=== PATIENT | female | born 1955 | race Two or more races ===

== ENCOUNTER 2020-06-15 08:31 | Outpatient (REF) | payer MEDICARE, MEDICAID, SELFPAY ==
[2020-06-15 10:58] LABS: MANUAL DIFF FLAG NO
[2020-06-15 11:00] LABS: Basophils Percent Auto 0.8 % (0-2); Eosinophils Absolute Auto 0.2 X10*3/uL (0.0-0.4); Eosinophils Percent Auto 3.6 % (0-4); Hematocrit 34.9 % (37-47); Hemoglobin 11.9 g/dl (12.0-16.0); Imm Gran Abs Auto 0.01 X10*3/uL (0.00-0.03); Imm Gran Pct Auto 0.2 % (0.0-0.4); Lymphocytes Absolute Auto 1.9 X10*3/uL (1.2-4.9); Lymphocytes Percent Auto 37.2 % (20-40); Mean Corpuscular HGB Conc 34.1 g/dl (31.0-35.0); Mean Corpuscular Hemoglobin 31.6 pg (27.0-33.0); Mean Corpuscular Volume 92.6 fL (80-98); Mean Platelet Volume 9.2 fL (9.4-12.3); Monocytes Absolute Auto 0.3 X10*3/uL (0.1-1.2); Monocytes Percent Auto 6.3 % (2-11); Neutrophils Absolute Auto 2.6 X10*3/uL (2.0-8.3); Neutrophils Percent Auto 51.9 % (45-73); Platelet Count 276 X10*3/uL (160-400); Red Blood Count 3.77 X10*6/uL (4.20-5.50); Red Cell Distribution Width 13.4 % (11.0-16.0); White Blood Count 5.1 X10*3/uL (4.8-10.8)
[2020-06-15 12:50] LABS: Alanine Aminotransferase 18 U/L (0-31); Alkaline Phosphatase 117 U/L (39-117); Anion Gap 15 (12-20); Aspartate Amino Transferase 18 U/L (5-31); Bilirubin Total < 0.2 mg/dL (0.0-1.0); Blood Urea Nitrogen 16 mg/dL (9-16); Calcium 8.8 mg/dL (8.4-10.2); Carbon Dioxide 25 mmol/L (22-29); Chloride 99 mmol/L (96-108); Estimated Glomerular Filt Rate > 60; Glucose Fasting 86 mg/dL (60-99); Potassium 4.4 mmol/l (3.3-5.1); Sodium 135 mmol/L (135-145); Total Protein 6.7 g/dL (6.5-8.0)
[2020-06-15 17:49] LABS: Estimated Average Glucose 111 mg/dL; Hemoglobin A1c % 5.5 %
== END 2020-06-15 08:32 | disposition home or self-care (01) ==
LOC: HO.WFDLDS 08:31
PROVIDERS: Visit Provider Family Medicine
DX: D64.9 Anemia, unspecified (principal); Z00.00 Encounter for general adult medical examination without abnormal findings; E11.40 Type 2 diabetes mellitus with diabetic neuropathy, unspecified
CPT/HCPCS: 36415; 80053; 83036; 85025

== ENCOUNTER → 2021-01-11 08:57 | Outpatient (BNVA) | payer MEDICARE, MEDICAID, SELFPAY | PROVIDERS: PCP Family Medicine; Visit Provider Obstetrics & Gynecology ==

== ENCOUNTER 2021-01-24 09:50 | Outpatient (REF) | payer MEDICARE, MEDICAID, SELFPAY ==
--- NOTE | ~2021-01-24 | XR_ITS ---
EXAMINATION: KNEE X-RAY CLINICAL INFORMATION: Pain COMPARISON: None TECHNIQUE: 3 views of each knee FINDINGS: Right: Bone alignment is normal. No fracture or dislocation is seen. There is degenerative meniscal calcification. There is arthritis at the patellofemoral joint. There is a small joint effusion. Left: Bone alignment is normal. No fracture or dislocation is seen. There is degenerative meniscal calcification. There is arthritis at the patellofemoral joint. There is no joint effusion. XR/XR knee LT 2V IMPRESSION: Mild degenerative changes.
--- NOTE | ~2021-01-24 | XR_ITS ---
EXAMINATION: KNEE X-RAY CLINICAL INFORMATION: Pain COMPARISON: None TECHNIQUE: 3 views of each knee FINDINGS: Right: Bone alignment is normal. No fracture or dislocation is seen. There is degenerative meniscal calcification. There is arthritis at the patellofemoral joint. There is a small joint effusion. Left: Bone alignment is normal. No fracture or dislocation is seen. There is degenerative meniscal calcification. There is arthritis at the patellofemoral joint. There is no joint effusion. XR/XR knee standing BI IMPRESSION: Mild degenerative changes.
--- NOTE | ~2021-01-24 | XR_ITS ---
EXAMINATION: KNEE X-RAY CLINICAL INFORMATION: Pain COMPARISON: None TECHNIQUE: 3 views of each knee FINDINGS: Right: Bone alignment is normal. No fracture or dislocation is seen. There is degenerative meniscal calcification. There is arthritis at the patellofemoral joint. There is a small joint effusion. Left: Bone alignment is normal. No fracture or dislocation is seen. There is degenerative meniscal calcification. There is arthritis at the patellofemoral joint. There is no joint effusion. XR/XR knee RT 2V IMPRESSION: Mild degenerative changes.
== END 2021-01-24 09:51 | disposition home or self-care (01) ==
LOC: HO.XRAY 09:50
PROVIDERS: Visit Provider Orthopaedic Surgery
DX: M17.0 Bilateral primary osteoarthritis of knee (principal); J44.9 Chronic obstructive pulmonary disease, unspecified; E11.40 Type 2 diabetes mellitus with diabetic neuropathy, unspecified; I10 Essential (primary) hypertension; E78.5 Hyperlipidemia, unspecified; G83.84 Todd's paralysis (postepileptic); R91.1 Solitary pulmonary nodule; Z91.81 History of falling; Z88.6 Allergy status to analgesic agent; Z88.8 Allergy status to other drugs, medicaments and biological substances
CPT/HCPCS: 20610; 73560; 73565; 99202; J1040

== ENCOUNTER 2021-02-08 11:00 | Outpatient (RCR) | payer MEDICARE, MEDICAID, SELFPAY | END 2021-12-13 15:02 | disposition home or self-care (01) | LOC: HO.PTWFD 11:00 | PROVIDERS: Visit Provider Family Medicine | DX: R29.898 Other symptoms and signs involving the musculoskeletal system (principal) | CPT/HCPCS: 97110; 97162; 97164; 97530; 97535 ==

== ENCOUNTER 2021-05-04 10:00 | Outpatient (REF) | payer MEDICARE, MEDICAID, SELFPAY | END 2021-05-04 10:01 | disposition home or self-care (01) | LOC: CF 10:00 | PROVIDERS: Visit Provider Surgery | DX: K43.2 Incisional hernia without obstruction or gangrene (principal) | CPT/HCPCS: 99202 ==

== ENCOUNTER 2021-05-04 12:09 | Outpatient (REF) | payer MEDICARE, MEDICAID, SELFPAY ==
--- NOTE | 2021-05-04 14:05 | MHC.AU.HFU ---
Hearing Instrument Follow-Up- Binaural Date of Visit: 05/04/21 Right Ear: Surfboard Designer: Phonak Model: Audeo M50-R Serial Number: [id number] Repair Warranty: 05/23/2023 Loss and Damage Warranty: 05/23/2023 Battery Size: Rechargeable Type of Mold: Slim Tip Type of Wax Guard: CeruStop Dispensed By: [facility] Date of Fittin03/30/2020 Left Ear: Surfboard Designer: Phonak Model: Audeo M50-R Serial Number: [id number] Repair Warranty: 05/23/2023 Loss and Damage Warranty: 05/23/2023 Battery Size: Rechargeable Type of Mold: Slim Tip Type of Wax Guard: Cerustop Dispensed By: [facility] Date of Fittin03/30/2020 Follow-Up Summary: Patient reports her right hearing aid stopping working. She also reports that she has to jiggle the cable on her charger operator helper in order to find the right position where it will start charging the hearing aids. Both hearing aids inspected. Right ironer was occluded w/cerumen. Slim tips cleaned. Wax guards replaced. Shell of hearing aids cleaned. Manager Floral inspected- port for power cord was loose. Patient was given a charger operator helper from stock- we will request a charger operator helper (under warranty) to replace our stock. Both hearing aids are amplifying clearly after maintenance. Otoscopy performed- minimal cerumen bilaterally. Recommendations: Hearing instrument follow-up or maintenance as needed. Please contact our clinic with any questions or concerns. Diagnosis Code(s): Primary Diagnosis: H90.3 Bilateral Sensorineural Hearing Loss Signature: Provider: Abbie Garcia, [facility]
== END 2021-05-04 12:10 | disposition home or self-care (01) ==
LOC: HO.HAP 12:09
PROVIDERS: Visit Provider Family Medicine
DX: Z46.1 Encounter for fitting and adjustment of hearing aid (principal); H90.3 Sensorineural hearing loss, bilateral
CPT/HCPCS: 92593; 99202

== ENCOUNTER 2021-05-14 09:22 | Outpatient (REF) | payer MEDICARE, MEDICAID, SELFPAY ==
[2021-05-14 10:17] LABS: Blood Urea Nitrogen 18 mg/dL (9-16); Estimated Glomerular Filt Rate 52
== END 2021-05-14 09:23 | disposition home or self-care (01) ==
LOC: HO.LAB 09:22
PROVIDERS: PCP Family Medicine; Visit Provider Surgery
DX: K43.2 Incisional hernia without obstruction or gangrene (principal)
CPT/HCPCS: 36415; 82565; 84520

== ENCOUNTER 2021-05-24 10:04 | Outpatient (REF) | payer MEDICARE, MEDICAID, SELFPAY ==
--- NOTE | ~2021-05-24 | CT_ITS ---
EXAMINATION: CT ABDOMEN AND PELVIS WITHOUT CONTRAST CLINICAL INFORMATION: Incisional hernia without obstruction or gangrene COMPARISON: None TECHNIQUE: Multidetector volumetric imaging was performed from the superior aspect of the liver through the pubic symphysis. Sagittal and coronal reformatted images were obtained on the technologist's workstation. This CT examination was performed using dose optimization techniques as appropriate, variously including the following: *Automated exposure control *Adjustment of mA and/or kV according to patient size (this includes techniques or standardized protocols for targeted exams where dose is matched to indication/reason for exam; i.e. extremities or head) *Use of iterative reconstruction technique DLP: 675 mGy-cm FINDINGS: LUNG BASES: There is plate-like atelectasis or scarring in left lung base. Heart size is normal. There are moderate coronary artery calcifications. LIVER, GALLBLADDER, AND BILIARY TREE: The liver is normal in size, shape, and attenuation. No focal hepatic lesion or biliary ductal dilatation is present. The gallbladder is unremarkable with no evidence of radiopaque gallstones, gallbladder wall thickening, or obvious pericholecystic inflammatory changes. PANCREAS: Unremarkable. SPLEEN: Unremarkable. ADRENAL GLANDS: Unremarkable. KIDNEYS AND URETERS: The kidneys are normal in size, shape, and attenuation. No hydronephrosis, hydroureter, or calculi seen. No perinephric stranding. BLADDER: Unremarkable. GASTROINTESTINAL TRACT: There is scattered stool and oral contrast seen throughout the colon without distention. The small bowel loops are normal caliber. Appendix is not seen. ABDOMINAL WALL: The abdominal wall appears unremarkable except for small umbilical hernia containing fat. LYMPH NODES: Normal. VASCULAR: Unremarkable. PELVIC VISCERA: The uterus is midline and appears unremarkable. There is no adnexal mass seen. No free air or free fluid. OSSEOUS STRUCTURES: No lytic or sclerotic process seen. CT/CT abdomen pelvis wo con IMPRESSION: Moderate constipation. No acute intra-abdominal process seen. Small umbilical hernia containing fat. No evidence of abdominal wall hernia.
[2021-05-24] MEDS: Barium Sulfate Oral (Vanilla) 450 ML ORAL.SUSP 900 ML PO (12:32)
== END 2021-05-24 10:05 | disposition home or self-care (01) ==
LOC: HO.CT 10:04
PROVIDERS: Visit Provider Surgery
DX: K43.2 Incisional hernia without obstruction or gangrene (principal)
CPT/HCPCS: 74176

== ENCOUNTER 2021-07-09 10:27 | Outpatient (REF) | payer MEDICARE, MEDICAID, SELFPAY ==
[2021-07-09 14:02] LABS: MANUAL DIFF FLAG NO
[2021-07-09 14:12] LABS: Basophils Absolute Auto 0.1 X10*3/uL (0.0-0.2); Basophils Percent Auto 0.5 % (0-2); Eosinophils Absolute Auto 0.2 X10*3/uL (0.0-0.4); Eosinophils Percent Auto 2.2 % (0-4); Hematocrit 34.8 % (37.0-47.0); Hemoglobin 11.8 g/dl (12.0-16.0); Imm Gran Abs Auto 0.05 X10*3/uL (0.00-0.03); Imm Gran Pct Auto 0.5 % (0.0-0.4); Lymphocytes Percent Auto 21.2 % (20-40); Mean Corpuscular HGB Conc 33.9 g/dl (31.0-35.0); Mean Corpuscular Hemoglobin 31.1 pg (27.0-33.0); Mean Corpuscular Volume 91.8 fL (80.0-98.0); Mean Platelet Volume 9.6 fL (9.4-12.3); Monocytes Absolute Auto 0.5 X10*3/uL (0.1-1.2); Monocytes Percent Auto 5.6 % (2-11); Neutrophils Absolute Auto 6.4 x10*3/uL (2.0-8.3); Platelet Count 340 X10*3/uL (160-400); Red Blood Count 3.79 X10*6/uL (4.20-5.50); Red Cell Distribution Width 13.9 % (11.0-16.0); White Blood Count 9.2 X10*3/uL (4.8-10.8)
[2021-07-09 14:29] LABS: Alanine Aminotransferase 25 U/L (0-31); Albumin Level 4.5 g/dL (3.5-5.0); Alkaline Phosphatase 158 U/L (39-117); Anion Gap 20 (12-20); Aspartate Amino Transferase 20 U/L (5-31); Bilirubin Total 0.2 mg/dL (0.0-1.0); Blood Urea Nitrogen 24 mg/dL (9-16); Calcium 9.9 mg/dL (8.4-10.2); Carbon Dioxide 21 mmol/L (22-29); Chloride 99 mmol/L (96-108); Estimated Average Glucose 148 mg/dL; Estimated Glomerular Filt Rate 51; Glucose Random 118 mg/dL (60-115); Hemoglobin A1c % 6.8 %; Potassium 4.1 mmol/L (3.3-5.1); Sodium 136 mmol/L (135-145); Total Protein 7.7 g/dL (6.5-8.0)
== END 2021-07-09 10:28 | disposition home or self-care (01) ==
LOC: HO.WFDLDS 10:27
PROVIDERS: Visit Provider Family Medicine
DX: Z00.00 Encounter for general adult medical examination without abnormal findings (principal); D64.9 Anemia, unspecified; E11.9 Type 2 diabetes mellitus without complications
CPT/HCPCS: 36415; 80053; 83036; 85025

== ENCOUNTER 2021-11-20 14:45 | Outpatient (REF) | payer MEDICARE, MEDICAID, SELFPAY ==
--- NOTE | ~2021-11-20 | MM_ITS ---
EXAMINATION: MM SCREENING DIGITAL BREAST TOMOSYNTHESIS, BILATERAL CLINICAL INFORMATION: Screening. Asymptomatic. The lifetime risk of breast cancer based on the Tyrer-Cuzick Model is 9%. COMPARISON: Mammography: 05/09/2020; outside mammography 12/26/2014, 05/19/2014, 11/02/2013, 01/18/2013 ([facility], [place]). TECHNIQUE: Digital breast tomosynthesis is performed in both the craniocaudal and mediolateral oblique views along with computer-aided detection (CAD). Synthesized 2D images are generated from the tomosynthesis. FINDINGS: There are scattered areas of fibroglandular density (ACR BI-RADS breast composition Category b). Breast tissue composition borders on heterogeneously dense. Parenchymal pattern is similar to prior studies. There is no developing density or interval mass or architectural abnormality. There are scattered bilateral benign coarse round calcifications as well as some ductal secretory calcifications posterior medial right breast. The axilla and skin contours are unremarkable. No significant changes. MM/MM tomosynthesis screening BI IMPRESSION: No mammographic evidence of malignancy. ASSESSMENT: BI-RADS 2: Benign RECOMMENDATION: Routine annual mammography screening. This patient's information was entered into a reminder system with a target due date for their next mammogram.
== END 2021-11-20 14:46 | disposition home or self-care (01) ==
LOC: HO.MAMMO 14:45
PROVIDERS: Visit Provider Family Medicine
DX: Z12.31 Encounter for screening mammogram for malignant neoplasm of breast (principal)
CPT/HCPCS: 77063; 77067

== ENCOUNTER 2022-01-15 08:46 | Outpatient (REF) | payer MEDICARE, MEDICAID, SELFPAY ==
[2022-01-15 16:52] LABS: CT PCR NOT DETECTED (Not Detect.)
[2022-01-15 16:53] LABS: NG PCR NOT DETECTED (Not Detect.)
[2022-01-16 13:00] LABS: BV Int Neg Control Negative (Negative); BV Int Pos Control Positive (Positive)
== END 2022-01-15 08:47 | disposition home or self-care (01) ==
LOC: HO.LAB 08:46
PROVIDERS: PCP Family Medicine; Visit Provider Obstetrics & Gynecology
DX: Z01.411 Encounter for gynecological examination (general) (routine) with abnormal findings (principal); N89.8 Other specified noninflammatory disorders of vagina; Z78.0 Asymptomatic menopausal state
CPT/HCPCS: 87480; 87491; 87510; 87591; 87660; 99212

== ENCOUNTER 2022-01-30 09:28 | Outpatient (REF) | payer MEDICARE, MEDICAID, SELFPAY ==
--- NOTE | ~2022-01-30 | MM_ITS ---
EXAMINATION: BONE DENSITOMETRY CLINICAL INDICATION: Menopause. COMPARISON: None (current study represents initial baseline exam). TECHNIQUE: Using a [employer] DXA System (software version: 13.1) manufactured by [employer], dual-energy x-ray absorptiometry was performed of the lumbar spine and left hip. The images are of good technical quality. Summary results are attached. FINDINGS: AP SPINE L1-L2 (excluding L3 and L4): The data of L1-L4 has been changed to exclude the L3 and L4 vertebral bodies because degenerative changes at these levels may cause overestimation of the lumbar spine density. BMD 1.135 g/cm2, Z-score -0.5, T-score -0.2, normal. LEFT FEMUR, NECK: BMD 1.085 g/cm2, Z-score 0.3, T-score 0.3, normal. LEFT FEMUR, TOTAL: BMD 1.119 g/cm2, Z-score 0.4, T-score 0.9, normal. IDENTIFIED RISK FACTORS: Menopause, anticonvulsant. HISTORY OF FRACTURE: None listed. MEDICATIONS: Calcium, vitamin D. MM/XR DEXA axial skeleton IMPRESSION: 1. DIAGNOSIS: Normal bone density based on the lowest T-score value of -0.2 in the lumbar spine applying World Health Organization criteria. 2. 10-YEAR FRACTURE RISK PREDICTION, FRAX: According to the guidelines, FRAX calculation should only be performed on patients in the osteopenia bone density category. Therefore, FRAX was not performed on this patient. 3. Treatment Recommendations: NOF guidelines recommend consideration for treatment in postmenopausal women and men age 50 and older presenting with the following: -A hip or vertebral (clinical or morphometric) fracture. -T-score less than or equal to -2.5 at the femoral neck or spine after appropriate evaluation to exclude secondary causes. -Low bone mass at the hip or spine and a 10-year fracture probability by FRAX of greater than or equal to 3% for hip fracture or greater than or equal to 20% for major osteoporotic fracture based on the [place] adapted WHO algorithm. 4. Other Recommendations: All treatment decisions require clinical judgment and consideration of individual patient factors, including patient preferences, comorbidities, previous drug use, risk factors not captured in the FRAX model (e.g. frailty, falls, vitamin D deficiency, increased bone turnover, interval significant decline in bone density) and possible under or overestimation of fracture risk by FRAX. FUTURE SCAN RECOMMENDATION: People with diagnosed cases of osteoporosis or at high risk for fracture should have regular bone mineral density tests. For patients eligible for Medicare, routine testing is allowed once every 2 years. The testing frequency can be increased to one year for patients who have rapidly progressing disease, those who are receiving or discontinuing medical therapy to restore bone mass, or have additional risk factors.
== END 2022-01-30 09:29 | disposition home or self-care (01) ==
LOC: HO.MAMMO 09:28
PROVIDERS: PCP Family Medicine; Visit Provider Obstetrics & Gynecology
DX: Z13.820 Encounter for screening for osteoporosis (principal); Z78.0 Asymptomatic menopausal state
CPT/HCPCS: 77080

== ENCOUNTER 2022-02-22 10:00 | Outpatient (RCR) | payer MEDICARE, MEDICAID, SELFPAY ==
--- NOTE | 2021-11-29 15:38 | MHC.PT.EP ---
[facility] [place] Office [place] Office [place] Office [address] Beryl Esqueda [address] [phone] F: [phone] F: [phone] F: [phone] F: [phone] Physical Therapy Plan of Care Date of Evaluation: Date of Surgery: NA Diagnosis: MALAISE Assessment: Pt IS 66 YO F REFERRED TO PT FROM DR VAZQUEZ WITH MALAISE. Pt REPORTS SHE HAD PT LAST YEAR BUT NEVER FINISHED SESSIONS BECAUSE OF HOSPITAL ADMISSION (LEG PAIN). PRESENTS AT THIS TIME WITH ANTALGIC GT WITH ROLLATOR, DECREASED BALANCE, OVERALL STRENGTH AND ENDURANCE. 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 REPORTS SOME RELIEF WITH PT IN PAST AND MAY THEREFORE BENEFIT FROM SOME THERAPY AT THIS TIME TO HELP WITH OVERALL STRENGTH, FLEXIBILITY, GT/BALANCE Frequency and Duration: The patient will be seen 2X/WK X 8 WKS Short Term Goals: 1. I HEP WITH DC EX PLAN 2. I PERF PLB PRN TO SETTLE SANDOVAL Elevator Runner Goals: 1. IMPROVED TUG 2. MOD I TRANSFERS T/O 3. Pt ABLE TO PERF 20 R SLR B, 20 R BRIDGE B Treatment Plan: Modalities to reduce pain, spasms and effusion. Manual therapy to restore motion and function. Therapeutic exercise to improve strength and flexibility. Neuromuscular re-education for posture and balance. Therapeutic activities to return to functional activities of daily living. Electronically signed by: BEBO ARELLANO PT Please sign and return to therapist. Thank you for your referral.
== END 2022-03-01 11:47 | disposition home or self-care (01) ==
LOC: HO.PTWFD 10:00
PROVIDERS: Visit Provider Family Medicine
DX: R53.81 Other malaise (principal)
CPT/HCPCS: 97110; 97162; 97530

== ENCOUNTER → 2022-03-21 11:08 | Outpatient (BNVA) | payer MEDICARE, MEDICAID, SELFPAY | PROVIDERS: PCP Family Medicine; Visit Provider Obstetrics & Gynecology | DX: M85.80 Other specified disorders of bone density and structure, unspecified site (principal) | CPT/HCPCS: 99212 ==

== ENCOUNTER → 2022-07-15 12:53 | Outpatient (BNVA) | payer MEDICARE, MEDICAID, SELFPAY | PROVIDERS: PCP Family Medicine; Visit Provider Urology | DX: R32 Unspecified urinary incontinence (principal); N32.81 Overactive bladder | CPT/HCPCS: 51798; 99202 ==

== ENCOUNTER 2022-08-15 09:00 | Outpatient (REF) | payer MEDICARE, MEDICAID, SELFPAY | END 2022-08-15 09:01 | disposition home or self-care (01) | LOC: HO.HAP 09:00 | PROVIDERS: Visit Provider Family Medicine | DX: Z46.1 Encounter for fitting and adjustment of hearing aid (principal); H90.3 Sensorineural hearing loss, bilateral | CPT/HCPCS: 92593 ==

== ENCOUNTER 2022-11-11 10:26 | Outpatient (REF) | payer MEDICARE, MEDICAID, SELFPAY ==
--- NOTE | ~2022-11-11 | US_ITS ---
EXAMINATION: US RETROPERITONEAL LIMITED (RENAL ONLY) CLINICAL INFORMATION: Overactive bladder. COMPARISON: CT abdomen and pelvis without contrast 05/24/2021. TECHNIQUE: Real-time imaging of the kidneys. FINDINGS: RIGHT KIDNEY: 9.8 x 5.1 x 4.2 cm (SAG x AP x TRV). The kidney is normal in size, contour, and echogenicity. Renal cortical thickness is normal. No calculi or focal parenchymal lesions. No hydronephrosis. LEFT KIDNEY: 10.0 x 5.2 x 5.0 cm (SAG x AP x TRV). The kidney is normal in size, contour, and echogenicity. Renal cortical thickness is normal. No calculi or focal parenchymal lesions. No hydronephrosis. US/US renal BI IMPRESSION: Normal-appearing kidneys.
== END 2022-11-11 10:27 | disposition home or self-care (01) ==
LOC: HO.US 10:26
PROVIDERS: PCP Family Medicine; Visit Provider Urology
DX: N32.81 Overactive bladder (principal); R32 Unspecified urinary incontinence
CPT/HCPCS: 76775

== ENCOUNTER 2022-11-12 15:54 | Emergency (ER) | payer MEDICARE, MEDICAID, SELFPAY ==
--- NOTE | ~2022-11-12 | CT_ITS ---
EXAMINATION: CT ABDOMEN AND PELVIS WITHOUT CONTRAST CLINICAL INFORMATION: Diffuse abdominal pain, nausea, vomiting. COMPARISON: CT abdomen and pelvis noncontrast 05/24/2021. TECHNIQUE: Multidetector volumetric imaging was performed from the superior aspect of the liver through the pubic symphysis. No oral or intravenous contrast. Sagittal and coronal reformatted images were obtained on the technologist's workstation. This CT examination was performed using dose optimization techniques as appropriate, variously including the following: *Automated exposure control *Adjustment of mA and/or kV according to patient size (this includes techniques or standardized protocols for targeted exams where dose is matched to indication/reason for exam; i.e. extremities or head) *Use of iterative reconstruction technique DLP: 771 mGy-cm FINDINGS: LUNG BASES: The visualized lung bases are unremarkable. LIVER, GALLBLADDER, AND BILIARY TREE: The liver is normal in size, shape, and attenuation. No focal hepatic lesion or biliary ductal dilatation is present. The gallbladder is unremarkable with no evidence of radiopaque gallstones, gallbladder wall thickening, or obvious pericholecystic inflammatory changes. PANCREAS: Unremarkable. SPLEEN: Unremarkable. ADRENAL GLANDS: Unremarkable. KIDNEYS AND URETERS: The kidneys are normal in size, shape, and attenuation. No hydronephrosis, hydroureter, or calculi seen. No perinephric stranding. BLADDER: Unremarkable. GASTROINTESTINAL TRACT: There is some fatty herniation at the esophageal hiatus without overt hiatal hernia. There is moderate stool throughout the colon. No proximal bowel dilatation. No pneumatosis or free air. No bowel wall thickening or inflammatory changes in the mesentery. The appendix is not seen with certainty, not visualized on prior CT. No inflammatory changes around the terminal ileum or cecum. No ascites or fluid collection. ABDOMINAL WALL: No significant hernia is appreciated. LYMPH NODES: No lymphadenopathy. VASCULAR: Coronary artery atherosclerotic calcifications. PELVIC VISCERA: No adnexal mass or pelvic ascites. OSSEOUS STRUCTURES: Unremarkable. CT/CT abdomen pelvis wo IV con IMPRESSION: -Moderate stool throughout colon. No proximal bowel dilatation or inflammatory changes in abdomen or pelvis. -No hydronephrosis or perinephric stranding.
[2022-11-12 16:09] VITALS: BP 140/87; PULSE 79; RESP 18; TEMP 36.6; O2SAT 100; BMI 37.8
--- NOTE | 2022-11-12 16:10 | ED.ABDPAIN ---
HPI - Abdominal Pain General Chief Complaint: Abdominal Pain <MARILYN Parmar - Last Filed: 11/12/22 19:11> Stated Complaint: abdominal pain <MARILYN Parmar - Last Filed: 11/12/22 19:11> Time Seen by Provider: 11/12/22 19:28 <MARILYN Parmar - Last Filed: 11/12/22 19:11> Source: patient <Gely Pittman MD - Last Filed: 11/13/22 01:36> Mode of arrival: EMS <Gely Pittman MD - Last Filed: 11/13/22 01:36> History of Present Illness HPI narrative: 66-year-old female is brought in from home by EMS for evaluation of low sodium, patient states that she has been having lower abdominal discomfort for several days and has diarrhea at baseline but otherwise denies any fever, chills has had some mild nausea but no vomiting. Patient states that her primary care provider requested that she be brought in for evaluation. Patient states that she has not been able to eat very much due to feelings of early satiety. <Gely Pittman MD - Last Filed: 11/13/22 01:36> Related Data Home Medications: Home Medications Medication Instructions Recorded Confirmed albuterol sulfate 90 mcg/actuation 1 puff PO Q4H PRN 05/12/20 11/07/22 aerosol inhaler montelukast 10 mg tablet 10 mg PO DAILY 05/12/20 11/07/22 albuterol sulfate 2.5 mg/3 mL mg inhalation Q6H PRN wheezing 05/31/20 11/07/22 (0.083 %) solution for nebulization benzonatate 100 mg capsule 100 mg PO TID PRN cough 05/31/20 11/07/22 budesonide-formoterol HFA 160 2 puff inhalation BID 05/31/20 11/07/22 mcg-4.5 mcg/actuation aerosol inhaler diphenhydramine HCl 25 mg capsule 25 mg PO Q8H PRN itch 05/31/20 11/07/22 fluticasone propionate 110 2 puff inhalation BID 05/31/20 11/07/22 mcg/actuation HFA aerosol inhaler levetiracetam 1,000 mg tablet 1,000 mg PO BID 05/31/20 11/07/22 losartan 100 mg tablet 100 mg PO DAILY 05/31/20 11/07/22 sertraline 50 mg tablet 50 mg PO DAILY 10/26/20 11/07/22 fluticasone fur. 200 mcg-umeclid 1 ea inhalation DAILY 02/23/21 11/07/22 62.5 mcg-vilant 25 mcg inhalat.powder famotidine 20 mg tablet 20 mg PO BID 05/04/21 11/07/22 Previous Rx's Medication Instructions Recorded benztropine 1 mg tablet 1 mg PO BID #180 tabs 08/14/20 trazodone 50 mg tablet 100 mg PO BEDTIME 30 days #60 tabs 09/24/20 risperidone 1 mg tablet 1 mg PO BID #60 tabs 10/01/20 antiarthritic combination no.2 900 900 mg PO DAILY 30 days #30 tabs 01/16/21 mg tablet (glucosamine-chondroitin) glucosamine sulf dipotassium Cl 1 tab PO DAILY 90 days #90 tabs 01/18/21 750 mg-chondroitin sulf 600 mg tablet blood-glucose meter (FreeStyle #1 ea 08/17/21 Lite Meter kit) carbamazepine 200 mg tablet 200 mg PO BID 3 months #180 tabs 11/01/21 diclofenac sodium 1 % topical gel 1 - 2 g topical QID #200 grams 11/01/21 omeprazole 40 mg capsule,delayed 40 mg PO DAILY #90 caps 01/24/22 release citalopram 40 mg tablet 20 mg PO DAILY 90 days #45 tabs 01/28/22 lancets 28 gauge (FreeStyle 28 gauge topical BID #100 caps 04/01/22 Lancets) atorvastatin 40 mg tablet 40 mg PO DAILY #90 tabs 05/23/22 hydralazine 25 mg tablet 25 mg PO TID #270 tabs 05/23/22 hydrochlorothiazide 50 mg tablet 50 mg PO DAILY 90 days #90 tabs 05/23/22 metformin 500 mg tablet 1,000 mg PO BID #360 tabs 05/23/22 multivitamin (One Daily 1 tab PO DAILY #90 tabs 06/25/22 Multivitamin tablet) simethicone 80 mg chewable tablet 80 mg PO BID-QID PRN for abdominal 06/25/22 pain #90 tabs oxybutynin chloride 10 mg 10 mg PO DAILY #90 tabs 07/15/22 tablet,extended release 24 hr diaper,brief,adult,disposable #300 ea 07/17/22 (Briefs, Adult-Extra Large) incontinence pad, liner, disp #300 ea 07/17/22 amlodipine 10 mg tablet 10 mg PO DAILY #90 tabs 07/23/22 ibuprofen 600 mg tablet 600 mg PO TID PRN for pain #90 tabs 08/19/22 mecobalamin (vitamin B12) 1,000 1,000 mcg PO DAILY 90 days #90 tabs 08/26/22 mcg chewable tablet pregabalin 100 mg capsule 100 mg PO TID 30 days #90 caps 09/12/22 clopidogrel 75 mg tablet 75 mg PO DAILY 90 days #90 tabs 09/18/22 dulaglutide 1.5 mg/0.5 mL 1.5 mg (0.5 mL) subcut QWEEK 28 09/20/22 subcutaneous pen injector days #2 mL blood sugar diagnostic (FreeStyle #200 ea 09/30/22 Lite Strips) celecoxib 200 mg capsule 200 mg PO BID #60 caps 10/02/22 glipizide 10 mg tablet, extended 10 mg PO BID 30 days #60 tabs 11/07/22 release 24 hr ondansetron 4 mg disintegrating 4 mg PO Q8H PRN nausea and 11/07/22 tablet vomiting 7 days #21 tabs <MARILYN Parmar - Last Filed: 11/12/22 19:11> Allergies/Adverse Reactions: Allergies Allergy/AdvReac Type Severity Reaction Status Date / Time aspirin [ASA] Allergy Unknown RASH Verified 08/08/22 09:35 phenytoin [From DILANTIN] AdvReac Unknown SWELLING Verified 08/08/22 09:35 <MARILYN Parmar - Last Filed: 11/12/22 19:11> Review of Systems Review of Systems Pertinent positives and negatives as stated in HPI <Gely Pittman MD - Last Filed: 11/13/22 01:36> PMFSH Past Medical History Source: nursing notes reviewed <Gely Pittman MD - Last Filed: 11/13/22 01:36> Medical History: Medical History Anxiety disorder, unspecified Bilateral primary osteoarthritis of knee Chronic obstructive pulmonary disease, unspecified Constipation due to slow transit Controlled diabetes mellitus with diabetic neuropathy, without long-term current use of insulin Diabetes Epilepsy, unspecified, not intractable, without status epilepticus Essential (primary) hypertension Gait instability Hyperlipidemia, unspecified Neuropathy Dash's paralysis (postepileptic) Unspecified asthma, uncomplicated Unspecified hearing loss, bilateral <MARILYN Parmar - Last Filed: 11/12/22 19:11> Surgical History: Surgical History History of solitary pulmonary nodule <MARILYN Parmar - Last Filed: 11/12/22 19:11> Family History Family History: Family History Father Bone cancer Mother Breast cancer Brother No problems noted. Brother No problems noted. Brother No problems noted. Sister No problems noted. Sister Uterine cancer Son No problems noted. Son No problems noted. Daughter No problems noted. Daughter No problems noted. Other Mental health disorder Substance use disorder <MARILYN Parmar - Last Filed: 11/12/22 19:11> Social History Social History: Social History Housing: Apartment Alcohol intake: never Patient Tobacco Use Status: Never used Tobacco Smoked in Last 30 Days: No e-Cigarette/Vaping Use: Never Used Second Hand Smoke Exposure: No Use of substances other than those prescribed or required for medical reasons: No Advance Directives: No Advance Directives Information Provided: No service: No Current occupational status: retired Current occupation: Right Handed Current occupational exposures/hazards: No Cognitive needs: No Hearing needs: No Vision needs: No <MARILYN Parmar Last Filed: 11/12/22 19:11> Physical Exam ED Vital Signs: Vital Signs - 24 hr 11/12/22 16:09 11/12/22 22:21 11/12/22 22:44 Temperature 98 F Pulse Rate 79 76 96 Respiratory Rate 18 19 20 Blood Pressure 140/87 H 142/86 H 190/87 H Pulse Oximetry 100 97 98 Oxygen Delivery Method Room Air Room Air Room Air 11/12/22 23:49 11/13/22 01:22 Temperature 97.8 F 102.7 F H Pulse Rate 71 99 Respiratory Rate 18 21 H Blood Pressure 159/81 H Pulse Oximetry 98 96 Oxygen Delivery Method Room Air Room Air BMI result Body Mass Index 37.8 <MARILYN Parmar - Last Filed: 11/12/22 19:11> Vital Signs - 24 hr 11/12/22 16:09 11/12/22 22:21 11/12/22 22:44 Temperature 98 F Pulse Rate 79 76 96 Respiratory Rate 18 19 20 Blood Pressure 140/87 H 142/86 H 190/87 H Pulse Oximetry 100 97 98 Oxygen Delivery Method Room Air Room Air Room Air 11/12/22 23:49 11/13/22 01:22 Temperature 97.8 F 102.7 F H Pulse Rate 71 99 Respiratory Rate 18 21 H Blood Pressure 159/81 H Pulse Oximetry 98 96 Oxygen Delivery Method Room Air Room Air BMI result Body Mass Index 37.8 VITAL SIGNS: Reviewed. GENERAL: Well developed, well nourished, in no acute distress. HEAD: Normocephalic/atraumatic EYES: PERRLA, EOMI EARS: Ext canals without abnormality OROPHARYNX: no oral lesions noted, posterior pharynx clear, dry mucosa NECK: Supple, no adenopathy LUNGS: Normal breath sounds. No adventitious sounds or accessory muscle use. SpO2<100> CARDIOVASCULAR: Regular rate and rhythm without noted murmurs, no JVD or lower extremity edema. ABDOMEN: Soft, abdominal discomfort over mid abdomen to suprapubic area without rebound, non-distended with bowel sounds. MUSCULOSKELETAL: No tenderness, deformities, or effusions noted on gross inspection. EXTREMITIES: No cyanosis, clubbing or edema. SKIN: Inspection of the skin reveals no rashes NEUROLOGIC: Alert and oriented x 4. Strength and sensation to light touch were grossly intact x 4. <Gely Pittman MD - Last Filed: 11/13/22 01:36> Course Course Course Narrative: This is an RME: Additional HPI, ROS, PE not included below will be deferred to primary provider. 66-year-old female history of diabetes and hypertension presents by ambulance for evaluation of nausea, vomiting, fatigue, malaise, right lower quadrant abdominal pain times a few weeks. She tells me she recently had labs done and she thinks her sodium was low however she is unsure. Patient poor historian physical exam Diffuse abdominal discomfort plan basic labs, imaging, urine. <MARILYN Parmar Last Filed: 11/12/22 19:11> Reevaluation(s) Reevaluation #1: Critical labs from the lab line discussed with this TARA. Critically low mag and na trying to find a bed in the main ed. Family upset about wait time I explained to them I spoke to charge nurse we are trying to find a bed w/ contract management specialist. Patient next in line ot go back <MARILYN Parmar Last Filed: 11/12/22 19:11> Time: 19:00 <MARILYN Parmar Last Filed: 11/12/22 19:11> Reevaluation #2: Family upset and state they are taking patient patient leaving the hospital and being taken to another hospital I explained to family this is dangerous. Family chooses to leave. <MARILYN Parmar Last Filed: 11/12/22 19:11> Time: 19:11 <MARILYN Parmar Last Filed: 11/12/22 19:11> Medical Decision Making Medical Decision Making MDM Narrative: 66-year-old female with 2 weeks of worsening abdominal discomfort, decreased appetite with mild nausea but has continued to have bowel movements and also reports pain over the suprapubic area. Patient states that she has been unable to urinate well for at least 2 days. Reviewed all investigations, bladder scan demonstrates significant urinary retention that is likely secondary to patient's constipation. There is no evidence of UTI, patient had undergo a total of 4 g of magnesium replacement with final value 1.9. She is feeling much better and is otherwise stable for discharge to home and follow-up with her primary care provider. <Gely Pittman MD - Last Filed: 11/13/22 01:36> Differential Diagnosis Please see the discussion above <Gely Pittman MD - Last Filed: 11/13/22 01:36> Lab Data Please see the discussion above <Gely Pittman MD - Last Filed: 11/13/22 01:36> Result Diagrams: 11/12/22 17:04 04/04/23 17:04 <MARILYN Parmar - Last Filed: 11/12/22 19:11> Labs: Lab Results 11/12/22 11/12/22 11/12/22 Range/Units 17:04 17:04 17:04 WBC 6.8 (4.8-10.8) X10*3/uL RBC 3.58 L (4.20-5.50) X10*6/uL Hgb 10.7 L (12.0-16.0) g/dl Hct 30.9 L (37.0-47.0) % MCV 86.3 (80.0-98.0) fL MCH 29.9 (27.0-33.0) pg MCHC 34.6 (31.0-35.0) g/dl RDW 13.9 (11.0-16.0) % Plt Count 333 (160-400) X10*3/uL MPV 8.7 L (9.4-12.3) fL Immature Gran % (Auto) 0.4 (0.0-0.4) % Neut % (Auto) 61.2 (45-73) % Lymph % (Auto) 26.0 (20-40) % Butler % (Auto) 8.5 (2-11) % Eos % (Auto) 3.2 (0-4) % Baso % (Auto) 0.7 (0-2) % Lymph # (Auto) 1.8 (1.2-4.9) X10*3/uL Butler # (Auto) 0.6 (0.1-1.2) X10*3/uL Eos # (Auto) 0.2 (0.0-0.4) X10*3/uL Baso # (Auto) 0.1 (0.0-0.2) X10*3/uL Abs Immat Gran (auto) 0.03 (0.00-0.03) X10*3/uL Absolute Neuts (auto) 4.2 (2.0-8.3) x10*3/uL Absolute Nucleated RBC 0.000 (0.0-0.012) X10*3/uL Nucleated RBC % (auto) 0.0 (0.0-0.2) /100WBC Sodium 127 L (135-145) mmol/L Potassium 3.6 (3.3-5.1) mmol/L Chloride 89 L (96-108) mmol/L Carbon Dioxide 26 (22-29) mmol/L Anion Gap 16 (12-20) BUN 17 H (9-16) mg/dL Creatinine 1.05 (0.5-1.4) mg/dL Estim Creat Clear Calc 58.8 Estimated GFR 52 Random Glucose 107 (60-115) mg/dL Calcium 9.1 D (8.4-10.2) mg/dL Magnesium 0.9 L* (1.6-2.6) mg/dL Total Bilirubin 0.3 (0.0-1.0) mg/dL AST 23 (5-31) U/L ALT 29 (0-31) U/L Alkaline Phosphatase 108 (39-117) U/L Total Protein 6.8 (6.5-8.0) g/dL Albumin 4.2 (3.5-5.0) g/dL Lipase 19 (8-78) U/L Urine Color Urine Appearance Urine pH (5.0-9.0) Ur Specific [place] (1.005-1.025) Urine Protein (Neg-Trace) mg/dL Urine Glucose (UA) (Negative) mg/dL Urine Ketones (Negative) mg/dL Urine Blood (Negative) Urine Nitrite (Negative) Ur Leukocyte Esterase (Negative) COVID-19 (VICKIE) Negative (Negative) COVID-19 Clin Com See Note 11/12/22 11/12/22 11/13/22 Range/Units 20:29 22:23 00:57 WBC (4.8-10.8) X10*3/uL RBC (4.20-5.50) X10*6/uL Hgb (12.0-16.0) g/dl Hct (37.0-47.0) % MCV (80.0-98.0) fL MCH (27.0-33.0) pg MCHC (31.0-35.0) g/dl RDW (11.0-16.0) % Plt Count (160-400) X10*3/uL MPV (9.4-12.3) fL Immature Gran % (Auto) (0.0-0.4) % Neut % (Auto) (45-73) % Lymph % (Auto) (20-40) % Butler % (Auto) (2-11) % Eos % (Auto) (0-4) % Baso % (Auto) (0-2) % Lymph # (Auto) (1.2-4.9) X10*3/uL Butler # (Auto) (0.1-1.2) X10*3/uL Eos # (Auto) (0.0-0.4) X10*3/uL Baso # (Auto) (0.0-0.2) X10*3/uL Abs Immat Gran (auto) (0.00-0.03) X10*3/uL Absolute Neuts (auto) (2.0-8.3) x10*3/uL Absolute Nucleated RBC (0.0-0.012) X10*3/uL Nucleated RBC % (auto) (0.0-0.2) /100WBC Sodium 128 L (135-145) mmol/L Potassium 3.4 (3.3-5.1) mmol/L Chloride 90 L (96-108) mmol/L Carbon Dioxide 26 (22-29) mmol/L Anion Gap 15 (12-20) BUN 15 (9-16) mg/dL Creatinine 0.86 (0.5-1.4) mg/dL Estim Creat Clear Calc 71.8 Estimated GFR > 60 Random Glucose 113 (60-115) mg/dL Calcium 9.1 (8.4-10.2) mg/dL Magnesium 1.3 L* 1.9 (1.6-2.6) mg/dL Total Bilirubin 0.4 (0.0-1.0) mg/dL AST 22 (5-31) U/L ALT 28 (0-31) U/L Alkaline Phosphatase 104 (39-117) U/L Total Protein 6.6 (6.5-8.0) g/dL Albumin 4.0 (3.5-5.0) g/dL Lipase (8-78) U/L Urine Color Yellow Urine Appearance Clear Urine pH 5.5 (5.0-9.0) Ur Specific [place] 1.010 (1.005-1.025) Urine Protein Negative (Neg-Trace) mg/dL Urine Glucose (UA) Negative (Negative) mg/dL Urine Ketones Negative (Negative) mg/dL Urine Blood Negative (Negative) Urine Nitrite Negative (Negative) Ur Leukocyte Esterase Negative (Negative) COVID-19 (VICKIE) (Negative) COVID-19 Clin Com <MARILYN Parmar - Last Filed: 11/12/22 19:11> Lab Results 11/12/22 11/12/22 11/12/22 Range/Units 17:04 17:04 17:04 WBC 6.8 (4.8-10.8) X10*3/uL RBC 3.58 L (4.20-5.50) X10*6/uL Hgb 10.7 L (12.0-16.0) g/dl Hct 30.9 L (37.0-47.0) % MCV 86.3 (80.0-98.0) fL MCH 29.9 (27.0-33.0) pg MCHC 34.6 (31.0-35.0) g/dl RDW 13.9 (11.0-16.0) % Plt Count 333 (160-400) X10*3/uL MPV 8.7 L (9.4-12.3) fL Immature Gran % (Auto) 0.4 (0.0-0.4) % Neut % (Auto) 61.2 (45-73) % Lymph % (Auto) 26.0 (20-40) % Butler % (Auto) 8.5 (2-11) % Eos % (Auto) 3.2 (0-4) % Baso % (Auto) 0.7 (0-2) % Lymph # (Auto) 1.8 (1.2-4.9) X10*3/uL Butler # (Auto) 0.6 (0.1-1.2) X10*3/uL Eos # (Auto) 0.2 (0.0-0.4) X10*3/uL Baso # (Auto) 0.1 (0.0-0.2) X10*3/uL Abs Immat Gran (auto) 0.03 (0.00-0.03) X10*3/uL Absolute Neuts (auto) 4.2 (2.0-8.3) x10*3/uL Absolute Nucleated RBC 0.000 (0.0-0.012) X10*3/uL Nucleated RBC % (auto) 0.0 (0.0-0.2) /100WBC Sodium 127 L (135-145) mmol/L Potassium 3.6 (3.3-5.1) mmol/L Chloride 89 L (96-108) mmol/L Carbon Dioxide 26 (22-29) mmol/L Anion Gap 16 (12-20) BUN 17 H (9-16) mg/dL Creatinine 1.05 (0.5-1.4) mg/dL Estim Creat Clear Calc 58.8 Estimated GFR 52 Random Glucose 107 (60-115) mg/dL Calcium 9.1 D (8.4-10.2) mg/dL Magnesium 0.9 L* (1.6-2.6) mg/dL Total Bilirubin 0.3 (0.0-1.0) mg/dL AST 23 (5-31) U/L ALT 29 (0-31) U/L Alkaline Phosphatase 108 (39-117) U/L Total Protein 6.8 (6.5-8.0) g/dL Albumin 4.2 (3.5-5.0) g/dL Lipase 19 (8-78) U/L Urine Color Urine Appearance Urine pH (5.0-9.0) Ur Specific [place] (1.005-1.025) Urine Protein (Neg-Trace) mg/dL Urine Glucose (UA) (Negative) mg/dL Urine Ketones (Negative) mg/dL Urine Blood (Negative) Urine Nitrite (Negative) Ur Leukocyte Esterase (Negative) COVID-19 (VICKIE) Negative (Negative) COVID-19 Clin Com See Note 11/12/22 11/12/22 11/13/22 Range/Units 20:29 22:23 00:57 WBC (4.8-10.8) X10*3/uL RBC (4.20-5.50) X10*6/uL Hgb (12.0-16.0) g/dl Hct (37.0-47.0) % MCV (80.0-98.0) fL MCH (27.0-33.0) pg MCHC (31.0-35.0) g/dl RDW (11.0-16.0) % Plt Count (160-400) X10*3/uL MPV (9.4-12.3) fL Immature Gran % (Auto) (0.0-0.4) % Neut % (Auto) (45-73) % Lymph % (Auto) (20-40) % Butler % (Auto) (2-11) % Eos % (Auto) (0-4) % Baso % (Auto) (0-2) % Lymph # (Auto) (1.2-4.9) X10*3/uL Butler # (Auto) (0.1-1.2) X10*3/uL Eos # (Auto) (0.0-0.4) X10*3/uL Baso # (Auto) (0.0-0.2) X10*3/uL Abs Immat Gran (auto) (0.00-0.03) X10*3/uL Absolute Neuts (auto) (2.0-8.3) x10*3/uL Absolute Nucleated RBC (0.0-0.012) X10*3/uL Nucleated RBC % (auto) (0.0-0.2) /100WBC Sodium 128 L (135-145) mmol/L Potassium 3.4 (3.3-5.1) mmol/L Chloride 90 L (96-108) mmol/L Carbon Dioxide 26 (22-29) mmol/L Anion Gap 15 (12-20) BUN 15 (9-16) mg/dL Creatinine 0.86 (0.5-1.4) mg/dL Estim Creat Clear Calc 71.8 Estimated GFR > 60 Random Glucose 113 (60-115) mg/dL Calcium 9.1 (8.4-10.2) mg/dL Magnesium 1.3 L* 1.9 (1.6-2.6) mg/dL Total Bilirubin 0.4 (0.0-1.0) mg/dL AST 22 (5-31) U/L ALT 28 (0-31) U/L Alkaline Phosphatase 104 (39-117) U/L Total Protein 6.6 (6.5-8.0) g/dL Albumin 4.0 (3.5-5.0) g/dL Lipase (8-78) U/L Urine Color Yellow Urine Appearance Clear Urine pH 5.5 (5.0-9.0) Ur Specific [place] 1.010 (1.005-1.025) Urine Protein Negative (Neg-Trace) mg/dL Urine Glucose (UA) Negative (Negative) mg/dL Urine Ketones Negative (Negative) mg/dL Urine Blood Negative (Negative) Urine Nitrite Negative (Negative) Ur Leukocyte Esterase Negative (Negative) COVID-19 (VICKIE) (Negative) COVID-19 Clin Com <Gely Pittman MD - Last Filed: 11/13/22 01:36> Independent Interpretation I performed an independent interpretation of an: EKG <Gely Pittman MD - Last Filed: 11/13/22 01:36> Interpretation: Normal sinus rhythm, HR-77, no STEMI, ME/QRS/QTC is within normal limits. <Gely Pittman MD - Last Filed: 11/13/22 01:36> External Record Review External record reviewed: Prior outpatient labs <Gely Pittman MD - Last Filed: 11/13/22 01:36> Medications Administered Discontinued Medications Generic Name Dose Route Start Last Admin Trade Name Freq PRN Reason Stop Dose Admin Hydralazine HCl 5 mg 11/12/22 23:16 11/12/22 23:26 Hydralazine Hcl 20 Mg/Ml Vial IVPUSH 11/12/22 23:17 5 mg ONCE ONE Administration Protocol Hydralazine HCl 25 mg 11/12/22 23:16 11/12/22 23:26 Hydralazine Hcl 25 Mg Tablet PO 11/12/22 23:17 25 mg ONCE ONE Administration Protocol Magnesium Sulfate 2 gm in 50 mls @ 25 mls/hr 11/12/22 18:15 11/12/22 21:24 Magnesium Sulfate/H2o IV 11/12/22 20:14 Infused ONCE ONE Infusion Sodium Chloride 1,000 mls @ 999 mls/hr 11/12/22 19:30 11/12/22 20:39 Ns IV 11/12/22 20:30 Infused .Q1H1M WENDY Infusion Magnesium Sulfate 2 gm in 50 mls @ 150 mls/hr 11/12/22 23:17 11/13/22 00:09 Magnesium Sulfate/H2o IV 11/12/22 23:36 Infused ONCE ONE Infusion <MARILYN Parmar - Last Filed: 11/12/22 19:11> Medications Administered Discontinued Medications Generic Name Dose Route Start Last Admin Trade Name Freq PRN Reason Stop Dose Admin Hydralazine HCl 5 mg 11/12/22 23:16 11/12/22 23:26 Hydralazine Hcl 20 Mg/Ml Vial IVPUSH 11/12/22 23:17 5 mg ONCE ONE Administration Protocol Hydralazine HCl 25 mg 11/12/22 23:16 11/12/22 23:26 Hydralazine Hcl 25 Mg Tablet PO 11/12/22 23:17 25 mg ONCE ONE Administration Protocol Magnesium Sulfate 2 gm in 50 mls @ 25 mls/hr 11/12/22 18:15 11/12/22 21:24 Magnesium Sulfate/H2o IV 11/12/22 20:14 Infused ONCE ONE Infusion Sodium Chloride 1,000 mls @ 999 mls/hr 11/12/22 19:30 11/12/22 20:39 Ns IV 11/12/22 20:30 Infused .Q1H1M WENDY Infusion Magnesium Sulfate 2 gm in 50 mls @ 150 mls/hr 11/12/22 23:17 11/13/22 00:09 Magnesium Sulfate/H2o IV 11/12/22 23:36 Infused ONCE ONE Infusion <Gely Pittman MD - Last Filed: 11/13/22 01:36> Discharge Plan Discharge Clinical Impression: Constipation, Urinary retention, Hypomagnesemia <MARILYN Parmar - Last Filed: 11/12/22 19:11> Patient Disposition: Home, Self-Care <MARILYN Parmar - Last Filed: 11/12/22 19:11> Instructions: Constipation (ED), Fleet Enema (ED), High Fiber Diet (ED), Hypomagnesemia (ED), Acute Urinary Retention in Women (ED) <MARILYN Parmar - Last Filed: 11/12/22 19:11> Additional Instructions: 1. Resume all home medications as prescribed. 2. I recommend that you start taking MiraLax, this is available [id number], you should take this daily until you start having soft, daily bowel movements. 3. Please follow-up with your primary care provider 1st thing in the morning. Return to the ER for any worsening symptoms. <MARILYN Parmar - Last Filed: 11/12/22 19:11> Prescriptions: No Action benztropine 1 mg tablet 1 mg PO BID Qty: 180 1RF trazodone 50 mg tablet 100 mg PO BEDTIME 30 Days Qty: 60 0RF risperidone 1 mg tablet 1 mg PO BID Qty: 60 2RF glucosamine umana 2KCl-chondroit 750-600 mg tablet 1 tab PO DAILY 90 Days Qty: 90 4RF (DME) blood-glucose meter [FreeStyle Lite Meter] Kit See Rx Instructions .ROUTE .MEDSUPPLY Qty: 1 0RF Rx Instructions: DX: E11.9, test blood sugar 2 times a day, duration 999 days diclofenac sodium 1 % gel 1 - 2 g topical QID Qty: 200 4RF carbamazepine 200 mg tablet 200 mg PO BID 90 Days Qty: 180 1RF omeprazole 40 mg capsule,delayed release(DR/EC) 40 mg PO DAILY Qty: 90 1RF citalopram 40 mg tablet 20 mg PO DAILY 90 Days Qty: 45 2RF lancets [FreeStyle Lancets] 28 gauge misc 28 gauge topical BID Qty: 100 2RF hydralazine 25 mg tablet 25 mg PO TID Qty: 270 1RF atorvastatin 40 mg tablet 40 mg PO DAILY Qty: 90 3RF metformin 500 mg tablet 1,000 mg PO BID Qty: 360 3RF hydrochlorothiazide 50 mg tablet 50 mg PO DAILY 90 Days Qty: 90 2RF simethicone 80 mg tablet,chewable 80 mg PO BID-QID PRN (Reason: for abdominal pain) Qty: 90 2RF multivitamin [One Daily Multivitamin] Tablet 1 tab PO DAILY Qty: 90 3RF (DME) incontinence pad, liner, disp Pad See Rx Instructions .Route Qty: 300 1RF Rx Instructions: every 2-3 hours PRN (DME) Briefs, Adult-Extra Large Misc See Rx Instructions .Route Qty: 300 12RF Rx Instructions: change every 2-3 hours prn for incontinence amlodipine 10 mg tablet 10 mg PO DAILY Qty: 90 2RF ibuprofen 600 mg tablet 600 mg PO TID PRN (Reason: for pain) Qty: 90 2RF mecobalamin (vitamin B12) 1,000 mcg tablet,chewable 1,000 mcg PO DAILY 90 Days Qty: 90 0RF pregabalin 100 mg capsule 100 mg PO TID 30 Days Qty: 90 2RF clopidogrel 75 mg tablet 75 mg PO DAILY 90 Days Qty: 90 3RF dulaglutide 1.5 mg/0.5 mL pen injector 1.5 mg subcut QWEEK 28 Days Qty: 2 1RF (DME) FreeStyle Lite Strips Strip See Rx Instructions .Route Qty: 200 6RF Rx Instructions: As directed twice a day blood sugar checks 90 day supply celecoxib 200 mg capsule 200 mg PO BID Qty: 60 4RF glucosamine-chondroitin 900 mg tablet 900 mg PO DAILY 30 Days Qty: 30 3RF albuterol sulfate 90 mcg/actuation HFA aerosol inhaler 1 puff PO Q4H PRN montelukast 10 mg tablet 10 mg PO DAILY albuterol sulfate 2.5 mg /3 mL (0.083 %) solution for nebulization inhalation Q6H PRN (Reason: wheezing) levetiracetam 1,000 mg tablet 1,000 mg PO BID benzonatate 100 mg capsule 100 mg PO TID PRN (Reason: cough) budesonide-formoterol 160-4.5 mcg/actuation HFA aerosol inhaler 2 puff inhalation BID diphenhydramine HCl 25 mg capsule 25 mg PO Q8H PRN (Reason: itch) Flovent HFA 110 mcg/actuation HFA aerosol inhaler 2 puff inhalation BID losartan 100 mg tablet 100 mg PO DAILY sertraline 50 mg tablet 50 mg PO DAILY Trelegy Ellipta 200-62.5-25 mcg blister with device 1 ea inhalation DAILY ondansetron 4 mg tablet,disintegrating 4 mg PO Q8H PRN (Reason: nausea and vomiting) 7 Days Qty: 21 0RF glipizide 10 mg tablet extended release 24hr 10 mg PO BID 30 Days Qty: 60 2RF famotidine 20 mg tablet 20 mg PO BID oxybutynin chloride 10 mg tablet extended release 24hr 10 mg PO DAILY Qty: 90 3RF <MARILYN Parmar - Last Filed: 11/12/22 19:11>
[2022-11-12 17:10] LABS: MANUAL DIFF FLAG NO
[2022-11-12 17:17] LABS: Basophils Absolute Auto 0.1 X10*3/uL (0.0-0.2); Basophils Percent Auto 0.7 % (0-2); Eosinophils Absolute Auto 0.2 X10*3/uL (0.0-0.4); Eosinophils Percent Auto 3.2 % (0-4); Hematocrit 30.9 % (37.0-47.0); Hemoglobin 10.7 g/dl (12.0-16.0); Imm Gran Abs Auto 0.03 X10*3/uL (0.00-0.03); Imm Gran Pct Auto 0.4 % (0.0-0.4); Lymphocytes Absolute Auto 1.8 X10*3/uL (1.2-4.9); Mean Corpuscular HGB Conc 34.6 g/dl (31.0-35.0); Mean Corpuscular Hemoglobin 29.9 pg (27.0-33.0); Mean Corpuscular Volume 86.3 fL (80.0-98.0); Mean Platelet Volume 8.7 fL (9.4-12.3); Monocytes Absolute Auto 0.6 X10*3/uL (0.1-1.2); Monocytes Percent Auto 8.5 % (2-11); Neutrophils Absolute Auto 4.2 x10*3/uL (2.0-8.3); Neutrophils Percent Auto 61.2 % (45-73); Platelet Count 333 X10*3/uL (160-400); Red Blood Count 3.58 X10*6/uL (4.20-5.50); Red Cell Distribution Width 13.9 % (11.0-16.0); White Blood Count 6.8 X10*3/uL (4.8-10.8)
[2022-11-12 17:50] LABS: COVID-19 Test Negative (Negative); IDNOW Serial# 9DB6401D
[2022-11-12 18:16] LABS: Alanine Aminotransferase 29 U/L (0-31); Albumin Level 4.2 g/dL (3.5-5.0); Alkaline Phosphatase 108 U/L (39-117); Anion Gap 16 (12-20); Aspartate Amino Transferase 23 U/L (5-31); Bilirubin Total 0.3 mg/dL (0.0-1.0); Blood Urea Nitrogen 17 mg/dL (9-16); Calcium 9.1 mg/dL (8.4-10.2); Carbon Dioxide 26 mmol/L (22-29); Chloride 89 mmol/L (96-108); Creatinine Clr Calc Pharmacy 58.8; Estimated Glomerular Filt Rate 52; Glucose Random 107 mg/dL (60-115); Lipase 19 U/L (8-78); Magnesium 0.9 mg/dL (1.6-2.6); Potassium 3.6 mmol/L (3.3-5.1); Sodium 127 mmol/L (135-145); Total Protein 6.8 g/dL (6.5-8.0)
[2022-11-12] MEDS: Magnesium Sulfate/H2O 2 GM/50 ML PIGGYBACK IV ×2 (19:34→23:26)
[2022-11-12] MEDS: 0.9 % Sodium Chloride 1,000 ML 999 ML IV (19:35)
--- NOTE | 2022-11-12 19:41 | PC.NURSE ---
pt brought back from waiting room, per slasher hand, pt has low magnesium, 20g IV placed in RAC. Pt also reporting mild abdominal pain at this time
--- NOTE | 2022-11-12 20:35 | ECG_ITS ---
Test Reason : low MG Blood Pressure : / mmHG Vent. Rate : 077 BPM Atrial Rate : 077 BPM P-R Int : 198 ms QRS Dur : 092 ms QT Int : 420 ms P-R-T Axes : 000 162 174 degrees QTc Int : 475 ms Limb leads rev Normal sinus rhythm Left posterior fascicular block Possible Inferior infarct , age undetermined Abnormal ECG When compared with ECG of 30-MAR-2020 13:20, Left posterior fascicular block is now Present T wave inversion now evident in Inferior leads T wave inversion now evident in Lateral leads Referred By: Gely Pittman Electronically Signed By:Kirill Joseph
[2022-11-12 20:40] LABS: Appearance Urine Clear; Color Urine Yellow; Glucose Urine UA Negative (Negative); Leukocyte Esterase Urine Negative (Negative); Nitrite Urine Negative (Negative); PH 5.5 (5.0-9.0); Urine Blood Negative (Negative); Urine Ketones Negative (Negative); Urine Protein Negative (Neg-Trace)
--- NOTE | 2022-11-12 20:40 | PC.NURSE ---
straight cathed pt, pt tolerated very well, drained about 690 mls of urine from bladder
--- NOTE | 2022-11-12 22:20 | PC.NURSE ---
This RN, Amy PCT, and Neo PCT attempted to get CMP with no success. Nathanael pct in room at this time attempting to draw. MD jensen
[2022-11-12 22:21] VITALS: BP 142/86; PULSE 76; RESP 19; O2SAT 97
[2022-11-12 22:44] VITALS: BP 190/87; PULSE 96; RESP 20; O2SAT 98
[2022-11-12 22:50] LABS: Alanine Aminotransferase 28 U/L (0-31); Alkaline Phosphatase 104 U/L (39-117); Anion Gap 15 (12-20); Aspartate Amino Transferase 22 U/L (5-31); Bilirubin Total 0.4 mg/dL (0.0-1.0); Blood Urea Nitrogen 15 mg/dL (9-16); Calcium 9.1 mg/dL (8.4-10.2); Carbon Dioxide 26 mmol/L (22-29); Chloride 90 mmol/L (96-108); Creatinine Clr Calc Pharmacy 71.8; Estimated Glomerular Filt Rate > 60; Glucose Random 113 mg/dL (60-115); Potassium 3.4 mmol/L (3.3-5.1); Sodium 128 mmol/L (135-145); Total Protein 6.6 g/dL (6.5-8.0)
[2022-11-12 23:14] LABS: Magnesium 1.3 mg/dL (1.6-2.6)
[2022-11-12] MEDS: hydrALAZINE HCl 25 MG TABLET PO (23:26)
[2022-11-12] MEDS: hydrALAZINE HCl 20 MG/ML VIAL 5 MG IVPUSH (23:26)
[2022-11-12 23:49] VITALS: BP 159/81; PULSE 71; RESP 18; TEMP 36.6; O2SAT 98
--- NOTE | 2022-11-12 23:51 | MHC.EDTECH ---
This tech assumed care for patient at 2300, patient assisted to commode with a 1 assist. Patient urinated a large amount of urine pt was cleaned and placed back into bed,Vitals were obtained she is now resting comfortable at this time. Call mayer in reach
--- NOTE | 2022-11-13 01:08 | PC.NURSE ---
patient received second dose of magnesium per MAR. Awaiting magnesium level to possibly discharge, patient and daughter are aware
[2022-11-13 01:22] VITALS: PULSE 99; RESP 21; TEMP 39.3; O2SAT 96
[2022-11-13 01:24] LABS: Magnesium 1.9 mg/dL (1.6-2.6)
== END 2022-11-13 01:56 | disposition home or self-care (01) ==
PROVIDERS: Physician Assistant; Emergency Provider Student in an Organized Health Care Education/Training Program
DX: K59.00 Constipation, unspecified (principal); R33.9 Retention of urine, unspecified; E83.42 Hypomagnesemia; R10.30 Lower abdominal pain, unspecified; Z20.822 Contact with and (suspected) exposure to COVID-19; E11.9 Type 2 diabetes mellitus without complications; E78.5 Hyperlipidemia, unspecified; Z79.4 Long term (current) use of insulin; Z79.899 Other long term (current) drug therapy
CPT/HCPCS: 36415; 51798; 74176; 80053; 81003; 83690; 83735; 85025; 87635; 93005; 96365; 96366; 96375; 99284; 99285; J3475

== ENCOUNTER 2022-11-26 10:16 | Outpatient (REF) | payer MEDICARE, MEDICAID, SELFPAY ==
[2022-11-26 13:35] LABS: Carbamazepine Tegretol 9.4 mcg/mL (5.0-12.0)
[2022-11-29 08:54] LABS: Levetiracetam Keppra 51.4 mcg/mL (6.0-46.0)
== END 2022-11-26 10:17 | disposition home or self-care (01) ==
LOC: HO.LAB 10:16
PROVIDERS: PCP Family Medicine; Visit Provider Psychiatry & Neurology Neurology
DX: G40.909 Epilepsy, unspecified, not intractable, without status epilepticus (principal); Z79.899 Other long term (current) drug therapy
CPT/HCPCS: 36415; 80156; 80177

== ENCOUNTER 2022-12-26 08:31 | Outpatient (REF) | payer MEDICARE, MEDICAID, SELFPAY ==
--- NOTE | ~2022-12-26 | MM_ITS ---
EXAMINATION: MM SCREENING DIGITAL BREAST TOMOSYNTHESIS, BILATERAL CLINICAL INFORMATION: Screening. Asymptomatic. The lifetime risk of breast cancer based on the Tyrer-Cuzick Model is 7.4%. COMPARISON: Mammography: November 20, 2021 and studies dating back to December 13, 2011 TECHNIQUE: Digital breast tomosynthesis is performed in both the craniocaudal and mediolateral oblique views along with computer-aided detection (CAD). Synthesized 2D images are generated from the tomosynthesis. FINDINGS: The breasts are heterogeneously dense, which may obscure small masses (ACR BI-RADS breast composition Category c). There are no new significant masses, abnormal calcifications, or other abnormalities. MM/MM tomosynthesis screening BI IMPRESSION: No significant changes from prior exam. ASSESSMENT: BI-RADS 1: Negative RECOMMENDATION: Routine annual mammography screening. This patient's information was entered into a reminder system with a target due date for their next mammogram.
== END 2022-12-26 08:32 | disposition home or self-care (01) ==
LOC: HO.MAMMO 08:31
PROVIDERS: PCP Family Medicine; Visit Provider Family Medicine
DX: Z12.31 Encounter for screening mammogram for malignant neoplasm of breast (principal)
CPT/HCPCS: 77063; 77067

== ENCOUNTER → 2022-12-27 08:40 | Outpatient (BNVA) | payer MEDICARE, MEDICAID, SELFPAY | PROVIDERS: PCP Family Medicine; Visit Provider Urology | DX: N32.81 Overactive bladder (principal); R32 Unspecified urinary incontinence; K59.00 Constipation, unspecified | CPT/HCPCS: 51798; 99212 ==

== ENCOUNTER 2023-03-06 15:58 | Outpatient (AMB) | payer MEDICARE, MEDICAID, SELFPAY ==
--- NOTE | 2023-03-06 16:02 | MHC.PC.OV ---
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 Accompanied by: Self / Same As Patient Allergies aspirin [ASA] Allergy (Unknown, Verified 03/06/23 16:04) RASH phenytoin [From DILANTIN] Adverse Reaction (Unknown, Verified 03/06/23 16:04) SWELLING Tobacco use date assessed: 03/06/23 Fall risk assessment: No Falls in past year Last assessed Fall Risk: 03/06/23 Dental Screening Dental Screen Date: 03/06/23 Did you have a dental visit in the last 12 months?: Yes Did you have a dental problem in the last 6 months where you did not have access to dental care?: No Was dental information given to patient?: Patient has dentist [place] [facility] [place] Dizz[place], low sodium HPI Details Pt presents to f[place] [facility]23 for dizziness/low sodium. CT head was negative. Chest x-ray was nonacute, LLE ultrasound negative for DVT. She had been advised to stop hydrochlorothiazide as it may have been contributing to hyponatremia and instead use hydralazine 25 to 50mg as needed. She had left AMA before rechecking her sodium levels. [facility] Medical History Anxiety disorder, unspecified Bilateral primary osteoarthritis of knee Chronic obstructive pulmonary disease, unspecified Constipation due to slow transit Controlled diabetes mellitus with diabetic neuropathy, without long-term current use of insulin Diabetes Epilepsy, unspecified, not intractable, without status epilepticus Essential (primary) hypertension Gait instability Hyperlipidemia, unspecified Neuropathy Dash's paralysis (postepileptic) Unspecified asthma, uncomplicated Unspecified hearing loss, bilateral Surgical History History of solitary pulmonary nodule Family History Father Bone cancer Mother Breast cancer Brother No problems noted. Brother No problems noted. Brother No problems noted. Sister No problems noted. Sister Uterine cancer Son No problems noted. Son No problems noted. Daughter No problems noted. Daughter No problems noted. Other Mental health disorder Substance use disorder Social History Housing: Apartment Alcohol intake: never Patient Tobacco Use Status: Never used Tobacco e-Cigarette/Vaping Use: Never Used Second Hand Smoke Exposure: No service: No Current occupational status: retired Current occupation: Right Handed Current occupational exposures/hazards: No Cognitive needs: No Hearing needs: No Vision needs: No Female Reproductive History Menstrual Age of Menarche: 11 Questionnaire Thrive Questionnaire Date Thrive assessed: 08/23/21 RAFL-7 AMB Questionnaire RALF-7 Date RALF - 7 assessed: 08/23/21 Source: Developed by Drs. Bud Rivers, Susana He, Rj Goodwin and colleagues, with an educational itz from [employer]. Physical exam (Primary Care) Vital Signs: Last Vital Signs Pulse 96 03/06/23 16:08 BP 136/80 03/06/23 16:08 Pulse Ox 97 03/06/23 16:08 BMI result Body Mass Index 36.2 Tobacco/Smoking Status: Tobacco use Status Tobacco use date assessed 03/06/23 03/06/23 16:16 Patient Tobacco Use Status Never used Tobacco 03/06/23 16:03 e-Cigarette/Vaping Use Never Used 03/06/23 16:03 Thrive Assessment: Date of Thrive Assessment Date Thrive assessed 08/23/21 03/06/23 16:03 Assessment and Plan Assessment & Plan (1) Dizziness: Code(s): R42 - Dizziness and giddiness Plan: Patient had [place] ED [place] [facility]. Appears to have been dehydrated and had hyponatremia-both likely caused by excessive heat and by hydrochlorothiazide She has been switched from hydrochlorothiazide to hydralazine. Blood pressure is fairly well controlled. She left AMA before rechecking her sodium levels and I have ordered these today as well as other electrolytes including magnesium. Will keep her off hydrochlorothiazide and she continue hydralazine for her blood pressure. She no longer has any dizziness (2) Hyponatremia: Code(s): E87.1 - Hypo-osmolality and hyponatremia Plan: As above (3) Essential (primary) hypertension: Code(s): I10 - Essential (primary) hypertension Plan: As above, continue hydralazine rather than hydrochlorothiazide, continue amlodipine as well. Blood pressure is controlled. Goal is less than 140/90 Orders: Orders Comprehensive Met. Panel Today E87.1 - Hypo-osmolality and hyponatremia Magnesium Today E87.1 - Hypo-osmolality and hyponatremia Coding Level of Care Code Est Pt Level 3 (41444) Diagnoses Dizziness R42 Hyponatremia E87.1 Essential (primary) hypertension I10
[2023-03-06 16:08] VITALS: BP 136/80; PULSE 96; O2SAT 97; BMI 36.2
== END 2023-03-06 16:33 | disposition home or self-care (01) ==
PROVIDERS: PCP Family Medicine; Visit Provider Family Medicine
DX: R42 Dizziness and giddiness (principal); E87.1 Hypo-osmolality and hyponatremia; I10 Essential (primary) hypertension
CPT/HCPCS: 99213

== ENCOUNTER 2023-03-12 09:31 | Outpatient (REF) | payer MEDICARE, MEDICAID, SELFPAY | END 2023-03-12 09:32 | disposition home or self-care (01) | LOC: HO.WFDLDS 09:31 | PROVIDERS: Visit Provider Family Medicine | DX: Z13.89 Encounter for screening for other disorder (principal) ==

== ENCOUNTER 2023-04-07 09:24 | Outpatient (REF) | payer MEDICARE, MEDICAID, SELFPAY ==
[2023-04-07 09:42] LABS: MANUAL DIFF FLAG NO
[2023-04-07 10:04] LABS: Basophils Percent Auto 0.7 % (0-2); Eosinophils Absolute Auto 0.2 X10*3/uL (0.0-0.4); Hematocrit 33.6 % (37.0-47.0); Hemoglobin 11.4 g/dl (12.0-16.0); Imm Gran Abs Auto 0.04 X10*3/uL (0.00-0.03); Imm Gran Pct Auto 0.7 % (0.0-0.4); Lymphocytes Absolute Auto 1.5 X10*3/uL (1.2-4.9); Lymphocytes Percent Auto 25.2 % (20-40); Mean Corpuscular HGB Conc 33.9 g/dl (31.0-35.0); Mean Corpuscular Hemoglobin 29.8 pg (27.0-33.0); Mean Corpuscular Volume 87.7 fL (80.0-98.0); Mean Platelet Volume 8.8 fL (9.4-12.3); Monocytes Absolute Auto 0.4 X10*3/uL (0.1-1.2); Monocytes Percent Auto 7.2 % (2-11); Neutrophils Absolute Auto 3.8 x10*3/uL (2.0-8.3); Neutrophils Percent Auto 62.2 % (45-73); Platelet Count 343 X10*3/uL (160-400); Red Blood Count 3.83 X10*6/uL (4.20-5.50); Red Cell Distribution Width 13.3 % (11.0-16.0); White Blood Count 6.1 X10*3/uL (4.8-10.8)
[2023-04-07 11:03] LABS: Alanine Aminotransferase 24 U/L (0-31); Albumin Level 4.2 g/dL (3.5-5.0); Alkaline Phosphatase 123 U/L (39-117); Anion Gap 16 (12-20); Aspartate Amino Transferase 24 U/L (5-31); Bilirubin Total 0.2 mg/dL (0.0-1.0); Blood Urea Nitrogen 15 mg/dL (9-16); Calcium 9.5 mg/dL (8.4-10.2); Carbon Dioxide 24 mmol/L (22-29); Chloride 95 mmol/L (96-108); Cholesterol 164 mg/dL (<200); Estimated Glomerular Filt Rate > 60; Glucose Fasting 103 mg/dL (60-99); Glucose Random 103 mg/dL (60-115); HDL Cholesterol 46 mg/dL (>40); LDL Cholesterol Calculated 94 mg/dL (<100); Potassium 3.9 mmol/L (3.3-5.1); Sodium 131 mmol/L (135-145); Total Protein 7.9 g/dL (6.5-8.0); Triglycerides 120 mg/dL (<150)
[2023-04-07 11:13] LABS: TSH reflex Free T4 0.93 uIU/mL (0.32-4.0)
[2023-04-07 11:23] LABS: Appearance Urine Turbid; Color Urine Yellow; Glucose Urine UA Negative (Negative); Leukocyte Esterase Urine Moderate (2+) (Negative); Nitrite Urine Negative (Negative); UMIC TRIGGER UA YES; Urine Blood Negative (Negative); Urine Ketones Trace mg/dL (Negative); Urine Protein 30 (1+) mg/dL (Neg-Trace)
[2023-04-07 11:30] LABS: Magnesium 1.2 mg/dL (1.6-2.6)
[2023-04-07 11:36] LABS: Bacteria Urine 4+ (None Seen); Hyaline Casts Urine 0-2 /LPF (0-2); Squamous Epithelial Cell Urine >20 /HPF (0-2)
[2023-04-07 12:15] LABS: Creatinine Urine 160.97 mg/dL; Microalbum/Creatinine Ratio Ur 35.4 ug/mg cr (<30)
== END 2023-04-07 09:25 | disposition home or self-care (01) ==
LOC: HO.LAB 09:24
PROVIDERS: PCP Family Medicine; Visit Provider Family Medicine
DX: Z00.00 Encounter for general adult medical examination without abnormal findings (principal); I10 Essential (primary) hypertension; E87.1 Hypo-osmolality and hyponatremia
CPT/HCPCS: 36415; 80053; 80061; 81001; 81003; 82043; 83735; 84443; 85025

== ENCOUNTER 2023-04-11 09:32 | Outpatient (AMB) | payer MEDICARE, MEDICAID, SELFPAY ==
[2023-04-11 09:34] VITALS: BP 118/66; PULSE 96; RESP 13; TEMP 36.5; O2SAT 98; BMI 37.0
--- NOTE | 2023-04-11 09:34 | MHC.PC.OV ---
Vital Signs 04/11/23 09:34 Height 5 ft 4 in Weight 215 lb 8 oz BMI 37.0 BP 118/66 Blood Pressure Location Lt brachial Position Sitting Respiration 13 Pulse 96 Pulse Source Pulse Oximeter Temp 97.7 F Temp Source Temporal Artery Scan Pulse Oximetry (%) 98 Oxygen Delivery Method Room Air Intake Visit Reasons: cdh /low sodium Intake Note: Patient states that she doesn't know what is causing her sodium to be low and is trying to get a better understanding. 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: No Accompanied by: Self / Same As Patient Allergies lactose Allergy (Intermediate, Verified 04/11/23 09:42) Diarrhea aspirin [ASA] Allergy (Unknown, Verified 04/11/23 09:42) RASH phenytoin [From DILANTIN] Adverse Reaction (Unknown, Verified 04/11/23 09:42) SWELLING Medication List - Last Reconciled 04/11/23 by Cole Tomlinson MD albuterol sulfate mg inhalation Q6H PRN albuterol sulfate 90 mcg/actuation 1 puff PO Q4H PRN amlodipine 10 mg PO DAILY atorvastatin 40 mg PO DAILY benzonatate 100 mg PO TID PRN benztropine 1 mg PO BID blood sugar diagnostic (FreeStyle Lite Strips) As directed twice a day blood sugar checks 90 day supply blood-glucose meter (FreeStyle Lite Meter kit) DX: E11.9, test blood sugar 2 times a day, duration 999 days budesonide-formoterol 160-4.5 mcg/actuation 2 puffs inhalation BID carbamazepine 200 mg PO BID 3 months clopidogrel 75 mg PO DAILY 90 days diaper,brief,adult,disposable (Briefs, Adult-Extra Large) change every 2-3 hours prn for incontinence diclofenac sodium 1% 1 - 2 grams topical QID dulaglutide 1.5 mg (0.5 mL) subcut QWEEK 28 days glipizide ER 10 mg PO BID hydralazine 25 mg PO TID ibuprofen 600 mg PO TID PRN incontinence pad, liner, disp every 2-3 hours PRN lancets (FreeStyle Lancets) 28 gauge topical BID levetiracetam 1,000 mg PO BID magnesium oxide 400 mg PO DAILY 30 days mecobalamin (vitamin B12) 1,000 mcg PO DAILY 90 days metformin 1000 mg (2 tabs) a.m. and 750 mg (1.5 tabs) p.m. orally 2 times a day; 90 days mirabegron ER (Myrbetriq) 25 mg PO DAILY multivitamin (One Daily Multivitamin tablet) 1 tab PO DAILY omeprazole 40 mg PO DAILY oxybutynin chloride ER 10 mg PO DAILY pregabalin 100 mg PO TID 30 days risperidone 1 mg PO BID sertraline 50 mg PO DAILY Tobacco use date assessed: 03/06/23 Fall risk assessment: No Falls in past year Last assessed Fall Risk: 04/11/23 Dental Screening Dental Screen Date: 04/11/23 Did you have a dental visit in the last 12 months?: No Did you have a dental problem in the last 6 months where you did not have access to dental care?: No Was dental information given to patient?: Patient has dentist HPI cdh /low sodium HPI Details 67 y/o female presents to f/u ED visit 04/07/23 for low sodium/low magnesium. Sodium level was 131, magnesium level low at 1.1 and was given 2g of magnesium by IV. They had sent a prescription for additional oral magnesium they recommended to take b.i.d. A1c today 04/11/23 6.4%. She is on glipizide 10mg b.i.d., dulaglutide 1.5mg and metformin. Pt notes today she is a bit anxious about issues with her daughter but is overall stable. [facility] Medical History Anxiety disorder, unspecified Bilateral primary osteoarthritis of knee Chronic obstructive pulmonary disease, unspecified Constipation due to slow transit Controlled diabetes mellitus with diabetic neuropathy, without long-term current use of insulin Diabetes Epilepsy, unspecified, not intractable, without status epilepticus Essential (primary) hypertension Gait instability Hyperlipidemia, unspecified Neuropathy Dash's paralysis (postepileptic) Unspecified asthma, uncomplicated Unspecified hearing loss, bilateral Surgical History History of solitary pulmonary nodule Family History Father Bone cancer Mother Breast cancer Brother No problems noted. Brother No problems noted. Brother No problems noted. Sister No problems noted. Sister Uterine cancer Son No problems noted. Son No problems noted. Daughter No problems noted. Daughter No problems noted. Other Mental health disorder Substance use disorder Social History Housing: Apartment Alcohol intake: never Patient Tobacco Use Status: Never used Tobacco e-Cigarette/Vaping Use: Never Used Second Hand Smoke Exposure: No service: No Current occupational status: retired Current occupation: Right Handed Current occupational exposures/hazards: No Cognitive needs: No Hearing needs: No Vision needs: No Female Reproductive History Menstrual Age of Menarche: 11 Questionnaire Thrive Questionnaire Date Thrive assessed: 08/23/21 SHILO-7 AMB Questionnaire SHILO-7 Date SHILO - 7 assessed: 08/23/21 Source: Developed by Drs. Bud Rivers, Susana He, Rj Goodwin and colleagues, with an educational itz from [employer]. Review of Systems Const Denies chills, Denies fatigue, Denies fever(s), Denies headache(s) and Denies weakness ENT Denies dizziness and Denies headache(s) Card Denies dyspnea Resp Denies cough, Denies dyspnea, Denies wheezing and Denies other (shortness of breath) Musc Denies numbness and Denies tingling Neuro Denies dizziness, Denies headache(s), Denies numbness, Denies tingling and Denies weakness Psych Reports anxiety and Denies depression Endo Denies fatigue Aller/Immun Denies wheezing Physical exam (Primary Care) Vital Signs: Last Vital Signs Temp 97.7 F 04/11/23 09:34 Pulse 96 04/11/23 09:34 Resp 13 04/11/23 09:34 BP 118/66 04/11/23 09:34 Pulse Ox 98 04/11/23 09:34 Oxygen Delivery Method Room Air 04/11/23 09:34 BMI result Body Mass Index 37.0 Tobacco/Smoking Status: Tobacco use Status Tobacco use date assessed 03/06/23 04/11/23 09:42 Patient Tobacco Use Status Never used Tobacco 04/11/23 09:42 e-Cigarette/Vaping Use Never Used 04/11/23 09:42 Thrive Assessment: Date of Thrive Assessment Date Thrive assessed 08/23/21 04/11/23 09:42 Const General: well developed; No acute distress Nutritional Appearance: well nourished Orientation/consciousness: patient oriented x3 HENMT Head: Yes normocephalic and Yes atraumatic Eyes General: appearance normal, both eyes and all related structures Pupils: Equal, round and reactive pupils present EOM: EOMs intact bilaterally Resp Effort & Inspection: normal respiratory effort Neuro General: patient oriented x3 and gait normal Cranial nerves: Yes Equal, round and reactive pupils present Psych Affect: normal affect Results AMB Hemoglobin A1c AMB Hemoglobin A1c 6.4 % Last Edit by Lana Pearce on 04/11/23 09:59 Assessment and Plan Assessment & Plan (1) Hyponatremia: Code(s): E87.1 - Hypo-osmolality and hyponatremia Plan: Mild hyponatremia and she has been skipping some meals and has mildly decreased appetite. Encouraged regular meals or snacks (2) Low magnesium level: Code(s): R79.0 - Abnormal level of blood mineral Plan: Now on Mag-Ox Check magnesium (3) Diabetes type 2, controlled: Code(s): E11.9 - Type 2 diabetes mellitus without complications Plan: A1c 6.4%. Good control. Goal is less than 7.0% Continue current medication regimen (4) Depression with anxiety: Code(s): F41.8 - Other specified anxiety disorders Plan: Shilo-7 was elevated at 12. Patient notes that she is a little anxious about issues with her daughter but set she is overall stable. Coding Level of Care Code Est Pt Level 4 (45880) Diagnoses Hyponatremia E87.1 Low magnesium level R79.0 Diabetes type 2, controlled E11.9 Depression with anxiety F41.8
--- NOTE | 2023-04-11 10:29 | ...WebTmpl.AM.PHNO ---
PHQ-9 Over the last 2 weeks, how often have you been bothered by any of the following problems? 1. Little interest or pleasure in doing things: more than half the days 2. Feeling down, depressed, or hopeless: not at all 3. Trouble falling or staying asleep, or sleeping too much: not at all 4. Feeling tired or having little energy: several days 5. Poor appetite or overeating: several days 6. Feeling bad about yourself - or that you are a failure or have let yourself or your family down: not at all 7. Trouble concentrating on things, such as reading the newspaper or watching television: not at all 8. Moving or speaking so slowly that other people could have noticed. Or the opposite - being so fidgety or restless that you have been moving around a lot more than usual: not at all 9. Thoughts that you would be better off or of hurting yourself in some way: not at all Total score: 4 Depression Screening Interpretation: Negative Source: Developed by Drs. Bud Rivers, Rj Mayo and colleagues, with an educational itz from [employer]. RALF-7 AMB Questionnaire RALF-7 Date RALF - 7 assessed: 04/11/23 Feeling nervous, anxious, or on edge: 0 = Not at all Not being able to stop or control worryin = More than half the days Worrying too much about different things: 2 = More than half the days Trouble relaxin = Several days Being so restless that it is hard to sit still: 1 = Several days Becoming easily annoyed or irritable: 1 = Several days Feeling afraid as if something awful might happen: 1 = Several days Total RALF-7 score (0-4 normal; 5-9 mild; 10-14 moderate; 15-21 severe): 8 Source: Developed by Drs. Bud Rivers, Rj Mayo and colleagues, with an educational itz from [employer].
== END 2023-04-11 10:13 | disposition home or self-care (01) ==
PROVIDERS: PCP Family Medicine; Visit Provider Family Medicine
DX: E87.1 Hypo-osmolality and hyponatremia (principal); R79.0 Abnormal level of blood mineral; E11.9 Type 2 diabetes mellitus without complications; F41.8 Other specified anxiety disorders
CPT/HCPCS: 99214

== ENCOUNTER 2023-04-11 10:52 | Outpatient (REF) | payer MEDICARE, MEDICAID, SELFPAY ==
[2023-04-11 14:18] LABS: MANUAL DIFF FLAG NO
[2023-04-11 14:24] LABS: Basophils Percent Auto 0.6 % (0-2); Eosinophils Absolute Auto 0.2 X10*3/uL (0.0-0.4); Eosinophils Percent Auto 3.1 % (0-4); Hematocrit 32.7 % (37.0-47.0); Hemoglobin 11.3 g/dl (12.0-16.0); Imm Gran Abs Auto 0.03 X10*3/uL (0.00-0.03); Imm Gran Pct Auto 0.4 % (0.0-0.4); Lymphocytes Absolute Auto 1.6 X10*3/uL (1.2-4.9); Mean Corpuscular HGB Conc 34.6 g/dl (31.0-35.0); Mean Corpuscular Hemoglobin 30.3 pg (27.0-33.0); Mean Corpuscular Volume 87.7 fL (80.0-98.0); Mean Platelet Volume 9.3 fL (9.4-12.3); Monocytes Absolute Auto 0.4 X10*3/uL (0.1-1.2); Monocytes Percent Auto 6.5 % (2-11); Neutrophils Absolute Auto 4.4 x10*3/uL (2.0-8.3); Neutrophils Percent Auto 65.4 % (45-73); Platelet Count 348 X10*3/uL (160-400); Red Blood Count 3.73 X10*6/uL (4.20-5.50); Red Cell Distribution Width 13.6 % (11.0-16.0); White Blood Count 6.8 X10*3/uL (4.8-10.8)
[2023-04-11 16:16] LABS: Alanine Aminotransferase 29 U/L (0-31); Albumin Level 4.1 g/dL (3.5-5.0); Alkaline Phosphatase 128 U/L (39-117); Anion Gap 20 (12-20); Aspartate Amino Transferase 28 U/L (5-31); Bilirubin Total 0.2 mg/dL (0.0-1.0); Blood Urea Nitrogen 20 mg/dL (9-16); Carbon Dioxide 19 mmol/L (22-29); Chloride 95 mmol/L (96-108); Estimated Glomerular Filt Rate 56; Glucose Random 132 mg/dL (60-115); Magnesium 1.4 mg/dL (1.6-2.6); Potassium 3.6 mmol/L (3.3-5.1); Sodium 130 mmol/L (135-145); Total Protein 7.5 g/dL (6.5-8.0)
== END 2023-04-11 10:53 | disposition home or self-care (01) ==
LOC: HO.WFDLDS 10:52
PROVIDERS: Visit Provider Family Medicine
DX: Z00.00 Encounter for general adult medical examination without abnormal findings (principal); R09.89 Other specified symptoms and signs involving the circulatory and respiratory systems; R79.0 Abnormal level of blood mineral; J90 Pleural effusion, not elsewhere classified
CPT/HCPCS: 36415; 80053; 83735; 85025; 87086

== ENCOUNTER 2023-04-21 11:31 | Outpatient (AMB) | payer MEDICARE, MEDICAID, SELFPAY ==
--- NOTE | 2023-04-21 11:36 | MHC.OFFVIS ---
Intake Intake Visit Reasons: 3m/OAB/UI Intake Note: Patient presents today for a 3mo follow-up on OAB & UI: Meds- Mirabegron Allergies to Antibiotic- No Known Allergies Blood Thinner- Plavix PVR- 253 ml Direct Mail Coordinator Required: No Allergies lactose Allergy (Intermediate, Verified 04/11/23 09:42) Diarrhea aspirin [ASA] Allergy (Unknown, Verified 04/11/23 09:42) RASH phenytoin [From DILANTIN] Adverse Reaction (Unknown, Verified 04/11/23 09:42) SWELLING HPI HPI Comments History of Present Illness Details Izzy is a 67-year-old female who presents today to the office for a follow-up. 04/21/2023? She is followed today for overactive bladder and urinary tract infections. She was last seen by me on 12/27/2022 for constipation. The patient was advise to discontinue oxybutynin 10 mg ER, and Myrbetriq 25 mg QD was ordered during that time. She was advised to follow-up in 3 months for reevaluation of LUTS. She states that she is still leaking urine. Evaluation: UA- leuk neg, blood neg; Bladder scan PVR 254 mL. Patient asked to urinate again and had only minimal urine voided Review of charts: Last visit: 12/27/2022? Co-morbidity--Diabetes, Obesity, Sleep Apnea, on CPAP.? The patient denies prior cigarette use.?? She was given oxybutynin 10 mg ER on her previous visit 07/15/22.? Seen in the ED for constipation on 11/12/22.? The patient states inability to void for 2-3 days for which she visited the ER on 11/12/22.? Denies dysuria. I reviewed imaging results with the patient, renal sono and CTAP, see below. I have discussed that oxybutynin may contribute to constipation, I will change the bladder medication.? Will trial Myrbetriq 25 mg Evaluation today-- Bladder scan: 35 mL.? CTAP without IV contrast results reviewed?11/12/22-- Kidneys: WNL. No renal calculi was visualized. Stool was noted.? Renal US results reviewed?11/11/22-- Kidneys: WNL. No renal calculi was visualized.? . 04/21/2023: Plan: Large PVR. Discontinue oxybutynin 10 mg ER.?and Myrbetriq 25 mg QD Urodynamics was discussed to be scheduled. [facility] Medical History Diabetes Dash's paralysis (postepileptic) Anxiety disorder, unspecified Chronic obstructive pulmonary disease, unspecified Unspecified asthma, uncomplicated Epilepsy, unspecified, not intractable, without status epilepticus Essential (primary) hypertension Unspecified hearing loss, bilateral Constipation due to slow transit Bilateral primary osteoarthritis of knee Neuropathy Hyperlipidemia, unspecified Gait instability Controlled diabetes mellitus with diabetic neuropathy, without long-term current use of insulin Surgical History History of solitary pulmonary nodule Family History Father Bone cancer Mother Breast cancer Brother No problems noted. Brother No problems noted. Brother No problems noted. Sister No problems noted. Sister Uterine cancer Son No problems noted. Son No problems noted. Daughter No problems noted. Daughter No problems noted. Other Mental health disorder Substance use disorder Social History Housing: Apartment Alcohol intake: never Patient Tobacco Use Status: Never used Tobacco e-Cigarette/Vaping Use: Never Used Second Hand Smoke Exposure: No service: No Current occupational status: retired Current occupation: Right Handed Current occupational exposures/hazards: No Cognitive needs: No Hearing needs: No Vision needs: No Female Reproductive History Menstrual Age of Menarche: 11 Review of Systems Const All systems reviewed & are unremarkable except as noted in HPI and below Reports no additional complaints Eyes Reports no additional complaints ENT Reports no additional complaints Card Denies dyspnea Resp Denies cough and Denies dyspnea GI Reports no additional complaints Reports no additional complaints Musc Reports no additional complaints Skin/Breast Denies rash and Denies unusual bruising Neuro Reports no additional complaints Psych Reports no additional complaints Endo Reports no additional complaints Slick/Lymph Reports no additional complaints Aller/Immun Reports no additional complaints Office Procedures Post Void Residual Post Residual Void Post Void Residual (PVR): 253 [id number] Void Residual by ultrasound Results AMB Urinalysis, Automated UA Leukoctes 0 Beatrice/uL Last Edit by Jorge Ferguson [facility] on 04/21/23 12:19 UA Nitrite Negative Last Edit by Jorge Ferguson [facility] on 04/21/23 12:19 UA Urobilinogen 100 mg/dL Last Edit by Jorge Ferguson [facility] on 04/21/23 12:19 0.2 mg/dL Jorge Ferguson 04/21/23 12:19 UA Protein 100 mg/dL Last Edit by Jorge Ferguson [facility] on 04/21/23 12:19 30 mg/dL Jorge Ferguson 04/21/23 12:19 UA pH 6.0 Last Edit by Jorge Ferguson [facility] on 04/21/23 12:19 UA Blood 0 Juan/uL Last Edit by Jorge Ferguson [facility] on 04/21/23 12:19 UA Specific Tenino 1.015 Last Edit by Jorge Ferguson [facility] on 04/21/23 12:19 UA Ketone Positive Last Edit by Jorge Ferguson [facility] on 04/21/23 12:19 5 mg/dL Jorge Ferguson 04/21/23 12:19 UA Bilirubin 0 mg/dL Last Edit by Jorge Ferguson [facility] on 04/21/23 12:19 UA Glucose 0 mg/dL Last Edit by Jorge Ferguson [facility] on 04/21/23 12:19 Results Reviewed Results Reviewed: Laboratory Last Values Urine pH (Auto) 6.0 04/21/23 12:17 Specific Tenino (Auto) 1.015 04/21/23 12:17 Urine Protein (Auto) 100 mg/dL 04/21/23 12:17 Glucose (UA)(Auto) 0 mg/dL 04/21/23 12:17 Urine Ketones (Auto) Positive 04/21/23 12:17 Urine Blood (Auto) 0 Juan/uL 04/21/23 12:17 Urine Nitrite (Auto) Negative 04/21/23 12:17 Urine Bilirubin (Auto) 0 mg/dL 04/21/23 12:17 Urine Urobilinogen (Auto) 100 mg/dL 04/21/23 12:17 Leukocyte Esterase (Auto) 0 Beatrice/uL 04/21/23 12:17 Assessment & Plan Assessment & Plan (1) OAB (overactive bladder): Code(s): N32.81 - Overactive bladder (2) Urinary incontinence: Code(s): R32 - Unspecified urinary incontinence (3) Incomplete bladder emptying: Code(s): R33.9 - Retention of urine, unspecified Plan Urodynamics was discussed to be scheduled. Advised the patient to discontinue Myrbetriq and Oxybutynin. Orders: Orders AMB Post Void Residual by ultrasound Today N39.8 - Other specified disorders of urinary system AMB Urinalysis Automated Today Z13.9 - Encounter for screening, unspecified Patient Instructions: The patient had an opportunity to ask questions regarding treatment plan. All questions were answered. Imaging, Laboratory studies and physical exam results were discussed and reviewed in detail. No major barriers to understanding were identified. The patient expressed understanding and agreement with the above treatment plan.? ? ? The patient is aware they should contact our office by phone for worsening of their current condition or the appearance of new symptoms. Compliance is encouraged with any medications and followup testing that is ordered.? ? ? It is a privilege to be allowed the opportunity to participate in the urologic care of your patient. If you have any questions or concerns regarding treatment for the above conditions please do not hesitate to contact me. The office telephone contact is [phone].? ? ? This note is constructed in part using voice recognition software. While every effort has been made to ensure accuracy environmental program manager errors may have been included.? ? ? Yours sincerely,? ? ? Steven Key MD? ? ? Coding Level of Care Code Est Pt Level 3 (45619) Diagnoses OAB (overactive bladder) N32.81 Urinary incontinence R32 Incomplete bladder emptying R33.9 CPT Codes Post Residual Void - PVR CPT Code: 34496-Gmjz Void Residual by ultrasound ([id number])
== END 2023-04-21 12:28 | disposition home or self-care (01) ==
PROVIDERS: PCP Family Medicine; Visit Provider Urology
DX: N32.81 Overactive bladder (principal); R32 Unspecified urinary incontinence; R33.9 Retention of urine, unspecified; Z13.9 Encounter for screening, unspecified
CPT/HCPCS: 99213

== ENCOUNTER → 2023-04-21 11:31 | Outpatient (BNVA) | payer MEDICARE, MEDICAID, SELFPAY | PROVIDERS: Visit Provider Urology | DX: N32.81 Overactive bladder (principal); R32 Unspecified urinary incontinence; R33.9 Retention of urine, unspecified | CPT/HCPCS: 51798; 81003; 99212 ==

== ENCOUNTER 2023-05-15 09:02 | Outpatient (AMB) | payer MEDICARE, MEDICAID, SELFPAY ==
--- NOTE | 2023-05-15 09:07 | MHC.OFFVIS ---
Intake Intake Visit Reasons: Urodynamics Intake Note: Patient presents today for URODYNAMIC Procedure: Meds: Myrbetriq & Oxybutynin Allergies to Antibiotic: No Known Allergies Blood Thinner: None Critical Care Clinical Nurse Specialist Required: No Accompanied by: Self / Same As Patient Allergies lactose Allergy (Intermediate, Verified 05/15/23 09:33) Diarrhea aspirin [ASA] Allergy (Unknown, Verified 05/15/23 09:33) RASH phenytoin [From DILANTIN] Adverse Reaction (Unknown, Verified 05/15/23 09:33) SWELLING Medication List - Last Reconciled 05/15/23 by Steven Key MD albuterol sulfate mg inhalation Q6H PRN albuterol sulfate 90 mcg/actuation 1 puff PO Q4H PRN amlodipine 10 mg PO DAILY atorvastatin 40 mg PO DAILY benzonatate 100 mg PO TID PRN benztropine 1 mg PO BID blood sugar diagnostic (FreeStyle Lite Strips) As directed twice a day blood sugar checks 90 day supply blood-glucose meter (FreeStyle Lite Meter kit) DX: E11.9, test blood sugar 2 times a day, duration 999 days budesonide-formoterol 160-4.5 mcg/actuation 2 puffs inhalation BID carbamazepine 200 mg PO BID 3 months clopidogrel 75 mg PO DAILY 90 days diaper,brief,adult,disposable (Briefs, Adult-Extra Large) change every 2-3 hours prn for incontinence diclofenac sodium 1% 1 - 2 grams topical QID dulaglutide 1.5 mg (0.5 mL) subcut QWEEK 28 days glipizide ER 10 mg PO BID hydralazine 25 mg PO TID ibuprofen 600 mg PO TID PRN incontinence pad, liner, disp every 2-3 hours PRN lancets (FreeStyle Lancets) 28 gauge topical BID levetiracetam 1,000 mg PO BID magnesium oxide 400 mg PO DAILY 30 days mecobalamin (vitamin B12) 1,000 mcg PO DAILY 90 days metformin 1000 mg (2 tabs) a.m. and 750 mg (1.5 tabs) p.m. orally 2 times a day; 90 days multivitamin (One Daily Multivitamin tablet) 1 tab PO DAILY omeprazole 40 mg PO DAILY pregabalin 100 mg PO TID 30 days risperidone 1 mg PO BID sertraline 50 mg PO DAILY 90 days vibegron (Gemtesa) 75 mg PO DAILY HPI HPI Comments History of Present Illness Details The patient is a 67-year-old female who presents today to the office for a follow-up. 05/15/2023-- She is followed today for urodynamics for LUTS of urgency and urge incontinence. Significant comorbidity- DM, COPD The patient failed oxybutynin 10 mg ER.?and Myrbetriq 25 mg QD Review of charts: Last visit: 12/27/2022? Co-morbidity--Diabetes, Obesity, Sleep Apnea, on CPAP.? The patient denies prior cigarette use.?? She was given oxybutynin 10 mg ER on her previous visit 07/15/22.? Seen in the ED for constipation on 11/12/22.? The patient states inability to void for 2-3 days for which she visited the ER on 11/12/22.? Denies dysuria. I reviewed imaging results with the patient, renal sono and CTAP, see below. I have discussed that oxybutynin may contribute to constipation, I will change the bladder medication.? Will trial Myrbetriq 25 mg Evaluation today-- Bladder scan: 35 mL.? CTAP without IV contrast results reviewed?11/12/22-- Kidneys: WNL. No renal calculi was visualized. Stool was noted.? Renal US results reviewed?11/11/22-- Kidneys: WNL. No renal calculi was visualized.? 05/15/23- Interpretation of Urodynamics: The study was notable for detrusor overactivity, detrusor contraction observed at volume 302 mL with associated urge. Stress urinary incontinence was not observed. Plan: Gemtesa 75 mg daily. Follow-up in 2 months. [facility] Medical History Diabetes Dash's paralysis (postepileptic) Anxiety disorder, unspecified Chronic obstructive pulmonary disease, unspecified Unspecified asthma, uncomplicated Epilepsy, unspecified, not intractable, without status epilepticus Essential (primary) hypertension Unspecified hearing loss, bilateral Constipation due to slow transit Bilateral primary osteoarthritis of knee Neuropathy Hyperlipidemia, unspecified Gait instability Controlled diabetes mellitus with diabetic neuropathy, without long-term current use of insulin Surgical History History of solitary pulmonary nodule Family History Father Bone cancer Mother Breast cancer Brother No problems noted. Brother No problems noted. Brother No problems noted. Sister No problems noted. Sister Uterine cancer Son No problems noted. Son No problems noted. Daughter No problems noted. Daughter No problems noted. Other Mental health disorder Substance use disorder Social History Housing: Apartment Alcohol intake: never Patient Tobacco Use Status: Never used Tobacco e-Cigarette/Vaping Use: Never Used Second Hand Smoke Exposure: No service: No Current occupational status: retired Current occupation: Right Handed Current occupational exposures/hazards: No Cognitive needs: No Hearing needs: No Vision needs: No Female Reproductive History Menstrual Age of Menarche: 11 Review of Systems Const All systems reviewed & are unremarkable except as noted in HPI and below Reports no additional complaints Eyes Reports no additional complaints ENT Reports no additional complaints Card Denies dyspnea Resp Denies cough and Denies dyspnea GI Reports no additional complaints Reports no additional complaints Musc Reports no additional complaints Skin/Breast Denies rash and Denies unusual bruising Neuro Reports no additional complaints Psych Reports no additional complaints Endo Reports no additional complaints Slick/Lymph Reports no additional complaints Aller/Immun Reports no additional complaints Office Procedures Urodynamic Studies Consent Discussed risk and benefit or proposed procedure with the patient. Information consent for procedure given to the patient. Discussed technical aspects, risks, benefits and alternatives in full. Addressed all of the patient's questions and concerns regarding the procedure. The patient demonstrated knowledge and understanding. They wish to proceed with this procedure. Preparation The patient was prepped in the usual manner. A cat cracker operator was present and in the room. Genitalia was prepped with betadine solution in a sterile manner. Prep: The patient was prepped in the usual manner. A cat cracker operator was present and in the room. Genitalia was prepped with betadine solution in a sterile manner. 46000-Clioixgozvbumz w/ CHEF MANAGER 12068-Exkk/Urinary Muscle Study 27677-Jkbtq-Nxelpwufn Pressure Test Procedure code (CPT) selection complete Office Meds lidocaine HCl 2 % mucosal jelly in applicator Performing Provider: Steven Key MD Performing Location[facility] Documented (not given) by: Steven Key MD on 05/15/23 11:23 Reason Not Given: Not Medically Necessary nitrofurantoin monohydrate/macrocrystals 100 mg capsule Performing Provider: Steven Key MD Performing Location: [facility] Administered by: Steven Key MD on 05/15/23 11:23 Dose Route Admin Location Dispensed Lot Number Expiration Date NDC Jeweler Apprentice 100 mg PO 1 cap Assessment & Plan Assessment & Plan (1) Detrusor overactivity: Code(s): N32.81 - Overactive bladder (2) OAB (overactive bladder): Code(s): N32.81 - Overactive bladder Plan Interpretation of Urodynamics: The study was notable for detrusor overactivity, detrusor contraction observed at volume 302 mL with associated urge. Stress urinary incontinence was not observed. Plan: Gemtesa 75 mg daily. Follow-up in 2 months. Orders: Orders AMB Urodynamics Studies Today N32.81 - Overactive bladder Medications: New vibegron (Gemtesa) Gemtesa to replace oxybutynin and myrbetriq 75 mg PO DAILY 90 tabs 1RF vibegron (Gemtesa) 75 mg PO DAILY 90 tabs 1RF Patient Instructions: The patient had an opportunity to ask questions regarding treatment plan. All questions were answered. Imaging, Laboratory studies and physical exam results were discussed and reviewed in detail. No major barriers to understanding were identified. The patient expressed understanding and agreement with the above treatment plan.? ? ? The patient is aware they should contact our office by phone for worsening of their current condition or the appearance of new symptoms. Compliance is encouraged with any medications and followup testing that is ordered.? ? ? It is a privilege to be allowed the opportunity to participate in the urologic care of your patient. If you have any questions or concerns regarding treatment for the above conditions please do not hesitate to contact me. The office telephone contact is [phone].? ? ? This note is constructed in part using voice recognition software. While every effort has been made to ensure accuracy publishing manager errors may have been included.? ? ? Yours sincerely,? ? ? Steven Key MD? Coding Level of Care Code Est Pt Level 3 (30059) Diagnoses Detrusor overactivity N32.81 OAB (overactive bladder) N32.81 CPT Codes Urodynamic Studies - CPT: 25231-Cyumggqnvfspad w/ CHEF MANAGER ([id number]) Urodynamic Studies - CPT: 47893-Tosd/Urinary Muscle Study ([id number]) Urodynamic Studies - CPT: 29498-Lwwww-Gggdzyrbd Pressure Test ([id number]) Comment Modifier 51 Cystometrogram Void Pressure Cystometrogram void pressure performed by: Steven Key Vaginal/rectal catheter type: vaginal First sensation at (mL): 26 First detrussor pressure (cm H2O): 2 Strong desire to void occured at (mL): 306 Strong desire detrussor pressure (cm H2O): 12 Maximum fill (mL): 382 Maximum fill detrussor pressure (cm H2O): 29 Voided with max detrussor pressure of (cm H2O): 29 Maximum flow rate (mL/second): 9.4 Additional details: Stress test at volume 201 mL. Patient did not leak with cough or valsalva. Complex Uroflow Residual urine (mL): 120 Comments: Flow study N/A: Patient's voided volume was less than 100 ml
== END 2023-05-15 10:35 | disposition home or self-care (01) ==
PROVIDERS: PCP Family Medicine; Visit Provider Urology
DX: N32.81 Overactive bladder (principal); Z13.9 Encounter for screening, unspecified
CPT/HCPCS: 51728; 51784; 51797

== ENCOUNTER → 2023-05-15 09:02 | Outpatient (BNVA) | payer MEDICARE, MEDICAID, SELFPAY | PROVIDERS: PCP Family Medicine; Visit Provider Urology | DX: N32.81 Overactive bladder (principal); N39.41 Urge incontinence | CPT/HCPCS: 51728; 51784; 51797; 81003 ==

== ENCOUNTER 2023-06-11 10:35 | Outpatient (AMB) | payer MEDICARE, MEDICAID, SELFPAY ==
--- NOTE | 2023-06-11 10:44 | A.OFFPC_ITS ---
Vital Signs 06/11/23 10:45 Height 5 ft 4 in Weight 219 lb 2 oz BMI 37.6 BP 122/74 Blood Pressure Location Lt brachial Position Sitting Respiration 16 Pulse 91 Pulse Source Pulse Oximeter Pulse Oximetry (%) 97 Oxygen Delivery Method Room Air Intake Visit Reasons: f/u diabetes Intake Note: Patient is here for diabetes follow up today. Her last sugar read 247 after eating cereal. Patient would like refill of Pregabalin today. Allergies lactose Allergy (Intermediate, Verified 06/11/23 10:47) Diarrhea aspirin [ASA] Allergy (Unknown, Verified 06/11/23 10:47) RASH phenytoin [From DILANTIN] Adverse Reaction (Unknown, Verified 06/11/23 10:47) SWELLING Tobacco use date assessed: 03/06/23 Fall risk assessment: No Falls in past year Last assessed Fall Risk: 06/11/23 Dental Screening Dental Screen Date: 06/11/23 Did you have a dental visit in the last 12 months?: No Did you have a dental problem in the last 6 months where you did not have access to dental care?: No Was dental information given to patient?: Patient has dentist HPI f/u diabetes HPI Details 67 y/o female presents to f/u diabetes. Last A1c 04/11/23 was 6.4%. She notes her blood sugars have been going up and down. She reports blood sugars have been running in the 220-230s. She continues taking her medications as prescribed. She is on dulaglutide 1.5mg, glipizide 10mg b.i.d. and metformin. She notes she does feel a bit under the weather. She also reports a vaginal itch/discomfort along with white discharge. [facility] Medical History Diabetes Dash's paralysis (postepileptic) Anxiety disorder, unspecified Chronic obstructive pulmonary disease, unspecified Unspecified asthma, uncomplicated Epilepsy, unspecified, not intractable, without status epilepticus Essential (primary) hypertension Unspecified hearing loss, bilateral Constipation due to slow transit Bilateral primary osteoarthritis of knee Neuropathy Hyperlipidemia, unspecified Gait instability Controlled diabetes mellitus with diabetic neuropathy, without long-term current use of insulin Surgical History History of solitary pulmonary nodule Family History Father Bone cancer Mother Breast cancer Brother No problems noted. Brother No problems noted. Brother No problems noted. Sister No problems noted. Sister Uterine cancer Son No problems noted. Son No problems noted. Daughter No problems noted. Daughter No problems noted. Other Mental health disorder Substance use disorder Social History Housing: Apartment Alcohol intake: never Patient Tobacco Use Status: Never used Tobacco e-Cigarette/Vaping Use: Never Used Second Hand Smoke Exposure: No service: No Current occupational status: retired Current occupation: Right Handed Current occupational exposures/hazards: No Cognitive needs: No Hearing needs: No Vision needs: No Female Reproductive History Menstrual Age of Menarche: 11 Questionnaire Thrive Questionnaire Date Thrive assessed: 08/23/21 RALF-7 AMB Questionnaire RALF-7 Date RALF - 7 assessed: 04/11/23 Source: Developed by Drs. Bud Rivers, Susana He, Rj Goodwin and colleagues, with an educational itz from [employer]. Review of Systems Const Denies chills, Denies fatigue, Denies fever(s), Denies headache(s) and Denies weakness ENT Denies dizziness and Denies headache(s) Card Denies dyspnea Resp Denies cough, Denies dyspnea, Denies wheezing and Denies other (shortness of breath) Musc Denies numbness and Denies tingling Neuro Denies dizziness, Denies headache(s), Denies numbness, Denies tingling and Denies weakness Psych Denies anxiety and Denies depression Endo Denies fatigue Aller/Immun Denies wheezing Physical exam (Primary Care) Vital Signs: Last Vital Signs Pulse 91 06/11/23 10:45 Resp 16 06/11/23 10:45 BP 122/74 06/11/23 10:45 Pulse Ox 97 06/11/23 10:45 Oxygen Delivery Method Room Air 06/11/23 10:45 BMI result Body Mass Index 37.6 Tobacco/Smoking Status: Tobacco use Status Tobacco use date assessed 03/06/23 06/11/23 10:53 Patient Tobacco Use Status Never used Tobacco 06/11/23 10:53 e-Cigarette/Vaping Use Never Used 06/11/23 10:53 Thrive Assessment: Date of Thrive Assessment Date Thrive assessed 08/23/21 06/11/23 10:53 Const General: well developed; No acute distress Nutritional Appearance: well nourished Orientation/consciousness: patient oriented x3 HENMT Head: Yes normocephalic and Yes atraumatic Eyes General: appearance normal, both eyes and all related structures Pupils: Equal, round and reactive pupils present EOM: EOMs intact bilaterally Resp Effort & Inspection: normal respiratory effort Neuro General: patient oriented x3 and gait normal Cranial nerves: Yes Equal, round and reactive pupils present Psych Affect: normal affect Assessment and Plan Assessment & Plan (1) Diabetes type 2, controlled: Code(s): E11.9 - Type 2 diabetes mellitus without complications Plan: A1c?at?last?visit?in?April ?was?6.4%?which?is?good?control.??More?recently?she?is?noting?that?she?has?highe r?blood?sugars. Seems?to?be?mildly?under?the?weather?today?and?elevated?blood?sugars?are?likely? transient. Will?keep?a?close?follow- up?by?getting?her?back?in?2?weeks.??She?will?work?on?diet Low?in?sugars?and?starches Will?also?refer?her?to?the?nurse?navigator?to?help?her?get?a?Александр?system?which? will?give?her?a?greater?insight?into?her?blood?sugar?control. (2) Vaginal yeast infection: Code(s): B37.31 - Acute candidiasis of vulva and vagina Plan: Start?Diflucan. She?will?call?me?if?not?improving (3) Abdominal discomfort: Code(s): R10.9 - Unspecified abdominal pain Plan: Mild?distension?without?rebound Appears?constipated Encouraged?increased?hydration.??Will?give?patient?a?short?course?of?MiraLax Call?or?return?to?office?if?not?improving Orders: Referrals Nurse Navigator Referral E11.9 - Type 2 diabetes mellitus without complications Medications: New fluconazole 150 mg PO Q3D 2 tabs 0RF polyethylene glycol 3350 (Miralax) 17 grams PO DAILY 14 ea 0RF 4 days Coding Level of Care Code Est Pt Level 3 (26480) Diagnoses Diabetes type 2, controlled E11.9 Vaginal yeast infection B37.31 Abdominal discomfort R10.9
[2023-06-11 10:45] VITALS: BP 122/74; PULSE 91; RESP 16; O2SAT 97; BMI 37.6
== END 2023-06-11 11:30 | disposition home or self-care (01) ==
PROVIDERS: PCP Family Medicine; Visit Provider Family Medicine
DX: E11.9 Type 2 diabetes mellitus without complications (principal); B37.31 Acute candidiasis of vulva and vagina; R10.9 Unspecified abdominal pain
CPT/HCPCS: 99213

== ENCOUNTER 2023-08-29 09:52 | Outpatient (AMB) | payer MEDICARE, MEDICAID, SELFPAY ==
[2023-08-29 10:02] VITALS: BP 120/70; PULSE 79; TEMP 36.8; O2SAT 98; BMI 37.3
--- NOTE | 2023-08-29 10:02 | MHC.PC.OV ---
Vital Signs 08/29/23 10:02 Height 5 ft 4 in Weight 217 lb 6 oz BMI 37.3 BP 120/70 Blood Pressure Location Lt brachial Position Sitting Pulse 79 Pulse Source Pulse Oximeter Temp 98.3 F Temp Source Oral Pulse Oximetry (%) 98 Oxygen Delivery Method Room Air Oxygen Flow Rate 98.3 Intake Visit Reasons: f/u diabetes Intake Note: Patient is here to follow up on her diabetes today. Patient is requesting a refill of her Lyrica. Patient states she's been sick with bad cold symptoms. Allergies lactose Allergy (Intermediate, Verified 08/29/23 10:05) Diarrhea aspirin [ASA] Allergy (Unknown, Verified 08/29/23 10:05) RASH phenytoin [From DILANTIN] Adverse Reaction (Unknown, Verified 08/29/23 10:05) SWELLING Tobacco use date assessed: 08/29/23 Fall risk assessment: No Falls in past year Last assessed Fall Risk: 08/29/23 Dental Screening Dental Screen Date: 08/29/23 Did you have a dental visit in the last 12 months?: Yes Did you have a dental problem in the last 6 months where you did not have access to dental care?: No Was dental information given to patient?: Patient has dentist HPI f/u diabetes HPI Details 67 y/o female presents to f/u diabetes. Pt is on dulaglutide 1.5mg, metformin, glipizide 10mg b.i.d. A1c today 08/29/23 6.1%, which improved from 6.4% in April. Pt reports she feels unwell today. [facility] Medical History Diabetes Dash's paralysis (postepileptic) Anxiety disorder, unspecified Chronic obstructive pulmonary disease, unspecified Unspecified asthma, uncomplicated Epilepsy, unspecified, not intractable, without status epilepticus Essential (primary) hypertension Unspecified hearing loss, bilateral Constipation due to slow transit Bilateral primary osteoarthritis of knee Neuropathy Hyperlipidemia, unspecified Gait instability Controlled diabetes mellitus with diabetic neuropathy, without long-term current use of insulin Surgical History History of solitary pulmonary nodule Family History Father Bone cancer Mother Breast cancer Brother No problems noted. Brother No problems noted. Brother No problems noted. Sister No problems noted. Sister Uterine cancer Son No problems noted. Son No problems noted. Daughter No problems noted. Daughter No problems noted. Other Mental health disorder Substance use disorder Social History Housing: Apartment Alcohol intake: never Patient Tobacco Use Status: Never used Tobacco e-Cigarette/Vaping Use: Never Used Second Hand Smoke Exposure: No service: No Current occupational status: retired Current occupation: Right Handed Current occupational exposures/hazards: No Cognitive needs: No Hearing needs: No Vision needs: No Female Reproductive History Menstrual Age of Menarche: 11 Questionnaire Thrive Questionnaire Date Thrive assessed: 08/23/21 RALF-7 AMB Questionnaire RALF-7 Date RALF - 7 assessed: 04/11/23 Source: Developed by Drs. Bud Rivers, Susana He, Rj Goodwin and colleagues, with an educational itz from [employer]. Review of Systems Const Denies chills, Denies fatigue, Denies fever(s), Denies headache(s) and Denies weakness ENT Denies dizziness and Denies headache(s) Card Denies chest pain, Denies lightheadedness, Denies dyspnea and Denies other (Palpitations) Resp Reports cough, Denies dyspnea, Denies wheezing and Denies other ( shortness of breath) Musc Denies numbness and Denies tingling Neuro Denies dizziness, Denies headache(s), Denies numbness, Denies tingling, Denies paresthesias and Denies weakness Psych Denies anxiety and Denies depression Endo Denies fatigue Aller/Immun Denies wheezing Physical exam (Primary Care) Vital Signs: Last Vital Signs Temp 98.3 F 08/29/23 10:02 Pulse 79 08/29/23 10:02 BP 120/70 08/29/23 10:02 Pulse Ox 98 08/29/23 10:02 Oxygen Delivery Method Room Air 08/29/23 10:02 Oxygen Flow Rate 98.3 08/29/23 10:02 BMI result Body Mass Index 37.3 Tobacco/Smoking Status: Tobacco use Status Tobacco use date assessed 08/29/23 08/29/23 10:14 Patient Tobacco Use Status Never used Tobacco 08/29/23 10:14 e-Cigarette/Vaping Use Never Used 08/29/23 10:14 Thrive Assessment: Date of Thrive Assessment Date Thrive assessed 08/23/21 08/29/23 10:14 Const General: no acute distress and well developed Nutritional Appearance: obese Orientation/consciousness: patient oriented x3 HENMT Head: Yes normocephalic and Yes atraumatic Eyes General: appearance normal, both eyes and all related structures Pupils: Equal, round and reactive pupils present EOM: EOMs intact bilaterally Resp Other: Coarse breath sounds throughout Effort & Inspection: normal respiratory effort Cardio Rate: regular rate Rhythm: regular rhythm Heart sounds: S1 normal heart sound present, S2 normal heart sound present, no gallops, no murmurs and no rubs Neuro General: patient oriented x3 and gait normal Cranial nerves: Yes Equal, round and reactive pupils present Psych Affect: normal affect Results AMB Hemoglobin A1c AMB Hemoglobin A1c 6.1 % Last Edit by Carol Mercado CMA on 08/29/23 10:21 Results Reviewed Results Reviewed: Laboratory Last Values Hgb A1c (Clinic) 6.1 % (4.0-6.0) H 08/29/23 10:20 Assessment and Plan Assessment & Plan (1) Diabetes type 2, controlled: Code(s): E11.9 - Type 2 diabetes mellitus without complications Plan: A1c?6.1%?is?good?control.??Goal?is?less?than?7.0% Continue?current?medication?regimen Approved?for?Александр?system?due?to?documented?lows?during?her?14?day?trial. Continue?Александр?system (2) Viral illness: Code(s): B34.9 - Viral infection, unspecified Plan: Possible?COVID?flu?or?RSV?so?sending?nasal?swab?to?the?lab Hydrate?well?and?get?plenty?of?rest Given?her?other?medical?conditions,?would?start?Paxlovid (3) Cough: Code(s): R05.9 - Cough, unspecified Plan: Lungs?are?coarse?but?clear.??Likely?secondary?to?viral?illness?as?above No?indication?for?antibiotic?at?this?time Orders: Orders AMB Hemoglobin A1c Today Z13.9 - Encounter for screening, unspecified SARS-CoV2/FLU/RSV Today B34.9 - Viral infection, unspecified, Z20.822 - Contact with and (suspected) exposure to COVID-19 Medications: Refilled pregabalin 100 mg PO TID 90 caps 2RF 30 days Coding Level of Care Code Est Pt Level 3 (89671) Diagnoses Diabetes type 2, controlled E11.9 Viral illness B34.9 Cough R05.9
== END 2023-08-29 11:07 | disposition home or self-care (01) ==
PROVIDERS: PCP Family Medicine; Visit Provider Family Medicine
DX: E11.9 Type 2 diabetes mellitus without complications (principal); B34.9 Viral infection, unspecified; R05.9 Cough, unspecified
CPT/HCPCS: 83036; 99213

== ENCOUNTER 2023-08-29 11:08 | Outpatient (REF) | payer MEDICARE, MEDICAID, SELFPAY ==
[2023-08-29 16:46] LABS: Influenza A PCR NEGATIVE (Negative); Influenza B PCR NEGATIVE (Negative); Resp Syncy Virus RNA Qual PCR NEGATIVE (Negative); SARS COV2 PCR INHOUSE NEGATIVE (Negative)
== END 2023-08-29 11:09 | disposition home or self-care (01) ==
LOC: HO.LAB 11:08
PROVIDERS: Visit Provider Family Medicine
DX: B34.9 Viral infection, unspecified (principal); Z20.822 Contact with and (suspected) exposure to COVID-19
CPT/HCPCS: 0241U

== ENCOUNTER 2023-09-11 11:31 | Outpatient (AMB) | payer MEDICARE, MEDICAID, SELFPAY ==
--- NOTE | 2023-09-11 10:07 | MHC.OFFVIS ---
Intake Intake Visit Reasons: 2m follow up Allergies lactose Allergy (Intermediate, Verified 08/29/23 10:05) Diarrhea aspirin [ASA] Allergy (Unknown, Verified 08/29/23 10:05) RASH phenytoin [From DILANTIN] Adverse Reaction (Unknown, Verified 08/29/23 10:05) SWELLING HPI HPI Comments History of Present Illness Details The patient is a 67-year-old female who presents today to the office for a follow-up. 09/11/23--Significant comorbidity- DM, COPD The patient failed oxybutynin 10 mg ER.?and Myrbetriq 25 mg QD --had uds on 05/15/23 -The study was notable for detrusor overactivity, detrusor contraction observed at volume 302 mL with associated urge. Stress urinary incontinence was not observed. She was started on Gemtesa 75 mg daily. Review of charts: 05/15/2023-- urodynamics for LUTS of urgency and urge incontinence. The study was notable for detrusor overactivity, detrusor contraction observed at volume 302 mL with associated urge. Stress urinary incontinence was not observed. office visit: 12/27/2022? Co-morbidity--Diabetes, Obesity, Sleep Apnea, on CPAP.? The patient denies prior cigarette use.?? She was given oxybutynin 10 mg ER on her previous visit 07/15/22.? Seen in the ED for constipation on 11/12/22.? The patient states inability to void for 2-3 days for which she visited the ER on 11/12/22.? Denies dysuria. I reviewed imaging results with the patient, renal sono and CTAP, see below. I have discussed that oxybutynin may contribute to constipation, I will change the bladder medication.? Will trial Myrbetriq 25 mg Evaluation today-- Bladder scan: 35 mL.? CTAP without IV contrast results reviewed?11/12/22-- Kidneys: WNL. No renal calculi was visualized. Stool was noted.? Renal US results reviewed?11/11/22-- Kidneys: WNL. No renal calculi was visualized.? 09/11/23- Plan: [facility] Medical History Diabetes Dash's paralysis (postepileptic) Anxiety disorder, unspecified Chronic obstructive pulmonary disease, unspecified Unspecified asthma, uncomplicated Epilepsy, unspecified, not intractable, without status epilepticus Essential (primary) hypertension Unspecified hearing loss, bilateral Constipation due to slow transit Bilateral primary osteoarthritis of knee Neuropathy Hyperlipidemia, unspecified Gait instability Controlled diabetes mellitus with diabetic neuropathy, without long-term current use of insulin Surgical History History of solitary pulmonary nodule Family History Father Bone cancer Mother Breast cancer Brother No problems noted. Brother No problems noted. Brother No problems noted. Sister No problems noted. Sister Uterine cancer Son No problems noted. Son No problems noted. Daughter No problems noted. Daughter No problems noted. Other Mental health disorder Substance use disorder Social History Housing: Apartment Alcohol intake: never Patient Tobacco Use Status: Never used Tobacco e-Cigarette/Vaping Use: Never Used Second Hand Smoke Exposure: No service: No Current occupational status: retired Current occupation: Right Handed Current occupational exposures/hazards: No Cognitive needs: No Hearing needs: No Vision needs: No Female Reproductive History Menstrual Age of Menarche: 11 Review of Systems Const All systems reviewed & are unremarkable except as noted in HPI and below Reports no additional complaints Eyes Reports no additional complaints ENT Reports no additional complaints Card Denies dyspnea Resp Denies cough and Denies dyspnea GI Reports no additional complaints Reports no additional complaints Musc Reports no additional complaints Skin/Breast Denies rash and Denies unusual bruising Neuro Reports no additional complaints Psych Reports no additional complaints Endo Reports no additional complaints Slick/Lymph Reports no additional complaints Aller/Immun Reports no additional complaints Coding
--- NOTE | 2023-09-11 12:07 | A.OFFVIS_ITS ---
Intake Intake Visit Reasons: 2m follow up Intake Note: Patient presents today for a 2 month follow-up: Meds- Gemtesa Allergies to Antibiotic- No Known Allergies Blood Thinner- None Post Void Residual: 0 mL Accompanied by: Self / Same As Patient Allergies lactose Allergy (Intermediate, Verified 08/29/23 10:05) Diarrhea aspirin [ASA] Allergy (Unknown, Verified 08/29/23 10:05) RASH phenytoin [From DILANTIN] Adverse Reaction (Unknown, Verified 08/29/23 10:05) SWELLING HPI HPI Comments History of Present Illness Details The patient is a 67-year-old female who presents today to the office for a follow-up. 09/11/23--Yasemin is followed today for over active bladder and urinary tract infections. She was last seen by me on 05/15/2023 for urodynamics. The patient failed oxybutynin 10 mg ER.?and Myrbetriq 25 mg QD Significant comorbidity- DM, COPD. Urodynamics findings:notable for detrusor overactivity, detrusor contraction observed at volume 302 mL with associated urge. Stress urinary incontinence was not observed. She was started on gemtesta 75 mg daily. She states she is doing better with bladder control and no indication for UA: Leuk - trace, blood neg. Review of charts: 05/15/23- Urodynamics: The study was nota ble for detrusor overactivity, detrusor contraction observed at volume 302 mL with associated urge. Stress urinary incontinence was not observed. The patient failed oxybutynin 10 mg ER.?and Myrbetriq 25 mg QD Results: CTAP without IV contrast results reviewed?11/12/22-- Kidneys: WNL. No renal calculi was visualized. Stool was noted.? Renal US results reviewed?11/11/22-- Kidneys: WNL. No renal calculi was visualized.? Plan: 09/11/23--Cont. Gemtesa 75 mg daily. Follow-up in 6 months. [facility] Medical History Diabetes Dash's paralysis (postepileptic) Anxiety disorder, unspecified Chronic obstructive pulmonary disease, unspecified Unspecified asthma, uncomplicated Epilepsy, unspecified, not intractable, without status epilepticus Essential (primary) hypertension Unspecified hearing loss, bilateral Constipation due to slow transit Bilateral primary osteoarthritis of knee Neuropathy Hyperlipidemia, unspecified Gait instability Controlled diabetes mellitus with diabetic neuropathy, without long-term current use of insulin Surgical History History of solitary pulmonary nodule Family History Father Bone cancer Mother Breast cancer Brother No problems noted. Brother No problems noted. Brother No problems noted. Sister No problems noted. Sister Uterine cancer Son No problems noted. Son No problems noted. Daughter No problems noted. Daughter No problems noted. Other Mental health disorder Substance use disorder Social History Housing: Apartment Alcohol intake: never Patient Tobacco Use Status: Never used Tobacco e-Cigarette/Vaping Use: Never Used Second Hand Smoke Exposure: No service: No Current occupational status: retired Current occupation: Right Handed Current occupational exposures/hazards: No Cognitive needs: No Hearing needs: No Vision needs: No Female Reproductive History Menstrual Age of Menarche: 11 Review of Systems Const All systems reviewed & are unremarkable except as noted in HPI and below Reports no additional complaints Eyes Reports no additional complaints ENT Reports no additional complaints Card Denies dyspnea Resp Denies cough and Denies dyspnea GI Reports no additional complaints Reports no additional complaints Musc Reports no additional complaints Skin/Breast Denies rash and Denies unusual bruising Neuro Reports no additional complaints Psych Reports no additional complaints Endo Reports no additional complaints Slick/Lymph Reports no additional complaints Aller/Immun Reports no additional complaints Office Procedures Post Void Residual Post Residual Void Post Void Residual (PVR): 0 [id number] Void Residual by ultrasound Results AMB Urinalysis, Automated UA Leukoctes 15 Beatrice/uL Last Edit by CHARLEY Murillo on 09/11/23 12:11 UA Nitrite Negative Last Edit by CHARLEY Murillo on 09/11/23 12:11 UA Urobilinogen 0.2 mg/dL Last Edit by CHARLEY Murillo on 09/11/23 12:1 1 UA Protein 15 mg/dL Last Edit by Jorge Ferguson Azeem on 09/11/23 12:11 UA pH 6.0 Last Edit by Jorge Ferguson Azeem on 09/11/23 12:11 UA Blood 0 Juan/uL Last Edit by Jorge Ferguson Azeem on 09/11/23 12:11 UA Specific [place] 1.020 Last Edit by CHARLEY Murillo on 09/11/23 12: 11 UA Ketone Negative Last Edit by Jorge Ferguson Azeem on 09/11/23 12:11 UA Bilirubin 0 mg/dL Last Edit by Jorge Ferguson Azeem on 09/11/23 12:11 UA Glucose 0 mg/dL Last Edit by Jorge Ferguson Azeem on 09/11/23 12:11 Results Reviewed Results Reviewed: Laboratory Last Values Urine pH (Auto) 6.0 09/11/23 12:09 Specific [place] (Auto) 1.020 09/11/23 12:09 Urine Protein (Auto) 15 mg/dL 09/11/23 12:09 Glucose (UA)(Auto) 0 mg/dL 09/11/23 12:09 Urine Ketones (Auto) Negative 09/11/23 12:09 Urine Blood (Auto) 0 Juan/uL 09/11/23 12:09 Urine Nitrite (Auto) Negative 09/11/23 12:09 Urine Bilirubin (Auto) 0 mg/dL 09/11/23 12:09 Urine Urobilinogen (Auto) 0.2 mg/dL 09/11/23 12:09 Leukocyte Esterase (Auto) 15 Beatrice/uL 09/11/23 12:09 Assessment & Plan Assessment & Plan (1) Detrusor overactivity: Code(s): N32.81 - Overactive bladder (2) OAB (overactive bladder): Code(s): N32.81 - Overactive bladder Plan Gemtesa 75 mg daily Follow-up in 6 months Orders: Orders AMB Urinalysis Automated Today Z13.9 - Encounter for screening, unspecified AMB Post Void Residual by ultrasound Today N39.8 - Other specified disorders of urinary system Medications: Refilled vibegron (Gemtesa) Gemtesa to replace oxybutynin and myrbetriq 75 mg PO DAILY 90 tabs 3RF Patient Instructions: The patient had an opportunity to ask questions regarding treatment plan. All questions were answered. Imaging, Laboratory studies and physical exam results were discussed and reviewed in detail. No major barriers to understanding were identified. The patient expressed understanding and agreement with the above treatment plan. The patient is aware they should contact our office by phone for worsening of their current condition or the appearance of new symptoms. Compliance is encouraged with any medications and followup testing that is ordered. It is a privilege to be allowed the opportunity to participate in the urologic care of your patient. If you have any questions or concerns regarding treatment for the above conditions please do not hesitate to contact me. The office telephone contact is [phone]. This note is constructed in part using voice recognition software. While every effort has been made to ensure accuracy pillowcase folder errors may have been included. Yours sincerely, Steven Key MD Coding Level of Care Code Est Pt Level 3 (47038) Diagnoses Detrusor overactivity N32.81 OAB (overactive bladder) N32.81 CPT Codes Post Residual Void - PVR CPT Code: 53257-Dnjs Void Residual by ultrasound ([id number])
== END 2023-09-11 12:16 | disposition home or self-care (01) ==
PROVIDERS: PCP Family Medicine; Visit Provider Urology
DX: N32.81 Overactive bladder (principal); Z13.9 Encounter for screening, unspecified
CPT/HCPCS: 99213

== ENCOUNTER → 2023-09-11 11:31 | Outpatient (BNVA) | payer MEDICARE, MEDICAID, SELFPAY | PROVIDERS: PCP Family Medicine; Visit Provider Urology | DX: N32.81 Overactive bladder (principal); N39.8 Other specified disorders of urinary system; Z79.899 Other long term (current) drug therapy | CPT/HCPCS: 51798; 81003; 99212 ==

== ENCOUNTER 2023-10-14 09:07 | Outpatient (REF) | payer MEDICARE, MEDICAID, SELFPAY ==
--- NOTE | 2023-10-14 10:31 | MHC.AU.HA3 ---
Hearing Instrument Follow-Up- Binaural Date of Visit: 10/14/23 Right Ear: Braden, Model, Color, Serial Number: Chintan Bermeo M50-R, #[id number] [employer] Repair Warranty: 05/23/2023 [employer] Loss and Damage Warranty: 05/23/2023 [facility] Service Plan: Battery Size: Rechargeable Medical Housekeeper/Slim Tube: Earmold/Dome/CShell/SlimTip:SlimTip #[id number] Type of Wax Guard: CeruStop Dispensed By: [facility] Date of Fittin03/30/2020 Left Ear: Braden, Model, Color, Serial Number: Chintan Bermeo M50-R, #[id number] [employer] Developer Repair Warranty: 05/23/2023 [employer] Loss and Damage Warranty: 05/23/2023 [facility] Service Plan: Battery Size: Rechargeable Medical Housekeeper/Slim Tube: Earmold/Dome/CShell/SlimTip: SlimTip #[id number] Type of Wax Guard: Cerustop Dispensed By: [facility] Date of Fittin03/30/2020 Follow-Up Summary: Here for evaluation. Reports hearing aids aren't working, haven't been working for about six months, hears better without them. Found both wax guards clogged, mics clogged. Cleaned aids, cleaned ear molds, replaced wax guards, vacuumed out melissa ports. Listening check positive after cleaning. Recommended coming in more frequently for hearing aid maintenance. Recommendations: Recommendations: Hearing instrument maintenance in 6 months, or sooner if needed. Diagnosis Code(s): Primary Diagnosis: H90.3 Bilateral Sensorineural Hearing Loss Signature: Provider: Ebonie Oconnor, CCC-A
== END 2023-10-14 09:08 | disposition home or self-care (01) ==
LOC: HO.SH 09:07
PROVIDERS: Visit Provider Family Medicine
DX: Z01.118 Encounter for examination of ears and hearing with other abnormal findings (principal); H90.3 Sensorineural hearing loss, bilateral
CPT/HCPCS: 92552; 92556; 92593; 99499

== ENCOUNTER 2023-11-11 08:36 | Outpatient (AMB) | payer MEDICARE, MEDICAID, SELFPAY ==
--- NOTE | 2023-11-11 08:37 | MHC.OFFVIS ---
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 Complaining of vulvovaginal itching over the last week. Last Pap/HPV was at the age of 61 was negative, no history of abnormal Pap smears over the last 25 years Last Mammogram was BI-RADS 1 in 12/31 Last Colonoscopy was 6 years ago, the patient was due for another screening colonoscopy a year ago Last DEXA scan was in 01/30 [facility] Medical History Diabetes Dash's paralysis (postepileptic) Anxiety disorder, unspecified Chronic obstructive pulmonary disease, unspecified Unspecified asthma, uncomplicated Epilepsy, unspecified, not intractable, without status epilepticus Essential (primary) hypertension Unspecified hearing loss, bilateral Constipation due to slow transit Bilateral primary osteoarthritis of knee Neuropathy Hyperlipidemia, unspecified Gait instability Controlled diabetes mellitus with diabetic neuropathy, without long-term current use of insulin Surgical History History of solitary pulmonary nodule Family History Father Bone cancer Mother Breast cancer Brother No problems noted. Brother No problems noted. Brother No problems noted. Sister No problems noted. Sister Uterine cancer Son No problems noted. Son No problems noted. Daughter No problems noted. Daughter No problems noted. Other Mental health disorder Substance use disorder Social History Housing: Apartment Alcohol intake: never Patient Tobacco Use Status: Never used Tobacco e-Cigarette/Vaping Use: Never Used Second Hand Smoke Exposure: No service: No Current occupational status: retired Current occupation: Right Handed Current occupational exposures/hazards: No Cognitive needs: No Hearing needs: No Vision needs: No Female Reproductive History Menstrual Age of Menarche: 11 Menopause type: natural Total pregnancies: 4 Full term: 4 Number of Living Children: 2 Date of Mammogram: 12/26/22 Review of Systems Const All systems reviewed & are unremarkable except as noted in HPI and below Card Reports as per HPI Resp Reports as per HPI GI Reports as per HPI and Reports no additional complaints Reports as per HPI Physical Exam Vital Signs: Last Vital Signs BP 128/84 11/11/23 08:39 BMI result Body Mass Index 36.6 Const General: cooperative, healthy appearing and comfortable Chest Chest palpation & inspection: normal inspection of the chest and normal palpation of entire chest wall Breast/axilla inspection: normal inspection of the breasts and normal inspection of the axillae Breast/axilla palpation: normal palpation of the breasts, normal palpation of the axillae and no axillary lymphadenopathy Resp Effort & Inspection: normal respiratory effort Auscultation: clear to auscultation bilaterally Percussion: percussion normal Cardio Palpation: normal PMI Rate: regular rate Rhythm: regular rhythm Heart sounds: no murmurs and no rubs Peripheral pulses: Peripheral pulses 2+ throughout GI Inspection: Yes normal to inspection Palpation (GI): Soft to palpation, nontender, no guarding, not rigid and No hepatosplenomegaly present Percussion: Yes normal to percussion Auscultation: normal bowel sounds Rectal Exam - Female: deferred General: Yes bladder normal to palpation External Female Exam: No lesion Speculum Exam - Vagina: normal appearance of the vagina, normal palpation, normal vaginal discharge and not erythematous Speculum Exam - Cervix: normal appearance of the cervix and normal palpation Bimanual exam- vagina & uterus: normal bimanual exam, normal palpation, uterine size normal, bladder normal to palpation, consistency normal and normal palpation Bimanual Exam- Adnexa, other: normal adnexae, no masses and no tenderness Assessment & Plan Assessment & Plan (1) Well woman exam: Code(s): Z01.419 - Encounter for gynecological examination (general) (routine) without abnormal findings Plan: Co testing not indicated since the patient 's age is above 65 with no history of abnormal Pap smears last 25 years. Counseled the patient about the recommended dietary allowance of 1200 mg of Calcium & 800 IU of vitamin D. Mammogram ordered. Referred her for screening colonoscopy done. Will order DEXA scan . The patient was instructed to perform monthly self-breast exams and to schedule a 2 week DEXA scan follow-up appointment and an annual exam in a year; All questions answered and the patient verbalized understanding. (2) Vulvovaginitis: Code(s): N76.0 - Acute vaginitis Plan: Bacterial Vaginosis panel taken, Terazol 0.8% q.h.s. for 3 days was sent to the patient's pharmacy. The patient was instructed to call if symptoms don't improve in 48 hours. Orders: Orders XR DEXA axial skeleton Today Z78.0 - Asymptomatic menopausal state MM tomosynthesis screening BI Today Z12.31 - Encounter for screening mammogram for malignant neoplasm of breast Referrals Gastroenterology Referral Z12.11 - Encounter for screening for malignant neoplasm of colon Coding Level of Care Code Est Pt Prev Care >65y(36497) Diagnoses Well woman exam Z01.419 Vulvovaginitis N76.0
[2023-11-11 08:39] VITALS: BP 128/84; BMI 36.6
== END 2023-11-11 09:00 | disposition home or self-care (01) ==
LOC: HO.HWS 08:36
PROVIDERS: PCP Family Medicine; Visit Provider Obstetrics & Gynecology
DX: Z01.419 Encounter for gynecological examination (general) (routine) without abnormal findings (principal); N76.0 Acute vaginitis
CPT/HCPCS: 99397

== ENCOUNTER 2023-11-11 08:36 | Outpatient (REF) | payer MEDICARE, MEDICAID, SELFPAY ==
[2023-11-12 13:07] LABS: BV Int Neg Control Negative (Negative); BV Int Pos Control Positive (Positive)
== END 2023-11-11 08:37 | disposition home or self-care (01) ==
LOC: HO.LNP 08:36
PROVIDERS: PCP Family Medicine; Visit Provider Obstetrics & Gynecology
DX: Z01.419 Encounter for gynecological examination (general) (routine) without abnormal findings (principal); N76.0 Acute vaginitis
CPT/HCPCS: 87480; 87510; 87660; 99397

== ENCOUNTER 2023-11-28 11:11 | Outpatient (AMB) | payer MEDICARE, MEDICAID, SELFPAY ==
[2023-11-28 11:19] VITALS: BP 126/78; PULSE 81; O2SAT 99; BMI 37.0
--- NOTE | 2023-11-28 11:19 | MHC.PC.OV ---
Vital Signs 11/28/23 11:19 Height 5 ft 4 in Weight 215 lb 8 oz BMI 37.0 BP 126/78 Blood Pressure Location Lt brachial Position Sitting Pulse 81 Pulse Source Pulse Oximeter Pulse Oximetry (%) 99 Oxygen Delivery Method Room Air Intake Visit Reasons: 3M follow up Intake Note: Patient is here for 3 month follow up on diabetes. Patient states she has not been able to take her Trulicity, due to there being a shortage everywhere, is there something else? Allergies lactose Allergy (Intermediate, Verified 11/28/23 11:22) Diarrhea aspirin [ASA] Allergy (Unknown, Verified 11/28/23 11:22) RASH phenytoin [From DILANTIN] Adverse Reaction (Unknown, Verified 11/28/23 11:22) SWELLING Tobacco use date assessed: 08/29/23 Fall risk assessment: No Falls in past year Last assessed Fall Risk: 11/28/23 Dental Screening Dental Screen Date: 11/28/23 Did you have a dental visit in the last 12 months?: No Did you have a dental problem in the last 6 months where you did not have access to dental care?: No Was dental information given to patient?: Patient declined HPI 3M follow up HPI Details 68 y/o female presents to f/u diabetes. Last A1c 08/29/63 6.1%. A1c today 11/28/23 is She is on dulaglutide 1.5mg, glipizide 10mg b.i.d, metformin. Pt reports she has been having trouble getting her trulicity. [facility] Medical History Diabetes Dash's paralysis (postepileptic) Anxiety disorder, unspecified Chronic obstructive pulmonary disease, unspecified Unspecified asthma, uncomplicated Epilepsy, unspecified, not intractable, without status epilepticus Essential (primary) hypertension Unspecified hearing loss, bilateral Constipation due to slow transit Bilateral primary osteoarthritis of knee Neuropathy Hyperlipidemia, unspecified Gait instability Controlled diabetes mellitus with diabetic neuropathy, without long-term current use of insulin Surgical History History of solitary pulmonary nodule Family History (Updated 11/28/23 @ 11:32 by Carol Mercado CMA) Father Bone cancer Substance abuse in family Mother Breast cancer Brother No problems noted. Brother No problems noted. Brother No problems noted. Sister No problems noted. Sister Uterine cancer Son Substance abuse in family Son No problems noted. Daughter No problems noted. Daughter No problems noted. Other Substance use disorder Social History Housing: Apartment Alcohol intake: never Patient Tobacco Use Status: Never used Tobacco e-Cigarette/Vaping Use: Never Used Second Hand Smoke Exposure: No service: No Current occupational status: retired Current occupation: Right Handed Current occupational exposures/hazards: No Cognitive needs: No Hearing needs: No Vision needs: No Female Reproductive History Menstrual Age of Menarche: 11 Questionnaire PHQ-9 Over the last 2 weeks, how often have you been bothered by any of the following problems? 1. Little interest or pleasure in doing things: nearly every day 2. Feeling down, depressed, or hopeless: not at all 3. Trouble falling or staying asleep, or sleeping too much: not at all 4. Feeling tired or having little energy: more than half the days 5. Poor appetite or overeating: not at all 6. Feeling bad about yourself - or that you are a failure or have let yourself or your family down: not at all 7. Trouble concentrating on things, such as reading the newspaper or watching television: several days 8. Moving or speaking so slowly that other people could have noticed. Or the opposite - being so fidgety or restless that you have been moving around a lot more than usual: several days 9. Thoughts that you would be better off or of hurting yourself in some way: not at all Total score: 7 Depression Screening Interpretation: Positive Depression Screening Done: Yes Source: Developed by Drs. Bud Rivers, Susana He, Rj Goodwin and colleagues, with an educational itz from [employer]. Thrive Questionnaire Date Thrive assessed: 08/23/21 RALF-7 AMB Questionnaire RALF-7 Date RALF - 7 assessed: 11/28/23 Feeling nervous, anxious, or on edge: 1 = Several days Not being able to stop or control worryin = Not at all Worrying too much about different things: 1 = Several days Trouble relaxin = Several days Being so restless that it is hard to sit still: 0 = Not at all Becoming easily annoyed or irritable: 1 = Several days Feeling afraid as if something awful might happen: 3 = Nearly every day Total RALF-7 score (0-4 normal; 5-9 mild; 10-14 moderate; 15-21 severe): 7 Source: Developed by Drs. Bud Rivers, Susana He, Rj Goodwin and colleagues, with an educational itz from [employer]. Review of Systems Const Denies chills, Denies fatigue, Denies fever(s), Denies headache(s) and Denies weakness ENT Denies dizziness and Denies headache(s) Card Denies chest pain, Denies lightheadedness, Denies dyspnea and Denies other (Palpitations) Resp Denies cough, Denies dyspnea, Denies wheezing and Denies other ( shortness of breath) Musc Denies numbness and Denies tingling Neuro Denies dizziness, Denies headache(s), Denies numbness, Denies tingling, Denies paresthesias and Denies weakness Psych Denies anxiety and Denies depression Endo Denies fatigue Aller/Immun Denies wheezing Physical exam (Primary Care) Vital Signs: Last Vital Signs Pulse 81 11/28/23 11:19 BP 126/78 11/28/23 11:19 Pulse Ox 99 11/28/23 11:19 Oxygen Delivery Method Room Air 11/28/23 11:19 BMI result Body Mass Index 37.0 Tobacco/Smoking Status: Tobacco use Status Tobacco use date assessed 08/29/23 11/28/23 11:34 Patient Tobacco Use Status Never used Tobacco 11/28/23 11:34 e-Cigarette/Vaping Use Never Used 11/28/23 11:34 PHQ-9: PHQ-9 Score PHQ-9: Total score 7 11/28/23 11:53 Depression Screening Interpretation: Positive Thrive Assessment: Date of Thrive Assessment Date Thrive assessed 08/23/21 11/28/23 11:34 Const General: no acute distress and well developed Nutritional Appearance: well nourished Orientation/consciousness: patient oriented x3 HENMT Head: Yes normocephalic and Yes atraumatic Eyes General: appearance normal, both eyes and all related structures Pupils: Equal, round and reactive pupils present EOM: EOMs intact bilaterally Resp Effort & Inspection: normal respiratory effort Auscultation: clear to auscultation bilaterally Cardio Rate: regular rate Rhythm: regular rhythm Heart sounds: S1 normal heart sound present, S2 normal heart sound present, no gallops, no murmurs and no rubs Neuro General: patient oriented x3 and gait normal Cranial nerves: Yes Equal, round and reactive pupils present Psych Affect: normal affect Assessment and Plan Assessment & Plan (1) Diabetes type 2, controlled: Code(s): E11.9 - Type 2 diabetes mellitus without complications Plan: A1c?has?increased?to?6.8%?and?is?likely?not?at?a?steady?state?as?her?at-home?blood?sugars?are?significantly?elevated?into?the?300s. She?has?been?unable?to?get?Trulicity. Will?switch?Trulicity?to?Ozempic Otherwise?continue?current?medication?regimen (2) Right ankle swelling: Code(s): M25.471 - Effusion, right ankle Plan: Mild?right?ankle?edema Elevate?leg If?not?improving?will?check?an?x-ray?and?workup?further. Medications: New semaglutide (Ozempic) 1 mg (0.75 mL) subcut QWEEK 28 days 3 mL 2RF Discontinued dulaglutide Discontinued Reason: Doctor's Order 1.5 mg subcut QWEEK 28 days 4 mL 2RF Coding Level of Care Code Est Pt Level 4 (96177) Diagnoses Diabetes type 2, controlled E11.9 Right ankle swelling M25.471
== END 2023-11-28 12:06 | disposition home or self-care (01) ==
PROVIDERS: PCP Family Medicine; Visit Provider Family Medicine
DX: E11.9 Type 2 diabetes mellitus without complications (principal); M25.471 Effusion, right ankle
CPT/HCPCS: 99214

== ENCOUNTER 2024-01-02 11:03 | Outpatient (AMB) | payer MEDICARE, MEDICAID, SELFPAY ==
[2024-01-02 11:29] VITALS: BP 120/68; PULSE 89; O2SAT 98; BMI 36.3
--- NOTE | 2024-01-02 11:29 | MHC.PC.OV ---
Vital Signs 01/02/24 11:29 Height 5 ft 4 in Weight 211 lb 8 oz BMI 36.3 BP 120/68 Blood Pressure Location Lt brachial Position Sitting Pulse 89 Pulse Source Pulse Oximeter Pulse Oximetry (%) 98 Oxygen Delivery Method Room Air Intake Visit Reasons: 6 week follow up Intake Note: Patient is here for 6 week follow up on diabetes and right ankle swelling. Allergies lactose Allergy (Intermediate, Verified 01/02/24 11:32) Diarrhea aspirin [ASA] Allergy (Unknown, Verified 01/02/24 11:32) RASH phenytoin [From DILANTIN] Adverse Reaction (Unknown, Verified 01/02/24 11:32) SWELLING Tobacco use date assessed: 01/02/24 Fall risk assessment: No Falls in past year Last assessed Fall Risk: 01/02/24 Dental Screening Dental Screen Date: 11/28/23 HPI 6 week follow up HPI Details 68 y/o female presents to f/u diabetes and R ankle edema. Has not been able to get Trulicity so I have switched this to Ozempic. A1c today 01/02/24 7.2%. Pt reports blood sugars at home have been improving. [facility] Medical History Diabetes Dash's paralysis (postepileptic) Anxiety disorder, unspecified Chronic obstructive pulmonary disease, unspecified Unspecified asthma, uncomplicated Epilepsy, unspecified, not intractable, without status epilepticus Essential (primary) hypertension Unspecified hearing loss, bilateral Constipation due to slow transit Bilateral primary osteoarthritis of knee Neuropathy Hyperlipidemia, unspecified Gait instability Controlled diabetes mellitus with diabetic neuropathy, without long-term current use of insulin Surgical History History of solitary pulmonary nodule Family History (Updated 11/28/23 @ 11:32 by Carol Mercado CMA) Father Bone cancer Substance abuse in family Mother Breast cancer Brother No problems noted. Brother No problems noted. Brother No problems noted. Sister No problems noted. Sister Uterine cancer Son Substance abuse in family Son No problems noted. Daughter No problems noted. Daughter No problems noted. Other Substance use disorder Social History Housing: Apartment Alcohol intake: never Patient Tobacco Use Status: Never used Tobacco e-Cigarette/Vaping Use: Never Used Second Hand Smoke Exposure: No service: No Current occupational status: retired Current occupation: Right Handed Current occupational exposures/hazards: No Cognitive needs: No Hearing needs: No Vision needs: No Female Reproductive History Menstrual Age of Menarche: 11 Questionnaire Thrive Questionnaire Date Thrive assessed: 08/23/21 RALF-7 AMB Questionnaire RALF-7 Date RALF - 7 assessed: 11/28/23 Source: Developed by Drs. Bud Rivers, Susana He, Rj Goodwin and colleagues, with an educational itz from [employer]. Review of Systems Const Denies chills, Denies fatigue, Denies fever(s), Denies headache(s) and Denies weakness ENT Denies dizziness and Denies headache(s) Card Denies dyspnea Resp Denies cough, Denies dyspnea, Denies wheezing and Denies other (shortness of breath) Musc Denies numbness and Denies tingling Neuro Denies dizziness, Denies headache(s), Denies numbness, Denies tingling and Denies weakness Psych Denies anxiety and Denies depression Endo Denies fatigue Aller/Immun Denies wheezing Physical exam (Primary Care) Vital Signs: Last Vital Signs Pulse 89 01/02/24 11:29 BP 120/68 01/02/24 11:29 Pulse Ox 98 01/02/24 11:29 Oxygen Delivery Method Room Air 01/02/24 11:29 BMI result Body Mass Index 36.3 Tobacco/Smoking Status: Tobacco use Status Tobacco use date assessed 01/02/24 01/02/24 11:32 Patient Tobacco Use Status Never used Tobacco 01/02/24 11:30 e-Cigarette/Vaping Use Never Used 01/02/24 11:30 Thrive Assessment: Date of Thrive Assessment Date Thrive assessed 08/23/21 01/02/24 11:30 Const General: well developed; No acute distress Nutritional Appearance: well nourished Orientation/consciousness: patient oriented x3 HENMT Head: Yes normocephalic and Yes atraumatic Eyes General: appearance normal, both eyes and all related structures Pupils: Equal, round and reactive pupils present EOM: EOMs intact bilaterally Resp Effort & Inspection: normal respiratory effort Auscultation: clear to auscultation bilaterally Cardio Rate: regular rate Rhythm: regular rhythm Heart sounds: S1 normal heart sound present, S2 normal heart sound present, no gallops, no murmurs and no rubs Neuro General: patient oriented x3 and gait normal Cranial nerves: Yes Equal, round and reactive pupils present Psych Affect: normal affect Results AMB Hemoglobin A1c AMB Hemoglobin A1c 7.2 % Last Edit by Carol Mercado CMA on 01/02/24 11:49 Results Reviewed Results Reviewed: Laboratory Last Values Hgb A1c (Clinic) 7.2 % (4.0-6.0) H 01/02/24 11:38 Assessment and Plan Assessment & Plan (1) Diabetes mellitus with neuropathy: Code(s): E11.40 - Type 2 diabetes mellitus with diabetic neuropathy, unspecified Plan: Patient?had?been?unable?to?get?Trulicity?and?she?had?noted?her?blood?sugars?were?climbing?into?the?300s - A1c?had?climbed?to?6.8%?but?was?likely?not?at?steady?state?and?I?expect?it?would?have?gone?well?over?7%. Switched?her?to?Ozempic?and?continued?her?metformin?and?glipizide. A1c?today?7.2%?but?she?notes?her?blood?sugars?are?running?under?150?consistently. Also?A1c?likely?not?yet?at?steady?state?and?hopefully?will?be?at?or?less?than?7?with?next?visit If?still?above?7?we?can?adjust?Ozempic Encouraged?diabetic?diet (2) Right ankle swelling: Code(s): M25.471 - Effusion, right ankle Plan: She?has?bilateral?ankles?swelling?right?worse?than?left Advised?her?to?elevate?her?legs?and?avoid?salt/sodium She?will?let?me?know?if?not?improving?or?if?worsens. Orders: Orders AMB Hemoglobin A1c Today Z13.9 - Encounter for screening, unspecified Coding Level of Care Code Est Pt Level 3 (70112) Diagnoses Diabetes mellitus with neuropathy E11.40 Right ankle swelling M25.471
== END 2024-01-02 12:16 | disposition home or self-care (01) ==
PROVIDERS: PCP Family Medicine; Visit Provider Family Medicine
DX: E11.40 Type 2 diabetes mellitus with diabetic neuropathy, unspecified (principal); M25.471 Effusion, right ankle
CPT/HCPCS: 83036; 99213

== ENCOUNTER 2024-02-03 09:44 | Outpatient (REF) | payer MEDICARE, MEDICAID, SELFPAY ==
--- NOTE | ~2024-02-03 | MM_ITS ---
EXAMINATION: BONE DENSITOMETRY CLINICAL INDICATION: Asymptomatic menopausal state. COMPARISON: Baseline BD dated 01/30/2022. TECHNIQUE: Using a [employer] DXA System (software version: 13.1) manufactured by [employer], dual-energy x-ray absorptiometry was performed of the lumbar spine and left hip. The images are of good technical quality. Summary results are attached. FINDINGS: LEFT FEMUR, NECK: Current: BMD 1.018 g/cm2, Z-score 0.0, T-score -0.1, normal. Baseline: BMD 1.085 g/cm2. LEFT FEMUR, TOTAL: Current: BMD 1.076 g/cm2, Z-score 0.3, T-score 0.5, normal, 3.8% decrease from baseline (<5% change is not significant). Baseline: BMD 1.119 g/cm2. AP SPINE L1-L4: Current: BMD 1.235 g/cm2, Z-score 0.4, T-score 0.5, normal, 3.5% decrease from baseline (<5% change is not significant). Baseline: BMD 1.280 g/cm2. IDENTIFIED RISK FACTORS: Anticonvulsant, dementia, menopause, renal, rheumatoid arthritis. HISTORY OF FRACTURE: None listed. MEDICATIONS: Vitamin D, calcium. MM/XR DEXA axial skeleton IMPRESSION: 1. DIAGNOSIS: Normal bone density based on the lowest T-score value of -0.1 in the femoral neck applying World Health Organization criteria. 2. 10-YEAR FRACTURE RISK PREDICTION, FRAX: According to the guidelines, FRAX calculation should only be performed on patients in the osteopenia bone density category. Therefore, FRAX was not performed on this patient. 3. Treatment Recommendations: NOF guidelines recommend consideration for treatment in postmenopausal women and men age 50 and older presenting with the following: -A hip or vertebral (clinical or morphometric) fracture. -T-score less than or equal to -2.5 at the femoral neck or spine after appropriate evaluation to exclude secondary causes. -Low bone mass at the hip or spine and a 10-year fracture probability by FRAX of greater than or equal to 3% for hip fracture or greater than or equal to 20% for major osteoporotic fracture based on the [place] adapted WHO algorithm. 4. Other Recommendations: All treatment decisions require clinical judgment and consideration of individual patient factors, including patient preferences, comorbidities, previous drug use, risk factors not captured in the FRAX model (e.g. frailty, falls, vitamin D deficiency, increased bone turnover, interval significant decline in bone density) and possible under or overestimation of fracture risk by FRAX. FUTURE SCAN RECOMMENDATION: People with diagnosed cases of osteoporosis or at high risk for fracture should have regular bone mineral density tests. For patients eligible for Medicare, routine testing is allowed once every 2 years. The testing frequency can be increased to one year for patients who have rapidly progressing disease, those who are receiving or discontinuing medical therapy to restore bone mass, or have additional risk factors.
--- NOTE | ~2024-02-03 | MM_ITS ---
EXAMINATION: MM SCREENING DIGITAL BREAST TOMOSYNTHESIS, BILATERAL CLINICAL INFORMATION: Screening. Asymptomatic. COMPARISON: Mammography: This study is compared with prior exams dating back to 2021. TECHNIQUE: Digital breast tomosynthesis is performed in both the craniocaudal and mediolateral oblique views along with computer-aided detection (CAD). Synthesized 2D images are generated from the tomosynthesis. FINDINGS: There are scattered areas of fibroglandular density (ACR BI-RADS breast composition Category b). There are no significant masses, abnormal calcifications, or other abnormalities. Scattered, benign calcifications are present in each breast. MM/MM tomosynthesis screening BI IMPRESSION: No mammographic evidence of malignancy. ASSESSMENT: BI-RADS BI-RADS 2 - Benign Findings RECOMMENDATION: Routine annual mammography screening. 1 year F/U This examination should not preclude the clinical evaluation of a suspicious palpable abnormality. This patient's information was entered into a reminder system with a target due date for their next mammogram.
== END 2024-02-03 09:45 | disposition home or self-care (01) ==
LOC: HO.MAMMO 09:44
PROVIDERS: PCP Family Medicine; Visit Provider Obstetrics & Gynecology
DX: Z12.31 Encounter for screening mammogram for malignant neoplasm of breast (principal); Z13.820 Encounter for screening for osteoporosis; Z78.0 Asymptomatic menopausal state
CPT/HCPCS: 77063; 77067; 77080

== ENCOUNTER → 2024-02-03 09:45 | Outpatient (BNV) | payer MEDICARE, MEDICAID, SELFPAY | PROVIDERS: PCP Family Medicine; Visit Provider Radiology Diagnostic Radiology | DX: Z12.31 Encounter for screening mammogram for malignant neoplasm of breast (principal) | CPT/HCPCS: 77063; 77067 ==

== ENCOUNTER 2024-02-17 09:04 | Outpatient (AMB) | payer MEDICARE, MEDICAID, SELFPAY ==
--- NOTE | 2024-02-17 09:17 | MHC.OFFVIS ---
Vital Signs 02/17/24 09:20 Height 5 ft 4 in Weight 209 lb 7.026 oz BMI 35.9 BP 156/92 H Intake Visit Reasons: DEXA follow up Statistical Methods Teacher Required: No Information Interpreted: non-clinical & clinical Accompanied by: Self / Same As Patient Allergies lactose Allergy (Intermediate, Verified 02/17/24 09:20) Diarrhea aspirin [ASA] Allergy (Unknown, Verified 02/17/24 09:20) RASH phenytoin [From DILANTIN] Adverse Reaction (Unknown, Verified 02/17/24 09:20) SWELLING Post menopausal: Yes HPI Comments Details: The patient is presenting for follow up regarding DEXA scan results. T score @ spine and femoral Neck respectively were=0.5 /-0.1 and 10 year FRAX risk was not computed. Bone mineral density change was-3.5% at the spine level and-3.8% at the femur level compared to baseline. [facility] Medical History Diabetes Dash's paralysis (postepileptic) Anxiety disorder, unspecified Chronic obstructive pulmonary disease, unspecified Unspecified asthma, uncomplicated Epilepsy, unspecified, not intractable, without status epilepticus Essential (primary) hypertension Unspecified hearing loss, bilateral Constipation due to slow transit Bilateral primary osteoarthritis of knee Neuropathy Hyperlipidemia, unspecified Gait instability Controlled diabetes mellitus with diabetic neuropathy, without long-term current use of insulin Surgical History History of solitary pulmonary nodule Family History Father Bone cancer Substance abuse in family Mother Breast cancer Brother No problems noted. Brother No problems noted. Brother No problems noted. Sister No problems noted. Sister Uterine cancer Son Substance abuse in family Son No problems noted. Daughter No problems noted. Daughter No problems noted. Other Substance use disorder Social History Housing: Apartment Alcohol intake: never Patient Tobacco Use Status: Never used Tobacco e-Cigarette/Vaping Use: Never Used Second Hand Smoke Exposure: No service: No Current occupational status: retired Current occupation: Right Handed Current occupational exposures/hazards: No Cognitive needs: No Hearing needs: No Vision needs: No Female Reproductive History Menstrual Age of Menarche: 11 Review of Systems Const All systems reviewed & are unremarkable except as noted in HPI and below Reports as per HPI and Reports no additional complaints GI Reports no additional complaints Reports no additional complaints Physical Exam Vital Signs: Last Vital Signs BP 156/92 H 02/17/24 09:20 BMI result Body Mass Index 35.9 Assessment & Plan Assessment & Plan (1) Osteopenia: Code(s): M85.80 - Other specified disorders of bone density and structure, unspecified site Category: Medical Plan: Discussed with the patient the DEXA results; T score showed no evidence of osteoporosis. Discussed with the patient all the options for osteoporosis prevention including lifestyle modifications including Ca+D supplements 1200 mg po qd/800 MIU, Weight bearing exercises and proteine supplements. The patient verbalized understanding and agreed plan will repeat DEXA in 2 years. Coding Level of Care Code Est Pt Level 3 (57651) Diagnoses Osteopenia M85.80
[2024-02-17 09:20] VITALS: BP 156/92; BMI 35.9
== END 2024-02-17 10:05 | disposition home or self-care (01) ==
PROVIDERS: PCP Family Medicine; Visit Provider Obstetrics & Gynecology
DX: M85.80 Other specified disorders of bone density and structure, unspecified site (principal)
CPT/HCPCS: 99213

== ENCOUNTER → 2024-02-17 09:05 | Outpatient (BNVA) | payer MEDICARE, MEDICAID, SELFPAY | PROVIDERS: PCP Family Medicine; Visit Provider Obstetrics & Gynecology | DX: M85.80 Other specified disorders of bone density and structure, unspecified site (principal) | CPT/HCPCS: 99212 ==

== ENCOUNTER 2024-03-04 10:00 | Outpatient (AMB) | payer MEDICARE, MEDICAID, SELFPAY ==
--- NOTE | 2024-03-04 10:06 | MHC.OFFVIS ---
Vital Signs 03/04/24 10:08 Height 5 ft 4 in Weight 208 lb 15.971 oz BMI 35.9 BP 126/70 Blood Pressure Location Rt brachial Position Sitting Pulse 90 Pulse Source Pulse Oximeter Pulse Oximetry (%) 97 Oxygen Delivery Method Room Air Intake Visit Reasons: Colonoscopy Screening Intake Note: Yasemin presents in office today for a scheduled colo s/p scrn CC; Pt is having some confusion regarding when their last colo s/p was. Pt states that they believe their last colo s/p was here at [facility] [place]. NO records found upon further examination. Pt reports having bloating and abdominal pain issues. Pt also reports having constipation. Pt states that these are all chronic sx. 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 She is referred by Cole Tomlinson. PMX COPD/asthma Morbid obesity History of pleural effusion and pneumonectomy Epilepsy Hypertension High cholesterol Diabetes with diabetic neuropathy Constipation Bilateral hearing loss Depression with anxiety Schizophrenia Umbilical hernia Incisional hernia GERD Osteopenia Overactive bladder Osteoarthritis of the bilateral knees Gait instability * SURGICAL HISTORY Pneumonectomy * ALLERGIES Lactose Aspirin Dilantin * [employer] LABS: no labs since last summer TODAY'S VISIT The patient says she thinks she had a colonoscopy last year but there is nothing under [facility] records or under any of our records including [facility] or old [employer].She says she always had polyps, and many of her scopes were at [facility]. She has occasional CIC and GERD that is well controlled. NO anes or sedation. She has asthma/COPD that are well controlled no cardiac. No ID problems. She has had many polyps in the past, uncertain where her last and where reports are. [facility] Medical History (Updated 03/04/24 @ 13:01 by Makenzie Bartlett, ANP-C) Hyponatremia Detrusor overactivity Lower extremity pain Menopause Change in hearing Low magnesium level Neuropathy Chest pain UTI (urinary tract infection) Weakness of both lower extremities Left leg weakness Gynecological complaint Well woman exam Obesity (BMI 30-39.9) Physical deconditioning Breast cancer screening by mammogram Vaginal discharge COVID-19 Abnormal lung sounds Urinary incontinence Nausea and vomiting Gastroenteritis Adult general medical exam Screening for colon cancer Screening for cervical cancer Screening for osteoporosis Dizziness Incomplete bladder emptying Vaginal yeast infection Viral illness Cough Vulvovaginitis Right ankle swelling Diabetes Dash's paralysis (postepileptic) Anxiety disorder, unspecified Chronic obstructive pulmonary disease, unspecified Unspecified asthma, uncomplicated Epilepsy, unspecified, not intractable, without status epilepticus Essential (primary) hypertension Unspecified hearing loss, bilateral Constipation due to slow transit Bilateral primary osteoarthritis of knee Hyperlipidemia, unspecified Gait instability Controlled diabetes mellitus with diabetic neuropathy, without long-term current use of insulin Surgical History H/O pneumonectomy Family History Father Bone cancer Substance abuse in family Mother Breast cancer Brother No problems noted. Brother No problems noted. Brother No problems noted. Sister No problems noted. Sister Uterine cancer Son Substance abuse in family Son No problems noted. Daughter No problems noted. Daughter No problems noted. Other Substance use disorder Social History Housing: Apartment Alcohol intake: never Patient Tobacco Use Status: Never used Tobacco e-Cigarette/Vaping Use: Never Used Second Hand Smoke Exposure: No service: No Current occupational status: retired Current occupation: Right Handed Current occupational exposures/hazards: No Cognitive needs: No Hearing needs: No Vision needs: No Female Reproductive History Menstrual Age of Menarche: 11 Review of Systems Const Denies fatigue, Denies fever(s), Denies night sweats, Denies poor appetite and Denies weight loss ENT Reports Normal hearing present, Denies dental pain, Denies dysphagia, Denies hearing loss, Denies mouth pain, Denies odynophagia, Denies throat swelling, Denies tongue swelling and Reports other (Dentition adequate) Card Reports no additional complaints Resp Reports no additional complaints GI Details: Denies abdominal pain, Denies melena, Denies bloating, Denies hematochezia, Reports constipation, Denies GI cramping, Denies dysphagia, Denies excessive flatus, Denies early satiety, Reports heartburn, Denies diarrhea, Denies nausea, Denies odynophagia, Denies vomiting and Denies hematemesis Musc Reports abnormal gait Skin/Breast Denies pruritus, Denies lesions, Denies rash and Denies jaundice Neuro Reports Normal hearing present, Denies Abnormal speech present and Reports abnormal gait Endo Denies fatigue Aller/Immun Denies throat swelling and Denies tongue swelling Physical Exam Vital Signs: Last Vital Signs Pulse 90 03/04/24 10:08 BP 126/70 03/04/24 10:08 Pulse Ox 97 03/04/24 10:08 Oxygen Delivery Method Room Air 03/04/24 10:08 BMI result Body Mass Index 35.9 Const General: cooperative, no acute distress, well developed and well groomed Nutritional Appearance: well nourished and obese morbidly obese Orientation/consciousness: oriented to person, oriented to place and oriented to time Limitations: No language barrier, ambulation with walker and other limitations HEENT Head: Yes normocephalic and Yes atraumatic Eyes Other: glasses General: appearance normal, both eyes and all related structures Pupils: Equal, round and reactive pupils present Neck Neck: Yes normal visual inspection and Yes no lymphadenopathy Thyroid: Thyroid normal Resp Effort & Inspection: normal respiratory effort and able to speak in complete sentences Auscultation: clear to auscultation bilaterally Cardio Rate: regular rate Rhythm: regular rhythm Heart sounds: Normal, physiologic split S2 sound present Peripheral pulses: radial pulses present and posterior tibial pulses present GI Other: unable to examine visually r/t clothing Inspection: Yes distended (upper abd), Yes Abdominal panniculus present and Yes obesity Palpation (GI): Soft to palpation, nontender, no guarding, not rigid and No hepatosplenomegaly present Percussion: Yes normal to percussion Auscultation: normal bowel sounds Rectal Exam - Female: deferred Skin General skin exam: no rashes or lesions noted, turgor normal, skin not dry, no jaundice, No spider nevi and no striae Rashes: no rashes Nails: normal Neuro General: oriented to person, oriented to place and oriented to time Cranial nerves: Yes Equal, round and reactive pupils present and Yes Normal hearing present Speech: No Abnormal speech present Extrem General: Yes normal to inspection, No clubbing, No cyanosis and No edema Psych Appearance: grossly normal and well kempt Mental Status: mental status grossly normal Speech and movement: Normal speech and movement present Affect: normal affect Attitude: cooperative Thought process: not confabulating and Impoverished thought process present Thought content: Normal thought content present Insight: Limited insight present (Psych) Judgement: Limited judgement present (Psych) Assessment & Plan Assessment & Plan (1) Pre-op examination: Code(s): Z01.818 - Encounter for other preprocedural examination Category: Medical (2) Morbid obesity with BMI of 40.0-44.9, adult: Code(s): E66.01 - Morbid (severe) obesity due to excess calories; Z68.41 - Body mass index [BMI] 40.0-44.9, adult Category: Medical (3) Chronic obstructive pulmonary disease, unspecified: Code(s): J44.9 - Chronic obstructive pulmonary disease, unspecified Category: Medical (4) Epilepsy, unspecified, not intractable, without status epilepticus: Code(s): G40.909 - Epilepsy, unspecified, not intractable, without status epilepticus Category: Medical (5) Heartburn: Code(s): R12 - Heartburn Category: Medical (6) Tubular adenoma of colon: Code(s): D12.6 - Benign neoplasm of colon, unspecified Category: Medical Plan The patient says she thinks she had a colonoscopy last year but there is nothing under [facility] records or under any of our records including [facility] or [facility].She says she always had polyps, and many of her scopes were at [facility]. She has occasional CIC and GERD that is well controlled. NO anes or sedation. She has asthma/COPD that are well controlled no cardiac. No ID problems. She has had many polyps in the past, uncertain where her last and where reports are. Orders: Orders Comprehensive Met. Panel Today D12.6 - Benign neoplasm of colon, unspecified, Z01.818 - Encounter for other preprocedural examination Complete Blood Count Auto Diff Today D12.6 - Benign neoplasm of colon, unspecified, Z01.818 - Encounter for other preprocedural examination Colonoscopy - GI Use Only Today D12.6 - Benign neoplasm of colon, unspecified, Z01.818 - Encounter for other preprocedural examination Medications: New peg 3350-electrolytes 236-22.74-6.74 -5.86 gram (Golytely) until fecal effluent is clear; do not exceed a total volume of 2,000 mL 240 mL PO Q10M 4,000 mL 0RF 1 day Z12.11 - Encounter for screening for malignant neoplasm of colon bisacodyl (Dulcolax (bisacodyl)) 10 mg (2 x 5 mg) PO BEDTIME 4 tabs 0RF 2 days Coding Level of Care Code New Pt Level 3 (59381) Diagnoses Pre-op examination Z01.818 Morbid obesity with BMI of 40.0-44.9, adult E66.01; Z68.41 Chronic obstructive pulmonary disease, unspecified J44.9 Epilepsy, unspecified, not intractable, without status epilepticus G40.909 Heartburn R12 Tubular adenoma of colon D12.6
[2024-03-04 10:08] VITALS: BP 126/70; PULSE 90; O2SAT 97; BMI 35.9
== END 2024-03-04 10:47 | disposition home or self-care (01) ==
PROVIDERS: PCP Family Medicine; Visit Provider Nurse Practitioner
DX: Z01.818 Encounter for other preprocedural examination (principal); Z12.11 Encounter for screening for malignant neoplasm of colon; Z86.010 Personal history of colon polyps; R12 Heartburn; G40.909 Epilepsy, unspecified, not intractable, without status epilepticus
CPT/HCPCS: 99024

== ENCOUNTER 2024-03-04 10:00 | Outpatient (REF) | payer MEDICARE, MEDICAID, SELFPAY ==
[2024-03-04 11:06] LABS: MANUAL DIFF FLAG NO
[2024-03-04 11:41] LABS: Basophils Percent Auto 0.4 % (0-2); Eosinophils Absolute Auto 0.2 X10*3/uL (0.0-0.4); Eosinophils Percent Auto 3.2 % (0-4); Hematocrit 36.3 % (37.0-47.0); Hemoglobin 12.5 g/dl (12.0-16.0); Imm Gran Abs Auto 0.05 X10*3/uL (0.00-0.03); Imm Gran Pct Auto 0.9 % (0.0-0.4); Lymphocytes Absolute Auto 1.5 X10*3/uL (1.2-4.9); Mean Corpuscular HGB Conc 34.4 g/dl (31.0-35.0); Mean Corpuscular Hemoglobin 30.4 pg (27.0-33.0); Mean Corpuscular Volume 88.3 fL (80.0-98.0); Monocytes Absolute Auto 0.5 X10*3/uL (0.1-1.2); Monocytes Percent Auto 8.4 % (2-11); Neutrophils Absolute Auto 3.4 x10*3/uL (2.0-8.3); Neutrophils Percent Auto 61.1 % (45-73); Platelet Count 310 X10*3/uL (160-400); Red Blood Count 4.11 X10*6/uL (4.20-5.50); Red Cell Distribution Width 13.6 % (11.0-16.0); White Blood Count 5.6 X10*3/uL (4.8-10.8)
[2024-03-04 12:26] LABS: Alanine Aminotransferase 81 U/L (0-31); Albumin Level 4.4 g/dL (3.5-5.0); Alkaline Phosphatase 126 U/L (39-117); Anion Gap 19 (12-20); Aspartate Amino Transferase 92 U/L (5-31); Bilirubin Total 0.3 mg/dL (0.0-1.0); Blood Urea Nitrogen 15 mg/dL (9-16); Calcium 9.7 mg/dL (8.4-10.2); Carbon Dioxide 22 mmol/L (22-29); Chloride 92 mmol/L (96-108); Estimated Glomerular Filt Rate 55; Glucose Random 139 mg/dL (60-115); Potassium 3.7 mmol/L (3.3-5.1); Sodium 129 mmol/L (135-145); Total Protein 8.1 g/dL (6.5-8.0)
== END 2024-03-04 10:01 | disposition home or self-care (01) ==
LOC: HO.LAB 10:00
PROVIDERS: PCP Family Medicine; Visit Provider Nurse Practitioner
DX: Z01.818 Encounter for other preprocedural examination (principal); D12.6 Benign neoplasm of colon, unspecified; E66.01 Morbid (severe) obesity due to excess calories; R12 Heartburn
CPT/HCPCS: 36415; 80053; 85025; 99212

== ENCOUNTER 2024-03-25 09:08 | Outpatient (AMB) | payer MEDICARE, MEDICAID, SELFPAY ==
--- NOTE | 2024-03-25 09:18 | A.OFFPC_ITS ---
Vital Signs 03/25/24 09:24 Height 5 ft 4 in Weight 210 lb 2 oz BMI 36.1 BP 130/66 Blood Pressure Location Rt brachial Position Sitting Respiration 16 Pulse 89 Pulse Source Pulse Oximeter Temp 98 F Temp Source Tympanic Pulse Oximetry (%) 99 Oxygen Delivery Method Room Air Intake Visit Reasons: f/u diabetes Intake Note: FOLLOW up for diabetes Allergies lactose Allergy (Intermediate, Verified 03/25/24 09:21) Diarrhea aspirin [ASA] Allergy (Unknown, Verified 03/25/24 09:21) RASH phenytoin [From DILANTIN] Adverse Reaction (Unknown, Verified 03/25/24 09:21) SWELLING Medication List - Last Reconciled 03/25/24 by Cole Tomlinson MD albuterol sulfate mg inhalation Q6H PRN albuterol sulfate 90 mcg/actuation 1 puff PO Q4H PRN amlodipine 10 mg PO DAILY atorvastatin 40 mg PO DAILY benztropine 1 mg PO BID bisacodyl (Dulcolax (bisacodyl)) 10 mg (2 x 5 mg) PO BEDTIME 2 days blood sugar diagnostic (FreeStyle Lite Strips) As directed twice a day blood sugar checks 90 day supply blood-glucose meter (FreeStyle Lite Meter kit) DX: E11.9, test blood sugar 2 times a day, duration 999 days budesonide-formoterol 160-4.5 mcg/actuation 2 puffs inhalation BID carbamazepine 200 mg PO BID 3 months citalopram 20 mg PO DAILY clopidogrel 75 mg PO DAILY 90 days diaper,brief,adult,disposable (Briefs, Adult-Extra Large) change every 2-3 hours prn for incontinence diclofenac sodium 1% 1 - 2 grams topical QID diphenhydramine HCl (Banophen) 25 mg PO BEDTIME PRN flash glucose scanning reader (Teacher[employer]Style Александр 2 [place]) As directed flash glucose sensor (FreeStyle Александр 2 Sensor kit) As directed glipizide ER 10 mg PO BID hydralazine 25 mg PO TID ibuprofen 600 mg PO TID PRN incontinence pad, liner, disp every 2-3 hours PRN lancets (FreeStyle Lancets) 28 gauge topical BID levetiracetam 1,000 mg PO BID 90 days magnesium oxide 400 mg PO DAILY 30 days mecobalamin (vitamin B12) 1,000 mcg PO DAILY 90 days metformin 1000 mg (2 tabs) a.m. and 750 mg (1.5 tabs) p.m. orally 2 times a day; 90 days multivitamin (One Daily Multivitamin tablet) 1 tab PO DAILY omeprazole 40 mg PO DAILY peg 3350-electrolytes 236-22.74-6.74 -5.86 gram (Golytely) 240 mL PO Q10M 1 day polyethylene glycol 3350 (Miralax) 17 grams PO DAILY 4 days pregabalin 100 mg PO TID 30 days risperidone 1 mg PO BID semaglutide (Ozempic) 1 mg (0.75 mL) subcut QWEEK 28 days trazodone 50 - 100 mg PO BEDTIME PRN vibegron (Gemtesa) 75 mg PO DAILY Tobacco use date assessed: 01/02/24 Dental Screening Dental Screen Date: 11/28/23 HPI f/u diabetes HPI Details 68 y/o female presents to f/u diabetes. A1c today 03/25/24 7.1%. Had been unable to get her trulicity. She continues metformin and glipizide. She continues to work on her diet. HPI Comments History of Present Illness Details Documentation assistance for Cole Tomlinson MD, was provided by Colt Shelton, Calendering Machine Operator on 03/25/2024 at 9:30 AM EST. I, Dr. Tomlinson, have read, observed, and verified documentation. [facility] Medical History (Updated 03/04/24 @ 13:01 by CARLTON Morales) Hyponatremia Detrusor overactivity Lower extremity pain Menopause Change in hearing Low magnesium level Neuropathy Chest pain UTI (urinary tract infection) Weakness of both lower extremities Left leg weakness Gynecological complaint Well woman exam Obesity (BMI 30-39.9) Physical deconditioning Breast cancer screening by mammogram Vaginal discharge COVID-19 Abnormal lung sounds Urinary incontinence Nausea and vomiting Gastroenteritis Adult general medical exam Screening for colon cancer Screening for cervical cancer Screening for osteoporosis Dizziness Incomplete bladder emptying Vaginal yeast infection Viral illness Cough Vulvovaginitis Right ankle swelling Diabetes Dash's paralysis (postepileptic) Anxiety disorder, unspecified Chronic obstructive pulmonary disease, unspecified Unspecified asthma, uncomplicated Epilepsy, unspecified, not intractable, without status epilepticus Essential (primary) hypertension Unspecified hearing loss, bilateral Constipation due to slow transit Bilateral primary osteoarthritis of knee Hyperlipidemia, unspecified Gait instability Controlled diabetes mellitus with diabetic neuropathy, without long-term current use of insulin Surgical History H/O pneumonectomy Family History Father Bone cancer Substance abuse in family Mother Breast cancer Brother No problems noted. Brother No problems noted. Brother No problems noted. Sister No problems noted. Sister Uterine cancer Son Substance abuse in family Son No problems noted. Daughter No problems noted. Daughter No problems noted. Other Substance use disorder Social History Housing: Apartment Alcohol intake: never Patient Tobacco Use Status: Never used Tobacco e-Cigarette/Vaping Use: Never Used Second Hand Smoke Exposure: No service: No Current occupational status: retired Current occupation: Right Handed Current occupational exposures/hazards: No Cognitive needs: No Hearing needs: No Vision needs: No Female Reproductive History Menstrual Age of Menarche: 11 Questionnaire Thrive Questionnaire Date Thrive assessed: 08/23/21 RALF-7 AMB Questionnaire RALF-7 Date RALF - 7 assessed: 11/28/23 Source: Developed by Drs. Bud Rivers, Susana He, Rj Goodwin and colleagues, with an educational itz from [employer]. Review of Systems Const Denies chills, Denies fatigue, Denies fever(s), Denies headache(s) and Denies weakness ENT Denies dizziness and Denies headache(s) Card Denies dyspnea Resp Denies cough, Denies dyspnea, Denies wheezing and Denies other (shortness of breath) Musc Denies numbness and Denies tingling Neuro Denies dizziness, Denies headache(s), Denies numbness, Denies tingling and Denies weakness Psych Denies anxiety and Denies depression Endo Denies fatigue Aller/Immun Denies wheezing Physical exam (Primary Care) Vital Signs: Last Vital Signs Temp 98 F 03/25/24 09:24 Pulse 89 03/25/24 09:24 Resp 16 03/25/24 09:24 BP 130/66 03/25/24 09:24 Pulse Ox 99 03/25/24 09:24 Oxygen Delivery Method Room Air 08/15/24 09:24 BMI result Body Mass Index 36.1 Tobacco/Smoking Status: Tobacco use Status Tobacco use date assessed 01/02/24 03/25/24 09:19 Patient Tobacco Use Status Never used Tobacco 03/25/24 09:19 e-Cigarette/Vaping Use Never Used 03/25/24 09:19 Thrive Assessment: Date of Thrive Assessment Date Thrive assessed 08/23/21 03/25/24 09:19 Const General: well developed; No acute distress Nutritional Appearance: well nourished and obese Orientation/consciousness: patient oriented x3 HENMT Head: Yes normocephalic and Yes atraumatic Eyes General: appearance normal, both eyes and all related structures Pupils: Equal, round and reactive pupils present EOM: EOMs intact bilaterally Resp Effort & Inspection: normal respiratory effort Neuro General: patient oriented x3 and gait normal Cranial nerves: Yes Equal, round and reactive pupils present Psych Affect: normal affect Assessment and Plan Assessment & Plan (1) Diabetes mellitus with neuropathy: Code(s): E11.40 - Type 2 diabetes mellitus with diabetic neuropathy, unspecified Plan: A1c?improved?to?7.1%. I?have?been?trying?to?get?Ozempic?for?her?which?could?help?with?weight?and?impro ve?blood?sugars,?also?allowing?us?to?decrease?her?metformin. She?was?not?able?to?get?this?at?the?pharmacy?so?I?had?the?nurse?look?into?this.? ?Apparently?she?has?a?secondary?insurance?which?should?allo w?her?to?get?this?medication. Nurse?will?provide?her?with?documentation?she?can?bring?to?the?pharmacy Continue?metformin?and?glipizide?as?prescribed Start?Ozempic?when?able?to?obtain?it Continue?diabetic?diet Coding Level of Care Code Est Pt Level 3 (14105) Diagnoses Diabetes mellitus with neuropathy E11.40
[2024-03-25 09:24] VITALS: BP 130/66; PULSE 89; RESP 16; TEMP 36.6; O2SAT 99; BMI 36.1
== END 2024-03-25 10:17 | disposition home or self-care (01) ==
PROVIDERS: PCP Family Medicine; Visit Provider Family Medicine
DX: E11.40 Type 2 diabetes mellitus with diabetic neuropathy, unspecified (principal)
CPT/HCPCS: 99213

== ENCOUNTER 2024-06-29 09:16 | Outpatient (AMB) | payer MEDICARE, MEDICAID, SELFPAY ==
[2024-06-29 09:45] VITALS: BP 128/78; PULSE 91; RESP 14; TEMP 36.7; O2SAT 98; BMI 35.2
--- NOTE | 2024-06-29 09:45 | A.OFFPC_ITS ---
Vital Signs 06/29/24 09:45 Height 5 ft 4 in Weight 205 lb 4 oz BMI 35.2 BP 128/78 Blood Pressure Location Rt brachial Position Sitting Respiration 14 Pulse 91 Pulse Source Pulse Oximeter Temp 98.0 F Temp Source Oral Pulse Oximetry (%) 98 Oxygen Delivery Method Room Air Intake Visit Reasons: f/u diabetes, hypertension Intake Note: f/u DM,HTN Allergies lactose Allergy (Intermediate, Verified 06/29/24 09:48) Diarrhea aspirin [ASA] Allergy (Unknown, Verified 06/29/24 09:48) RASH phenytoin [From DILANTIN] Adverse Reaction (Unknown, Verified 06/29/24 09:48) SWELLING Medication List - Last Reconciled 06/29/24 by Cole Tomlinson MD albuterol sulfate mg inhalation Q6H PRN albuterol sulfate 90 mcg/actuation 1 puff PO Q4H PRN amlodipine 10 mg PO DAILY atorvastatin 40 mg PO DAILY benztropine 1 mg PO BID bisacodyl (Dulcolax (bisacodyl)) 10 mg (2 x 5 mg) PO BEDTIME 2 days blood sugar diagnostic (FreeStyle Lite Strips) As directed twice a day blood sugar checks 90 day supply blood-glucose meter (FreeStyle Lite Meter kit) DX: E11.9, test blood sugar 2 times a day, duration 999 days budesonide-formoterol 160-4.5 mcg/actuation 2 puffs inhalation BID carbamazepine 200 mg PO BID 3 months citalopram 20 mg (1/2 x 40 mg) PO DAILY 90 days clopidogrel 75 mg PO DAILY 90 days diaper,brief,adult,disposable (Briefs, Adult-Extra Large) change every 2-3 hours prn for incontinence diclofenac sodium 1% 1 - 2 grams topical QID diphenhydramine HCl (Banophen) 25 mg PO BEDTIME PRN flash glucose scanning reader (vBrandStyle Александр 2 [place]) As directed flash glucose sensor (FreeStyle Александр 2 Sensor kit) As directed glipizide ER 10 mg PO BID hydralazine 25 mg PO TID ibuprofen 600 mg PO TID PRN incontinence pad, liner, disp every 2-3 hours PRN lancets (FreeStyle Lancets) 28 gauge topical BID levetiracetam 1,000 mg PO BID 90 days magnesium oxide 400 mg PO DAILY 30 days mecobalamin (vitamin B12) 1,000 mcg PO DAILY 90 days metformin 1000 mg (2 tabs) a.m. and 750 mg (1.5 tabs) p.m. orally 2 times a day; 90 days multivitamin (One Daily Multivitamin tablet) 1 tab PO DAILY omeprazole 40 mg PO DAILY peg 3350-electrolytes 236-22.74-6.74 -5.86 gram (Golytely) 240 mL PO Q10M 1 day polyethylene glycol 3350 (Miralax) 17 grams PO DAILY 4 days pregabalin 100 mg PO TID 30 days risperidone 1 mg PO BID semaglutide (Ozempic) 1 mg (0.75 mL) subcut QWEEK 28 days trazodone 50 - 100 mg PO BEDTIME PRN vibegron (Gemtesa) 75 mg PO DAILY Tobacco use date assessed: 01/02/24 Dental Screening Dental Screen Date: 11/28/23 HPI f/u diabetes, hypertension HPI Details 68 y/o female presents to f/u diabetes, HTN. A1c 03/25/24 7.1%. A1c today 06/29/24 8.9%. She notes she has not been able to get ozempic. BP today 128/78. She is on amlodipine, hydralazine. [facility] Medical History (Updated 06/29/24 @ 09:59 by Colt Shelton) Hyponatremia Detrusor overactivity Lower extremity pain Menopause Change in hearing Low magnesium level Neuropathy Chest pain UTI (urinary tract infection) Weakness of both lower extremities Left leg weakness Gynecological complaint Well woman exam Obesity (BMI 30-39.9) Physical deconditioning Breast cancer screening by mammogram Vaginal discharge COVID-19 Abnormal lung sounds Urinary incontinence Nausea and vomiting Gastroenteritis Adult general medical exam Screening for colon cancer Screening for cervical cancer Screening for osteoporosis Dizziness Incomplete bladder emptying Vaginal yeast infection Viral illness Cough Vulvovaginitis Right ankle swelling Diabetes Dash's paralysis (postepileptic) Anxiety disorder, unspecified Chronic obstructive pulmonary disease, unspecified Unspecified asthma, uncomplicated Epilepsy, unspecified, not intractable, without status epilepticus Essential (primary) hypertension Unspecified hearing loss, bilateral Constipation due to slow transit Bilateral primary osteoarthritis of knee Hyperlipidemia, unspecified Gait instability Controlled diabetes mellitus with diabetic neuropathy, without long-term current use of insulin Surgical History H/O pneumonectomy Family History Father Bone cancer Substance abuse in family Mother Breast cancer Brother No problems noted. Brother No problems noted. Brother No problems noted. Sister No problems noted. Sister Uterine cancer Son Substance abuse in family Son No problems noted. Daughter No problems noted. Daughter No problems noted. Other Substance use disorder Social History Housing: Apartment Alcohol intake: never Patient Tobacco Use Status: Never used Tobacco e-Cigarette/Vaping Use: Never Used Second Hand Smoke Exposure: No service: No Current occupational status: retired Current occupation: Right Handed Current occupational exposures/hazards: No Cognitive needs: No Hearing needs: No Vision needs: No Female Reproductive History Menstrual Age of Menarche: 11 Questionnaire PHQ-9 Over the last 2 weeks, how often have you been bothered by any of the following problems? 1. Little interest or pleasure in doing things: more than half the days 2. Feeling down, depressed, or hopeless: nearly every day 3. Trouble falling or staying asleep, or sleeping too much: more than half the days 4. Feeling tired or having little energy: more than half the days 5. Poor appetite or overeating: not at all 6. Feeling bad about yourself - or that you are a failure or have let yourself o r your family down: not at all 7. Trouble concentrating on things, such as reading the newspaper or watching television: not at all 8. Moving or speaking so slowly that other people could have noticed. Or the opposite - being so fidgety or restless that you have been moving around a lot more than usual: not at all 9. Thoughts that you would be better off or of hurting yourself in some way: not at all Total score: 9 Source: Developed by Drs. Bud Rivers, Susana He, Rj Goodwin and colleagues, with an educational itz from [employer]. Thrive Questionnaire Date Thrive assessed: 08/23/21 I am a: Patient What is your living situation today?: I choose not to answer this question Within the past 12 months, did the food you bought not last and you didn't have the money to get more?: I choose not to answer this question Within the past 12 months, did you worry whether your food would run out before you got money to buy more?: I choose not to answer this question Do you have trouble paying for medicines?: No Do you have trouble getting transportation to medical appointments?: No Do you have trouble paying your heating and electricity bill?: No Do you have trouble taking care of your child, family member or friend?: No Do you have trouble with day-to-day activities such as bathing, preparing meals, shopping, managing finances, etc.?: No Are you currently unemployed and looking for a job?: No Are you interested in more education?: No Please select the resources that you would like help with: None Currently or been in a relationship where the following occur: I choose not to answer THRIVE Score: 0 AUDIT C Alcohol Use Questionnaire (AUDIT-C) 1. How often do you have a drink containing alcohol?: Never Total Score: 0 RALF-7 AMB Questionnaire RALF-7 Date RALF - 7 assessed: 11/28/23 Feeling nervous, anxious, or on edge: 0 = Not at all Not being able to stop or control worryin = Not at all Worrying too much about different things: 0 = Not at all Trouble relaxin = Not at all Being so restless that it is hard to sit still: 0 = Not at all Becoming easily annoyed or irritable: 0 = Not at all Feeling afraid as if something awful might happen: 0 = Not at all Total RALF-7 score (0-4 normal; 5-9 mild; 10-14 moderate; 15-21 severe): 0 Source: Developed by Drs. Bud Rivers, Susana He, Rj Goodwin and colleagues, with an educational itz from [employer]. Review of Systems Const Denies chills, Denies fatigue, Denies fever(s), Denies headache(s) and Denies weakness ENT Denies dizziness and Denies headache(s) Card Denies dyspnea Resp Denies cough, Denies dyspnea, Denies wheezing and Denies other (shortness of breath) Musc Denies numbness and Denies tingling Neuro Denies dizziness, Denies headache(s), Denies numbness, Denies tingling and Denies weakness Psych Denies anxiety and Denies depression Endo Denies fatigue Aller/Immun Denies wheezing Physical exam (Primary Care) Vital Signs: Last Vital Signs Temp 98.0 F 06/29/24 09:45 Pulse 91 06/29/24 09:45 Resp 14 06/29/24 09:45 BP 128/78 06/29/24 09:45 Pulse Ox 98 06/29/24 09:45 Oxygen Delivery Method Room Air 06/29/24 09:45 BMI result Body Mass Index 35.2 Tobacco/Smoking Status: Tobacco use Status Tobacco use date assessed 01/02/24 06/29/24 09:49 Patient Tobacco Use Status Never used Tobacco 06/29/24 09:49 e-Cigarette/Vaping Use Never Used 06/29/24 09:49 PHQ-9: PHQ-9 Score PHQ-9: Total score 9 06/29/24 09:49 Thrive Assessment: Date of Thrive Assessment Date Thrive assessed 08/23/21 06/29/24 09:49 Currently or been in a relationship where the following occur: I choose not to answer Const General: well developed; No acute distress Nutritional Appearance: well nourished Orientation/consciousness: patient oriented x3 HENMT Head: Yes normocephalic and Yes atraumatic Eyes General: appearance normal, both eyes and all related structures Pupils: Equal, round and reactive pupils present EOM: EOMs intact bilaterally Resp Effort & Inspection: normal respiratory effort Neuro General: patient oriented x3 and gait normal Cranial nerves: Yes Equal, round and reactive pupils present Psych Affect: normal affect Results AMB Hemoglobin A1c AMB Hemoglobin A1c 8.9 % Last Edit by MARLEY Quigley on 06/29/24 10:00 Coding Level of Care Code Est Pt Level 3 (17825) Diagnoses Diabetes type 2, controlled E11.9 Hypertension I10 Overgrown nail L60.2 Assessment & Plan Assessment & Plan (1) Diabetes type 2, controlled: Code(s): E11.9 - Type 2 diabetes mellitus without complications Category: Medical Plan: A1c?significantly?increased?to?8.9%.??Goal?is?less?than?7.0% She?notes?that?she?has?not?been?able?to?get?Ozempic. Will?send?a?refill?and?discuss?with?medical?operating room assistant;?she?will?start?prior?auth orization?and?let?know?if?this?fails.??Would?try?Mounjaro?were?Trulicity. Continue?glipizide?and?metformin?as?prescribed Continue?diabetic?diet Needs?referral?to?a?new?photographic equipment technician?and?electro winning operator Referred (2) Hypertension: Code(s): I10 - Essential (primary) hypertension Category: Medical Plan: Blood?pressure?is?controlled.??Goal?is?less?than?140/90 Continue?current?medications (3) Overgrown nail: Code(s): L60.2 - Onychogryphosis Category: Medical Plan: As?above,?will?refer?to?Podiatry Orders: Orders AMB Hemoglobin A1c Today E11.40 - Type 2 diabetes mellitus with diabetic neuropathy, unspecified Referrals Podiatry Referral E11.40 - Type 2 diabetes mellitus with diabetic neuropathy, unspecified, L60.2 - Onychogryphosis Ophthalmology Referral E11.40 - Type 2 diabetes mellitus with diabetic neuropathy, unspecified Medications: Refilled semaglutide (Ozempic) 1 mg (0.75 mL) subcut QWEEK 28 days 3 mL 2RF E11.40 - Type 2 diabetes mellitus with diabetic neuropathy, unspecified, E66.01 - Morbid (severe) obesity due to excess calories, Z68.41 - Body mass index [BMI] 40.0- 44.9, adult
== END 2024-06-29 10:03 | disposition home or self-care (01) ==
PROVIDERS: PCP Family Medicine; Visit Provider Family Medicine
DX: E11.40 Type 2 diabetes mellitus with diabetic neuropathy, unspecified (principal); I10 Essential (primary) hypertension; L60.2 Onychogryphosis

== ENCOUNTER → 2024-06-29 09:16 | Outpatient (BNVA) | payer MEDICARE, MEDICAID, SELFPAY | PROVIDERS: PCP Family Medicine; Visit Provider Family Medicine | DX: E11.9 Type 2 diabetes mellitus without complications (principal); I10 Essential (primary) hypertension; L60.2 Onychogryphosis | CPT/HCPCS: 83036; 96127; 99212 ==

== ENCOUNTER → 2024-07-01 13:00 | Outpatient (BNVA) | payer MEDICARE, MEDICAID, SELFPAY | PROVIDERS: PCP Family Medicine; Visit Provider Urology | DX: N32.81 Overactive bladder (principal) | CPT/HCPCS: 99212 ==

== ENCOUNTER 2024-12-10 13:27 | Outpatient (AMB) | payer MEDICARE, MEDICAID, SELFPAY ==
--- NOTE | 2024-12-10 13:31 | A.OFFPC_ITS ---
Vital Signs 12/10/24 13:43 Height 54 ft Weight 194 lb 2 oz BMI 0.3 BP 144/90 H Blood Pressure Location Lt brachial Position Sitting Respiration 15 Pulse 119 H Pulse Source Pulse Oximeter Temp 98.6 F Temp Source Temporal Artery Scan Pulse Oximetry (%) 95 Intake Visit Reasons: f/u diabetes, hypertension Intake Note: Yasemin presents in the office today to follow up on her diabetes and hypertension. Allergies lactose Allergy (Intermediate, Verified 12/10/24 13:34) Diarrhea aspirin [ASA] Allergy (Unknown, Verified 12/10/24 13:34) RASH phenytoin [From DILANTIN] Adverse Reaction (Unknown, Verified 12/10/24 13:34) SWELLING Tobacco use date assessed: 12/10/24 Fall risk assessment: No Falls in past year Last assessed Fall Risk: 12/10/24 Dental Screening Dental Screen Date: 12/10/24 Did you have a dental visit in the last 12 months?: No Did you have a dental problem in the last 6 months where you did not have access to dental care?: No Was dental information given to patient?: Patient has dentist HPI f/u diabetes, hypertension HPI Details 69 y/o female presents to f/u diabetes, hypertension. Last A1c 06/29/24 8.9%. A1c today 12/10/24 is 8.6%. She is on glipizide 10mg b.i.d, metformin, Ozempic. BP today 144/90, 119p. [facility] Medical History (Updated 12/10/24 @ 14:02 by Colt Shelton) Hyponatremia Detrusor overactivity Lower extremity pain Menopause Change in hearing Low magnesium level Neuropathy Chest pain UTI (urinary tract infection) Weakness of both lower extremities Left leg weakness Gynecological complaint Well woman exam Obesity (BMI 30-39.9) Physical deconditioning Breast cancer screening by mammogram Vaginal discharge COVID-19 Abnormal lung sounds Urinary incontinence Nausea and vomiting Gastroenteritis Adult general medical exam Screening for colon cancer Screening for cervical cancer Screening for osteoporosis Dizziness Incomplete bladder emptying Vaginal yeast infection Viral illness Cough Vulvovaginitis Right ankle swelling Diabetes Dash's paralysis (postepileptic) Anxiety disorder, unspecified Chronic obstructive pulmonary disease, unspecified Unspecified asthma, uncomplicated Epilepsy, unspecified, not intractable, without status epilepticus Essential (primary) hypertension Unspecified hearing loss, bilateral Constipation due to slow transit Bilateral primary osteoarthritis of knee Hyperlipidemia, unspecified Gait instability Controlled diabetes mellitus with diabetic neuropathy, without long-term current use of insulin Surgical History H/O pneumonectomy Family History Father Bone cancer Substance abuse in family Mother Breast cancer Brother No problems noted. Brother No problems noted. Brother No problems noted. Sister No problems noted. Sister Uterine cancer Son Substance abuse in family Son No problems noted. Daughter No problems noted. Daughter No problems noted. Other Substance use disorder Social History (Updated 12/10/24 @ 13:39 by Elsa Albright MA) Housing: Apartment Alcohol intake: never Patient Tobacco Use Status: Never used Tobacco e-Cigarette/Vaping Use: Never Used Second Hand Smoke Exposure: No service: No Current occupational status: retired Current occupation: Right Handed Current occupational exposures/hazards: No Cognitive needs: No Hearing needs: No Vision needs: No Female Reproductive History Menstrual Age of Menarche: 11 Questionnaire PHQ-9 Over the last 2 weeks, how often have you been bothered by any of the following problems? 1. Little interest or pleasure in doing things: not at all 2. Feeling down, depressed, or hopeless: several days 3. Trouble falling or staying asleep, or sleeping too much: more than half the days 4. Feeling tired or having little energy: several days 5. Poor appetite or overeating: several days 6. Feeling bad about yourself - or that you are a failure or have let yourself or your family down: not at all 7. Trouble concentrating on things, such as reading the newspaper or watching television: not at all 8. Moving or speaking so slowly that other people could have noticed. Or the opposite - being so fidgety or restless that you have been moving around a lot more than usual: not at all 9. Thoughts that you would be better off or of hurting yourself in some way: not at all Total score: 5 Depression Screening Interpretation: Negative Depression Screening Done: Yes 06228 - PHQ-9 Billing: Patient declined-do not bill Source: Developed by Drs. Bud Rivers, Susana B.W. Rj He and colleagues, with an educational itz from [employer]. Thrive Questionnaire Date Thrive assessed: 12/10/24 I am a: Patient What is your living situation today?: I choose not to answer this question Within the past 12 months, did the food you bought not last and you didn't have the money to get more?: I choose not to answer this question Within the past 12 months, did you worry whether your food would run out before you got money to buy more?: I choose not to answer this question Do you have trouble paying for medicines?: No Do you have trouble getting transportation to medical appointments?: No Do you have trouble paying your heating and electricity bill?: No Do you have trouble taking care of your child, family member or friend?: No Do you have trouble with day-to-day activities such as bathing, preparing meals, shopping, managing finances, etc.?: No Are you currently unemployed and looking for a job?: No Are you interested in more education?: No Please select the resources that you would like help with: None Currently or been in a relationship where the following occur: I choose not to answer THRIVE Score: 0 AUDIT C Alcohol Use Questionnaire (AUDIT-C) 1. How often do you have a drink containing alcohol?: Never Total Score: 0 Score Reviewed/Action Taken: No RALF-7 AMB Questionnaire RALF-7 Date RALF - 7 assessed: 12/10/24 Feeling nervous, anxious, or on edge: 1 = Several days Not being able to stop or control worryin = More than half the days Worrying too much about different things: 2 = More than half the days Trouble relaxin = Not at all Being so restless that it is hard to sit still: 0 = Not at all Becoming easily annoyed or irritable: 0 = Not at all Feeling afraid as if something awful might happen: 1 = Several days Total RALF-7 score (0-4 normal; 5-9 mild; 10-14 moderate; 15-21 severe): 6 Source: Developed by Drs. Bud Rivers, Rj Mayo and colleagues, with an educational itz from [employer]. RALF-7 Assessment Billing RALF-7 Assessment Tool: RALF-7 Assessment 94579 ACT Questionnaire In the past 4 weeks, how much of the time did your asthma keep you from getting as much done at work, school or at home?: None of the time During the past 4 weeks, how often have you had shortness of breath?: Not at all During the past 4 weeks, how often did your asthma symptoms wake you up at night or earlier than usual in the morning?: Once or twice per week During the past 4 weeks, how often have you had to use your rescue inhaler or nebulizer medication?: 1-2 times a week How would you rate your asthma control during the past 4 weeks?: Well controlled ACT Interpretation: Negative Score: 20 Review of Systems Const Denies chills, Denies fatigue, Denies fever(s), Denies headache(s) and Denies weakness ENT Denies dizziness and Denies headache(s) Card Denies chest pain, Denies lightheadedness, Denies dyspnea and Denies other (Palpitations) Resp Denies cough, Denies dyspnea, Denies wheezing and Denies other ( shortness of breath) Musc Denies numbness and Denies tingling Neuro Denies dizziness, Denies headache(s), Denies numbness, Denies tingling, Denies paresthesias and Denies weakness Psych Denies anxiety and Denies depression Endo Denies fatigue Aller/Immun Denies wheezing Physical exam (Primary Care) Vital Signs: Last Vital Signs Temp 98.6 F 12/10/24 13:43 Pulse 119 H 12/10/24 13:43 Resp 15 12/10/24 13:43 BP 144/90 H 12/10/24 13:43 Pulse Ox 95 12/10/24 13:43 BMI result Body Mass Index 0.3 Tobacco/Smoking Status: Tobacco use Status Tobacco use date assessed 12/10/24 12/10/24 13:39 Patient Tobacco Use Status Never used Tobacco 12/10/24 13:39 e-Cigarette/Vaping Use Never Used 12/10/24 13:39 PHQ-9: PHQ-9 Score PHQ-9: Total score 5 12/10/24 13:43 Depression Screening Interpretation: Negative Thrive Assessment: Date of Thrive Assessment Date Thrive assessed 12/10/24 12/10/24 13:43 Currently or been in a relationship where the following occur: I choose not to answer Const General: no acute distress and well developed Nutritional Appearance: well nourished Orientation/consciousness: patient oriented x3 HENMN Head: Yes normocephalic and Yes atraumatic Eyes General: appearance normal, both eyes and all related structures Pupils: Equal, round and reactive pupils present EOM: EOMs intact bilaterally Resp Effort & Inspection: normal respiratory effort Auscultation: clear to auscultation bilaterally Cardio Rate: tachycardic Rhythm: regular rhythm Heart sounds: S1 normal heart sound present, S2 normal heart sound present, no gallops, no murmurs and no rubs Neuro General: patient oriented x3 and gait normal Cranial nerves: Yes Equal, round and reactive pupils present Psych Affect: normal affect Coding Level of Care Code Tele Est Pt Level 4 (65806) Diagnoses Diabetes type 2, controlled E11.9 Hypertension I10 Tachycardia R00.0 OAB (overactive bladder) N32.81 Additional Codes Asthma Control Questionnaire - ACT Interpretation: Negative ([id number]) RALF-7 Assessment Billing - RALF-7 Assessment Tool: RALF-7 Assessment [id number] ([id number]) Assessment & Plan Assessment & Plan (1) Diabetes type 2, controlled: Code(s): E11.9 - Type 2 diabetes mellitus without complications Category: Medical Plan: A1c?8.6%.??Significantly?improved?but?still?much?too?high.??Her?goal?is 7.0%. Increasing?Ozempic?from?1?mg?weekly?to?2?mg?weekly. Continue?other?medications?as?prescribed (2) Hypertension: Code(s): I10 - Essential (primary) hypertension Category: Medical Plan: Blood?pressure?is?too?high. Will?add?small?dose?of?metoprolol?ER?12.5?mg?b.i.d. (3) Tachycardia: Code(s): R00.0 - Tachycardia, unspecified Category: Medical Plan: Hydrate?well Metoprolol?as?above (4) OAB (overactive bladder): Code(s): N32.81 - Overactive bladder Category: Medical Plan: Improved?on Vibegron Continue?her?medication?and?follow-up?with?urology?as?recommended
[2024-12-10 13:43] VITALS: BP 144/90; PULSE 119; RESP 15; TEMP 37; O2SAT 95
--- OUTSIDE RECORDS SUMMARY | 2024-12-10 13:43 | XMS_ITS | Clinical Summary ---
Author Organization [address] [facility] Address [address] [place] [address] Phone Care Team Providers Care Art Historian Name Role Phone Cole Tomlinson MD Primary Care Provider [phone] Social History Tobacco Use Types Packs/Day Years Used Date Smoking Tobacco: Never Assessed Comments Unknown Sex and Gender Information Value Date Recorded Sex Assigned at Not on file Legal Sex Female 6:41 PM EST Gender Identity Not on file Sexual Orientation Not on file Plan of Treatment Upcoming Encounters Date Type Department Care Team (Late st Contact Info) Description 12/16/2024 1:45 PM EDT Consult Orthopedic Surgery - [place] [id number] [id number] Jamin Yoder, LIZY [address] [id number] Health Maintenance Due Date Last Done Comments Breast Cancer Screening 1955 DTaP,Tdap,and Td Vaccines (1 - Tdap) 1972 Pneumococcal Vaccine: 50+ Ye ars (1 of 2 - PCV) 1972 Zoster Vaccines (1 of 2) 11/14/2003 RSV Immunization Adult Patie nts (1 - Risk 60-74 years 1-dose series) 2013 COVID-19 Vaccine (2023-2 5 season) 2024 Colorectal Cancer Screening: Colonoscopy 07/14/2024 Depression Screening 07/14/2024 Falls Risk Assessment 07/14/2024 Hepatitis C Screening 07/14/2024 Medicare Annual Wellness Visit 07/14/2024 Osteoporosis Screening (Bone Density Screening) 07/14/2024 Social Influencers of Health Screening 07/14/2024 Influenza Vaccine (Season Ended) 2025 HIB Vaccines Aged Out No longer eligi ble based on patient's age to complete this topic HPV Vaccines Aged Out No longer eligi ble based on patient's age to complete this topic Hepatitis A Vaccines Aged Out No long er eligible based on patient's age to complete this topic Hepatitis B Vaccines Aged Out No long er eligible based on patient's age to complete this topic IPV Vaccines Aged Out No longer eligi ble based on patient's age to complete this topic MMR Vaccines Aged Out No longer eligi ble based on patient's age to complete this topic Meningococcal ACWY Vaccine Aged Out N o longer eligible based on patient's age to complete this topic Meningococcal B Vaccine Aged Out No l onger eligible based on patient's age to complete this topic RSV Immunization Patients Un severiano 20 months Aged Out No longer eligible b ased on patient's age to complete this topic Varicella Vaccines Aged Out No longer eligible based on patient's age to complete this topic Insurance , [facility] [address] [place] [address] MEDICARE MEDICAID - [place] Care Teams Art Historian Relationship Specialty Start Date End Date Cole Tomlinson MD [address] [place] [address] Dr Jhonathan MA PCP - General Family Medicine 07/14/24
--- OUTSIDE RECORDS SUMMARY | 2024-12-10 13:44 | XMS_ITS | Clinical Summary ---
Author Organization [facility] Address [address] [place] [address] Care Team Providers Care Media Account Executive Name Role Phone Richard Albright MD Primary Care Provider [phone] Allergies Active Allergy Reactions Criticality Noted Date Comments Aspirin Phenytoin Sodium Extended Medications ondansetron (ZOFRAN) 4 mg tablet Take 1 tablet (4 mg total) by mouth every 8 (eight) hours as needed for nausea or vomiting for up to 30 doses. 30 tablet 01/09/2019 Active Social History Tobacco Use Types Packs/Day Years Used Date Smoking Tobacco: Never Smokeless Tobacco: Never Alcohol Use Standard Drinks/Week Comments No 0 (1 standard drink = 0.6 oz pur e alcohol) Comments No Sex and Gender Information Value Date Recorded Sex Assigned at Not on file Legal Sex Female 12:12 AM EST Gender Identity Not on file Sexual Orientation Not on file Last Filed Vital Signs Vital Sign Reading Time Taken Comments Blood Pressure 167/90 01/09/2019 5:27 PM EDT Pulse 74 01/09/2019 3:29 PM EDT Temperature 36.7 ??C (98 ??F) 01/09/2019 5:27 PM EDT Respiratory Rate 18 01/09/2019 5:27 PM EDT Oxygen Saturation 99% 01/09/2019 5:27 PM EDT Inhaled Oxygen Concentration - - Weight 93.9 kg (207 lb) 01/09/2019 12:34 PM EDT Height 162.6 cm (5' 4 ) 01/09/2019 12:34 PM EDT Body Mass Index 35.53 01/09/2019 12:34 PM EDT Plan of Treatment Health Maintenance Due Date Last Done Comments Bone Density Screening 1953 Breast Cancer Screening 1953 CT Colonography 1953 Colonoscopy 1953 Colorectal Cancer Screening 1953 FIT-DNA (Cologuard) 1953 FIT 1953 FOBT 1953 Flex Sigmoidoscopy - 5y 1953 HIV Screening 1953 DTaP,Tdap,and Td Vaccines (1 - Tdap) 11/14/1971 Pneumococcal Vaccine, 50+ Ye ars (1 of 1 - PCV) 11/14/2003 Zoster Vaccines (1 of 2) 11/14/2003 COVID-19 Vaccine ( - 2023-2 5 season) 2024 Influenza Vaccine (Season Ended) 2025 HPV Vaccines Aged Out No longer eligi ble based on patient's age to complete this topic Hepatitis A Vaccines Aged Out No long er eligible based on patient's age to complete this topic Meningococcal Vaccine Aged Out No july mayra eligible based on patient's age to complete this topic Insurance MEDICARE PART A & B MEDICAID OUT OF STATE Care Teams Media Account Executive Relationship Specialty Start Date End Date Richard Albright MD [address] [place] [id number] PCP - General 01/09/19
== END 2024-12-10 14:03 | disposition home or self-care (01) ==
LOC: HO.HMCFM 13:28
PROVIDERS: PCP Family Medicine; Visit Provider Family Medicine
DX: E11.9 Type 2 diabetes mellitus without complications (principal); I10 Essential (primary) hypertension; R00.0 Tachycardia, unspecified; N32.81 Overactive bladder

== ENCOUNTER → 2024-12-10 13:27 | Outpatient (BNVA) | payer MEDICARE, MEDICAID, SELFPAY | PROVIDERS: PCP Family Medicine; Visit Provider Family Medicine | DX: E11.9 Type 2 diabetes mellitus without complications (principal); R00.0 Tachycardia, unspecified; I10 Essential (primary) hypertension; N32.81 Overactive bladder | CPT/HCPCS: 96127; 96160; 99212 ==

== ENCOUNTER 2024-12-28 15:06 | Outpatient (AMB) | payer MEDICARE, MEDICAID, SELFPAY ==
--- NOTE | 2024-12-28 15:33 | A.OFFPC_ITS ---
Vital Signs 12/28/24 15:38 12/28/24 15:39 Height 5 ft 4 in Weight 196 lb BMI 33.6 BP 146/80 H 138/80 Blood Pressure Location Rt brachial Rt brachial Position Sitting Sitting Respiration 16 Pulse 99 Pulse Source Pulse Oximeter Temp 97.9 F Temp Source Oral Pulse Oximetry (%) 97 Oxygen Delivery Method Room Air Intake Visit Reasons: ed fu and dm Allergies lactose Allergy (Intermediate, Verified 12/10/24 13:34) Diarrhea aspirin [ASA] Allergy (Unknown, Verified 12/10/24 13:34) RASH phenytoin [From DILANTIN] Adverse Reaction (Unknown, Verified 12/10/24 13:34) SWELLING Medication List - Last Reconciled 12/28/24 by Cole Tomlinson MD albuterol sulfate mg inhalation Q6H PRN albuterol sulfate 90 mcg/actuation 1 puff PO Q4H PRN amlodipine 10 mg PO DAILY atorvastatin 40 mg PO DAILY benztropine 1 mg PO BID bisacodyl (Dulcolax (bisacodyl)) 20 mg (4 x 5 mg) PO ONCE 1 day blood sugar diagnostic (FreeStyle Lite Strips) As directed twice a day blood sugar checks 90 day supply blood-glucose meter (FreeStyle Lite Meter kit) DX: E11.9, test blood sugar 2 times a day, duration 999 days budesonide-formoterol 160-4.5 mcg/actuation 2 puffs inhalation BID carbamazepine 200 mg PO BID 3 months citalopram 20 mg (1/2 x 40 mg) PO DAILY 90 days clopidogrel 75 mg PO DAILY 90 days diaper,brief,adult,disposable (Briefs, Adult-Extra Large) change every 2-3 hours prn for incontinence diclofenac sodium 1% 1 - 2 grams topical QID diphenhydramine HCl (Banophen) 25 mg PO BEDTIME PRN flash glucose scanning reader (Hiperosyle Александр 2 [place]) As directed flash glucose sensor (FreeStyle Александр 2 Sensor kit) As directed glipizide ER 10 mg PO BID hydralazine 25 mg PO TID ibuprofen 600 mg PO TID PRN incontinence pad, liner, disp every 2-3 hours PRN insulin glargine (Basaglar KwikPen U-100 Insulin) 10 units (0.1 mL) subcut QPM 30 days lancets (FreeStyle Lancets) 28 gauge topical BID levetiracetam 1,000 mg PO BID 90 days magnesium oxide 400 mg PO DAILY 30 days mecobalamin (vitamin B12) 1,000 mcg PO DAILY 90 days metformin 1000 mg (2 tabs) a.m. and 750 mg (1.5 tabs) p.m. orally 2 times a day; 90 days multivitamin (One Daily Multivitamin tablet) 1 tab PO DAILY omeprazole 40 mg PO DAILY peg 3350-electrolytes 236-22.74-6.74 -5.86 gram (Golytely) 240 mL PO Q10M 1 day peg 3350-electrolytes 236-22.74-6.74 -5.86 gram 240 mL PO Q10M pen needle, diabetic To Treat high blood sugar, Daily As directed, 90 days polyethylene glycol 3350 (Miralax) 17 grams PO DAILY 4 days pregabalin 100 mg PO TID 30 days risperidone 1 mg PO BID semaglutide (Ozempic) 1 mg (0.75 mL) subcut QWEEK 28 days trazodone 50 - 100 mg PO BEDTIME PRN vibegron (Gemtesa) 75 mg PO DAILY Tobacco use date assessed: 12/10/24 Dental Screening Dental Screen Date: 12/10/24 HPI ed fu and dm HPI Details 69 y/o female presents to ED visit, matthew storey. She is on metformin and glipizide. She reports blood sugars had been running high. Hospital had sent Lantus. She had called the pharmacy about lantus but she states she is awaiting authorization. [facility] Medical History (Updated 12/10/24 @ 14:02 by Colt Shelton) Hyponatremia Detrusor overactivity Lower extremity pain Menopause Change in hearing Low magnesium level Neuropathy Chest pain UTI (urinary tract infection) Weakness of both lower extremities Left leg weakness Gynecological complaint Well woman exam Obesity (BMI 30-39.9) Physical deconditioning Breast cancer screening by mammogram Vaginal discharge COVID-19 Abnormal lung sounds Urinary incontinence Nausea and vomiting Gastroenteritis Adult general medical exam Screening for colon cancer Screening for cervical cancer Screening for osteoporosis Dizziness Incomplete bladder emptying Vaginal yeast infection Viral illness Cough Vulvovaginitis Right ankle swelling Diabetes Dash's paralysis (postepileptic) Anxiety disorder, unspecified Chronic obstructive pulmonary disease, unspecified Unspecified asthma, uncomplicated Epilepsy, unspecified, not intractable, without status epilepticus Essential (primary) hypertension Unspecified hearing loss, bilateral Constipation due to slow transit Bilateral primary osteoarthritis of knee Hyperlipidemia, unspecified Gait instability Controlled diabetes mellitus with diabetic neuropathy, without long-term current use of insulin Surgical History H/O pneumonectomy Family History Father Bone cancer Substance abuse in family Mother Breast cancer Brother No problems noted. Brother No problems noted. Brother No problems noted. Sister No problems noted. Sister Uterine cancer Son Substance abuse in family Son No problems noted. Daughter No problems noted. Daughter No problems noted. Other Substance use disorder Social History (Updated 12/10/24 @ 13:39 by Elsa Albright MA) Housing: Apartment Alcohol intake: never Patient Tobacco Use Status: Never used Tobacco e-Cigarette/Vaping Use: Never Used Second Hand Smoke Exposure: No service: No Current occupational status: retired Current occupation: Right Handed Current occupational exposures/hazards: No Cognitive needs: No Hearing needs: No Vision needs: No Female Reproductive History Menstrual Age of Menarche: 11 Questionnaire Thrive Questionnaire Date Thrive assessed: 06/29/24 I am a: Patient What is your living situation today?: I choose not to answer this question Within the past 12 months, did the food you bought not last and you didn't have the money to get more?: I choose not to answer this question Within the past 12 months, did you worry whether your food would run out before you got money to buy more?: I choose not to answer this question Do you have trouble paying for medicines?: No Do you have trouble getting transportation to medical appointments?: No Do you have trouble paying your heating and electricity bill?: No Do you have trouble taking care of your child, family member or friend?: No Do you have trouble with day-to-day activities such as bathing, preparing meals, shopping, managing finances, etc.?: No Are you currently unemployed and looking for a job?: No Are you interested in more education?: No Please select the resources that you would like help with: None Currently or been in a relationship where the following occur: I choose not to answer THRIVE Score: 0 RALF-7 AMB Questionnaire RALF-7 Date RALF - 7 assessed: 12/10/24 Source: Developed by Drs. Bud Rivers, Susana He, Rj Goodwin and colleagues, with an educational itz from [employer]. Review of Systems Const Denies chills, Denies fatigue, Denies fever(s), Denies headache(s) and Denies weakness ENT Denies dizziness and Denies headache(s) Card Denies dyspnea Resp Denies cough, Denies dyspnea, Denies wheezing and Denies other (shortness of breath) Musc Denies numbness and Denies tingling Neuro Denies dizziness, Denies headache(s), Denies numbness, Denies tingling and Denies weakness Psych Denies anxiety and Denies depression Endo Denies fatigue Aller/Immun Denies wheezing Physical exam (Primary Care) Vital Signs: Last Vital Signs Temp 97.9 F 12/28/24 15:38 Pulse 99 12/28/24 15:38 Resp 16 12/28/24 15:38 BP 138/80 12/28/24 15:39 Pulse Ox 97 12/28/24 15:38 Oxygen Delivery Method Room Air 12/28/24 15:38 BMI result Body Mass Index 33.6 Tobacco/Smoking Status: Tobacco use Status Tobacco use date assessed 12/10/24 12/28/24 15:36 Patient Tobacco Use Status Never used Tobacco 12/28/24 15:36 e-Cigarette/Vaping Use Never Used 12/28/24 15:36 Thrive Assessment: Date of Thrive Assessment Date Thrive assessed 06/29/24 12/28/24 15:36 Currently or been in a relationship where the following occur: I choose not to answer Const General: well developed; No acute distress Nutritional Appearance: well nourished Orientation/consciousness: patient oriented x3 HENMT Head: Yes normocephalic and Yes atraumatic Eyes General: appearance normal, both eyes and all related structures Pupils: Equal, round and reactive pupils present EOM: EOMs intact bilaterally Resp Effort & Inspection: normal respiratory effort Neuro General: patient oriented x3 and gait normal Cranial nerves: Yes Equal, round and reactive pupils present Psych Affect: normal affect Coding Level of Care Code Est Pt Level 3 (42157) Diagnoses Diabetes type 2, controlled E11.9 Assessment & Plan Assessment & Plan (1) Diabetes type 2, controlled: Code(s): E11.9 - Type 2 diabetes mellitus without complications Category: Medical Plan: Uncontrolled?diabetes?and?recent?visit?to?the?emergency?department?yesterday ED?had?sent?her?a?script?for?Lantus?10?units?daily?that?she?was?to?take?with?her ?glipizide?and?her?metformin.??However?her?insurance?does?not?cover?that.??Will? cover?Basaglar?however. Send?a?script?for?Basaglar?and?she?will?pick?that?up?today. Continue?metformin?and?glipizide?as?prescribed Close?follow-up?will?see?her?again?in?2?weeks. Medications: New pen needle, diabetic To Treat high blood sugar, Daily As directed, 90 days 100 ea 3RF E11.40 - Type 2 diabetes mellitus with diabetic neuropathy, unspecified insulin glargine (Basaglar KwikPen U-100 Insulin) 10 units (0.1 mL) subcut QPM 30 days 3 mL 3RF Patient Instructions: Continue?metformin?and?glipizide?as?prescribed Pick?up?Basaglar?today?and?start?this?tonight Check?blood?sugars Call?for?any?problems You?would?appointment?follow-up?in?2?weeks.
[2024-12-28 15:38] VITALS: BP 146/80; PULSE 99; RESP 16; TEMP 36.6; O2SAT 97; BMI 33.6
[2024-12-28 15:39] VITALS: BP 138/80
--- OUTSIDE RECORDS SUMMARY | 2024-12-28 16:13 | XMS_ITS | Clinical Summary ---
Author Organization [facility] [address] [place] [address] Address [address] [place] [address] Care Team Providers Care Intellectual Property Manager Name Role Phone No, Pcp (Do Not Change Name) Primary Care Provid er Unavailable Allergies Active Allergy Reactions Criticality Noted Date Comments Aspirin GI Upset 12/23/2024 Phenytoin Sodium Extended Angioedema 12/23/2024 Medications amLODIPine (NORVASC) 10 mg tablet Take 1 tablet (10 mg total) by mouth daily. Active atorvastatin (LIPITOR) 40 mg tablet Take 1 tablet (40 mg total) by mouth daily. Active carBAMazepine (TEGRETOL) 200 mg immediate release tablet Take 1 tablet (200 mg total) by mouth 2 (two) times daily. Active levETIRAcetam (KEPPRA) 1000 mg immediate release tablet Take 1 tablet (1,000 mg total) by mouth 2 (two) times daily. Active pregabalin (LYRICA) 100 mg capsule Take 1 capsule (100 mg total) by mouth 3 (three) times daily. Active metFORMIN (GLUCOPHAGE) 500 mg Immediate Release tablet 2 tablets in the morning and 1.5 tablet in the evening Active hydrALAZINE (APRESOLINE) 25 mg tablet Take 1 tablet (25 mg total) by mouth 3 (three) times daily. Active multivitamin with minerals tablet Take 1 tablet by mouth daily. Active risperiDONE (RISPERDAL) 1 mg tablet Take 1 tablet (1 mg total) by mouth 2 (two) times daily (0800, 1800). Active magnesium oxide (MAG-OX) 400 mg (241.3 mg magnesium) tablet Take 1 tablet (400 mg total) by mouth daily. Active sertraline (ZOLOFT) 50 mg tablet Take 1.5 tablets (75 mg total) by mouth at bedtime. Active clopidogreL (PLAVIX) 75 mg tablet Take 1 tablet (75 mg total) by mouth daily. Active citalopram (CELEXA) 40 mg tablet Take 0.5 tablets (20 mg total) by mouth daily. Active albuterol sulfate (VENTOLIN HFA) 90 mcg/actuation HFA aerosol inhaler Inhale 1 puff into the lungs every 6 (six) hours as needed for wheezing or shortness of breath. 12/25/19 25 Discontinue d(!Delete Cleanup (No Cancel Msg)) omeprazole (PRILOSEC) 40 mg capsule Take 1 capsule (40 mg total) by mouth daily. 12/25/19 25 Discontinue d(!Delete Cleanup (No Cancel Msg)) traZODone (DESYREL) 50 mg tablet Take 1 tablet (50 mg total) by mouth See Admin Instructions. 50 to 100 as needed nightly for sleep 12/25/19 25 Discontinue d(!Delete Cleanup (No Cancel Msg)) metFORMIN (GLUCOPHAGE) 1000 mg tablet Take 1 tablet (1,000 mg total) by mouth daily with breakfast. 12/25/19 25 Discontinue d(!Delete Cleanup (No Cancel Msg)) clopidogreL (PLAVIX) 75 mg tablet Take 1 tablet (75 mg total) by mouth daily. 12/24/19 25 Discontinue d(!Delete Cleanup (No Cancel Msg)) budesonide-for moteroL (SYMBICORT) 160-4.5 mcg/actuation HFA aerosol inhaler Inhale 2 puffs into the lungs 2 (two) times daily. 12/25/19 25 Discontinue d(!Delete Cleanup (No Cancel Msg)) polyethylene glycol (MIRALAX) 17 gram packet Take 1 packet (17 g total) by mouth daily. Mix in 8 ounces of water, juice, soda, coffee or tea prior to taking. 12/25/19 25 Discontinue d(!Delete Cleanup (No Cancel Msg)) semaglutide (OZEMPIC) 1 mg/dose (4 mg/3 mL) pen injector Inject 1 mg under the skin once a week. 12/25/19 25 Discontinue d(!Delete Cleanup (No Cancel Msg)) ibuprofen (ADVIL,MOTRIN) 400 mg tablet Take 1.5 tablets (600 mg total) by mouth every 8 (eight) hours as needed for pain. 12/25/19 25 Discontinue d(!Delete Cleanup (No Cancel Msg)) Active Problems Problem Noted Date Diagnosed Date Hyperglycemia 12/23/2024 Encounters Date Type Department Care Team Description 12/28/2024 Patient Outreach [facility] Call Center [address] [place] [id number] Estefania Alcazar RN Hospital Discharge Follow Up 12/23/2024 10:46 AM EDT - 12/25/2024 7:34 PM EDT Hospital Encounter [facility] [address] [address] Eliud Chaudhary MD Ravi, Sreedhar, MD Samardzic, Tijana, MD Chaudhary, Luli Duff MD Hyperglycemia (Primary Dx); Dehydration Discharge Disposition: Left Against Medical Advice 12/23/2024 Travel from Last 3 Months Social History Tobacco Use Types Packs/Day Years Used Date Smoking Tobacco: Never Assessed [facility] Utilities Answer Date Recorded In the past 12 months has th e electric, gas, oil, or water company threatened to shut off services in your home? No 12/23/2024 PHQ-2 Answer Date Recorded PHQ-2 Total Score 2 12/23/2024 Hunger Vital Sign Answer Date Recorded Within the past 12 months, y ou worried that your food would run out before you got the money to buy more. Never true 12/24/19 25 Within the past 12 months, t he food you bought just didn't last and you didn't have money to get more. Never true 12/23/2024 PRAPARE - Transportation Answer Date Re corded In the past 12 months, has l ack of transportation kept you from medical appointments or from getting medications? No 12/09 In the past 12 months, has l ack of transportation kept you from meetings, work, or from getting things needed for daily living? No 12/23/2024 Housing Stability Answer Date Recorded What is your living situation today? I have a [facility] place to live 12/23/2024 Housing Stability Not on file 12/23/2024 Interpersonal Safety Answer Date Record ed Is there anyone in your life that is hurting or threatening you in anyway? no 12/23/2024 Physical Indicators of Abuse No evidence of phys ical abuse 12/23/2024 Comments Unknown Sex and Gender Information Value Date Recorded Sex Assigned at Not on file Legal Sex Female 10:41 AM EDT Gender Identity Not on file Sexual Orientation Not on file Last Filed Vital Signs Vital Sign Reading Time Taken Comments Blood Pressure 126/85 12/25/2024 2:58 PM EDT Pulse 79 12/25/2024 2:58 PM EDT Temperature 36.3 ??C (97.3 ??F) 12/25/2024 2:58 PM ED T Respiratory Rate 19 12/25/2024 2:58 PM EDT Oxygen Saturation 100% 12/25/2024 2:58 PM EDT Inhaled Oxygen Concentration - - Weight 87 kg (191 lb 12.8 oz) 12/23/2024 1:40 PM EDT Height 162.6 cm (5' 4 ) 12/23/2024 2:06 PM EDT Body Mass Index 32.92 12/23/2024 1:40 PM EDT Plan of Treatment Upcoming Encounters Date Type Department Care Team (Late st Contact Info) Description 12/30/2024 9:50 AM EDT Office Visit [address] [id number] Chayo Parra APRN [address] [place] [phone] Health Maintenance Due Date Last Done Comments HIV screening 1966 Hepatitis C screening 11/14/1971 Pneumococcal Vaccine (50+ years) (1 of 2 - PCV) 1972 Tetanus adult (Td q 10,TDAP once) 1973 Breast cancer screening 1993 Lipid disorder screening 1993 Colon cancer screening, Colonoscopy 1998 Shingles vaccine (Shingrix) (1 of 2 - Shingrix (RZV) 2 Dose Standard Series) 11/14/2003 RSV Immunization (1 - Risk 60-74 years 1-dose series) 2013 Osteoporosis screening (bone density) 2018 Covid-19 vaccine series ( season) 2024 Hemoglobin A1C 03/25/2025 12/23/2024 Influenza vaccine 04/11/2025 Diabetes screening 12/26/2027 12/25/2024, 0 12/24/2024, 12/23/2024, Additional history exists Cervical cancer screening Discontinued Meningococcal Vaccine Aged Out No july mayra eligible based on patient's age to complete this topic Procedures Procedure Name Priority Date/Time Associated Diagnosis Comments POCT GLUCOSE Routine 12/25/2024 5:30 PM EDT POCT GLUCOSE Routine 12/25/2024 12:17 PM EDT POCT GLUCOSE Routine 12/25/2024 8:23 AM EDT COMPREHENSIVE METABOLIC PANEL Early AM 12/25/2024 7:08 AM EDT COMPREHENSIVE METABOLIC PANEL Early AM 12/25/2024 7:08 AM EDT CBC WITHOUT DIFFERENTIAL Early AM 12/25/2024 7:08 AM EDT POCT GLUCOSE Routine 12/24/2024 8:57 PM EDT POCT GLUCOSE Routine 12/24/2024 5:44 PM EDT POCT GLUCOSE Routine 12/24/2024 3:[address] ABDOMEN PELVIS W IV CONTRAST Routine 12/24/2024 2:00 PM EDT POCT GLUCOSE Routine 12/24/2024 10:46 AM EDT CBC AND DIFFERENTIAL Early AM 12/24/2024 9:53 AM EDT CBC WITH AUTO DIFFERENTIAL Early AM 12/24/2024 9:53 AM EDT POCT GLUCOSE Routine 12/24/2024 9:22 AM EDT BASIC METABOLIC PANEL Early AM 12/24/2024 8:47 AM EDT LIPASE Add-On 12/24/2024 8:47 AM EDT BASIC METABOLIC PANEL Early AM 12/24/2024 8:47 AM EDT LIVER FUNCTION TESTS WITH ALBUMIN (YH) Early AM 12/24/2024 8:47 AM EDT MAGNESIUM Early AM 12/24/2024 8:47 AM EDT POCT GLUCOSE Routine 12/24/2024 8:21 AM EDT POCT GLUCOSE Routine 12/24/2024 6:49 AM EDT POCT GLUCOSE Routine 12/24/2024 5:46 AM EDT POCT GLUCOSE Routine 12/24/2024 4:40 AM EDT POCT GLUCOSE Routine 12/24/2024 3:37 AM EDT POCT GLUCOSE Routine 12/24/2024 1:44 AM EDT POCT GLUCOSE Routine 12/23/2024 11:56 PM EDT POCT GLUCOSE Routine 12/23/2024 10:05 PM EDT URINE MICROSCOPIC ( GH LMW YH) STAT 12/23/2024 6:21 PM EDT URINALYSIS WITH CULTURE REFLEX (BH LMW YH) STAT 12/23/2024 6:21 PM EDT UA REFLEX CULTURE STAT 12/23/2024 6:2 1 PM EDT URINALYSIS WITH CULTURE REFLEX STAT 12/23/2024 6:21 PM EDT URINE CULTURE STAT 12/23/2024 6:21 PM EDT POCT GLUCOSE Routine 12/23/2024 5:59 PM EDT TYPE AND RH RECHECK ( GH LMW YH) STAT 12/23/2024 5:40 PM EDT TYPE AND SCREEN ( GH LMW YH) Urgent 12/23/2024 5:40 PM EDT HEMOGLOBIN AND HEMATOCRIT, BLOOD Routine 12/23/2024 5:40 PM EDT POCT GLUCOSE Routine 12/23/2024 2:06 PM EDT EKG Routine 12/23/2024 2:01 PM EDT POCT GLUCOSE Routine 12/23/2024 1:07 PM EDT POCT GLUCOSE Routine 12/23/2024 1:06 PM EDT HEMOGLOBIN A1C STAT 12/23/2024 12:47 PM EDT POCT GLUCOSE Routine 12/23/2024 11:50 AM EDT BASIC METABOLIC PANEL STAT 12/23/2024 11:23 AM EDT CBC AND DIFFERENTIAL STAT 12/23/2024 11:23 AM EDT TSH W/REFLEX TO FT4 ( GH LMW Q YH) Add-On 12/23/2024 11:23 AM EDT PHOSPHORUS ( GH L LMW YH) Add-On 12/23/2024 11:23 AM EDT MAGNESIUM Add-On 12/23/2024 11:23 AM EDT LIVER FUNCTION TESTS WITH ALBUMIN (YH) Add-On 12/23/2024 11:23 AM EDT BASIC METABOLIC PANEL STAT 12/23/2024 11:23 AM EDT CBC WITH AUTO DIFFERENTIAL STAT 12/23/2024 11:23 AM EDT BLOOD GAS, VENOUS (BH YH) Urgent 12/23/2024 11:23 AM EDT BETA-HYDROXYBUTYRATE Urgent 12/23/2024 11:23 AM EDT POCT GLUCOSE Routine 12/23/2024 10:52 AM EDT from Last 3 Months Results * (ABNORMAL) POC Glucose (Fingerstick) (12/25/2024 5:30 PM EDT) Only the most recent of22 resultswithin the time period is included. Glucose, Meter 207(H) 70 - 100 mg/dL 12/25/2024 5:30 PM EDT [facility] Blood 12/25/2024 5:30 PM EDT 12/25/2024 5:30 PM EDT Edi Kendall MD POINT OF CARE TEST ORDERABLES F inal Result [facility] [address] [place] [address] * (ABNORMAL) Comprehensive metabolic panel (12/25/2024 7:08 AM EDT) Pathologist [facility] Sodium 133(L) 136 - 144 mmol/L 12/25/2024 8:41 AM EDT [facility] Potassium 3.8 3.3 - 5.3 mmol/L 12/25/2024 8:41 AM EDT [facility] Chloride 99 98 - 107 mmol/L 12/25/2024 8:41 AM EDT [facility] CO2 22 20 - 30 mmol/L 12/25/2024 8:41 AM EDT [facility] Anion Gap 12 7 - 17 12/25/2024 8:41 AM [facility] Glucose 283(H) 70 - 100 mg/dL 12/25[facility]2024 [facility] BUN 17 8 - 23 mg/dL 12/25/2024 8:41 AM [facility] Creatinine 0.90 0.40 - 1.30 mg/dL 12/25/2024 8:41 AM [facility] Calcium 9.2 8.8 - 10.2 mg/dL 12/25/2024 8:41 AM [facility] BUN/Creatinine Ratio 18.9 8.0 - 23.0 12/25/2024 8:41 AM [facility] Total Protein 6.6 5.9 - 8.3 g/dL 025 8:41 AM [facility] Comment:As of 2023, th e reference interval for Total Protein has been changed from (6.6 to 8.7 g/dL) to (5.9 to 8.3 g/dL). Albumin 3.5(L) 3.6 - 5.1 g/dL 12/25/2024 8:41 AM [facility] Comment:As of 2023, th e reference interval for Albumin has been changed from (3.6 to 4.9 g/dL) to (3.6 to 5.1 g/dL). Total Bilirubin 0.2 <=1.2 mg/dL 12/26/19 25 8:41 AM [facility] Alkaline Phosphatase 79 9 - 122 U/L 12/25/2024 8:41 AM [facility] Alanine Aminotransferase (ALT) 47(H) 10 - 35 U/L 12/25/2024 8:41 AM EDT [facility] Comment:Calcium dobesilate c an cause artificially low ALT results at therapeutic concentrations Aspartate Aminotransferase (AST) 58(H) 10 - 35 U/L 12/25/2024 8:41 AM T [facility] Globulin 3.1 2.0 - 3.9 g/dL 12/25/2024 8:41 AM EDT [facility] Comment:As of 2023, e reference interval for Globulin has been changed from (2.3 to 3.5 g/dL) to (2.0 to 3.9 g/dL). A/G Ratio 1.1 1.0 - 2.2 12/25/2024 8:41 AM T [facility] AST/ALT Ratio 1.2 Reference Range Not Established 12/25/2024 8:41 AM T [facility] eGFR (Creatinine) >60 >=60 mL/min/1.73m2 12/25/2024 8:41 AM T [facility] Comment: [facility] utilizes CKD-EPI Creatinine 2020 to report eGFR. Values < 60 mL/min/1.73 m2 may indicate CKD if present for more than three months AND creatinine is at steady state. The eGFR provides a rough estimate of kidney function. For further guidance, please refer to the CKD: Adult Chief Cloth Finishing Range Operator Signature pathway. Creatinine Delta 0.1 See Comment 8:41 AM [facility] Comment: Delta creatinine is the difference between the current creatinine and the most recent prior creatinine (if available within the previous 12 months). It is intended to detect significant changes in kidney function for patients whose creatinine is <5 mg/dL. A delta is not calculated for patients whose baseline creatinine is >=5 mg/dL or those who do not have a baseline within the last year. The following deltas will flag as critical (triggering a call from the laboratory): a) Deltas >= +1.5 mg/dL for patients with baseline creatinine <= 1.5 mg/dL. b) Deltas >= +3 mg/dL for patients with baseline creatinine between 1.5 and 5 mg/dL. Blood Venipuncture / Unknown 12/25/2024 7:08 AM EDT 12/25/2024 7:53 AM EDT us Sonal Oneill COMPUTER OPERATIONS MANAGER LAB BLOOD ORDERABLES Final Res ult [facility] [place] [address], [facility] [phone] * (ABNORMAL) CBC without differential (12/25/2024 7:08 AM EDT) WBC 5.7 4.0 - 11.0 x1000/??L 12/25/2024 8:01 AM EDT [facility] RBC 3.89(L) 4.00 - 6.00 M/??L 12/25/2024 8:01 AM EDT [facility] Hemoglobin 12.0 11.7 - 15.5 g/dL 12/25/2024 8:01 AM EDT [facility] Hematocrit 35.50 35.00 - 45.00 % 12/25/2024 8:01 AM EDT [facility] MCV 91.3 80.0 - 100.0 fL 12/25/2024 8:01 AM EDT [facility] MCH 30.8 27.0 - 33.0 pg 12/25/2024 8:01 AM EDT [facility] MCHC 33.8 31.0 - 36.0 g/dL 12/25/2024 8:01 AM EDT [facility] RDW-CV 13.4 11.0 - 15.0 % 12/25/2024 8:01 AM EDT [facility] Platelets 279 150 - 420 x1000/??L 12/25/2024 8:01 AM EDT [facility] MPV 9.7 8.0 - 12.0 fL 12/25/2024 8:01 AM EDT [facility] ANC (Abs Neutrophil Count) 3.37 2.00 - 7.60 x 1000/??L 12/25/2024 8:01 AM EDT [facility] Blood Venipuncture / Unknown 12/25/2024 7:08 AM EDT 12/25/2024 7:53 AM EDT us Sonlafaviola Oneill COMPUTER OPERATIONS MANAGER LAB BLOOD ORDERABLES Final Res ult [facility] [address] [place], [place] [address] [phone] * CT Abdomen Pelvis w IV Contrast (12/24/2024 2:00 PM EDT) Anatomical Region Laterality Modality Abdomen, Pelvis, Ortho Pelvis, Abdomen and Pelvi s Computed Tomography 12/24/2024 2:07 PM EDT Impressions 12/24/2024 2:24 PM EDT No etiology for clinical symptoms identified. Hepatic steatosis with atherosclerotic calcifications involving the aorta and coronary arteries. [facility] Classification: Routine. Report initiated by: ??Ferny Waterman MD Reported and signed by: Jose Cabrera MD [facility] Narrative 12/24/2024 2:[address] ABDOMEN PELVIS W IV CONTRAST on 12/24/2024 2:00 PM INDICATION: Abdominal pain, acute, nonlocalized COMPARISON: None TECHNIQUE: CT images of the abdomen and pelvis were obtained after the administration of intravenous contrast. IV contrast administered: ??80 ML IOHEXOL (OMNIPAQUE) 350 MG IODINE/ML INJECTION FINDINGS: The liver is likely steatotic. The gallbladder demonstrates a phrygian cap with probable fundal adenomyomatosis. The spleen, pancreas, adrenal glands and kidneys are unremarkable with the exception of bilateral too small to characterize renal hypodensities. There is no adenopathy or ascites. There is no bowel obstruction. No aggressive osseous lesion. Small fat-containing umbilical hernia and periesophageal hernia. Left greater than right basilar atelectasis is noted. Calcified pleural plaques noted at the left base. Coronary artery calcifications are noted along with small pericardial effusion. Procedure Note Jose Cabrera MD - 12/24/2024 CT ABDOMEN PELVIS W IV CONTRAST on 12/24/2024 2:00 PM INDICATION: Abdominal pain, acute, nonlocalized COMPARISON: None TECHNIQUE: CT images of the abdomen and pelvis were obtained after theadministration of intravenous contrast. IV contrast administered: 80 ML IOHEXOL (OMNIPAQUE) 350 MG IODINE/MLINJECTION FINDINGS: The liver is likely steatotic. The gallbladder demonstrates a phrygian capwith probable fundal adenomyomatosis. The spleen, pancreas, adrenal glandsand kidneys are unremarkable with the exception of bilateral too small tocharacterize renal hypodensities. There is no adenopathy or ascites. There is no bowel obstruction. No aggressive osseous lesion. Small fat-containing umbilical hernia andperiesophageal hernia. Left greater than right basilar atelectasis is noted. Calcified pleuralplaques noted at the left base. Coronary artery calcifications are notedalong with small pericardial effusion. IMPRESSION: No etiology for clinical symptoms identified. Hepatic steatosis with atherosclerotic calcifications involving the aortaand coronary arteries. [facility] Notify [facility] Classification: Routine. Report initiated by: Ferny Waterman MD Reported and signed by: Jose Cabrera MD [facility] Sonal Oneill COMPUTER OPERATIONS MANAGER IMG CT ORDERABLES Final Result * CBC auto differential (12/24/2024 9:53 AM EDT) Only the most recent of2 resultswithin the time period is included. WBC 6.5 4.0 - 11.0 x1000/??L 12/24/2024 10:10 AM EDT [facility] RBC 4.31 4.00 - 6.00 M/??L 12/24/2024 10:10 AM EDT [facility] Hemoglobin 13.3 11.7 - 15.5 g/dL 12/24/2024 10:10 AM EDT [facility] Hematocrit 38.70 35.00 - 45.00 % 12/24/2024 10:10 AM EDT [facility] MCV 89.8 80.0 - 100.0 fL 12/24/2024 10:10 AM EDT [facility] MCH 30.9 27.0 - 33.0 pg 12/24/2024 10:10 AM EDT [facility] MCHC 34.4 31.0 - 36.0 g/dL 12/24/2024 10:10 AM EDT [facility] RDW-CV 13.2 11.0 - 15.0 % 12/24/2024 10:10 AM EDT [facility] Platelets 322 150 - 420 x1000/??L 12/24/2024 10:10 AM EDT [facility] MPV 9.6 8.0 - 12.0 fL 12/24/2024 10:10 AM EDT [facility] Neutrophils 60.8 39.0 - 72.0 % 12/24/2024 10:10 AM EDT [facility] Lymphocytes 29.4 17.0 - 50.0 % 12/24/2024 10:10 AM EDT [facility] Monocytes 5.8 4.0 - 12.0 % 12/24/2024 10:10 AM EDT [facility] Eosinophils 3.2 0.0 - 5.0 % 12/24/2024 10:10 AM EDT [facility] Basophil 0.5 0.0 - 1.4 % 12/24/2024 10:10 AM EDT [facility] Immature Granulocytes 0.3 0.0 - 1.0 % 12/24/2024 10:10 AM EDT [facility] nRBC 0.0 0.0 - 1.0 % 12/24/2024 10:10 AM EDT [facility] Absolute Lymphocyte Count 1.92 0.60 - 3.70 x 1000/??L 12/24/2024 10:10 AM EDT [facility] Monocyte Absolute Count 0.38 0.00 - 1.00 x 1000/??L 12/24/2024 10:10 AM EDT [facility] Eosinophil Absolute Count 0.21 0.00 - 1.00 x 1000/??L 12/24/2024 10:10 AM EDT [facility] Basophil Absolute Count 0.03 0.00 - 1.00 x 1000/??L 12/24/2024 10:10 AM EDT [facility] Absolute Immature Granulocyte Count 0.02 0.00 - 0.30 x 1000/??L 12/24/2024 10:10 AM EDT [facility] Absolute nRBC 0.00 0.00 - 1.00 x 1000/??L 12/24/2024 10:10 AM EDT [facility] ANC (Abs Neutrophil Count) 3.96 2.00 - 7.60 x 1000/??L 12/24/2024 10:10 AM EDT [facility] Blood Venipuncture / Unknown 12/24/2024 9:53 AM EDT 12/24/2024 10:01 AM EDT us Edi Kendall MD LAB BLOOD ORDERABLES Final Resu lt [facility] [address] [place] [address] * (ABNORMAL) Basic metabolic panel (12/24/2024 8:47 AM EDT) Only the most recent of2 resultswithin the time period is included. Sodium 131(L) 136 - 144 mmol/L 12/24/2024 9:31 AM EDT [facility] Potassium 4.0 3.3 - 5.3 mmol/L 12/24/2024 9:31 AM EDT [facility] Chloride 99 98 - 107 mmol/L 12/24/2024 9:31 AM EDT [facility] CO2 22 20 - 30 mmol/L 12/24/2024 9:31 AM EDT [facility] Anion Gap 10 7 - 17 12/24/2024 9:31 AM EDT [facility] Glucose 144(H) 70 - 100 mg/dL 12/24/2024 9:31 AM EDT [facility] BUN 17 8 - 23 mg/dL 12/24/2024 9:31 AM EDT [facility] Creatinine 0.80 0.40 - 1.30 mg/dL 12/24/2024 9:31 AM EDT [facility] Calcium 9.5 8.8 - 10.2 mg/dL 12/24/2024 9:31 AM EDT [facility] BUN/Creatinine Ratio 21.3 8.0 - 23.0 12/24/2024 9:31 AM EDT [facility] eGFR (Creatinine) >60 >=60 mL/min/1.73 m2 12/24/2024 9:31 AM EDT [facility] Comment: [facility] utilizes CKD-EPI Creatinine 2020 to report eGFR. Values < 60 mL/min/1.73 m2 may indicate CKD if present for more than three months AND creatinine is at steady state. The eGFR provides a rough estimate of kidney function. For further guidance, please refer to the CKD: Adult Chief Cloth Finishing Range Operator Signature pathway. Creatinine Delta -0.1 See Comment 9:31 AM EDT [facility] Comment: Delta creatinine is the difference between the current creatinine and the most recent prior creatinine (if available within the previous 12 months). It is intended to detect significant changes in kidney function for patients whose creatinine is <5 mg/dL. A delta is not calculated for patients whose baseline creatinine is >=5 mg/dL or those who do not have a baseline within the last year. The following deltas will flag as critical (triggering a call from the laboratory): a) Deltas >= +1.5 mg/dL for patients with baseline creatinine <= 1.5 mg/dL. b) Deltas >= +3 mg/dL for patients with baseline creatinine between 1.5 and 5 mg/dL. Blood Venipuncture / Unknown 12/24/2024 8:47 AM EDT 12/24/2024 8:59 AM EDT us Edi Kendall MD LAB BLOOD ORDERABLES Final Resu lt [facility] [place] [address], [facility] [phone] * (ABNORMAL) Liver function tests with albumin (YH) (12/24/2024 8:47 AM EDT) Only the most recent of2 resultswithin the time period is included. [facility] Bilirubin, Direct 025 9:31 AM EDT [facility] Comment:Sample Hemolyzed. Alanine Aminotransferase (ALT) 46(H) 10 - 35 U/L 12/24/2024 9:31 AM EDT [facility] Comment:Calcium dobesilate c an cause artificially low ALT results at therapeutic concentrations Aspartate Aminotransferase (AST) 61(H) 10 - 35 U/L 12/24/2024 9:31 AM EDT [facility] AST/ALT Ratio 1.3 Reference Range Not Established 12/24/2024 9:31 AM EDT [facility] Albumin 3.8 3.6 - 5.1 g/dL 12/24/2024 9:31 AM EDT [facility] Comment:As of 2023, e reference interval for Albumin has been changed from (3.6 to 4.9 g/dL) to (3.6 to 5.1 g/dL). Alkaline Phosphatase 83 9 - 122 U/L 12/24/2024 9:31 AM EDT [facility] Total Bilirubin 0.2 <=1.2 mg/dL 12/25/19 25 9:31 AM EDT [facility] Blood Venipuncture / Unknown 12/24/2024 8:47 AM EDT 12/24/2024 8:59 AM EDT us Edi Kendall MD LAB BLOOD ORDERABLES Final Resu lt [facility] [address] [place] [address] * Magnesium (12/24/2024 8:47 AM EDT) Only the most recent of2 resultswithin the time period is included. [facility] Magnesium 2.1 1.7 - 2.4 mg/dL 12/24/2024 9:31 AM EDT [facility] Blood Venipuncture / Unknown 12/24/2024 8:47 AM EDT 12/24/2024 8:59 AM EDT Edi Kendall MD LAB BLOOD ORDERABLES Final Resu lt Performing Organization Address City/[facility]/ZIP Co de Phone Number [facility] [address] [place] [address], [facility] [phone] * Lipase (12/24/2024 8:47 AM EDT) [facility] Lipase 17 11 - 55 U/L 12/24/2024 10:44 AM EDT [facility] Blood Venipuncture / Unknown 12/24/2024 8:47 AM EDT 12/24/2024 8:59 AM EDT us Sonal Oneill COMPUTER OPERATIONS MANAGER LAB BLOOD ORDERABLES Final Res ult Performing Organization Address [facility] Co de Phone Number [facility] [address] [place] [address] * (ABNORMAL) Urinalysis with culture reflex ([facility]) (12/23/2024 6:21 PM EDT) [facility] Clarity, UA Clear Clear 12/23/2024 6:36 PM EDT [facility] Color, UA Yellow Yellow, Colorless 12/23/2024 6:36 PM EDT [facility] Specific [place], UA 1.024 1.005 - 1.030 12/23/2024 6:36 PM EDT [facility] pH, UA 5.5 5.5 - 7.5 12/23/2024 6:36 PM EDT [facility] Protein, UA Trace Negative, Trace 12/23/2024 6:36 PM EDT [facility] Glucose, UA 4+(A) Negative 12/23/2024 6:36 PM EDT [facility] Ketones, UA Trace(A) Negative 12/23/2024 6:36 PM EDT [facility] Blood, UA Negative Negative 12/23/2024 6:36 PM EDT [facility] Bilirubin, UA Negative Negative 12/23/2024 6:36 PM EDT [facility] Leukocytes, UA 1+(A) Negative 12/23/2024 6:36 PM EDT [facility] Nitrite, UA Negative Negative 12/23/2024 6:36 PM EDT [facility] Urobilinogen, UA <2.0 <=2.0 mg/dL 12/23/2024 6:36 PM EDT [facility] Mcmanus Top Tube Received ? Yes 12/23/2024 6:36 PM EDT [facility] Urine URINE SPECIMEN OBTAINED BY CLEAN CATCH PROCEDURE / Unknown Collection / Unknown 12/23/2024 6:21 PM EDT 12/23/2024 6:27 PM EDT us Eliud Chaudhary MD URINE ORDERABLES Final Result Performing Organization Address [facility]/State/[facility] Co de Phone Number [facility] [address] [place] [address], [facility] [phone] * UA reflex to culture (12/23/2024 6:21 PM EDT) Reflex Urine Culture See Comment 12/23/2024 10:00 PM EDT [facility] Urine URINE SPECIMEN OBTAINED BY CLEAN CATCH PROCEDURE / Unknown Collection / Unknown 12/23/2024 6:21 PM EDT 12/23/2024 6:27 PM EDT Narrative [facility] - 12/23/2024 10:00 PM EDT Urine culture will be reflexed if indicated by urinalysis results. ??Please check microbiology results for urine culture. us Eliud Chaudhary MD URINE ORDERABLES Final Result Performing Organization Address City/[facility]/ZIP Co de Phone Number [facility] [address] [place] [address], [facility] [phone] [facility] [address] [place] [address] * Urine microscopic ([facility]) (12/23/2024 6:21 PM EDT) RBC/HPF, UA 1 0 - 2 /HPF 12/23/2024 7:16 PM EDT [facility] WBC/HPF, UA 2 0 - 5 /HPF 12/23/2024 7:16 PM EDT [facility] Bacteria, UA Rare None-Rare /HPF 12/23/2024 7:16 PM EDT [facility] Urine Squamous Epithelial Cells, UA 5 0 - 5 /HPF 12/23/2024 7:16 PM EDT [facility] Urine URINE SPECIMEN OBTAINED BY CLEAN CATCH PROCEDURE / Unknown Collection / Unknown 12/23/2024 6:21 PM EDT 12/23/2024 6:27 PM EDT Eliud Chaudhary MD URINE ORDERABLES Final Result [facility] [address] [place] [address], [facility] [phone] * Urine culture (12/23/2024 6:21 PM EDT) Urine Culture, Routine Mixed Urine Culture 12/24/2024 8:08 PM EDT [facility] Urine URINE SPECIMEN OBTAINED BY CLEAN CATCH PROCEDURE / Unknown Collection / Unknown 12/23/2024 6:21 PM EDT 12/23/2024 6:27 PM EDT Narrative [facility] - 12/24/2024 8:08 PM EDT Mixed organisms present are consistent with contamination by urogenital edison and/or improper collection and storage. If repeat testing is clinically indicated, the recommendation is for recollection with prompt refrigeration and/or transport to the laboratory. Organism enumeration is not reliable and further workup of this culture is not indicated. Eliud Chaudhary MD MICROBIOLOGY - GENERAL ORDERABLE S Final Result [facility] [address] [place] [address], [facility] [phone] * Type and Rh recheck ([facility]W Y[facility]) (12/23/2024 5:40 PM EDT) [facility] O POS 12/23/2024 6:47 PM EDT [facility] Blood Venipuncture / Unknown 12/23/2024 5:40 PM EDT 12/23/2024 5:50 PM EDT Result [facility] Edi Kendall MD BLOOD BANK TEST ORDERABLES Stephania l Result Performing Organization Address [facility] Co de Phone Number [facility] [address] [place] [address] * Hemoglobin and hematocrit, blood (12/23/2024 5:40 PM EDT) [facility] Hemoglobin 12.7 11.7 - 15.5 g/dL 12/23/2024 6:15 PM EDT [facility] Hematocrit 37.20 35.00 - 45.00 % 12/23/2024 6:15 PM EDT [facility] Blood Venipuncture / Unknown 12/23/2024 5:40 PM EDT 12/23/2024 5:50 PM EDT Edi Kendall MD LAB BLOOD ORDERABLES Final Resu lt Performing Organization Address City/[facility]/ZIP Co de Phone Number [facility] [address] [place] [address], [facility] [phone] * Type and screen (12/23/2024 5:40 PM EDT) ABO Grouping O 12/23/2024 6:47 PM EDT [facility] Rh Type POS 12/23/2024 6:47 PM EDT [facility] Antibody Screen NEG 6:47 PM EDT [facility] Specimen Expiration Date And Time 12/26/2024 23:59 12/23/2024 6:47 PM EDT [facility] Blood Venipuncture / Unknown 12/23/2024 5:40 PM EDT 12/23/2024 5:50 PM EDT Edi Kendall MD BLOOD BANK TEST ORDERABLES Stephania l Result Performing Organization Address City/[facility] Co de Phone Number [facility] [address] [place] [address] * EKG (12/23/2024 2:01 PM EDT) Pathologist [facility] Heart Rate 92 bpm SRC EKG QRS Interval 78 ms SRC EKG QT Interval 355 ms SRC EKG QTC Interval 440 ms SRC EKG P [place] 40 deg SRC EKG QRS [place] 1 deg SRC EKG T Wave [place] 10 deg SRC EKG P-R Interval 147 msec SRC EKG SEVERITY Borderline ECG severity SRC EKG Comment::Sinus rhythm:Low vo ltage, precordial leads:Electronically Signed On 12-23-2024 22:18:08 EDT by Derek Robertson MD 12/23/2024 2:01 PM EDT Edi Kendall MD ECG ORDERABLES Final Result Performing Organization Address City/State/[facility] Co de Phone Number [facility] EKG * (ABNORMAL) Hemoglobin A1c (12/23/2024 12:47 PM EDT) Pathologist [facility] Hemoglobin A1c 11.3(H) 4.0 - 5.6 % 12/24/2024 9:23 AM EDT [facility] Comment: Hemoglobin A1c values of 5.7-6.4 % identify individuals with an increased risk for future diabetes and to whom the term pre-diabetes may be applied. ??Hemoglobin A1c values greater than 6.4% on more than one occasion are diagnostic of diabetes. Lowering HbA1c to below 7% is considered to reduce microvascular and neuropathic complications of diabetes. This boronate affinity Hb A1c method provides accurate analytical results in the presence of nearly all Hb variants. Hb F higher than 10% of total Hb may yield falsely low results. Conditions that shorten red cell survival, such as the presence of unstable hemoglobins like Hb SS, Hb CC, and Hb SC, or other causes of hemolytic anemia may yield falsely low results. Iron deficiency anemia may yield falsely high results. Estimated Average Glucose mg/dL 278 mg/dL 12/24/2024 9:23 AM EDT [facility] Comment: Estimated average glucose (eAG) is a calculated value designed to estimate ??the expected average blood glucose level throughout the day from a single ??measurement of ??glycated hemoglobin A1C (HbA1c) and follows the calculation proposed by the [place] [employer] (Diabetes Care 31: 1-6, 2008). It may have less accuracy in children, women and patients with certain erythrocyte disorders. Blood Venipuncture / Unknown 12/23/2024 12:47 PM EDT 12/23/2024 12:50 PM EDT us Eliud Chaudhary MD LAB BLOOD ORDERABLES Final Resul t [facility] [address] [place] [address], [facility] [phone] * TSH w/reflex to FT4 (12/23/2024 11:23 AM EDT) Thyroid Stimulating Hormone 0.892 See Comment ??IU/mL 12/23/2024 2:07 PM EDT [facility] Comment: Male & Non- Females: 0.270-4.200 ??IU/mL 1st Trimester: 0.110-3.480 ??IU/mL 2nd Trimester: 0.320-3.850 ??IU/mL Blood Venipuncture / Unknown 12/23/2024 11:23 AM EDT 12/23/2024 11:25 AM EDT Edi Kendall MD LAB BLOOD ORDERABLES Final Resu lt Performing Organization Address [facility] Co de Phone Number [address] [phone] * (ABNORMAL) Beta-hydroxybutyrate (12/23/2024 11:23 AM EDT) Beta-Hydroxybu tyrate 1.60(H) <=0.27 mmol/L 12/23/2024 11:52 AM EDT [facility] Blood Venipuncture / Unknown 12/23/2024 11:23 AM EDT 12/23/2024 11:25 AM EDT Eliud Chaudhary MD LAB BLOOD ORDERABLES Final Resul t Performing Organization Address [facility] de Phone Number [facility] [address] [place] [address] * Phosphorus ([facility] L LMW YH) (12/23/2024 11:23 AM EDT) Phosphorus 2.9 2.2 - 4.5 mg/dL 12/23/2024 2:07 PM EDT [facility] Blood Venipuncture / Unknown 12/23/2024 11:23 AM EDT 12/23/2024 11:25 AM EDT Edi Kendall MD LAB BLOOD ORDERABLES Final Resu lt Performing Organization Address City/[facility] Co de Phone Number [facility] [address] [place] [address] * (ABNORMAL) Blood gas, venous (12/23/2024 11:23 AM EDT) pH, Venous 7.46(H) 7.32 - 7.43 units 12/23/2024 11:29 AM EDT [facility] pCO2, Venous 30(L) 38 - 54 mmHg 12/23/2024 11:29 AM EDT [facility] PO2, Venous 67(H) 40 - 50 mmHg 12/23/2024 11:29 AM EDT [facility] O2 Sat, Venous 94 Not Established % 12/23/2024 11:29 AM EDT [facility] Calculated HCO3, Venous 20.9 Not Established mmol/L 12/23/2024 11:29 AM EDT [facility] Base Excess, Venous -2 Not Established mmol/L 12/23/2024 11:29 AM EDT [facility] Blood Venipuncture / Unknown 12/23/2024 11:23 AM EDT 12/23/2024 11:25 AM EDT Eliud Chaudhary MD LAB BLOOD ORDERABLES Final Resul t Performing Organization Address City/State/[facility] Co de Phone Number [facility] [address] [place] [address] from Last 3 Months Insurance MEDICARE MEDICARE MEDICARE Advance Directives * Full Code (Latest Code Status on File) Date Activated Date Inactivated Comments 12/23/2024 1:06 PM 12/25/2024 11:39 PM Care Teams Intellectual Property Manager Relationship Specialty Start Date End Date No, Pcp (Do Not Change Name) PCP - General 12/23/24
--- OUTSIDE RECORDS SUMMARY | 2024-12-28 16:13 | XMS_ITS | Encounter Summary ---
Author Organization [facility] Address [address] [place] [address] Care Team Providers Care Bonding Equipment Operator Name Role Phone No, Pcp (Do Not Change Name) Primary Care Provid er Unavailable Reason for Visit * Reason Comments Hospital Discharge Follow Up Encounter Details Date Type Department Care Team ([facility] st Contact Info) Description 12/28/2024 Patient Outreach [facility] Call Center [address] [place] [address] Estefania Alcazar, RN [address] [place] [address] Hospital Discharge Follow Up Social History Tobacco Use Types Packs/Day Years Used Date Smoking Tobacco: Never Assessed [facility] Utilities Answer Date Recorded In the past [...] your living situation today? I have a [facility] to live 12/23/2024 Housing Stability Not [...] on file Sexual Orientation Not on file documented as of this encounter Plan of Treatment Upcoming Encounters Date Type Department Care Team (Late st Contact Info) Description 12/30/2024 9:50 AM EDT Office Visit [address] [address] Chayo Parra APRN [address] [place] [phone] documented as of this encounter Visit Diagnoses Not on filedocumented in this encounter Care Teams Bonding Equipment Operator Relationship Specialty Start Date End Date No, Pcp (Do Not Change Name) PCP - General 12/23/24 documented as of this encounter
--- OUTSIDE RECORDS SUMMARY | 2024-12-28 16:13 | XMS_ITS | Encounter Summary ---
Author Organization [facility] Address [address] [place] [address] Care Team Providers Care Welder Repair Name Role Phone No, Pcp (Do Not Change Name) Primary Care Provid er Unavailable Encounter Details Date Type Department Care Team (Latest Contact Info) Description 12/23/2024 Travel Social History Tobacco Use Types Packs/Day Years Used Date Smoking Tobacco: Never Assessed [facility] Utilities Answer Date Recorded In [...] your living situation today? I have a [facility] place to live 12/23/2024 Housing Stability Not [...] Upcoming Encounters Date Type Department Care Team ([facility] st Contact Info) Description 12/30/2024 9:50 AM EDT Office Visit [address] [address] Chayo Parra APRN [address] [place] [phone] documented as of this encounter Visit Diagnoses Not on filedocumented in this encounter Care Teams Welder Repair Relationship Specialty Start Date End Date No, Pcp (Do Not Change Name) PCP - General 12/23/24 documented as of this encounter
--- OUTSIDE RECORDS SUMMARY | 2024-12-28 16:13 | XMS_ITS | Encounter Summary ---
Author Organization [facility] Address [address] [place] [address] Care Team Providers Care Automobile Wrecker Name Role Phone No, Pcp (Do Not Change Name) Primary Care Provid er Unavailable Reason for Visit * Reason Comments Hyperglycemia Patient from home, r ecently moved to [place], here with hyperglycemia, FS reading HIGH hx of DM. Endorses being med-complaint. Patient endorsing UTI symptoms, dysuria, dark colored urine for several weeks. +increased thirst/urination. Encounter Details Date Type Department Care Team (Latest Contact Info) Description 12/23/2024 10:46 AM EDT - 12/25/2024 7:34 PM EDT Hospital Encounter [facility] [address] [place] [address] Eliud Chaduhary MD [address] [place], [place] [phone] Edi Kendall MD [address] [place] [address] Belinda Hanson MD [address] [place] [phone] Luli Garcia MD [address] [place], [place] [phone] Hyperglycemia (Primary Dx); Dehydration Discharge Disposition: Left Against Medical Advice Social History Tobacco Use Types Packs/Day Years Used Date Smoking Tobacco: Never Assessed [facility] Utilities Answer Date Recorded In the [...] your living situation today? I have a [facility] place to live 12/23/2024 Housing Stability [...] on file documented as of this encounter Last Filed Vital Signs Vital Sign Reading [...] Mass Index 32.92 12/23/2024 1:40 PM EDT documented in this encounter Discharge Summaries * Luli Garcia MD - 12/25/2024 7:34 PM EDT Discharge diagnosis: Diabetes type 2 with hyperglycemia Admission date: 12/23/2024 Discharge date: 12/25/2024 Discharge disposition: Left A Hospital course 69 year old female with PMH of DM II, hypertension, COPD, gerd, hyperlipidemia, seizure who presented to the hospital after her home glucose monitor read high . Admitted for DM II with hyperglycemia. HbA1c check back 11.3 She was taking only metformin at home but her finger stick glucose were showing high at home. In hospital her fingerstick glucose remain over 400 overnight and patient started on insulin drip and then transition to basal bolus insulin regimen lantus 20 units daily and medium dose sliding scale. Today her fingerstick in morning was still in 300. Lantus increase to 25 units nightly and standing premeal lispro coverage 5units TID added with medium dose sliding scale. In evening Patient and her daughter decided to leave [facility] as she wanted to move back to [place] where she has most of her care. Unfortunately she could not get insulin prescription as she was new to insulin and leaving [facility]. Patient was advise by evening MD to keep herself hydrated and continue taking metformin, if finger stick glucose remain elevated she should go to ER. documented in this encounter Medications at Time of Discharge amLODIPine (NORVASC) 10 mg tablet Take 1 tablet (10 mg total) by mouth daily. atorvastatin (LIPITOR) 40 mg tablet Take 1 tablet (40 mg total) by mouth daily. carBAMazepine (TEGRETOL) 200 mg immediate release tablet Take 1 tablet (200 mg total) by mouth 2 (two) times daily. citalopram (CELEXA) 40 mg tablet Take 0.5 tablets (20 mg total) by mouth daily. clopidogreL (PLAVIX) 75 mg tablet Take 1 tablet (75 mg total) by mouth daily. hydrALAZINE (APRESOLINE) 25 mg tablet Take 1 tablet (25 mg total) by mouth 3 (three) times daily. levETIRAcetam (KEPPRA) 1000 mg immediate release tablet Take 1 tablet (1,000 mg total) by mouth 2 (two) times daily. magnesium oxide (MAG-OX) 400 mg (241.3 mg magnesium) tablet Take 1 tablet (400 mg total) by mouth daily. metFORMIN (GLUCOPHAGE) 500 mg Immediate Release tablet 2 tablets in the morning and 1.5 tablet in the evening multivitamin with minerals tablet Take 1 tablet by mouth daily. pregabalin (LYRICA) 100 mg capsule Take 1 capsule (100 mg total) by mouth 3 (three) times daily. risperiDONE (RISPERDAL) 1 mg tablet Take 1 tablet (1 mg total) by mouth 2 (two) times daily (0800, 1800). sertraline (ZOLOFT) 50 mg tablet Take 1.5 tablets (75 mg total) by mouth at bedtime. documented as of this encounter Progress Notes * Luli Garcia MD - 12/25/2024 11:00 AM EDT [facility] Medicine Progress Note Attending Provider: Luli Garcia* Subjective Subjective: Interim History: Patient is seen and examined today. Her fingerstick glucose in morning 312 Review of Allergies/Meds/Hx: Review of Allergies/Meds/Hx: I have reviewed the patient's: allergies, current scheduled medications, current infusions, currentprn medications, past medical history, past surgical history, family history, social history, and prior to admission medications Objective Objective: Vitals: Last 24 hours: Temp: [97.3 ??F (36.3 ??C)-97.6 ??F (36.4 ??C)] 97.3 ??F (36.3 ??C) Pulse: [79-80] 79 Resp: [18-19] 19 BP: (124-161)/(79-85) 126/85 SpO2: [98 %-100 %] 100 % Physical Exam Vitals: Temperature: 97.3 ??F (36.3 ??C) Pulse: 79 Respirations: 19 Blood Pressure: 126/85 Oxygen Saturation: 100 % General- alert, oriented x3, not in acute distress, speaking in full sentences Eyes- b/l normal pupils, EOM normal b/l, no icterus ENT- no obvious ear abnormality, no obvious nose abnormality, throat examination normal, moist mucosa Head- atraumatic Respiratory system- b/l vesicular breath sounds, no wheeze, no crackles heard, not in respiratory distress CVS- S1 S2 heard, Mo, no JVD GI- soft, non-tender abdomen, BS+ Renal- b/l CVA non-tender, genitalia not examined Neuro- non-focal, grossly intact Psych- normal examination, no SI/HI Skin- intact, warm, no ulcers noted MSK- grossly normal, no pedal edema Labs: Last 24 hours: Recent Results (from the past 24 hours) POC Glucose (Fingerstick) Collection Time: 12/24/24 5:44 PM Result Value Ref Range Glucose, Meter 208 (H) 70 - 100 mg/dL POC Glucose (Fingerstick) Collection Time: 12/24/24 8:57 PM Result Value Ref Range Glucose, Meter 318 (H) 70 - 100 mg/dL CBC without differential Collection Time: 12/25/24 7:08 AM Result Value Ref Range WBC 5.7 4.0 - 11.0 x1000/??L RBC 3.89 (L) 4.00 - 6.00 M/??L Hemoglobin 12.0 11.7 - 15.5 g/dL Hematocrit 35.50 35.00 - 45.00 % MCV 91.3 80.0 - 100.0 fL MCH 30.8 27.0 - 33.0 pg MCHC 33.8 31.0 - 36.0 g/dL RDW-CV 13.4 11.0 - 15.0 % Platelets 279 150 - 420 x1000/??L MPV 9.7 8.0 - 12.0 fL ANC (Abs Neutrophil Count) 3.37 2.00 - 7.60 x 1000/??L Comprehensive metabolic panel Collection Time: 12/25/24 7:08 AM Result Value Ref Range Sodium 133 (L) 136 - 144 mmol/L Potassium 3.8 3.3 - 5.3 mmol/L Chloride 99 98 - 107 mmol/L CO2 22 20 - 30 mmol/L Anion Gap 12 7 - 17 Glucose 283 (H) 70 - 100 mg/dL BUN 17 8 - 23 mg/dL Creatinine 0.90 0.40 - 1.30 mg/dL Calcium 9.2 8.8 - 10.2 mg/dL BUN/Creatinine Ratio 18.9 8.0 - 23.0 Total Protein 6.6 5.9 - 8.3 g/dL Albumin 3.5 (L) 3.6 - 5.1 g/dL Total Bilirubin 0.2 <=1.2 mg/dL Alkaline Phosphatase 79 9 - 122 U/L Alanine Aminotransferase (ALT) 47 (H) 10 - 35 U/L Aspartate Aminotransferase (AST) 58 (H) 10 - 35 U/L Globulin 3.1 2.0 - 3.9 g/dL A/G Ratio 1.1 1.0 - 2.2 AST/ALT Ratio 1.2 Reference Range Not Established eGFR (Creatinine) >60 >=60 mL/min/1.73m2 Creatinine Delta 0.1 See Comment POC Glucose (Fingerstick) Collection Time: 12/25/24 8:23 AM Result Value Ref Range Glucose, Meter 312 (H) 70 - 100 mg/dL POC Glucose (Fingerstick) Collection Time: 12/25/24 12:17 PM Result Value Ref Range Glucose, Meter 290 (H) 70 - 100 mg/dL Diagnostics: Imaging reviewed, CT abdomen and pelvis with no etiology for concern of hematuria, hepatic steatosis with atherosclerotic calcification involving the aorta and coronary artery disease. Assessment Assessment: 69 year old female with PMH of DM II, hypertension, COPD, gerd, hyperlipidemia, seizure who presented to the hospital after her home glucose monitor read high . Admitted for DM II with hyperglycemia. Plan Plan: DM II Hyperglycemia - Hgb A1c back 11.3 - has only been on metformin at home and reports she checks her blood sugars often - overnight placed on Insulin drip for BS of 499 - BHB mildly elevated 1.6, anion gap remains normal - Transitioned off insulin gtt this morning and now on basal bolus insulin regimen, FS glucose still elevated in morning in 300. - would increase lantus to 25 units today and also start on standing lispro premeal 5 units t.i.d. with medium dose sliding scale - start carb consistent diet - appreciate cosmetology educator consult and assistance with care Dysuria/abdominal pain ?hematuria, resolved now - patient reporting black crumbs with urination and burning - UA on admission with minimal leuks, negative for nitrates, culture pending - continue to hold off on antibiotics - - LFT with mild elevation, lipase normal - CT abdomen and pelvis with no acute abnormality, hepatic steatosis and atherosclerotic changes with calcification in the aorta and coronary artery -would restart patient on home Plavix 75 mg daily Comorbidities Comorbidities present on admission: Hypertension - continue norvac 10 mg daily Asthma - continue Symbicort bid Gerd - continue protonix 40 mg daily Seizure - continue Keppra 1000 mg bid - continue tegretol 200 mg bid Mood - continue risperidone 1mg BID Secondary diagnoses occurring during hospitalization: Hypomagnesemia Hyponatremia Diabetes with hyperglycemia Class 1 obesity noted, with . Diet Consistent Carbohydrate VTE PPx: Lovenox Medication Reconciliation: Pending pharmacy review Discharge Readiness: Expected Discharge Date: Possibly next 24-48 hours pending improvement in fingerstick glucose Expected discharge location: Home Comorbidities Comorbidities present on admission: Secondary diagnoses occurring during hospitalization: Hypomagnesemia Hyponatremia Diabetes with hyperglycemia Electronically Signed: Luli Garcia MD 12/25/2024, 11:00 AM * Sonal Oneill NP - 12/24/2024 10:50 AM EDT [facility] Medicine Progress Note Attending Provider: Belinda Hanson MD Subjective Subjective: Interim History: patient reporting that she was hungry and hopeful to eat today. She reported priorto coming in she was having burning with urination and black crumbs when she wiped. Review of Allergies/Meds/Hx: Review of Allergies/Meds/Hx: I have reviewed the patient's: allergies, current scheduled medications, current infusions, currentprn medications, and past medical history Objective Objective: Vitals: I have reviewed the patient's current vital signs as documented in the patient's EMR. and Last 24 hours: Temp: [97.7 ??F (36.5 ??C)-98.2 ??F (36.8 ??C)] 97.9 ??F (36.6 ??C) Pulse: [79-108] 79 Resp: [13-26] 18 BP: (119-170)/(77-136) 119/77 SpO2: [96 %-100 %] 100 % I/O's: I have reviewed the patient's current I&O's as documented in the EMR. Gross Totals (Last 24 hours) at 12/24/2024 1052 Last data filed at 12/23/2024 1230 Intake 1000 ml Output -- Net 1000 ml Procedures: None Physical Exam Constitutional: Appearance: Normal appearance. HENT: Head: Normocephalic. Mouth/Throat: Mouth: Mucous membranes are moist. Cardiovascular: Rate and Rhythm: Normal rate and regular rhythm. Pulses: Normal pulses. Heart sounds: Normal heart sounds. Pulmonary: Effort: Pulmonary effort is normal. Breath sounds: Normal breath sounds. Abdominal: General: Bowel sounds are normal. Musculoskeletal: General: Normal range of motion. Skin: General: Skin is warm and dry. Neurological: General: No focal deficit present. Mental Status: She is alert and oriented to person, place, and time. Mental status is at baseline. Labs: I have reviewed the patient's labs within the last 24 hrs. Last 24 hours: Recent Results (from the past 24 hours) Beta-hydroxybutyrate Collection Time: 12/23/24 11:23 AM Result Value Ref Range Beta-Hydroxybutyrate 1.60 (H) <=0.27 mmol/L Blood gas, venous Collection Time: 12/23/24 11:23 AM Result Value Ref Range pH, Venous 7.46 (H) 7.32 - 7.43 units pCO2, Venous 30 (L) 38 - 54 mmHg PO2, Venous 67 (H) 40 - 50 mmHg O2 Sat, Venous 94 Not Established % Calculated HCO3, Venous 20.9 Not Established mmol/L Base Excess, Venous -2 Not Established mmol/L CBC auto differential Collection Time: 12/23/24 11:23 AM Result Value Ref Range WBC 7.5 4.0 - 11.0 x1000/??L RBC 4.09 4.00 - 6.00 M/??L Hemoglobin 12.6 11.7 - 15.5 g/dL Hematocrit 36.60 35.00 - 45.00 % MCV 89.5 80.0 - 100.0 fL MCH 30.8 27.0 - 33.0 pg MCHC 34.4 31.0 - 36.0 g/dL RDW-CV 13.0 11.0 - 15.0 % Platelets 320 150 - 420 x1000/??L MPV 10.1 8.0 - 12.0 fL Neutrophils 63.6 39.0 - 72.0 % Lymphocytes 28.7 17.0 - 50.0 % Monocytes 5.6 4.0 - 12.0 % Eosinophils 1.2 0.0 - 5.0 % Basophil 0.5 0.0 - 1.4 % Immature Granulocytes 0.4 0.0 - 1.0 % nRBC 0.0 0.0 - 1.0 % Absolute Lymphocyte Count 2.15 0.60 - 3.70 x 1000/??L Monocyte Absolute Count 0.42 0.00 - 1.00 x 1000/??L Eosinophil Absolute Count 0.09 0.00 - 1.00 x 1000/??L Basophil Absolute Count 0.04 0.00 - 1.00 x 1000/??L Absolute Immature Granulocyte Count 0.03 0.00 - 0.30 x 1000/??L Absolute nRBC 0.00 0.00 - 1.00 x 1000/??L ANC (Abs Neutrophil Count) 4.75 2.00 - 7.60 x 1000/??L Basic metabolic panel Collection Time: 12/23/24 11:23 AM Result Value Ref Range Sodium 130 (L) 136 - 144 mmol/L Potassium 4.2 3.3 - 5.3 mmol/L Chloride 95 (L) 98 - 107 mmol/L CO2 18 (L) 20 - 30 mmol/L Anion Gap 17 7 - 17 Glucose 486 (HH) 70 - 100 mg/dL BUN 20 8 - 23 mg/dL Creatinine 0.90 0.40 - 1.30 mg/dL Calcium 10.0 8.8 - 10.2 mg/dL BUN/Creatinine Ratio 22.2 8.0 - 23.0 eGFR (Creatinine) >60 >=60 mL/min/1.73m2 Creatinine Delta Liver function tests with albumin ([facility]) Collection Time: 12/23/24 11:23 AM Result Value Ref Range Bilirubin, Direct Alanine Aminotransferase (ALT) 48 (H) 10 - 35 U/L Aspartate Aminotransferase (AST) 64 (H) 10 - 35 U/L AST/ALT Ratio 1.3 Reference Range Not Established Albumin 4.0 3.6 - 5.1 g/dL Alkaline Phosphatase 109 9 - 122 U/L Total Bilirubin 0.3 <=1.2 mg/dL Magnesium Collection Time: 12/23/24 11:23 AM Result Value Ref Range Magnesium 1.1 (L) 1.7 - 2.4 mg/dL Phosphorus ( GH L LMW [facility]) Collection Time: 12/23/24 11:23 AM Result Value Ref Range Phosphorus 2.9 2.2 - 4.5 mg/dL TSH w/reflex to FT4 Collection Time: 12/23/24 11:23 AM Result Value Ref Range Thyroid Stimulating Hormone 0.892 See Comment ??IU/mL POC Glucose (Fingerstick) Collection Time: 12/23/24 11:50 AM Result Value Ref Range Glucose, Meter 446 (HH) 70 - 100 mg/dL Hemoglobin A1c Collection Time: 12/23/24 12:47 PM Result Value Ref Range Hemoglobin A1c 11.3 (H) 4.0 - 5.6 % Estimated Average Glucose mg/dL 278 mg/dL POC Glucose (Fingerstick) Collection Time: 12/23/24 1:06 PM Result Value Ref Range Glucose, Meter 403 (HH) 70 - 100 mg/dL POC Glucose (Fingerstick) Collection Time: 12/23/24 1:07 PM Result Value Ref Range Glucose, Meter 369 (H) 70 - 100 mg/dL EKG Collection Time: 12/23/24 2:01 PM Result Value Ref Range Heart Rate 92 bpm QRS Interval 78 ms QT Interval 355 ms QTC Interval 440 ms P Star 40 deg QRS Star 1 deg T Wave Star 10 deg P-R Interval 147 msec SEVERITY Borderline ECG severity POC Glucose (Fingerstick) Collection Time: 12/23/24 2:06 PM Result Value Ref Range Glucose, Meter 274 (H) 70 - 100 mg/dL Type and screen Collection Time: 12/23/24 5:40 PM Result Value Ref Range ABO Grouping O Rh Type POS Antibody Screen NEG Specimen Expiration Date And Time 12/26/2024 23:59 Hemoglobin and hematocrit, blood Collection Time: 12/23/24 5:40 PM Result Value Ref Range Hemoglobin 12.7 11.7 - 15.5 g/dL Hematocrit 37.20 35.00 - 45.00 % Type and Rh recheck ([facility] LMW [facility]) Collection Time: 12/23/24 5:40 PM Result Value Ref Range ABORH Recheck Interpretation O POS POC Glucose (Fingerstick) Collection Time: 12/23/24 5:59 PM Result Value Ref Range Glucose, Meter 139 (H) 70 - 100 mg/dL UA reflex to culture Collection Time: 12/23/24 6:21 PM Specimen: Clean Catch (Voided); Urine Result Value Ref Range Reflex Urine Culture See Comment Urinalysis with culture reflex ([facility]) Collection Time: 12/23/24 6:21 PM Specimen: Clean Catch (Voided); Urine Result Value Ref Range Clarity, UA Clear Clear Color, UA Yellow Yellow, Colorless Specific [place], UA 1.024 1.005 - 1.030 pH, UA 5.5 5.5 - 7.5 Protein, UA Trace Negative, Trace Glucose, UA 4+ (A) Negative Ketones, UA Trace (A) Negative Blood, UA Negative Negative Bilirubin, UA Negative Negative Leukocytes, UA 1+ (A) Negative Nitrite, UA Negative Negative Urobilinogen, UA <2.0 <=2.0 mg/dL Mcmanus Top Tube Received ? Yes Urine microscopic ([facility] LMW [facility]) Collection Time: 12/23/24 6:21 PM Result Value Ref Range RBC/HPF, UA 1 0 - 2 /HPF WBC/HPF, UA 2 0 - 5 /HPF Bacteria, UA Rare None-Rare /HPF Urine Squamous Epithelial Cells, UA 5 0 - 5 /HPF POC Glucose (Fingerstick) Collection Time: 12/23/24 10:05 PM Result Value Ref Range Glucose, Meter 440 (HH) 70 - 100 mg/dL POC Glucose (Fingerstick) Collection Time: 12/23/24 11:56 PM Result Value Ref Range Glucose, Meter 499 (HH) 70 - 100 mg/dL POC Glucose (Fingerstick) Collection Time: 12/24/24 1:44 AM Result Value Ref Range Glucose, Meter 381 (H) 70 - 100 mg/dL POC Glucose (Fingerstick) Collection Time: 12/24/24 3:37 AM Result Value Ref Range Glucose, Meter 329 (H) 70 - 100 mg/dL POC Glucose (Fingerstick) Collection Time: 12/24/24 4:40 AM Result Value Ref Range Glucose, Meter 288 (H) 70 - 100 mg/dL POC Glucose (Fingerstick) Collection Time: 12/24/24 5:46 AM Result Value Ref Range Glucose, Meter 233 (H) 70 - 100 mg/dL POC Glucose (Fingerstick) Collection Time: 12/24/24 6:49 AM Result Value Ref Range Glucose, Meter 226 (H) 70 - 100 mg/dL POC Glucose (Fingerstick) Collection Time: 12/24/24 8:21 AM Result Value Ref Range Glucose, Meter 159 (H) 70 - 100 mg/dL Magnesium Collection Time: 12/24/24 8:47 AM Result Value Ref Range Magnesium 2.1 1.7 - 2.4 mg/dL Liver function tests with albumin ([facility]) Collection Time: 12/24/24 8:47 AM Result Value Ref Range Bilirubin, Direct Alanine Aminotransferase (ALT) 46 (H) 10 - 35 U/L Aspartate Aminotransferase (AST) 61 (H) 10 - 35 U/L AST/ALT Ratio 1.3 Reference Range Not Established Albumin 3.8 3.6 - 5.1 g/dL Alkaline Phosphatase 83 9 - 122 U/L Total Bilirubin 0.2 <=1.2 mg/dL Basic metabolic panel Collection Time: 12/24/24 8:47 AM Result Value Ref Range Sodium 131 (L) 136 - 144 mmol/L Potassium 4.0 3.3 - 5.3 mmol/L Chloride 99 98 - 107 mmol/L CO2 22 20 - 30 mmol/L Anion Gap 10 7 - 17 Glucose 144 (H) 70 - 100 mg/dL BUN 17 8 - 23 mg/dL Creatinine 0.80 0.40 - 1.30 mg/dL Calcium 9.5 8.8 - 10.2 mg/dL BUN/Creatinine Ratio 21.3 8.0 - 23.0 eGFR (Creatinine) >60 >=60 mL/min/1.73m2 Creatinine Delta -0.1 See Comment Lipase Collection Time: 12/24/24 8:47 AM Result Value Ref Range Lipase 17 11 - 55 U/L POC Glucose (Fingerstick) Collection Time: 12/24/24 9:22 AM Result Value Ref Range Glucose, Meter 117 (H) 70 - 100 mg/dL CBC auto differential Collection Time: 12/24/24 9:53 AM Result Value Ref Range WBC 6.5 4.0 - 11.0 x1000/??L RBC 4.31 4.00 - 6.00 M/??L Hemoglobin 13.3 11.7 - 15.5 g/dL Hematocrit 38.70 35.00 - 45.00 % MCV 89.8 80.0 - 100.0 fL MCH 30.9 27.0 - 33.0 pg MCHC 34.4 31.0 - 36.0 g/dL RDW-CV 13.2 11.0 - 15.0 % Platelets 322 150 - 420 x1000/??L MPV 9.6 8.0 - 12.0 fL Neutrophils 60.8 39.0 - 72.0 % Lymphocytes 29.4 17.0 - 50.0 % Monocytes 5.8 4.0 - 12.0 % Eosinophils 3.2 0.0 - 5.0 % Basophil 0.5 0.0 - 1.4 % Immature Granulocytes 0.3 0.0 - 1.0 % nRBC 0.0 0.0 - 1.0 % Absolute Lymphocyte Count 1.92 0.60 - 3.70 x 1000/??L Monocyte Absolute Count 0.38 0.00 - 1.00 x 1000/??L Eosinophil Absolute Count 0.21 0.00 - 1.00 x 1000/??L Basophil Absolute Count 0.03 0.00 - 1.00 x 1000/??L Absolute Immature Granulocyte Count 0.02 0.00 - 0.30 x 1000/??L Absolute nRBC 0.00 0.00 - 1.00 x 1000/??L ANC (Abs Neutrophil Count) 3.96 2.00 - 7.60 x 1000/??L POC Glucose (Fingerstick) Collection Time: 12/24/24 10:46 AM Result Value Ref Range Glucose, Meter 99 70 - 100 mg/dL Diagnostics: No new radiology. ECG/Tele Events: No ECG ordered today Assessment Assessment: Assessment: Yasemin Hand is a 69 year old female with PMH of DM II, hypertension, COPD, gerd, hyperlipidemia, seizure who presented to the hospital after her home glucose monitor read high . Admitted for DM II with hyperglycemia. Plan Plan: DM II Hyperglycemia - Hgb A1c back today at 11.3 - has only been on metformin at home and reports she checks her blood sugars often - overnight placed on Insulin drip for BS of 499 - BHB mildly elevated 1.6, anion gap remains normal - Transitioned off insulin gtt this morning and given additional 10 units of lantus - will change nightly lantus to 20 units - start medium dose sliding scale with lispro - start carb consistent diet - appreciate cosmetology educator consult and assistance with care Dysuria/abdominal pain ?hematuria - patient reporting black crumbs with urination and burning - UA on admission with minimal leuks, negative for nitrates, culture pending - continue to hold off on antibiotics - would check CT abd/pelvis with abdominal complaints and black crumbs to r/o possible hematuria vs vaginal bleeding vs other as patient also reporting generalized abdominal discomfort - LFT with mild elevation, lipase normal - continue to monitor cmp and cbc Comorbidities Comorbidities present on admission: Hypertension - continue norvac 10 mg daily Asthma - continue Symbicort bid Gerd - continue protonix 40 mg daily Seizure - continue Keppra 1000 mg bid - continue tegretol 200 mg bid Mood - continue risperidone 1mg BID Secondary diagnoses occurring during hospitalization: Hypomagnesemia Hyponatremia Diabetes with hyperglycemia Class 1 obesity noted, with . Diet Consistent Carbohydrate VTE PPx: Lovenox Medication Reconciliation: Pending pharmacy review Communication: Family: updated both daughter over the phone and edge inker Readiness: Expected Discharge Date: 12/25/24 Expected discharge location: Home Full Code Medical decision making for this patient was moderate. I spent 35 minutes today on this encounter before, during and after the visit, reviewing labs and records, evaluating and examining the patient, entering orders and documenting the visit. Electronically Signed: Sonal Oneill NP [facility] [phone] 12/24/2024, 10:50 AM documented in this encounter H&P Notes * Edi Kendall MD - 12/23/2024 12:55 PM EDT Images from the original note were not included. [facility] MEDICINE- HOSPITALIST SERVICE -- ADMISSION H & P NOTE [id number] Patient seen and examined on 12/23/2024 Chief Complaint: symptomatic hyperglycemia and dysuria HPI: Patient is a 69 yrs old female, with chart abstracted PMH of diabetes, schizophrenia, depression, anxiety, obesity with BMI 32, hypertension, COPD, GERD, hyperlipidemia, nerve pain, seizures, colon polyp, ventral hernia, hiatal hernia presented to [facility] ED with C/c of symptomatic hyperglycemia and dysuria Patient moved from [place] to [place] in March of last year Patient reports that she has been having symptoms of dysuria, dizziness, hematuria, generalized shaking for the last 2 to 3 weeks Noted to have fingerstick glucose level reading high- States she has been compliant with her metformin--she used to be on insulin until 1 year ago + occasional dyspnea on exertion + complains of episodes of blood in stool--associated with mild abdominal discomfort--denied black stools Per patient-last colonoscopy 2 years ago and has known colon polyps Has known abdominal hernia for more than 10 years + weight loss of 25 pounds in the last 6 months-- is on Ozempic weekly injection Denied illicit drug use/alcohol use Review of Systems: Negative for fever/shaking chills/chest pain PMH PSH Past Medical History: Diagnosis Date COPD (chronic obstructive pulmonary disease) (HC Code) Diabetes mellitus (HC Code) GERD (gastroesophageal reflux disease) Hiatal hernia Hypertension Seizures (HC Code) Ventral hernia No past surgical history on file. Social History Family History Social History Tobacco Use Smoking status: Not on file Smokeless tobacco: Not on file Substance Use Topics Alcohol use: Not on file No family history on file. Prior to Admission Medications Medications Prior to Admission Medication Sig Dispense Refill Last Dose/Taking albuterol sulfate (VENTOLIN HFA) 90 mcg/actuation HFA aerosol inhaler Inhale 1 puff into the lungs every 6 (six) hours as needed. amLODIPine (NORVASC) 10 mg tablet Take 1 tablet (10 mg total) by mouth daily. atorvastatin (LIPITOR) 40 mg tablet Take 1 tablet (40 mg total) by mouth daily. budesonide-formoteroL (SYMBICORT) 160-4.5 mcg/actuation HFA aerosol inhaler Inhale 2 puffs into thelungs 2 (two) times daily. carBAMazepine (TEGRETOL) 200 mg immediate release tablet Take 1 tablet (200 mg total) by mouth 2 (two) times daily. hydrALAZINE (APRESOLINE) 25 mg tablet Take 1 tablet (25 mg total) by mouth 3 (three) times daily. ibuprofen (ADVIL,MOTRIN) 400 mg tablet Take 1.5 tablets (600 mg total) by mouth every 8 (eight) hours as needed for pain. levETIRAcetam (KEPPRA) 750 mg immediate release tablet Take 1,000 mg by mouth 2 (two) times daily. magnesium oxide (MAG-OX) 400 mg (241.3 mg magnesium) tablet Take 1 tablet (400 mg total) by mouth daily. metFORMIN (GLUCOPHAGE) 1000 mg tablet Take 1 tablet (1,000 mg total) by mouth daily with breakfast. metFORMIN (GLUCOPHAGE) 500 mg Immediate Release tablet Take 1.5 tablets (750 mg total) by mouth nightly. multivitamin with minerals tablet Take 1 tablet by mouth daily. omeprazole (PRILOSEC) 40 mg capsule Take 1 capsule (40 mg total) by mouth daily. polyethylene glycol (MIRALAX) 17 gram packet Take 1 packet (17 g total) by mouth daily. Mix in 8 ounces of water, juice, soda, coffee or tea prior to taking. pregabalin (LYRICA) 75 mg capsule Take 100 mg by mouth 3 (three) times daily. risperiDONE (RISPERDAL) 1 mg tablet Take 1 tablet (1 mg total) by mouth 2 (two) times daily (0800, 1800). semaglutide (OZEMPIC) 1 mg/dose (4 mg/3 mL) pen injector Inject 1 mg under the skin once a week. traZODone (DESYREL) 50 mg tablet Take 1 tablet (50 mg total) by mouth See Admin Instructions. 50 to100 as needed nightly for sleep Allergies Allergies Allergen Reactions Aspirin GI Upset Dilantin [Phenytoin Sodium Extended] Angioedema Vitals: Patient Vitals for the past 24 hrs: BP Temp Temp src Pulse Resp SpO2 Height Weight 12/23/24 1406 -- -- -- -- -- -- 5' 4 (1.626 m) -- 12/23/24 1340 (!) 168/93 98.2 ??F (36.8 ??C) Oral 89 18 100 % -- 87 kg 12/23/24 1300 (!) 146/86 97.7 ??F (36.5 ??C) Oral (!) 94 15 99 % -- -- 12/23/24 1255 (!) 128/99 -- -- (!) 97 (!) 26 96 % -- -- 12/23/24 1230 (!) 170/97 -- -- (!) 93 (!) 21 99 % -- -- 12/23/24 1132 130/80 -- -- (!) 101 (!) 13 -- -- -- 12/23/24 1100 (!) 149/136 -- -- (!) 108 17 98 % -- -- 12/23/24 1050 (!) 155/102 -- -- (!) 110 14 99 % -- -- 12/23/24 1045 -- -- -- -- -- -- -- 88 kg 12/23/24 1044 (!) 148/94 98.3 ??F (36.8 ??C) Oral (!) 111 16 100 % -- -- Gross Totals (Last 24 hours) at 12/23/2024 1613 Last data filed at 12/23/2024 1230 Intake 1000 ml Output -- Net 1000 ml Exam: General: in no acute distress HEENT: No scleral icterus, PERRL Neck: Supple Lung: Clear to ausculation on both sides Heart: S1 & S2 heard, Abdomen: Normoactive Bowel sounds, Soft, Non-tender, No rigidity. Extremities: No pedal edema,. Neuro: Alert and awake Ox 3 Psych: No agitation Medications sodium chloride 0.9 % (new bag) bolus 1,000 mL (0 mLs Intravenous Stopped 12/23/24 1230) insulin regular human (HumuLIN R, NovoLIN R) 100 unit/mL injection 10 Units (10 Units Subcutaneous Given 12/23/24 1241) ASSESMENT Patient is a 69 yrs old female, with chart abstracted PMH of diabetes, hypertension, COPD, GERD, hyperlipidemia, nerve pain, seizures, asthma presented to [facility] ED with C/c of symptomatic hyperglycemiaand dysuria Pertinent results BMP with Cr 0.9 CBC: --WNL EKG-NSR, Normal TX Interval, no prolonged QTc, PROBLEMS & PLAN # Symptomatic hyperglycemia and dysuria VBG Ph 7.46 Anion gap-17 BHB high at 1.6 Glucose level 486--received 1 liter normal saline and 10 units of subcu regular insulin in ED fingerstick glucose level trended down to 274 At home-Patient is on metformin 1000 milligram in a.m. and son 50 milligram in p.m--for now placed metformin on hold as patient is currently on clear liquid diet with concern for GI bleed For now ordered for regular insulin sliding scale nurse informatics educator consult # Blood in stool Per patient report-last colonoscopy 3 years ago-has known colon polyps Hemoglobin stable at 12.6--trend hemoglobin Clear liquid diet GI consult in a.m. Avoid NSAIDs # dysuria-follow up on urinalysis # history of hypertension Continue amlodipine 10 milligram daily # history of schizophrenia Continue risperidone 1 milligram b.i.d. # history of seizures--continue Tegretol, Keppra home doses # HX of COPD--continue Symbicort b.i.d., albuterol p.r.n. MEDICATION RECONCILATION: Done with reji solano and PMD office DVT PROPHYLAXIS--lovenox CODE STATUS -Full code as per my discussion with patient > 75 minutes spent today on this encounter before, during, and after visit reviewing diagnostics, pertinent prior records, evaluating the patient, entering orders, counseling and coordinating care, and documenting the visit. DISCLAIMER: This chart was created using [employer] dictation software. Efforts were made by me to ensure accuracy, however some errors may be present due to limitations of this technology and occasionally words are not transcribed as intended. Electronically Signed by Edi Kendall MD, December 23, 2024 documented in this encounter ED Notes * Maureen Olivares, REBECCA - 12/23/2024 12:54 PM EDT 10:50 AM Patient presents to ED for hypergylcemia. Reports SOB and generalized weakness x3 weeks. Patient came in because she was feeling worse. EMS glucometer read high. Endorses difficulty urinating and burning sensation while urinating. Recently moved to [place]. Hx COPD, parkinsons, and possibly heart failure. A&Ox4, speaking in full sentences, ambulates with walker. Placed on full monitor and storage bin tender. BS checked. IVF to be ordered. Encouraged to provide urine specimen when able. 11:51 AM BS recheck of 446. MD Chaudhary aware. 1:14 PM BS of 369. A&Ox4, speaking in full sentences. Sent to floor with transport staff. All belongings with patient. Chief Complaint Patient presents with Hyperglycemia Patient from home, recently moved to [place], here with hyperglycemia, FS reading HIGH hx of DM. Endorses being med-complaint. Patient endorsing UTI symptoms, dysuria, dark colored urine for several weeks. +increased thirst/urination. Floor Handoff Telemetry: [] Yes [x] No Code Status: [x] Full [] DNR [] DNI Other (specify): Safety Precautions: [x] Fall Risk [] Sitter [] Restraints [] Suicidal [] None Other (specify): Mentation/Orientation: A&O (Self, person, place, time) x 4 Disoriented to: Special Accommodations: [] Hearing impaired [] Blind [] Nonverbal [] Cognitive impairment Oxygenation Upon Admission: [x] RA [] NC [] Venti [] Simple Mask [] Other Baseline O2 Status? [x] Yes [] No Ambulation: [] Independent [] Cane [x] Walker [] Wheelchair [] Bedbound [] Hemiplegic [] Paraplegic [] Quadraplegic Eliminiation: [] Independent [] Commode [x] Bedpan/Urinal [] Straight Cath [] Duran cath [] Urostomy [] Colostomy Other (specify): Diarrhea/Loose stool : [] 1x within 24h [] 2x within 24h [] 3x within 24h [x] None C.Diff Order: [] Ordered- needs to be collected [] Collected-sent to lab [] Resulted - Negative C.Diff [] Resulted - Positive C.Diff [x] Not Ordered [] N/A Skin Alteration: [] Pressure Injury [] Wound [] None [x] Skin not assessed Diet: [x] Regular/No order placed [] NPO Other (specify): IV Access: [x] PIV [] PICC [] Port []Central line [] A-line Other (specify) IVF/GTT Running Upon ED Departure? [x] No [] Yes (specify): Outstanding Meds/Treatments/Tests: Urine and EKG Meds Not Given: (as of time of note) 1:15 PM Current Facility-Administered Medications Medication [START ON 12/24/2024] enoxaparin prophylaxis dosing sodium chloride Patient Belongings: With patient Are the belongings documented? [x] No [] Yes Is someone taking belongings home? [x] No [] Yes Who? (specify) Maureen Olivares RN * Gloria Sanchez PA - 12/23/2024 11:14 AM EDT Images from the original note were not included. Chief Complaint Patient presents with Hyperglycemia Patient from home, recently moved to [place], here with hyperglycemia, FS reading HIGH hx of DM. Endorses being med-complaint. Patient endorsing UTI symptoms, dysuria, dark colored urine for several weeks. +increased thirst/urination. Summary: Yasemin is a 69-year-old female with a past medical history significant for type 2 diabetes, hypertension, COPD, GERD, hyperlipidemia, nerve pain, seizures, asthma presenting after feeling unwell for acouple of weeks worsening over the past couple days. Recently relocated to [place] from [place] and not establish care with doctors here. She has had some mild nausea however no vomiting. She has had some urinary symptoms including dysuria, dark in urine for several weeks and increased thirst/urination. Currently takes metformin for diabetes management however has taken insulin in the past. Relevant Physical Exam: Alert, no acute distress, nontoxic Moist mucous membranes Heart regular rate and rhythm Lungs clear to auscultation bilaterally Abdomen is soft nontender non distended, without rebound or guarding No lower extremity edema Patient moves all extremities Differential diagnosis: Concern for DKA, HHS, elevated blood sugars. Concern for underlying infection. Consider acid-base disturbances, electrolyte derangements, anemia. Plan: - CBC for leukocytosis - BNP for blood glucose, anion gap - venous blood gas looking for acid-base status - beta hydroxybutyrate looking for elevation in DKA - urine looking for infection - insulin Results: Labs: -no leukocytosis - elevated blood sugar of 486 however anion gap 17, decreased sodium however receiving IV fluids - not acidotic - elevated beta hydroxybutyrate Urine: -pending MDM: Yasemin is a 69-year-old female with a past medical history significant for type 2 diabetes, hypertension, COPD, GERD, hyperlipidemia, nerve pain, seizures, asthma presenting after feeling unwell for acouple of weeks worsening over the past couple days. Patient with elevated blood sugars however no anion gap and not acidotic, we will treat with subcutaneous insulin, pharmacy consulted and case discussed with them. Patient needing admission for diabetic management and in need of assistance setting up care here and [place]. Discussed patient with Dr. Chaudhary Admission or placement in ED observation was considered, however not indicated at this time. Gloria Sanchez PA-C [facility] Physical Exam ED Triage Vitals BP: (!) 148/94 [12/23/24 1044] Pulse: (!) 111 [12/23/24 1044] Pulse from O2 sat: (!) 97 [12/23/24 1050] Resp: 16 [12/23/24 1044] Temp: 98.3 ??F (36.8 ??C) [12/23/24 1044] Temp src: Oral [12/23/24 1044] SpO2: 100 % [12/23/24 104] BP 130/80 Pulse (!) 101 Temp 98.3 ??F (36.8 ??C) (Oral) Resp (!) 13 Wt 88 kg SpO2 98% Physical Exam Procedures Attestation/Critical Care Patient Reevaluation: I discussed case and plan with PA, and reviewed their documentation Gen: alert, oriented, non-toxic appearing Oral mucosa-hydrated appearing Lungs: CTAB Heart-+[id number], no abnormal sounds appreciated Abdomen-soft, without tenderness, mass rebound or guarding Lower extremities-no edema Neuro-alert, oriented, speech is clear, no acute focal motor deficits Eliud Chaudhary MD Patient progress: stable Clinical Impressions as of 12/23/24 1220 Hyperglycemia Dehydration ED Disposition Admit ED Attestation: PA/TERESA Face to face evaluation was performed by me in collaboration with [facility]. I provided a substantive portion of the care of this patient. I personally performed medically appropriate history and physical exam and the MDM: On my exam: My differential includes: uncontrolled diabetes, DKA, Additional acute and/or chronic problems addressed: Eliud Tierney MD, MD 12/23/24 1123 Eliud Chaudhary MD 12/23/24 1219 Eliud Chaudhary MD 12/23/24 1220 Gloria Sanchez PA 12/23/24 1245 documented in this encounter Miscellaneous Notes * Significant Event - Padmini Colón MD - 12/25/2024 6:56 PM EDT Spoke with daughter Kim and patient want to go home and f/u at had tried to convince them to stay given hyperglycemia, he did sign out saying daughter willcome and take her home as AMA Daughter and patient understands risk including stroke, coma, heart complications, Signed AMA Unfortunately cannot give insulin prescription as its new Educated to check sugars, give water, metformin, to f/u pCP or come to ER if high and any changes Dr.Swarupa Colón 12/25/24 * Plan of Care - Kassidy Flores RN - 12/25/2024 6:54 PM EDT Plan of Care Overview/ Patient Status Yasemin Hand was discharged via Private Car accompanied by Family Member. Verbalized understanding of discharge instructions and recommended follow up care as per the after visit summary. Written discharge instructions provided. Denies any further questions. Vital signs Vitals: 12/24/24 1508 12/24/24 2112 12/25/24 0759 12/25/24 1458 BP: (!) 177/92 (!) 161/82 124/79 126/85 Pulse: 77 80 79 79 Resp: 18 18 19 19 Temp: 97.6 ??F (36.4 ??C) 97.3 ??F (36.3 ??C) 97.6 ??F (36.4 ??C) 97.3 ??F (36.3 ??C) TempSrc: Oral Oral Oral Oral SpO2: 100% 98% 100% 100% Weight: Height: Patient confirmed all belongings returned. Belongings charted in last 7 days: Patient Valuables Patient Valuables Flowsheet PATIENT VALUABLE(S) Cell phone disposition At bedside/locker/closet 12/23/24 1438 Vision Disposition At bedside/locker/closet 12/23/24 1438 Patient's daughter, Kim, requested to have patient discharge. Patient is not medically ready to get discharged at this time. Dr. Garcia made aware and contacted daughter. Daughters, Kim and Tawana arrived on to the unit. Kim spoke with Dr. Colón stating she wanted the patient to get discharged. Educated about patient leaving against medical advice. Daughter said she understandsand normally takes care of patient and if there is an emergency, she will take patient to emergencyroom. AMA form signed and placed in chart. Electronically Signed by Kassidy Flores RN, December 25, 2024 * Plan of Care - Kassidy Flores RN - 12/25/2024 10:48 AM EDT Plan of Care Overview/ Patient Status Patient is A/O x4, calm and cooperative with care. Denies pain or discomfort. No S/S of cardiac or respiratory distress. Not on telemetry. On room air. ACHS fingersticks maintained. Carb consistent diet. Takes pills whole with water. Continent x2, up to bathroom. Last BM: 12/20. Scheduled Miralax administered. Declines bowel regimen at this time. Standby assist out of bed with RW. Independently turns and repositions. Up in recliner. Skin is CDI. R PIV. Bed is locked and in lowest position. Call mayer is within reach. Hourly safety rounds performed. Safety maintained. Electronically Signed by Kassidy Flores RN, December 25, 2024 Problem: Comorbidity Management Goal: Blood Glucose Level Within Target Range Outcome: Interventions implemented as appropriate * Plan of Care - Adali Toro RN - 12/24/2024 10:44 PM EDT Plan of Care Overview/ Patient Status Neuro: AOx4, cooperative w/ care. Respiratory/Cardiac: No s/s of respiratory or cardiac distress. Lung sounds clear on RA. Denies chest pain or SOB. GI//Endo: Continent x2, up to toilet. No BM overnight. Abdomen rounded, soft, nontender. CC diet,tolerating well. ACHS. HS B. Provider Vedere notified. 8 units of Lispro ordered and administered per MAR. Pills whole. Musculoskeletal: SBA w RW OOB. T/R independently. Skin: Intact Pain: Denies pain Access: R PIV- patent, flushing and dry. Other: VS Q8H Bed locked, in lowest position and alarmed. Call mayer within reach. Hourly safety rounds performed.Safety maintained. Temp: [97.3 ??F (36.3 ??C)-97.9 ??F (36.6 ??C)] 97.3 ??F (36.3 ??C) Pulse: [77-80] 80 Resp: [18] 18 BP: (119-177)/(77-92) 161/82 SpO2: [98 %-100 %] 98 % Device (Oxygen Therapy): room air Electronically Signed by Adali Toro RN, December 24, 2024 Problem: Fall Injury Risk Goal: Absence of Fall and Fall-Related Injury Outcome: Interventions implemented as appropriate * Plan of Care - Cathryn Weston RN - 12/24/2024 5:09 PM EDT Plan of Care Overview/ Patient Status Patient arrived to floor via stretcher from observation floor. Alert and oriented, vital signs stable. Bed is low and call mayer within reach. Fall precautions in place. Out of bed with stand by assist , moderate assist with adl. No complaints of pain. Right saline lock. Able to make needs known andcan verbalize an understanding of plan of care with reminders. Voiding without difficulty, no bowelmovement yet this shift. Ground diabetic diet with blood sugar checks with meals and hs. Turn and position self. Skin c/d/I +pp heels elevated in bed. BELONGINGS: glasses retained on person, clothingand cell phone with manager commission all retained at bedside and sneakers * Pharmacy Note - Medication Reconciliation - Nicki Ruiz, PharmD - 12/24/2024 3:17 PM EDT Images from the original note were not included. PHARMACY-ASSISTED MEDICATION REPORT Pharmacist review of the best possible medication history obtained by the pharmacy medication history automotive diagnostic technician has been performed. I have updated the home medication list and identified the following information that may be relevant to this admission. NOTES/RECOMMENDATIONS Patient reports not taking symbicort at home, ordered here. Would re-evaluate need. Would resume clopidogrel, escitalopram (in place of home citalopram), and sertraline once clinically appropriate. Prior to Admission Medications Medication Name Sig Taking? Patient Reported Discontinued: 12/24/2024 3:13 PM Last dose: Not Taking Last Medication Note: >> LUDA MURO FriDecember 24, 2024 11:31 AM MedHx Tech(Luda Mruo CPHT): FLAG FOR REMOVAL - patient's LIP had instructed to discontinue themedication [confirmed by: pt ] Entered by Luda Muro CPHT FriDecember 24, 2024 1131 Yes amLODIPine (NORVASC) 10 mg tablet Last dose: -- Last Medication Note: >> LUDA MURO FriDecember 24, 2024 11:23 AM MedHX Tech(Luda Muro CPHT): [facility]: last filled [12/21/24], Quantity[90] with above sig Entered by Luda Muro CPHT FriDecember 24, 2024 1123 Take 1 tablet (10 mg total) by mouth daily. Yes Yes atorvastatin (LIPITOR) 40 mg tablet Last dose: -- Last Medication Note: >> LUDA MURO FriDecember 24, 2024 11:26 AM MedHX Tech(Luda Muro CPHT): [facility]: last filled [10/26/24], Quantity[90] with above sig Entered by Luda Muro CPHT FriDecember 24, 2024 1126 Take 1 tablet (40 mg total) by mouth daily. Yes Yes Discontinued: 12/24/2024 3:13 PM Last dose: Not Taking Last Medication Note: >> LUDA MURO FriDecember 24, 2024 11:31 AM MedHx Tech(Luda Muro CPHT): FLAG FOR REMOVAL - patient's LIP had instructed to discontinue themedication [confirmed by: pt ] Entered by Luda Muro CPHT FriDecember 24, 2024 1131 Yes carBAMazepine (TEGRETOL) 200 mg immediate release tablet Last dose: -- Last Medication Note: >> LUDA MURO FriDecember 24, 2024 11:28 AM MedHX Tech(Luda Muro CPHT): [facility]: last filled [10/14/24], Quantity[180] with above sig Entered by uLda Muro CPHT FriDecember 24, 2024 1128 Take 1 tablet (200 mg total) by mouth 2 (two)times daily. Yes Yes citalopram (CELEXA) 40 mg tablet Last dose: -- Last Medication Note: >> LUDA MURO FriDecember 24, 2024 11:26 AM MedHX Tech(Luda Muro CPHT): [facility]: last filled [10/26/24], Quantity[45] with above sig Entered by Luda Muro CPHT FriDecember 24, 2024 1126 Take 0.5 tablets (20 mg total) by mouth daily. Yes Yes clopidogreL (PLAVIX) 75 mg tablet Last dose: -- Last Medication Note: >> LUDA MURO FriDecember 24, 2024 11:25 AM MedHX Tech(Luad Muro CPHT): [facility]: last filled [10/26/24], Quantity[90] with above sig Entered by Luda Muro CPHT FriDecember 24, 2024 112 Take 1 tablet (75 mg total) by mouth daily. Yes Yes hydrALAZINE (APRESOLINE) 25 mg tablet Last dose: -- Last Medication Note: >> LUDA MURO FriDecember 24, 2024 11:27 AM MedHX Tech(Luda Muro CPHT): [facility]: last filled [10/25/24], Quantity[270] with above sig Entered by Luda Muro CPHT FriDecember 24, 2024 1127 Take 1 tablet (25 mg total) by mouth 3 (three) times daily. Yes Yes Discontinued: 12/24/2024 3:13 PM Last dose: Not Taking Last Medication Note: >> LUDA MURO FriDecember 24, 2024 11:31 AM MedHx Tech(Luda Muro CPHT): FLAG FOR REMOVAL - Prescription was already completed as directed by patient's provider Entered by Luda Muro CPHT FriDecember 24, 2024 1131 Yes levETIRAcetam (KEPPRA) 1000 mg immediate release tablet Last dose: -- Last Medication Note: >> LUDA MURO FriDecember 24, 2024 11:29 AM MedHX Tech(Luda Muro CPHT): [facility]: last filled [10/05/24], Quantity 180] with above sig Entered by Luda Muro CPHT FriDecember 24, 2024 1129 Take 1 tablet (1,000 mg total) by mouth 2 (two) times daily. Yes Yes magnesium oxide (MAG-OX) 400 mg (241.3 mg magnesium) tablet Last dose: -- Take 1 tablet (400 mg total) by mouth daily. Yes Yes Discontinued: 12/24/2024 3:13 PM Last dose: Not Taking Last Medication Note: >> LUDA MURO FriDecember 24, 2024 11:30 AM MedHx Tech(Luda Muro CPHT): FLAG FOR REMOVAL - Duplicate prescriptions (same dose/sig), pleaseremove this entry using the Delete/Clean up and utilize a new entry Entered by Luda Muro CPHT FriDecember 24, 2024 1130 Yes metFORMIN (GLUCOPHAGE) 500 mg Immediate Release tablet Last dose: -- Last Medication Note: >> LUDA MURO FriDecember 24, 2024 11:26 AM MedHX Tech(Luda Muro CPHT): [facility]: last filled [10/25/24], Quantity[315] with above sig Entered by Luda Muro CPHT FriDecember 24, 2024 1126 2 tablets in the morning and 1.5 tablet in the evening Yes Yes multivitamin with minerals tablet Last dose: -- Take 1 tablet by mouth daily. Yes Yes Discontinued: 12/24/2024 3:13 PM Last dose: Not Taking Last Medication Note: >> LUDA MURO FriDecember 24, 2024 11:31 AM MedHx Tech(Luda Muro CPHT): FLAG FOR REMOVAL - patient's LIP had instructed to discontinue themedication [confirmed by: pt ] Entered by Luda Muro CPHT FriDecember 24, 2024 1131 Yes Discontinued: 12/24/2024 3:13 PM Last dose: Not Taking Last Medication Note: >> LUDA MURO FriDecember 24, 2024 11:32 AM MedHx Tech(Luda Muro CPHT): FLAG FOR REMOVAL - patient's LIP had instructed to discontinue themedication [confirmed by: pt ] Entered by Luda Muro CPHT FriDecember 24, 2024 1132 Yes pregabalin (LYRICA) 100 mg capsule Last dose: -- Last Medication Note: >> LUDA MURO FriDecember 24, 2024 11:24 AM MedHX Tech(Luda Muro CPHT): Patient Conf[facility] over [facility]: last filled [12/03/24], Quantity[90] with above sig Entered by Luda Muro CPHT FriDecember 24, 2024 1124 Take 1 capsule (100 mg total) by mouth 3 (three) times daily. Yes Yes risperiDONE (RISPERDAL) 1 mg tablet Last dose: -- Last Medication Note: >> LUDA MURO FriDecember 24, 2024 11:28 AM MedHX Tech(Luda Muro CPHT): Patient Conf[facility]: last filled [10/24/24], Quantity[180] with above sig Entered by Luda Muro CPHT FriDecember 24, 2024 1128 Take 1 tablet (1 mg total) by mouth 2 (two) times daily (0800, 1800). Yes Yes Discontinued: 12/24/2024 3:13 PM Last dose: Not Taking Last Medication Note: >> LUDA MURO FriDecember 24, 2024 11:16 AM MedHx Tech(Luda Muro CPHT): FLAG FOR REMOVAL - patient's LIP had instructed to discontinue themedication [confirmed by: pt ] Entered by Luda Muro CPHT FriDecember 24, 2024 1116 Yes sertraline (ZOLOFT) 50 mg tablet Last dose: -- Last Medication Note: >> LUDA MURO FriDecember 24, 2024 11:25 AM MedHX Tech(Luda Muro CPHT): [facility]: last filled [11/30/24], Quantity[135] with above sig Entered by Luda Muro CPHT FriDecember 24, 2024 1125 Take 1.5 tablets (75 mg total) by mouth at bedtime. Yes Yes Discontinued: 12/24/2024 3:13 PM Last dose: Not Taking Last Medication Note: >> LUDA MURO FriDecember 24, 2024 11:32 AM MedHx Tech(Luda Muro CPHT): FLAG FOR REMOVAL - patient's LIP had instructed to discontinue themedication [confirmed by: pt ] Entered by Luda Muro CPHT FriDecember 24, 2024 1132 Yes Prior to admission medications last reviewed by Nicki Ruiz PharmD on FriDecember 24, 2024 1513 Thank you, Nicki Ruiz PharmD 12/24/2024 3:14 PM Phone: [facility] * Utilization Review - Jennifer Mauricio RN - 12/24/2024 10:05 AM EDT Utilization Review from [facility] Patient Data: Patient Name: Yasemin Hand Age: 69 y.o. : 1955 Indicated Status: Inpatient Review Comments: Hyperglycemia, VSS, glucose 486, GAP 17, NPO, insulin gtt, DM consult. 11:54 pm Discussed at rounds, Dr. Hanson, insulin gtt d/c'd, adjusting insulin SQ, monitoring blood glucose,c/o abd pain, >LFTs, NPO, CT abd ordered, not medically clear, requesting IP, in agreement, adt 132 entered, order and class verified. * Plan of Care - Ashley Henry RN - 12/24/2024 8:31 AM EDT Plan of Care Overview/ Patient Status 0830-BG 159. Down from 226. Rate decrease by 1.Completed rate change w/ Maryjane FERNANDEZ. 0930-New BG 117. Provider aware. Catalogue Clerk Hieu Anton in room. 1000-Insulin gtt dc'd. Neuro: x4 VS: stable Resp: RA, LS dim CV: No tele, 2+ pulses GI: CC diet, pills whole : Continent, LBM 12/22 Skin: Intact Mobility: x1 assist w/ RW Access: RFA PIV Scheduled meds given per OCT. Pt reported not having BM for a few days, Miralax given. Has expressed wanting to discharge home, educated on the importance of staying to address health conditions. No sob, pain or nausea reported at this time. 1400-Pt at [place]. 1600-Pt cleared to transfer to [facility]. Report given to REBECCA Lockett. 1630-Pt off floor Problem: Fall Injury Risk Goal: Absence of Fall and Fall-Related Injury Outcome: Interventions implemented as appropriate * Plan of Care - Kathy Vyas RN - 12/24/2024 8:16 AM EDT Plan of Care Overview/ Patient Status 69 yrs old female, with chart abstracted PMH of diabetes, hypertension, COPD, GERD, hyperlipidemia,nerve pain, seizures, asthma presented to [facility] ED with C/c of symptomatic hyperglycemia and dysuria . Patient lives alone in [place]. She is independent at baseline. No known services prior to admission. Patient recently moved to [place] and does not have an established PCP yet. Plan: OBS stay. Insulin ordered, DM educator and nutrition to see patient. CM to review OBS status with patient this AM. Assessment screening completed. Care management will continue to follow patient's progress and discuss plan of care with treatment team. Discharge needs not determined at this time. 1120: Patient will be d/c'd with new insulin at home when medically ready for dc. DM educator met with patient and feels that she would benefit from [facility] services as reinforcement for education at home after dc. As patient recently moved from [facility] to [place] and has not been established with PCP yet, ref sent to agency who can have RO[employer] sign orders in the meantime. Case Management/Social Work Screening and Evaluation Flowsheet Row Most Recent Value Case Management/Social Work Screening: Chart review completed. If YES to any question below then proceed to Eval/Plan Is there a change in their cognitive function No Do you anticipate that the patient will have any discharge needs requiring CM/SW intervention? No Has there been an unscheduled readmission within the last 30 days and/or four (4) encounters (encounters include: ED, OBS, Inpatient) within the last six (6) months? No Were there services prior to admission ( Examples: Acute [facility] Hospital, Assisted Living, HD, Homecare, Extended Care Facility, Methadone, SNF, Outpatient Infusion Center) No Concern for current abuse/neglect/interpersonal violence/sexual assault No Connected to state agency? No Guardianship or conservatorship No Negative/Positive Screen Negative Screening: Case Management department will follow patient's progress and discuss plan of care with treatment team. Dishwashing Machine Repairer/Social Work Attestation I have reviewed the medical record and completed the above screen. CM/SW staff will follow patient's progress and discuss the plan of care with the Treatment Team. Yes Housing / Transportation/ Environment What is your living situation today? I have a steady place to live Think about the place you live. Do you have problems with any of the following? None In the past 12 months has the electric, gas, oil, or water [employer] threatened to shut off services in your home? No Within the past 12 months, you worried that your food would run out before you got the money to buymore. Never true Within the past 12 months, the food you bought just didn't last and you didn't have money to get more. Never true In the past 12 months, has lack of transportation kept you from medical appointments or from getting medications? no In the past 12 months, has lack of transportation kept you from meetings, work, or from getting things needed for daily living? No Abuse Screen Is there anyone in your life that is hurting or threatening you in anyway? no Abuse Screen (yes response referral indicated) Able to respond to abuse questions Yes Is there anyone in your life that is hurting or threatening you in anyway? no Physical Indicators of Abuse No evidence of physical abuse VERN Cutler, MSN, RN, BS pocket operator [facility] * Plan of Care - Susannah Jacome, LEIGH ANN - 12/24/2024 7:42 AM EDT Yasemin Hand [id number] 69 y.[address] female Attending: Belinda Hanson MD Admit Date: 12/23/2024 [id number] LOS: 0 days Nutrition Recommendations: Advance diet as medically able to Consistent carbohydrate diet BG range between 70-180 mg/dl within 24 hours Diet education provided on Consistent Carbohydrate diet Initial Nutrition Assessment Reason For Assessment: physician consult (Diabetes education) HPI: Admitted with symptomatic hyperglycemia and dysuria Related Health history: Diabetes,schizophrenia, depression, anxiety, obesity, COPD, GERD, hyperlipidemia, nerve pain, seizures, colon polyp,ventral hernia, hiatal hernia Subjective: My daughter does the cooking. Can I eat today? Current Diet Order: Diet Consistent Carbohydrate 2000 calories Current Intake: Pt has been NPO diet just advanced with insulin drip discontinued. Per pt has good appetite. I/Os: No BM since admission Diet History: Pt lives with daughter who prepares meals. Pt avoids sweets. She does admit to consuming a lot of fruit, especially a bowl of grapes. She drinks diet cranberry juice and diet soda as beverage. Pt likes a lot of vegetables. She consumes all meats but has some difficulty chewing related to minimal teeth. She reports her daughter grinds meat especially steak in order for her to eat. She denies any food allergies. Food Allergies: NKFA Cultural/Gnosticism/Ethnic Needs: No Skin: No pressure related injuries noted per review of nursing flow sheets. Medications: Norvasc, tegretol, apresoline, SSI (hold),Keppra, mag-ox, Metformin(hold), Protonix, miralax, lyrica, Risperdal, Crestor(hold) Labs: Recent Labs 12/23/24 1123 NA 130* K 4.2 PHOS 2.9 MG 1.1* CREATININE 0.90 BUN 20 POCT BG range over the past 24 hours: 226-440. A1c= 11.3% (12/24/24) Anthropometrics: - Height: 5' 4 (1.626 m) verified with pt - Current weight: 87 kg - BMI: Body mass index is 32.92 kg/m??. Weight History: UBW ~12% intentional weight loss x 6 months Wt Readings from Last 20 Encounters: 12/23/24 87 kg Physical findings:No signs of muscle or fat depletion. ESTIMATED NUTRITION REQUIREMENTS: Kcal/day: 2962-2390 (25-30 kcal/kg IBW + 10% 60 kg) Protein/day: 60-75 gm (1.0-1.25 gm/kg IBW +10% 60 kg) Fluids/day: Fluid management per medical team discretion or 8697-5008 ml (1mL/kcal) Needs based on: Age, ht, wt, BMI 32.92 Nutrition Diagnosis: Nutrition Diagnosis/Problem: Food and nutrition-related knowledge deficit Related to: uncontrolled diabetes As Evidenced by: blood sugar levels fo 274, 440, 226 Comments: Pt requesting ground diet for ease in chewing. Education: Diet Type and Issues Discussed: Sources of Carbohydrates, Portion control, plate method Materials Given: Plate Method for Diabetes, Consistent Carbohydrate Nutrition Therapy Barriers: none Readiness to Learn: Cooperative Education Type: discussed and written information provided Given to: patient and a family member Response to Education: verbalizes understanding Anticipated Compliance: Good Comment: Pt daughter on speaker phone during diet education. Reviewed diet education material. Answered questions. RD name and phone number provided. Interventions: Nutrition Prescription: Consistent Carbohydrate ground diet 1800 calories Plan: Meal and Snacks: General/Healthful diet, Modify distribution, type or amount of food and nutrients within meals or at specified times ground added to diet order per pt request. D/C & transfer of care to new setting or provider: (Likely discharge on Consistent Carbohydratediet) Goals: Encourage PO intake at least 75% all meals by next RD assessment. BG range between 70-180 mg/dl within [address] visit Will identify 3 carbohydrate sources by next RD assessment Monitoring/Evaluation: Food/Nutrition-Related Outcomes: Food and nutrient intake/administration. Anthropometric Outcomes: Weight trends Biochemical Data, Medical Tests, and Procedure Outcomes: Labs (BMP, Glucose) Nutrition-Focused Physical Finding Outcomes: Physical appearance, muscle and fat wasting, skin, appetite. RDN following per [facility] Clinical Nutrition Standards of Care. Registered Dietitian Paint Tester: Electronically Signed by Susannah Jacome RD,CD-N December 24, 2024 [employer] [phone] Weekends and Holidays [phone] * Plan of Care - Mer Parker RN - 12/24/2024 7:38 AM EDT Problem: Comorbidity Management Goal: Blood Glucose Level Within Target Range Outcome: Interventions implemented as appropriate Problem: Fall Injury Risk Goal: Absence of Fall and Fall-Related Injury Outcome: Interventions implemented as appropriate Problem: UTI (Urinary Tract Infection) Goal: Improved Infection Symptoms Outcome: Interventions implemented as appropriate Plan of Care Overview/ Patient Status Pt received Aox4. On RA. VS stable. BG elevated despite subcu insulin coverage. MD Haskins made aware. Insulin drip ordered and initiated per protocol. Made NPO. Pt is continent x2. Pivots to commode with 1 person assist. Ambulates with walker at baseline .Skin intact. Falls precautions in place.Pt uses call mayer appropriately. * Consult Note - Sarah Anton RN - 12/24/2024 6:49 AM EDT Consult to Diabetes TEXTILE MACHINERY SALES REPRESENTATIVE for advanced education: severe hyperglycemia in daibetic patient . Admitted with symptomatic hyperglycemia and dysuria. Presenting BG 486 mg/dL. Initially treated with SQ Regular insulin 10 units then lispro 6 units. Several hours later, BG checked and up to 499 mg/dL and insulin infusion initiated. A1c 11.3%. Past Medical History: Diagnosis Date COPD (chronic obstructive pulmonary disease) (HC Code) Diabetes mellitus (HC Code) GERD (gastroesophageal reflux disease) Hiatal hernia Hypertension Seizures (HC Code) Ventral hernia Social history : Social Connections: Not on file Discussed: Diagnosis of Type 2 diabetes Symptoms of hyperglycemia on presentation A1c of 11.3% and significance of same Complications of diabetes and risk reduction Role of Healthy Eating and portion control of carbohydrate-based foods; avoidance of sugary beverages and large quantities of fruit Blood glucose monitoring test times, targets and record-keeping Action, dose, schedule of prescribed insulins Insulin administration with pen (has also used syringes in past) Insulin storage, injection sites/technique, safe sharps disposal Causes, symptoms, treatment, prevention of hypoglycemia Symptoms & prevention of hyperglycemia and when to contact PMD Importance of establishing local primary care Benefit and availability of follow-up diabetes education and Medical Nutrition Therapy Impression & Plan: Profound hyperglycemia Has taken insulin in the past, which was discontinued due to hypoglycemia; has been taking metformin for years Fairly good recall of insulin pen technique, hypoglycemia Was checking BGs at home and noted they've been high for a long time RNs, please: Encourage self-injection of all insulin doses Discuss amount/type she is receiving Review symptoms and management of hypoglycemia Medical follow-up to be established; has PCP in [place], but needs to establish primary care here in [facility] Follow-up outpatient diabetes education & MNT per PCP referral On discharge, will need prescriptions for: Insulin pens Pen needles BG test strips Lancets * Utilization Review - Lucy Zepeda RN - 12/23/2024 10:57 PM EDT Utilization Review from [facility] Patient Data: Patient Name: Yasemin Hand Age: 69 y.o. : 1955 Indicated Status: Observation Review Comments: Continue observation services. * Plan of Care - Ledy Justin RN - 12/23/2024 3:38 PM EDT Plan of Care Overview/ Patient Status 1400: Patient arrived to the unit Aaox4. She is breathing unlabored and regular on room air. She reports shortness of breath with ambulation. She denies pain. She reports burning and pain with urination. Patient educated on need for urine sample. Patient reports diarrhea in last 24 hrs. Patient educated on need for stool sample. She reports having a good appetite. Daughter is at bedside and both educated on plan of care. Safety and comfort measures are in place. Ledy Justin RN 12/23/2024 3:42 PM 1800: No change in patient assessment, patient is resting comfortably. Safety measures are in place. Ledy Justin RN 12/23/2024 6:00 PM Problem: Comorbidity Management Goal: Blood Glucose Level Within Target Range Outcome: Interventions implemented as appropriate Problem: Fall Injury Risk Goal: Absence of Fall and Fall-Related Injury Outcome: Interventions implemented as appropriate Problem: Diarrhea Goal: Effective Diarrhea Management Outcome: Interventions implemented as appropriate Problem: UTI (Urinary Tract Infection) Goal: Improved Infection Symptoms Outcome: Interventions implemented as appropriate * [facility] - Ermias Duggan IV, PCT - 12/23/2024 1:10 PM EDT [facility] - CONSULT REQUEST DOCUMENTATION - [facility] NOTE - Type of consult: [facility] Diabetes Education - New Consult: [id number] /Yasemin Hand / [facility] / Brief Clinical Question: severe hyperglycemia in daibetic patient/Callback Cell / Use .consultnotetemplate or add .consultrecommendation to your consult notes. Remind your attending to use .consultattestation /Please confirm receipt of this message by texting back ???OK?? - 1 - [employer] message sent to Dina Anton at 1:10 PM. Received response at 13:11. - REMINDER: CONSULT CONNECT IS CLOSED 1900 TO 0700. PRIMARY TEAM MAY CONTACT YOU DIRECTLY ABOUT CONSULTS. - Ermias Duggan IV PCT 12/23/2024 1:10 PM Consult [facility] [phone] * Utilization Review - Aleja Sanchez RN - 12/23/2024 12:29 PM EDT Utilization Review from [facility] Patient Data: Patient Name: Yasemin Hand Age: 69 y.o. : 1955 Indicated Status: Observation Review Comments: Presents with hyperglycemia. Hx of DM. reports Med compliance. Reports UTI symptoms. No leukocytosis. Glucose 486. Anion gap 17. Beta hydroxybutyrate 1.60. Subcut insulin. IV bolus. Pending UA and hemoglobin A1C. documented in this encounter Plan of Treatment Upcoming Encounters Date Type Department Care Team (Late st Contact Info) Description 12/30/2024 9:50 AM [place] [address] Chayo Parra, RO[address] [employer] [address] [place] [phone] documented as of this encounter Procedures Procedure Name Priority Date/Time Associated Diagnosis Comments POCT GLUCOSE Routine 12/25/2024 5:30 PM EDT POCT GLUCOSE Routine 12/25/2024 12:17 PM EDT POCT GLUCOSE Routine 12/25/2024 8:23 AM EDT COMPREHENSIVE METABOLIC PANEL Early AM 12/25/2024 7:08 AM EDT CBC WITHOUT DIFFERENTIAL Early AM 12/25/2024 7:08 AM EDT COMPREHENSIVE METABOLIC PANEL Early AM 12/25/2024 7:08 AM EDT POCT GLUCOSE Routine 12/24/2024 8:57 PM EDT POCT GLUCOSE Routine 12/24/2024 5:44 PM EDT POCT GLUCOSE Routine 12/24/2024 3:[address] ABDOMEN PELVIS W IV CONTRAST Routine 12/24/2024 2:00 PM EDT POCT GLUCOSE Routine 12/24/2024 10:46 AM EDT CBC WITH AUTO DIFFERENTIAL Early AM 12/24/2024 9:53 AM EDT CBC AND DIFFERENTIAL Early AM 12/24/2024 9:53 AM EDT POCT GLUCOSE Routine 12/24/2024 9:22 AM EDT BASIC METABOLIC PANEL Early AM 12/24/2024 8:47 AM EDT LIVER FUNCTION TESTS WITH ALBUMIN (YH) Early AM 12/24/2024 8:47 AM EDT MAGNESIUM Early AM 12/24/2024 8:47 AM EDT LIPASE Add-On 12/24/2024 8:47 AM EDT BASIC METABOLIC PANEL Early AM 12/24/2024 8:47 AM EDT POCT GLUCOSE Routine 12/24/2024 8:21 AM EDT POCT GLUCOSE Routine 12/24/2024 6:49 AM EDT POCT GLUCOSE Routine 12/24/2024 5:46 AM EDT POCT GLUCOSE Routine 12/24/2024 4:40 AM EDT POCT GLUCOSE Routine 12/24/2024 3:37 AM EDT POCT GLUCOSE Routine 12/24/2024 1:44 AM EDT POCT GLUCOSE Routine 12/23/2024 11:56 PM EDT POCT GLUCOSE Routine 12/23/2024 10:05 PM EDT URINALYSIS WITH CULTURE REFLEX ( LMW YH) STAT 12/23/2024 6:21 PM EDT UA REFLEX CULTURE STAT 12/23/2024 6:2 1 PM EDT URINALYSIS WITH CULTURE REFLEX STAT 12/23/2024 6:21 PM EDT URINE MICROSCOPIC ( GH LMW YH) STAT 12/23/2024 6:21 PM EDT URINE CULTURE STAT 12/23/2024 6:21 PM EDT POCT GLUCOSE Routine 12/23/2024 5:59 PM EDT TYPE AND RH RECHECK ( GH LMW YH) STAT 12/23/2024 5:40 PM EDT HEMOGLOBIN AND HEMATOCRIT, BLOOD Routine 12/23/2024 5:40 PM EDT TYPE AND SCREEN ( GH LMW YH) Urgent 12/23/2024 5:40 PM EDT POCT GLUCOSE Routine 12/23/2024 2:06 PM EDT EKG Routine 12/23/2024 2:01 PM EDT POCT GLUCOSE Routine 12/23/2024 1:07 PM EDT POCT GLUCOSE Routine 12/23/2024 1:06 PM EDT HEMOGLOBIN A1C STAT 12/23/2024 12:47 PM EDT POCT GLUCOSE Routine 12/23/2024 11:50 AM EDT BASIC METABOLIC PANEL STAT 12/23/2024 11:23 AM EDT TSH W/REFLEX TO FT4 ( GH LMW Q YH) Add-On 12/23/2024 11:23 AM EDT LIVER FUNCTION TESTS WITH ALBUMIN (YH) Add-On 12/23/2024 11:23 AM EDT BETA-HYDROXYBUTYRATE Urgent 12/23/2024 11:23 AM EDT CBC WITH AUTO DIFFERENTIAL STAT 12/23/2024 11:23 AM EDT CBC AND DIFFERENTIAL STAT 12/23/2024 11:23 AM EDT PHOSPHORUS (BH GH L LMW YH) Add-On 12/23/2024 11:23 AM EDT MAGNESIUM Add-On 12/23/2024 11:23 AM EDT BLOOD GAS, VENOUS ( YH) Urgent 12/23/2024 11:23 AM EDT BASIC METABOLIC PANEL STAT 12/23/2024 11:23 AM EDT POCT GLUCOSE Routine 12/23/2024 10:52 AM EDT documented in this encounter Results * (ABNORMAL) POC Glucose (Fingerstick) (12/25/2024 5:30 PM EDT) [facility] Glucose, Meter 207(H) 70 - 100 mg/dL 12/25/2024 5:30 PM EDT [facility] Blood 12/25/2024 5:30 PM EDT 12/25/2024 5:30 PM EDT Edi Kendall MD POINT OF CARE TEST ORDERABLES F inal Result Performing Organization Address [facility] Co de Phone Number [facility] [address] [place] [address] * (ABNORMAL) POC Glucose (Fingerstick) (12/25/2024 12:17 PM EDT) Glucose, Meter 290(H) 70 - 100 mg/dL 12/25/2024 12:17 PM EDT [facility] Blood 12/25/2024 12:1 7 PM EDT 12/25/2024 12:17 PM EDT Edi Kendall MD POINT OF CARE TEST ORDERABLES F inal Result Performing Organization Address [facility] Co de Phone Number [facility] [address] [place] [address], [facility] [phone] * (ABNORMAL) POC Glucose (Fingerstick) (12/25/2024 8:23 AM EDT) Glucose, Meter 312(H) 70 - 100 mg/dL 12/25/2024 8:23 AM EDT [facility] Comment:Nurse Notified Blood 12/25/2024 8:23 AM EDT 12/25/2024 8:24 AM EDT Edi Kendall MD POINT OF CARE TEST ORDERABLES F inal Result Performing Organization Address City/[facility] Co de Phone Number [facility] [address] [place] [address], [facility] [phone] * (ABNORMAL) Comprehensive metabolic panel (12/25/2024 7:08 AM EDT) Sodium 133(L) 136 - 144 mmol/L [facility]24 [facility] Potassium 3.8 3.3 - 5.3 mmol/L 12/25/2024 8:41 AM [facility] Chloride 99 98 - 107 mmol/L 12/25/2024 8:41 AM [facility] CO2 22 20 - 30 mmol/L 12/25/2024 8:41 AM [facility] Anion Gap 12 7 - 17 12/25/2024 8:41 AM [facility] Glucose 283(H) 70 - 100 mg/dL 12/25/2024 8:41 AM [facility] BUN 17 8 - 23 mg/dL 12/25/2024 8:41 AM [facility] Creatinine 0.90 0.40 - 1.30 mg/dL 12/25/2024 8:41 AM [facility] Calcium 9.2 8.8 - 10.2 mg/dL 12/25/2024 8:41 AM [facility] BUN/Creatinine Ratio 18.9 8.0 - 23.0 12/25/2024 8:41 AM [facility] Total Protein 6.6 5.9 - 8.3 g/dL 025 8:41 AM [facility] Comment:As of 2023, th e reference interval for Total Protein has been changed from (6.6 to 8.7 g/dL) to (5.9 to 8.3 g/dL). Albumin 3.5(L) 3.6 - 5.1 g/dL 12/25/2024 8:41 AM [facility] Comment:As of 2023, th e reference interval for Albumin has been changed from (3.6 to 4.9 g/dL) to (3.6 to 5.1 g/dL). Total Bilirubin 0.2 <=1.2 mg/dL 12/26/19 25 8:41 AM [facility] Alkaline Phosphatase 79 9 - 122 U/L 12/25/2024 8:41 AM EDT [facility] Alanine Aminotransferase (ALT) 47(H) 10 - 35 U/L 12/25/2024 8:41 AM [facility] Comment:Calcium dobesilate c an cause artificially low ALT results at therapeutic concentrations Aspartate Aminotransferase (AST) 58(H) 10 - 35 U/L 12/25/2024 8:41 AM T [facility] Globulin 3.1 2.0 - 3.9 g/dL 12/25/2024 8:41 AM T [facility] Comment:As of 2023, th e reference interval for Globulin has been changed from (2.3 to 3.5 g/dL) to (2.0 to 3.9 g/dL). A/G Ratio 1.1 1.0 - 2.2 12/25/2024 8:41 AM [facility] AST/ALT Ratio 1.2 Reference Range Not Established 12/25/2024 8:41 AM [facility] eGFR (Creatinine) >60 >=60 mL/min/1.73m2 12/25/2024 8:41 AM [facility] Comment: [facility] utilizes CKD-EPI Creatinine 2020 to report eGFR. Values < 60 mL/min/1.73 m2 may indicate CKD if present for more than three months AND creatinine is at steady state. The eGFR provides a rough estimate of kidney function. For further guidance, please refer to the CKD: Adult Souvenir And Novelty Maker Signature pathway. Creatinine Delta 0.1 See Comment 025 8:41 AM [facility] Comment: Delta creatinine is [...] 12/25/2024 7:53 AM EDT us Sonal Oneill MARKETING STRATEGIST LAB BLOOD ORDERABLES Final Res ult [facility] [address] [place] [address] * (ABNORMAL) CBC without differential (12/25/2024 7:08 AM EDT) WBC 5.7 4.0 - 11.0 x1000/??L 12/25/2024 8:01 AM EDT [facility] RBC 3.89(L) 4.00 - 6.00 M/??L 12/25/2024 8:01 AM EDT [facility] Hemoglobin 12.0 11.7 - 15.5 g/dL 12/25/2024 8:01 AM EDT [facility] Hematocrit 35.50 35.00 - 45.00 % 12/25/2024 8:01 AM EDT [facility] MCV 91.3 80.0 - 100.0 fL 12/25/2024 8:01 AM EDT [facility] MCH 30.8 27.0 - 33.0 pg 12/25/2024 8:01 AM EDT [facility] MCHC 33.8 31.0 - 36.0 g/dL 12/25/2024 8:01 AM EDT [facility] RDW-CV 13.4 11.0 - 15.0 % 12/25/2024 8:01 AM EDT [facility] Platelets 279 150 - 420 x1000/??L 12/25/2024 8:01 AM EDT [facility] MPV 9.7 8.0 - 12.0 fL 12/25/2024 8:01 AM EDT [facility] [facility] ANC (Abs Neutrophil Count) 3.37 2.00 - 7.60 x 1000/??L 12/25/2024 8:01 AM EDT [facility] Blood Venipuncture / Unknown 12/25/2024 7:08 AM EDT 12/25/2024 7:53 AM EDT us Sonal Oneill MARKETING STRATEGIST LAB BLOOD [place] [address], [facility] [phone] * (ABNORMAL) POC Glucose (Fingerstick) (12/24/2024 8:57 PM EDT) Glucose, Meter 318(H) 70 - 100 mg/dL 12/24/2024 8:57 PM EDT [facility] Comment:Provider Notified Blood 12/24/2024 8:57 PM EDT 12/24/2024 8:57 PM EDT Edi Kendall MD POINT OF CARE TEST ORDERABLES F inal Result Performing Organization Address [facility]/[place] [address], [facility] [phone] * (ABNORMAL) POC Glucose (Fingerstick) (12/24/2024 5:44 PM EDT) Glucose, Meter 208(H) 70 - 100 mg/dL 12/24/2024 5:44 PM EDT [facility] Blood 12/24/2024 5:44 PM EDT 12/24/2024 5:45 PM EDT Edi Kendall MD POINT OF CARE TEST ORDERABLES F inal Result Performing Organization Address City/[facility]/ZIP Co de Phone Number [facility] [address] [place] [id number], [facility] [phone] * (ABNORMAL) POC Glucose (Fingerstick) (12/24/2024 3:08 PM EDT) [facility] Signature Glucose, Meter 135(H) 70 - 100 mg/dL 12/24/2024 3:08 PM EDT [facility] DEPARTMENT OF LABORATORY MEDICINE Blood 12/24/2024 3:08 PM EDT 12/24/2024 3:08 PM EDT us Edi Kendall MD POINT OF CARE TEST ORDERABLES F inal Result [facility] DEPARTMENT OF LABORATORY MEDICINE [address] [place] [address], [facility] [phone] * CT Abdomen Pelvis w IV Contrast (12/24/2024 2:00 PM EDT) Anatomical Region Laterality Modality Abdomen, Pelvis, Ortho Pelvis, Abdomen and Pelvi s Computed Tomography 12/24/2024 2:07 PM EDT Impressions 12/24/2024 2:24 PM EDT No etiology for clinical symptoms identified. Hepatic steatosis with atherosclerotic calcifications involving the aorta and coronary arteries. [facility] Classification: Routine. Report initiated by: ??Ferny Waterman MD Reported and signed by: Jose Cabrera MD [facility] Narrative 12/24/2024 2:24 [...] atherosclerotic calcifications involving the aortaand coronary arteries. [facility] Classification: Routine. Report initiated by: Ferny Waterman MD Reported and signed by: Jose Cabrera MD [facility] Sonal Oneill MARKETING STRATEGIST IMG CT ORDERABLES Final Result * POC Glucose (Fingerstick) (12/24/2024 10:46 AM EDT) [facility] Signature Glucose, Meter 99 70 - 100 mg/dL 12/24/2024 10:46 AM EDT [facility] DEPARTMENT OF LABORATORY MEDICINE Blood 12/24/2024 10:4 6 AM EDT 12/24/2024 10:47 AM EDT Edi Kendall MD POINT OF CARE TEST ORDERABLES F inal Result [facility] DEPARTMENT OF LABORATORY MEDICINE [address] [place] [address] * CBC auto differential (12/24/2024 9:53 AM EDT) WBC 6.5 4.0 - 11.0 x1000/??L 12/24/2024 10:10 AM EDT [facility] RBC 4.31 4.00 - 6.00 M/??L 12/24/2024 10:10 AM EDT [facility] Hemoglobin 13.3 11.7 - 15.5 g/dL 12/24/2024 10:10 AM EDT [facility] Hematocrit 38.70 35.00 - 45.00 % 12/24/2024 10:10 AM EDT [facility] MCV 89.8 80.0 - 100.0 fL 12/24/2024 10:10 AM EDT [facility] MCH 30.9 27.0 - 33.0 pg 12/24/2024 10:10 AM EDT [facility] MCHC 34.4 31.0 - 36.0 g/dL 12/24/2024 10:10 AM EDT [facility] RDW-CV 13.2 11.0 - 15.0 % 12/24/2024 10:10 AM EDT [facility] Platelets 322 150 - 420 x1000/??L 12/24/2024 10:10 AM EDT [facility] MPV 9.6 8.0 - 12.0 fL 12/24/2024 10:10 AM EDT [facility] Neutrophils 60.8 39.0 - 72.0 % 12/24/2024 10:10 AM EDT [facility] Lymphocytes 29.4 17.0 - 50.0 % 12/24/2024 10:10 AM EDT [facility] Monocytes 5.8 4.0 - 12.0 % 12/24/2024 10:10 AM EDT [facility] Eosinophils 3.2 0.0 - 5.0 % 12/24/2024 10:10 AM EDT [facility] Basophil 0.5 0.0 - 1.4 % 12/24/2024 10:10 AM EDT [facility] Immature Granulocytes 0.3 0.0 - 1.0 % 12/24/2024 10:10 AM EDT [facility] nRBC 0.0 0.0 - 1.0 % 12/24/2024 10:10 AM EDT [facility] Absolute Lymphocyte Count 1.92 0.60 - 3.70 x 1000/??L 12/24/2024 10:10 AM EDT [facility] Monocyte Absolute Count 0.38 0.00 - 1.00 x 1000/??L 12/24/2024 10:10 AM EDT [facility] Eosinophil Absolute Count 0.21 0.00 - 1.00 x 1000/??L 12/24/2024 10:10 AM EDT [facility] Basophil Absolute Count 0.03 0.00 - 1.00 x 1000/??L 12/24/2024 10:10 AM EDT [facility] Absolute Immature Granulocyte Count 0.02 0.00 - 0.30 x 1000/??L 12/24/2024 10:10 AM EDT [facility] Absolute nRBC 0.00 0.00 - 1.00 x 1000/??L 12/24/2024 10:10 AM EDT [facility] ANC (Abs Neutrophil Count) 3.96 2.00 - 7.60 x 1000/??L 12/24/2024 10:10 AM EDT [facility] Blood Venipuncture / Unknown 12/24/2024 9:53 AM EDT 12/24/2024 10:01 AM EDT us Edi Kendall MD LAB BLOOD ORDERABLES Final Resu lt [facility] [place] [address], [facility] [phone] * (ABNORMAL) POC Glucose (Fingerstick) (12/24/2024 9:22 AM EDT) Pathologist [facility] Glucose, Meter 117(H) 70 - 100 mg/dL 12/24/2024 9:22 AM EDT [facility] DEPARTMENT OF LABORATORY MEDICINE Blood 12/24/2024 9:22 AM EDT 12/24/2024 9:23 AM EDT us Provider Not In System POINT OF CARE TEST ORDERA BLES Final Result Performing Organization Address City/[facility]/ZIP Co de Phone Number [facility] DEPARTMENT OF LABORATORY MEDICINE [address] [place] [address], [facility] [phone] * Lipase (12/24/2024 8:47 AM EDT) [facility] Lipase 17 11 - 55 U/L 12/24/2024 10:44 AM EDT [facility] Blood Venipuncture / Unknown 12/24/2024 8:47 AM EDT 12/24/2024 8:59 AM EDT us Sonal Oneill MARKETING STRATEGIST LAB BLOOD ORDERABLES Final Res ult Performing Organization Address City/[facility]/ZIP Co de Phone Number [facility] [address] [place] [address], [facility] [phone] * (ABNORMAL) Basic metabolic panel (12/24/2024 8:47 AM EDT) [facility] Sodium 131(L) 136 - 144 mmol/L 12/24/2024 9:31 AM EDT [facility] Potassium 4.0 3.3 - 5.3 mmol/L 12/24/2024 9:31 AM EDT [facility] Chloride 99 98 - 107 mmol/L 12/24/2024 9:31 AM EDT [facility] CO2 22 20 - 30 mmol/L 12/24/2024 9:31 AM EDT [facility] Anion Gap 10 7 - 17 12/24/2024 9:31 AM EDT [facility] Glucose 144(H) 70 - 100 mg/dL 12/24/2024 9:31 AM EDT [facility] BUN 17 8 - 23 mg/dL 12/24/2024 9:31 AM EDT [facility] Creatinine 0.80 0.40 - 1.30 mg/dL 12/24/2024 9:31 AM EDT [facility] Calcium 9.5 8.8 - 10.2 mg/dL 12/24/2024 9:31 AM EDT [facility] BUN/Creatinine Ratio 21.3 8.0 - 23.0 12/24/2024 9:31 AM EDT [facility] eGFR (Creatinine) >60 >=60 mL/min/1.73 m2 12/24/2024 9:31 AM EDT [facility] Comment: [facility] utilizes CKD-EPI Creatinine 2020 to report eGFR. Values < 60 mL/min/1.73 m2 may indicate CKD if present for more than three months AND creatinine is at steady state. The eGFR provides a rough estimate of kidney function. For further guidance, please refer to the CKD: Adult [employer] Signature pathway. Creatinine Delta -0.1 See Comment 025 9:31 AM T [facility] Comment: Delta creatinine is the difference [...] EDT 12/24/2024 8:59 AM EDT us Edi Enoch MD LAB BLOOD ORDERABLES Final Resu lt Performing Organization Address City/[facility]/ZIP Co de Phone Number [facility] [address] [place] [address] * (ABNORMAL) Liver function tests with albumin (YH) (12/24/2024 8:47 AM EDT) Bilirubin, Direct 025 9:31 AM EDT [facility] Comment:Sample Hemolyzed. Alanine Aminotransferase (ALT) 46(H) 10 - 35 U/L 12/24/2024 9:31 AM EDT [facility] Comment:Calcium dobesilate c an cause artificially low ALT results at therapeutic concentrations Aspartate Aminotransferase (AST) 61(H) 10 - 35 U/L 12/24/2024 9:31 AM EDT [facility] AST/ALT Ratio 1.3 Reference Range Not Established 12/24/2024 9:31 AM EDT [facility] Albumin 3.8 3.6 - 5.1 g/dL 12/24/2024 9:31 AM EDT [facility] Comment:As of 2023, e reference interval for Albumin has been changed from (3.6 to 4.9 g/dL) to (3.6 to 5.1 g/dL). Alkaline Phosphatase 83 9 - 122 U/L 12/24/2024 9:31 AM EDT [facility] Total Bilirubin 0.2 <=1.2 mg/dL 12/25/19 9:31 AM EDT [facility] Blood Venipuncture / Unknown 12/24/2024 8:47 AM EDT 12/24/2024 8:59 AM EDT Edi Kendall MD LAB BLOOD ORDERABLES Final Resu lt Performing Organization Address City/[facility]/ZIP Co de Phone Number [facility] [address] [place] [address] * Magnesium (12/24/2024 8:47 AM EDT) Magnesium 2.1 1.7 - 2.4 mg/dL 12/24/2024 9:31 AM EDT [facility] Blood Venipuncture / Unknown 12/24/2024 8:47 AM EDT 12/24/2024 8:59 AM EDT Edi Kendall MD LAB BLOOD ORDERABLES Final Resu lt [facility] [address] [place] [address], [facility] [phone] * (ABNORMAL) POC Glucose (Fingerstick) (12/24/2024 8:21 AM EDT) Glucose, Meter 159(H) 70 - 100 mg/dL 12/24/2024 8:21 AM EDT [facility] DEPARTMENT OF LABORATORY MEDICINE Comment:Nurse Notified Blood 12/24/2024 8:21 AM EDT 12/24/2024 8:22 AM EDT us Provider Not In System POINT OF CARE TEST ORDERA BLES Final Result Performing Organization Address [facility] Co de Phone Number [facility] DEPARTMENT OF LABORATORY MEDICINE [address] [place] [address], [facility] [phone] * (ABNORMAL) POC Glucose (Fingerstick) (12/24/2024 6:49 AM EDT) Glucose, Meter 226(H) 70 - 100 mg/dL 12/24/2024 6:49 AM EDT [facility] DEPARTMENT OF LABORATORY MEDICINE Blood 12/24/2024 6:49 AM EDT 12/24/2024 6:52 AM EDT Edi Kendall MD POINT OF CARE TEST ORDERABLES F inal Result [facility] DEPARTMENT OF LABORATORY MEDICINE [address] [place] [address] * (ABNORMAL) POC Glucose (Fingerstick) (12/24/2024 5:46 AM EDT) Glucose, Meter 233(H) 70 - 100 mg/dL 12/24/2024 5:46 AM EDT [facility] DEPARTMENT OF LABORATORY MEDICINE Blood 12/24/2024 5:46 AM EDT 12/24/2024 5:46 AM EDT Edi Kendall MD POINT OF CARE TEST ORDERABLES F inal Result Performing Organization Address [facility]/ZIP Co de Phone Number [facility]ATORY MEDICINE [address] [place] [address] * (ABNORMAL) POC Glucose (Fingerstick) (12/24/2024 4:40 AM EDT) Glucose, Meter 288(H) 70 - 100 mg/dL 12/24/2024 4:40 AM EDT [facility] DEPARTMENT OF LABORATORY MEDICINE Blood 12/24/2024 4:40 AM EDT 12/24/2024 4:40 AM EDT us Provider Not In System POINT OF CARE TEST ORDERA BLES Final Result Performing Organization Address [facility] Co de Phone Number [facility] DEPARTMENT OF LABORATORY MEDICINE [address] [place] [address] * (ABNORMAL) POC Glucose (Fingerstick) (12/24/2024 3:37 AM EDT) Glucose, Meter 329(H) 70 - 100 mg/dL 12/24/2024 3:37 AM EDT [facility] DEPARTMENT OF LABORATORY MEDICINE Comment:Nurse Notified Blood 12/24/2024 3:37 AM EDT 12/24/2024 3:38 AM EDT us Provider Not In System POINT OF CARE TEST ORDERA BLES Final Result Performing Organization Address [facility] de Phone Number [facility] DEPARTMENT OF LABORATORY MEDICINE [address] [place] [address] * (ABNORMAL) POC Glucose (Fingerstick) (12/24/2024 1:44 AM EDT) Glucose, Meter 381(H) 70 - 100 mg/dL 12/24/2024 1:44 AM EDT [facility] DEPARTMENT OF LABORATORY MEDICINE Comment:Nurse Notified Blood 12/24/2024 1:44 AM EDT 12/24/2024 1:45 AM EDT us Edi Kendall MD POINT OF CARE TEST ORDERABLES F inal Result Performing Organization Address [facility] de Phone Number [facility] OF LABOR[facility]ORY MEDICINE [address] [place] [address] * (ABNORMAL) POC Glucose (Fingerstick) (12/23/2024 11:56 PM EDT) Glucose, Meter 499(HH) 70 - 100 mg/dL 12/23/2024 11:56 PM EDT [facility] DEPARTMENT OF LABORATORY MEDICINE Comment:Nurse Notified Blood 12/23/2024 11:5 6 PM EDT 12/23/2024 11:56 PM EDT us Edi Kendall MD POINT OF CARE TEST ORDERABLES F inal Result Performing Organization Address [facility] de Phone Number [facility] DEPARTMENT OF LABORATORY MEDICINE [address] [place] [address] * (ABNORMAL) POC Glucose (Fingerstick) (12/23/2024 10:05 PM EDT) Glucose, Meter 440(HH) 70 - 100 mg/dL 12/23/2024 10:05 PM EDT [facility] DEPARTMENT OF LABORATORY MEDICINE Comment:Nurse Notified Blood 12/23/2024 10:0 5 PM EDT 12/23/2024 10:05 PM EDT Edi Kendall MD POINT OF CARE TEST ORDERABLES F inal Result [facility] DEPARTMENT OF LABORATORY MEDICINE [address] [place] [address] * Urine culture (12/23/2024 6:21 PM EDT) Urine Culture, Routine Mixed Urine Culture 12/24/2024 8:08 PM EDT [facility] DEPARTMENT OF LABORATORY MEDICINE Urine URINE SPECIMEN OBTAINED BY CLEAN CATCH PROCEDURE / Unknown Collection / Unknown 12/23/2024 6:21 PM EDT 12/23/2024 6:27 PM EDT Narrative [facility] DEPARTMENT OF LABORATORY MEDICINE - 12/24/2024 8:08 [...] MICROBIOLOGY - GENERAL ORDERABLE S Final Result Performing Organization Address City/[facility]/ZIP Co de Phone Number [facility] DEPARTMENT OF LABORATORY MEDICINE [address] [place] [address] * Urine microscopic ([facility]) (12/23/2024 6:21 PM EDT) RBC/HPF, UA 1 0 - 2 /HPF 12/23/2024 7:16 PM EDT [facility] WBC/HPF, UA 2 0 - 5 /HPF 12/23/2024 7:16 PM EDT [facility] Bacteria, UA Rare None-Rare /HPF 12/23/2024 7:16 PM EDT [facility] Urine Squamous Epithelial Cells, UA 5 0 - 5 /HPF 12/23/2024 7:16 PM EDT [facility] Urine URINE SPECIMEN OBTAINED BY CLEAN CATCH PROCEDURE / Unknown Collection / Unknown 12/23/2024 6:21 PM EDT 12/23/2024 6:27 PM EDT Eliud Chaudhary MD URINE ORDERABLES Final Result [facility] [address] [place] [address], [facility] [phone] * (ABNORMAL) Urinalysis with culture reflex ([facility]) (12/23/2024 6:21 PM EDT) Clarity, UA Clear Clear 12/23/2024 6:36 PM EDT [facility] Color, UA Yellow Yellow, Colorless 12/23/2024 6:36 PM EDT [facility] Specific [place], UA 1.024 1.005 - 1.030 12/23/2024 6:36 PM EDT [facility] pH, UA 5.5 5.5 - 7.5 12/23/2024 6:36 PM EDT [facility] Protein, UA Trace Negative, Trace 12/23/2024 6:36 PM EDT [facility] Glucose, UA 4+(A) Negative 12/23/2024 6:36 PM EDT [facility] Ketones, UA Trace(A) Negative 12/23/2024 6:36 PM EDT [facility] Blood, UA Negative Negative 12/23/2024 6:36 PM EDT [facility] Bilirubin, UA Negative Negative 12/23/2024 6:36 PM EDT [facility] Leukocytes, UA 1+(A) Negative 12/23/2024 6:36 PM EDT [facility] Nitrite, UA Negative Negative 12/23/2024 6:36 PM EDT [facility] Urobilinogen, UA <2.0 <=2.0 mg/dL 12/23/2024 6:36 PM EDT [facility] [employer] Received ? Yes 12/23/2024 6:36 PM EDT [facility] Urine URINE SPECIMEN OBTAINED BY CLEAN CATCH PROCEDURE / Unknown Collection / Unknown 12/23/2024 6:21 PM EDT 12/23/2024 6:27 PM EDT Eliud Chaudhary MD URINE ORDERABLES Final Result Performing Organization Address [facility] Co de Phone Number [facility] [address] [place] [address] * UA reflex to culture (12/23/2024 6:21 PM EDT) Reflex Urine Culture See Comment 12/23/2024 10:00 PM EDT [facility] Urine URINE SPECIMEN OBTAINED BY CLEAN CATCH PROCEDURE / Unknown Collection / Unknown 12/23/2024 6:21 PM EDT 12/23/2024 6:27 PM EDT Narrative [facility] DEPARTMENT OF LABORATORY MEDICINE - 12/23/2024 10:00 PM EDT Urine culture will be reflexed if indicated by urinalysis results. ??Please check microbiology results for urine culture. Eliud Chaudhary MD URINE ORDERABLES Final Result Performing Organization Address [facility] Co de Phone Number [facility] DEPARTMENT OF LABORATORY MEDICINE [address] [place] [address] [phone] * (ABNORMAL) POC Glucose (Fingerstick) (12/23/2024 5:59 PM EDT) Glucose, Meter 139(H) 70 - 100 mg/dL 12/23/2024 5:59 PM EDT [facility] DEPARTMENT OF LABORATORY MEDICINE Blood 12/23/2024 5:59 PM EDT 12/23/2024 5:59 PM EDT Edi Kendall MD POINT OF CARE TEST ORDERABLES F inal Result Performing Organization Address City/[facility] Co de Phone Number [facility] DEPARTMENT OF LABORATORY MEDICINE [address] [place] [address], [facility] [phone] * Type and Rh recheck ([facility] LMW YH) (12/23/2024 5:40 PM EDT) ABORH Recheck Interpretation O POS 12/23/2024 6:47 PM EDT [facility] BLOOD BANK LABORATORY Blood Venipuncture / Unknown 12/23/2024 5:40 PM EDT 12/23/2024 5:50 PM EDT Edi Kendall MD BLOOD BANK TEST ORDERABLES Stephania l Result Performing Organization Address [facility] Co de Phone Number [facility]ANK LABORATORY [address] [place] [address] * Hemoglobin and hematocrit, blood (12/23/2024 5:40 PM EDT) Pathologist [facility] Hemoglobin 12.7 11.7 - 15.5 g/dL 12/23/2024 6:15 PM EDT [facility] Hematocrit 37.20 35.00 - 45.00 % 12/23/2024 6:15 PM EDT [facility] Blood Venipuncture / Unknown 12/23/2024 5:40 PM EDT 12/23/2024 5:50 PM EDT Edi Kendall MD LAB BLOOD ORDERABLES Final Resu lt [facility] [address] [place] [address], [facility] [phone] * Type and screen (12/23/2024 5:40 PM EDT) ABO Grouping O 12/23/2024 6:47 PM EDT [facility] LAB[facility] Rh Type POS 12/23/2024 6:47 PM EDT [facility] Antibody Screen NEG 05/15/202 5 6:47 PM EDT [facility] Specimen Expiration Date And Time 12/26/2024 23:59 12/23/2024 6:47 PM EDT [facility] Blood Venipuncture / Unknown 12/23/2024 5:40 PM EDT 12/23/2024 5:50 PM EDT dEi Kendall MD BLOOD BANK TEST ORDERABLES Stephania l Result Performing Organization Address [facility] Co de Phone Number [facility]ANK LABORATORY [address] [place] [address] * (ABNORMAL) POC Glucose (Fingerstick) (12/23/2024 2:06 PM EDT) Glucose, Meter 274(H) 70 - 100 mg/dL 12/23/2024 2:06 PM EDT [facility] DEPARTMENT OF LABORATORY MEDICINE Blood 12/23/2024 2:06 PM EDT 12/23/2024 2:07 PM EDT Result [facility] Provider Not In System POINT OF CARE TEST ORDERA BLES Final Result Performing Organization Address [facility] de Phone Number [facility] DEPARTMENT OF LABORATORY MEDICINE [address] [place] [address] * EKG (12/23/2024 2:01 PM EDT) Heart Rate 92 bpm [facility] EKG QRS Interval 78 ms SRC EKG QT Interval 355 ms SRC EKG QTC Interval 440 ms SRC EKG P Star 40 deg SRC EKG QRS Star 1 deg SRC EKG T Wave Star 10 deg SRC EKG P-R Interval 147 msec SRC EKG SEVERITY Borderline ECG severity [facility]C EKG Comment::Sinus rhythm:Low vo ltage, precordial leads:Electronically Signed On 12-23-2024 22:18:08 EDT by Derek Robertson MD 12/23/2024 2:01 PM EDT Edi Kendall MD ECG ORDERABLES Final Result Performing Organization Address [facility] Co de Phone Number [facility] EKG * (ABNORMAL) POC Glucose (Fingerstick) (12/23/2024 1:07 PM EDT) Glucose, Meter 369(H) 70 - 100 mg/dL 12/23/2024 1:07 PM EDT [facility] Comment:Provider Notified Blood 12/23/2024 1:07 PM EDT 12/23/2024 1:08 PM EDT Provider Not In System POINT OF CARE TEST ORDERA BLES Final Result Performing Organization Address [facility] de Phone Number [facility] [address] [place] [address], [facility] [phone] * (ABNORMAL) POC Glucose (Fingerstick) (12/23/2024 1:06 PM EDT) Glucose, Meter 403(HH) 70 - 100 mg/dL 12/23/2024 1:06 PM EDT [facility] Comment:Provider Notified Blood 12/23/2024 1:06 PM EDT 12/23/2024 1:07 PM EDT us Provider Not In System POINT OF CARE TEST ORDERA BLES Final Result Performing Organization Address [facility] Co de Phone Number [facility] [address] [place] [address], [facility] [phone] * (ABNORMAL) Hemoglobin A1c (12/23/2024 12:47 PM EDT) Hemoglobin A1c 11.3(H) 4.0 - 5.6 % 12/24/2024 9:23 AM EDT [facility]IC[facility] Comment: Hemoglobin A1c [...] mg/dL 278 mg/dL 12/24/2024 9:23 AM EDT [facility]IC[facility] Comment: Estimated average glucose (eAG) is a calculated value designed to estimate ??the expected average blood glucose level throughout the day from a single ??measurement of ??glycated hemoglobin A1C (HbA1c) and follows the calculation proposed by the [place] [employer] (Diabetes Care 31: 1-6, 2008). It may have less accuracy in children, women and patients with certain erythrocyte disorders. Blood Venipuncture / Unknown 12/23/2024 12:47 PM EDT 12/23/2024 12:50 PM EDT us Eliud Chaudhary MD LAB BLOOD ORDERABLES Final Resul t [facility]PART[facility] OF [facility]ORAT[facility] MEDICINE [address] [place] [address] * (ABNORMAL) POC Glucose (Fingerstick) (12/23/2024 11:50 AM EDT) [facility] Signature Glucose, Meter 446(HH) 70 - 100 mg/dL 12/23/2024 11:50 AM EDT [facility] Comment:Provider Notified Blood 12/23/2024 11:5 0 AM EDT 12/23/2024 11:51 AM EDT us Provider Not In System POINT OF CARE TEST ORDERA BLES Final Result Performing Organization Address City/[facility]/ZIP Co de Phone Number [facility] [address] [place], [place] [address] [phone] * TSH w/reflex to FT4 (12/23/2024 11:23 AM EDT) Thyroid Stimulating Hormone 0.892 See Comment ??IU/mL 12/23/2024 2:07 PM EDT [facility] Comment: Male & Non- Females: 0.270-4.200 ??IU/mL 1st Trimester: 0.110-3.480 ??IU/mL 2nd Trimester: 0.320-3.850 ??IU/mL Blood Venipuncture / Unknown 12/23/2024 11:23 AM EDT 12/23/2024 11:25 AM EDT Edi Kendall MD LAB BLOOD ORDERABLES Final Resu lt Performing Organization Address [facility]/ZIP Co de Phone Number [facility] [address] [place] [address] * Phosphorus (BH GH L LMW YH) (12/23/2024 11:23 AM EDT) Phosphorus 2.9 2.2 - 4.5 mg/dL 12/23/2024 2:07 PM EDT [facility] Blood Venipuncture / Unknown 12/23/2024 11:23 AM EDT 12/23/2024 11:25 AM EDT Edi Kendall MD LAB BLOOD ORDERABLES Final Resu lt [facility] [address] [place] [address] * (ABNORMAL) Magnesium (12/23/2024 11:23 AM EDT) Magnesium 1.1(L) 1.7 - 2.4 mg/dL 12/23/2024 2:07 PM EDT [facility] Blood Venipuncture / Unknown 12/23/2024 11:23 AM EDT 12/23/2024 11:25 AM EDT us Edi Kendall MD LAB BLOOD ORDERABLES Final Resu lt [facility] [address] [place] [id number], [facility] [phone] * (ABNORMAL) Liver function tests with albumin (YH) (12/23/2024 11:23 AM EDT) Bilirubin, Direct 2:07 PM EDT [facility] Comment:Sample Hemolyzed. Alanine Aminotransferase (ALT) 48(H) 10 - 35 U/L 12/23/2024 2:07 PM EDT [facility] Comment:Calcium dobesilate c an cause artificially low ALT results at therapeutic concentrations Aspartate Aminotransferase (AST) 64(H) 10 - 35 U/L 12/23/2024 2:07 PM EDT [facility] Comment:Sample slightly hemo lyzed. Results may be falsely elevated due to hemolysis. AST/ALT Ratio 1.3 Reference Range Not Established 12/23/2024 2:07 PM EDT [facility] Albumin 4.0 3.6 - 5.1 g/dL 12/23/2024 2:07 PM EDT [facility] Comment:As of 2023, e reference interval for Albumin has been changed from (3.6 to 4.9 g/dL) to (3.6 to 5.1 g/dL). Alkaline Phosphatase 109 9 - 122 U/L 12/23/2024 2:07 PM EDT [facility] Total Bilirubin 0.3 <=1.2 mg/dL 12/24/19 2:07 PM EDT [facility] Blood Venipuncture / Unknown 12/23/2024 11:23 AM EDT 12/23/2024 11:25 AM EDT us Edi Kendall MD LAB BLOOD ORDERABLES Final Resu lt [facility] [place] [address], [facility] [phone] * (ABNORMAL) Basic metabolic panel (12/23/2024 11:23 AM EDT) Sodium 130(L) 136 - 144 mmol/L 12/23/2024 11:52 AM EDT [facility] Potassium 4.2 3.3 - 5.3 mmol/L 12/23/2024 11:52 AM EDT [facility] Comment:Sample slightly hemo lyzed. Results may be falsely elevated due to hemolysis. Chloride 95(L) 98 - 107 mmol/L 12/23/2024 11:52 AM EDT [facility] CO2 18(L) 20 - 30 mmol/L 12/23/2024 11:52 AM EDT [facility] Anion Gap 17 7 - 17 12/23/2024 11:52 AM EDT [facility] Glucose 486(HH) 70 - 100 mg/dL 12/23/2024 11:52 AM EDT [facility] BUN 20 8 - 23 mg/dL 12/23/2024 11:52 AM EDT [facility] Creatinine 0.90 0.40 - 1.30 mg/dL 12/23/2024 11:52 AM EDT [facility] Calcium 10.0 8.8 - 10.2 mg/dL 12/23/2024 11:52 AM EDT [facility] BUN/Creatinine Ratio 22.2 8.0 - 23.0 12/23/2024 11:52 AM EDT [facility] eGFR (Creatinine) >60 >=60 mL/min/1.7 3m2 12/23/2024 11:52 AM EDT [facility] Comment: [facility] utilizes CKD-EPI Creatinine 2020 to report eGFR. Values < 60 mL/min/1.73 m2 may indicate CKD if present for more than three months AND creatinine is at steady state. The eGFR provides a rough estimate of kidney function. For further guidance, please refer to the CKD: Adult [employer] Signature pathway. Creatinine Delta 12/23/2024 11:52 AM EDT [facility] Comment:No previous creatini ne <5.00 mg/dL is available within the previous 12 months to calculate a delta creatinine. Blood Venipuncture / Unknown 12/23/2024 11:23 AM EDT 12/23/2024 11:25 AM EDT us Eliud Chaudhary MD LAB BLOOD ORDERABLES Final Resul t [facility] [address] [place] [address], [facility] [phone] * CBC auto differential (12/23/2024 11:23 AM EDT) WBC 7.5 4.0 - 11.0 x1000/??L 12/23/2024 11:30 AM EDT [facility] RBC 4.09 4.00 - 6.00 M/??L 12/23/2024 11:30 AM EDT [facility] Hemoglobin 12.6 11.7 - 15.5 g/dL 12/23/2024 11:30 AM EDT [facility] Hematocrit 36.60 35.00 - 45.00 % 12/23/2024 11:30 AM EDT [facility] MCV 89.5 80.0 - 100.0 fL 12/23/2024 11:30 AM EDT [facility] MCH 30.8 27.0 - 33.0 pg 12/23/2024 11:30 AM EDT [facility] MCHC 34.4 31.0 - 36.0 g/dL 12/23/2024 11:30 AM EDT [facility] RDW-CV 13.0 11.0 - 15.0 % 12/23/2024 11:30 AM EDT [facility] Platelets 320 150 - 420 x1000/??L 12/23/2024 11:30 AM EDT [facility] MPV 10.1 8.0 - 12.0 fL 12/23/2024 11:30 AM EDT [facility] Neutrophils 63.6 39.0 - 72.0 % 12/23/2024 11:30 AM EDT [facility] Lymphocytes 28.7 17.0 - 50.0 % 12/23/2024 11:30 AM EDT [facility] Monocytes 5.6 4.0 - 12.0 % 12/23/2024 11:30 AM EDT [facility] Eosinophils 1.2 0.0 - 5.0 % 12/23/2024 11:30 AM EDT [facility] Basophil 0.5 0.0 - 1.4 % 12/23/2024 11:30 AM EDT [facility] Immature Granulocytes 0.4 0.0 - 1.0 % 12/23/2024 11:30 AM EDT [facility] nRBC 0.0 0.0 - 1.0 % 12/23/2024 11:30 AM EDT [facility] Absolute Lymphocyte Count 2.15 0.60 - 3.70 x 1000/??L 12/23/2024 11:30 AM EDT [facility] Monocyte Absolute Count 0.42 0.00 - 1.00 x 1000/??L 12/23/2024 11:30 AM EDT [facility] Eosinophil Absolute Count 0.09 0.00 - 1.00 x 1000/??L 12/23/2024 11:30 AM EDT [facility] Basophil Absolute Count 0.04 0.00 - 1.00 x 1000/??L 12/23/2024 11:30 AM EDT [facility] Absolute Immature Granulocyte Count 0.03 0.00 - 0.30 x 1000/??L 12/23/2024 11:30 AM EDT [facility] Absolute nRBC 0.00 0.00 - 1.00 x 1000/??L 12/23/2024 11:30 AM EDT [facility] ANC (Abs Neutrophil Count) 4.75 2.00 - 7.60 x 1000/??L 12/23/2024 11:30 AM EDT [facility] Blood Venipuncture / Unknown 12/23/2024 11:23 AM EDT 12/23/2024 11:25 AM EDT Eliud Chaudhary MD LAB BLOOD ORDERABLES Final Resul t Performing Organization Address [facility] Co de Phone Number [facility] [address] [place] [address] * (ABNORMAL) Blood gas, venous (12/23/2024 11:23 AM EDT) pH, Venous 7.46(H) 7.32 - 7.43 units 12/23/2024 11:29 AM EDT [facility] pCO2, Venous 30(L) 38 - 54 mmHg 12/23/2024 11:29 AM EDT [facility] PO2, Venous 67(H) 40 - 50 mmHg 12/23/2024 11:29 AM EDT [facility] O2 Sat, Venous 94 Not Established % 12/23/2024 11:29 AM EDT [facility] Calculated HCO3, Venous 20.9 Not Established mmol/L 12/23/2024 11:29 AM EDT [facility] Base Excess, Venous -2 Not Established mmol/L 12/23/2024 11:29 AM EDT [facility] Blood Venipuncture / Unknown 12/23/2024 11:23 AM EDT 12/23/2024 11:25 AM EDT us Eliud Chaudhary MD LAB BLOOD ORDERABLES Final Resul t Performing Organization Address [facility]/ZIP Co de Phone Number [facility] [address] [place] [address] * (ABNORMAL) Beta-hydroxybutyrate (12/23/2024 11:23 AM EDT) Beta-Hydroxybu tyrate 1.60(H) <=0.27 mmol/L 12/23/2024 11:52 AM EDT [facility] Blood Venipuncture / Unknown 12/23/2024 11:23 AM EDT 12/23/2024 11:25 AM EDT Eliud Chaudhary MD LAB BLOOD ORDERABLES Final Resul t Performing Organization Address City/[facility]/ZIP Co de Phone Number [facility] [address] [place] [address], [facility] [phone] * (ABNORMAL) POC Glucose (Fingerstick) (12/23/2024 10:52 AM EDT) Glucose, Meter 468(HH) 70 - 100 mg/dL 12/23/2024 10:52 AM EDT [facility] Comment:Nurse Notified Blood 12/23/2024 10:5 2 AM EDT 12/23/2024 10:52 AM EDT Provider Not In System POINT OF CARE TEST ORDERA BLES Final Result Performing Organization Address City/[facility] Co de Phone Number [facility] [address] [place] [address], [facility] [phone] documented in this encounter Visit Diagnoses Diagnosis Hyperglycemia- Primary Other abnormal glucose Hyperglycemia Other abnormal glucose Dehydration documented in this encounter Admitting Diagnoses Diagnosis Hyperglycemia Other abnormal glucose documented in this encounter Administered Medications Inactive Administered Medications - up to 3 most recent administrations Medication Order MAR Action Action Date Dose Rate Site acetaminophen (TYLENOL) tablet 650 mg 650 mg, Oral, EVERY 8 HOURS PRN, mild Pain (PIS 1-3), for adult patients may also give for higher pain score per patient preference, Starting on Mar 12/23/24 at 1306, Maximum dose of acetaminophen is 4000 mg from all sources in 24 hours. Given 12/24/2024 9:16 AM EDT 650 mg amLODIPine (NORVASC) tablet 10 mg 10 mg, Oral, Daily, First dose on Fri12/24/24 at 0900, Common Side Effects: Fluid accumulation, fatigue, hypotension., OP SIG:Take 1 tablet (10 mg total) by mouth daily. Given 12/25/2024 8:52 AM EDT 10 mg Given 12/24/2024 9:10 AM EDT 10 mg budesonide-formoteroL (SYMBICORT) 160-4.5 mcg/actuation HFA aerosol inhaler 2 puff 2 puff, Inhalation, 2 Times Daily Scheduled, First dose on Fri12/23/24 at 2100, Seal unused medication in a Ziploc bag and place in the ? out / return bin for pharmacy. Rinse mouth with water and spit after inhalation., OP SIG:Inhale 2 puffs into the lungs 2 (two) times daily. Given 12/25/2024 8:55 AM EDT 2 puffs Given 12/24/2024 11:27 PM EDT 2 puffs Given 12/24/2024 9:11 AM EDT 2 puffs carBAMazepine (TEGretol) Immediate Release tablet 200 mg 200 mg, Oral, 2 Times Daily Scheduled, First dose on Fri12/23/24 at 2100, OP SIG:Take 1 tablet (200 mg total) by mouth 2 (two) times daily. Given 12/25/2024 8:52 AM EDT 200 mg Given 12/24/2024 11:27 PM EDT 200 mg Given 12/24/2024 9:10 AM EDT 200 mg dextrose (GLUCOSE) oral liquid 15 g 15 g, Oral, EVERY 15 MIN PRN, If blood glucose 50 - 69 mg/dL (or 70 - 79 mg/dL with symptoms of hypoglycemia), Starting on Fri12/23/24 at 1344, If alert and able to tolerate enteral intake (not NPO or vomiting). Only administer ONE treatment option. Notify covering clinician, repeat blood glucose (BG) IMMEDIATELY to confirm reading, administer treatment, re-check BG every 15 minutes until it is greater than or equal to 70 mg/dL and check BG one hour post post-hypoglycemic event/treatment. For mealtime or correction scale insulin administration, if BG is older than 1 hour, re-check BG for accurate insulin dose. dextrose (GLUCOSE) oral liquid 30 g 30 g, Oral, EVERY 15 MIN PRN, If blood glucose less than 50 mg/dL, Starting on Mar 12/23/24 at 1344, If alert and able to tolerate enteral intake (not NPO or vomiting). Only administer ONE treatment option. Notify covering clinician, repeat blood glucose (BG) IMMEDIATELY to confirm reading, administer treatment, re-check BG every 15 minutes until it is greater than or equal to 70 mg/dL and check BG one hour post post-hypoglycemic event/treatment. For mealtime or correction scale insulin administration, if BG is older than 1 hour, re-check BG for accurate insulin dose. dextrose 10% injection 125 mL 125 mL (12.5 g), Intravenous, Administer over 15 Minutes, EVERY 15 MIN PRN, blood glucose 50 - 69 mg/dL (or 70 -79 mg/dL with symptoms of hypoglycemia), Starting on Mar 12/23/24 at 1344, Only administer if patient is NOT alert, not cooperative or unable to take enteral (NPO or vomiting). Notify covering clinician, repeat blood glucose (BG) IMMEDIATELY to confirm reading, administer treatment, re-check BG every 15 minutes until it is greater than or equal to 70 mg/dL and check BG one hour post post-hypoglycemic event/treatment. For mealtime or correction scale insulin administration, if BG is older than 1 hour, re-check BG for accurate insulin dose. Bolus from bag. Vesicant agents may cause severe tissue damage, including necrosis, if they extravasate into tissue. dextrose 10% injection 250 mL 250 mL (25 g), Intravenous, Administer over 15 Minutes, EVERY 15 MIN PRN, blood glucose less than 50 mg/dL, Starting on [facility] 12/23/24 at 1344, Only administer if patient is NOT alert, not cooperative or unable to take enteral (NPO or vomiting). Notify covering clinician, repeat blood glucose (BG) IMMEDIATELY to confirm reading, administer treatment, re-check BG every 15 minutes until it is greater than or equal to 70 mg/dL and check BG one hour post post-hypoglycemic event/treatment. For mealtime or correction scale insulin administration, if BG is older than 1 hour, re-check BG for accurate insulin dose. Bolus from bag. Vesicant agents may cause severe tissue damage, including necrosis, if they extravasate into tissue. enoxaparin (LOVENOX) syringe 40 mg 40 mg, Subcutaneous, Every 24 Hours Scheduled (Daily), First dose on Fri12/24/24 at 0900, Contraindicated with epidural use. Common Side Effects: Bruising, minor and major bleeding. Given 12/25/2024 8:52 AM EDT 40 mg Right Upper Arm Given 12/24/2024 9:10 AM EDT 40 mg Le ft Upper Arm fruit juice 120 mL 120 mL, Oral, EVERY 15 MIN PRN, If blood glucose 50 - 69 mg/dL (or 70 - 79 mg/dL with symptoms of hypoglycemia), Starting on Mar 12/23/24 at 1344, If alert and able to tolerate enteral intake (not NPO or vomiting). Only administer ONE treatment option. Notify covering clinician, repeat blood glucose (BG) IMMEDIATELY to confirm reading, administer treatment, re-check BG every 15 minutes until it is greater than or equal to 70 mg/dL and check BG one hour post post-hypoglycemic event/treatment. For mealtime or correction scale insulin administration, if BG is older than 1 hour, re-check BG for accurate insulin dose. Fruit juice should NOT be sugar-free or low sugar. Do NOT administer orange juice in patients on a potassium-restricted diet. fruit juice 240 mL 240 mL, Oral, EVERY 15 MIN PRN, If blood glucose less than 50 mg/dL, Starting on Mar 12/23/24 at 1344, If alert and able to tolerate enteral intake (not NPO or vomiting). Only administer ONE treatment option. Notify covering clinician, repeat blood glucose (BG) IMMEDIATELY to confirm reading, administer treatment, re-check BG every 15 minutes until it is greater than or equal to 70 mg/dL and check BG one hour post post-hypoglycemic event/treatment. For mealtime or correction scale insulin administration, if BG is older than 1 hour, re-check BG for accurate insulin dose. Fruit juice should NOT be sugar-free or low sugar. Do NOT administer orange juice in patients on a potassium-restricted diet. glucagon 1 mg in water for injection, sterile 1 mL (1 mg/mL) 1 mg, Intramuscular, ONCE PRN, If blood glucose less than 70 mg/dL (or 70 - 79 mg/dL with symptoms of hypoglycemia), Starting on Mar 12/23/24 at 1344, For 1 dose, Only administer if patient has NO IV ACCESS available AND is not alert, not cooperative or unable to take enteral (NPO or vomiting). Notify covering clinician, repeat blood glucose (BG) IMMEDIATELY to confirm reading, administer treatment, re-check BG every 15 minutes until it is greater than or equal to 70 mg/dL and check BG one hour and two hours post post-hypoglycemic event/treatment. For mealtime or correction scale insulin administration, if BG is older than 1 hour, re-check BG for accurate insulin dose. If ordered IV Push: Administer undiluted (maximum rate: 1 mg/min) Reconstitute glucagon injection with 1ml Sterile Water for Injection immediately before use. Do not store for later use. hydrALAZINE (APRESOLINE) tablet 25 mg 25 mg, Oral, 3 Times Daily Scheduled, First dose on Fri12/23/24 at 2100, Hold for SBP < 90 mm Hg, OP SIG:Take 1 tablet (25 mg total) by mouth 3 (three) times daily. Given 12/25/2024 2:57 PM EDT 25 mg Given 12/25/2024 8:52 AM EDT 25 mg Given 12/24/2024 9:10 PM EDT 25 mg insulin glargine (Semglee,Lantus) injection 10 Units 10 Units, Subcutaneous, Nightly, First dose on Fri12/23/24 at 2230, Do NOT hold insulin glargine unless instructed by provider. Call covering provider with any concerns. Common Side Effect: Hypoglycemia. Disopose leftover medication in the black RCRA container, On hold since Fri12/24/2024 at 0016 until manually unheld Given 12/23/2024 11:12 PM EDT 10 Units Left Upper Abdomen insulin glargine (Semglee,Lantus) injection 10 Units 10 Units, Subcutaneous, ONCE, On Fri12/24/24 at 0945, For 1 dose, Do NOT hold insulin glargine unless instructed by provider. Call covering provider with any concerns. Common Side Effect: Hypoglycemia. Disopose leftover medication in the black RCRA container Given 12/24/2024 10:23 AM EDT 10 Units Right Lower Abdomen insulin glargine (Semglee,Lantus) injection 20 Units 20 Units, Subcutaneous, Nightly, First dose (after last modification) on Fri12/24/24 at 2100, Do NOT hold insulin glargine unless instructed by provider. Call covering provider with any concerns. Common Side Effect: Hypoglycemia. Disopose leftover medication in the black RCRA container Given 12/24/2024 9:11 PM EDT 20 Units Right Lower Abdomen insulin glargine (Semglee,Lantus) injection 25 Units 25 Units, Subcutaneous, Nightly, First dose (after last modification) on 12/25/24 at 2100, Do NOT hold insulin glargine unless instructed by provider. Call covering provider with any concerns. Common Side Effect: Hypoglycemia. Disopose leftover medication in the black RCRA container insulin lispro (Admelog, HumaLOG) Correction Scale 1-18 Units 1-18 Units, Subcutaneous, 3 Times Daily Before Meals, First dose on Mar 12/23/24 at 1345, IF PATIENT EATING: ADD TO PRE-MEAL BOLUS WHEN BG IS HIGH BEFORE MEAL; IN NPO PATIENTS: GIVE ALONE q6H Notify MD/GARRET if blood glucose is > 400 mg/dL Common Side Effects: Hypoglycemia., Select Sliding Scale Intensity: Medium Dose, Blood Glucose: 150-199 mg/dL: 2 units, Blood Glucose: 200-249 mg/dL: 4 units, Blood Glucose: 250-299 mg/dL: 6 units, Blood Glucose: 300-349 mg/dL: 8 units, Blood Glucose: 350-399 mg/dL: 10 units, Blood Glucose: >/= 400 mg/dL: 12 units Given 12/23/2024 2:22 PM EDT 6 Units Right Lower Abdomen insulin lispro (Admelog, HumaLOG) Correction Scale 1-18 Units 1-18 Units, Subcutaneous, 3 Times Daily Before Meals, First dose on Fri12/24/24 at 0945, IF PATIENT EATING: ADD TO PRE-MEAL BOLUS WHEN BG IS HIGH BEFORE MEAL; IN NPO PATIENTS: GIVE ALONE q6H Notify MD/GARRET if blood glucose is > 400 mg/dL Common Side Effects: Hypoglycemia., Select Sliding Scale Intensity: Medium Dose, Blood Glucose: 150-199 mg/dL: 2 units, Blood Glucose: 200-249 mg/dL: 4 units, Blood Glucose: 250-299 mg/dL: 6 units, Blood Glucose: 300-349 mg/dL: 8 units, Blood Glucose: 350-399 mg/dL: 10 units, Blood Glucose: >/= 400 mg/dL: 12 units Given 12/25/2024 5:34 PM EDT 4 Units Right Upper Arm Given 12/25/2024 12:38 PM EDT 6 Units L eft Upper Arm Given 12/25/2024 8:52 AM EDT 8 Units Ri ght Upper Arm insulin lispro (Admelog, HumaLOG) Correction Scale 1-18 Units 1-18 Units, Subcutaneous, Nightly, First dose on 12/25/24 at 2100, Common Side Effects: Hypoglycemia., Select Bedtime Sliding Scale Intensity: Low Dose, Blood Glucose: 250-299 mg/dL: 1 unit, Blood Glucose: 300-349 mg/dL: 2 units, Blood Glucose: 350-399 mg/dL: 3 units, Blood Glucose: >/= 400 mg/dL: 4 units insulin lispro (Admelog, HumaLOG) injection 5 Units 5 Units, Subcutaneous, 3 Times Daily With Meals, First dose on 12/25/24 at 1200, If patient is eating, administer once meal tray is at bedside and within 15 minutes before eating; if meal intake uncertain, may administer within 15 minutes after a meal. Do NOT administer if patient is NOT eating. Call covering clinician with any concerns. Common Side Effects: Hypoglycemia. Dispose leftover medication in the black RCRA container. Given 12/25/2024 5:34 PM EDT 5 Units Right Upper Arm Given 12/25/2024 12:37 PM EDT 5 Units L eft Upper Arm insulin lispro (Admelog, HumaLOG) injection 5 Units 5 Units, Subcutaneous, ONCE, On 12/25/24 at 0845, For 1 dose, If patient is eating, administer once meal tray is at bedside and within 15 minutes before eating; if meal intake uncertain, may administer within 15 minutes after a meal. Do NOT administer if patient is NOT eating. Call covering clinician with any concerns. Common Side Effects: Hypoglycemia. Dispose leftover medication in the black RCRA container. Given 12/25/2024 8:52 AM EDT 5 Units Right Upper Arm insulin lispro (Admelog, HumaLOG) injection 6 Units 6 Units, Subcutaneous, ONCE, On Mar 12/23/24 at 2230, For 1 dose, If patient is eating, administer once meal tray is at bedside and within 15 minutes before eating; if meal intake uncertain, may administer within 15 minutes after a meal. Do NOT administer if patient is NOT eating. Call covering clinician with any concerns. Common Side Effects: Hypoglycemia. Dispose leftover medication in the black RCRA container. Given 12/23/2024 11:12 PM EDT 6 Units Left Lower Abdomen insulin lispro (Admelog, HumaLOG) injection 8 Units 8 Units, Subcutaneous, ONCE, On Fri12/24/24 at 2115, For 1 dose, If patient is eating, administer once meal tray is at bedside and within 15 minutes before eating; if meal intake uncertain, may administer within 15 minutes after a meal. Do NOT administer if patient is NOT eating. Call covering clinician with any concerns. Common Side Effects: Hypoglycemia. Dispose leftover medication in the black RCRA container. Given 12/24/2024 10:03 PM EDT 8 Units Right Upper Arm insulin regular human (HumuLIN R, NovoLIN R) 100 unit/mL injection 10 Units 10 Units, Subcutaneous, ONCE, On Mar 12/23/24 at 1230, For 1 dose, If ordered before meals, administer 30 minutes before the meal. If patient misses a meal or is unable to take anything by mouth, do not administer insulin dose and notify covering provider. IV Push administration indicated for HYPERGLYLCEMIA in critical care and step down units ONLY. Maximum IV Push dose of 20 units. If ordered IV Push, administer undiluted over 1 minute. RECOMMENDED monitoring includes Blood Glucose every hour x 3 and Mental Status. Common Side Effects: Hypoglycemia. Dispose leftover medication in the black RCRA contaniner. Given 12/23/2024 12:41 PM EDT 10 Units Left Upper Abdomen insulin regular human 100 units in sodium chloride 0.9 % 100 mL (1 unit/mL) infusion 100 mL, at 0.5-20 mL/hr, Intravenous, CONTINUOUS, Starting on Fri12/24/24 at 0015, Divide current BG by 100 then round to the nearest 0.5 units for the initial infusion rate. Infusion rates typically range between 2 - 8 units/hour. Doses greater than 10 units/hour are unusual; Notify covering provider for doses > 10 units/hour to explore other potential contributing factors. Transfer to a higher level of care should be considered. Please refer to the corresponding [facility] Insulin Protocols. Please refer to IV Insulin Transition to [place] Insulin Guideline when transitioning off infusion. Prime tubing with first 20 mL of bag. Common side Effects: Hypoglycemia., Specify insulin protocol: Insulin Infusion Protocol for Adult Patients (Nurse-Driven) Rate/Dose Change 12/24/2024 8:28 AM EDT 3 Units/hr 3 mL/hr Rate Dose Change Dual Sign 12/24/2024 7:01 AM EDT 4 Units/ hr 4 mL/hr Rate Dose Change Dual Sign 12/24/2024 2:23 AM EDT 3 Units/ hr 3 mL/hr insulin regular human bolus from bag Intravenous, ONCE, 1 dose, On Fri12/24/24 at 0015, Initial Bolus Dose from continuous infusion. Administer over 2 minutes. Follow Insulin Infusion Protocol for Adult Patients (Nurse-Driven) for Initial Bolus Dose. Divide initial blood glucose level by 100, then round to nearest 0.5 units for initial bolus dose. Common Side Effects: Hypoglycemia. Bolus from Bag 12/24/2024 12:40 AM EDT 5 Units iohexoL (OMNIPAQUE) 350 mg iodine/mL injection 80 mL 80 mL, Intravenous, IMG ONCE PRN, other, Starting on Fri12/24/24 at 1401, For 1 dose, Vesicant agents may cause severe tissue damage, including necrosis, if they extravasate into tissue; Common Side Effects: Headache, nausea, allergic reaction. Given 12/24/2024 2:01 PM EDT 80 mLs levETIRAcetam (KEPPRA) Immediate Release tablet 1,000 mg 1,000 mg, Oral, 2 Times Daily Scheduled, First dose on Fri12/23/24 at 2100, May be crushed and mixed with applesauce or administered via enteral feeding tube. If administered via enteral feeding tube, disperse crushed tablet(s) in 10 mL of water, shake for 5 minutes to dissolve, and administer immediately via enteral feeding tube., OP SIG:Take 1,000 mg by mouth 2 (two) times daily. Given 12/25/2024 8:51 AM EDT 1,000 mg Given 12/24/2024 9:10 PM EDT 1,000 mg Given 12/24/2024 9:11 AM EDT 1,000 mg magnesium oxide (MAG-OX) tablet 400 mg 400 mg, Oral, Daily, First dose on Fri12/24/24 at 0900, Each magnesium oxide SALT 200 mg increment provides ELEMENTAL magnesium 120 mg; NOTE: Product is dosed in mg of magenesium oxide SALT. Hold for Magnesium level > 2.5 mg/dL, and call MD/LIP if magnesium repletion should be continued., OP SIG:Take 1 tablet (400 mg total) by mouth daily. Given 12/25/2024 8:51 AM EDT 400 mg Given 12/24/2024 9:11 AM EDT 400 mg magnesium sulfate in water 4 gram/100 mL (4 %) sterile water IVPB 4 g 4 g, Intravenous, Administer over 2 Hours, ONCE, On Fri12/23/24 at 1800, For 1 dose, Hold for Magnesium level > 2.5 mg/dL, and call MD/LIP if magnesium repletion should be continued. New Bag 12/23/2024 6:16 PM EDT 4 g 50 mL/hr melatonin tablet 3 mg 3 mg, Oral, Nightly PRN, insomnia, Starting on Fri12/23/24 at 1306, Recommended to administer at least 60 minutes prior to intended bedtime metFORMIN (GLUCOPHAGE) Immediate Release tablet 1,000 mg 1,000 mg, Oral, With Breakfast, First dose (after last modification) on Fri12/24/24 at 0800, If eGFR below 30 mL/min, use of metformin is contraindicated, OP SIG:Take 1 tablet (1,000 mg total) by mouth daily with breakfast. , On hold since Fri12/23/2024 at 1616 until manually unheld metFORMIN (GLUCOPHAGE) Immediate Release tablet 750 mg 750 mg, Oral, With Dinner, First dose on Fri12/24/24 at 1800, If eGFR below 30 mL/min, use of metformin is contraindicated, On hold since [facility] 12/23/2024 at 1616 until manually unheld miconazole nitrate (SECURA EXTRA THICK ANTIFUNGAL) 2 % cream Topical (Top), 2 Times Daily Scheduled, First dose on Fri12/25/24 at 1115, Apply to: Groin, Both Given 12/25/2024 12:38 PM EDT pantoprazole (PROTONIX) EC tablet 40 mg 40 mg, Oral, Daily, First dose on Fri12/24/24 at 0900, Tablet should be swallowed whole; do no split, crush or chew with the EXCEPTION of patients with a J-tube in which the tablet(s) may be crushed for administration. Common Side Effects: stomach upset, headache, nausea., Reason for Use (RFU): Other, RFU: on PPI at home Given 12/25/2024 8:52 AM EDT 40 mg Given 12/24/2024 9:10 AM EDT 40 mg polyethylene glycol (MIRALAX) packet 17 g 17 g, Oral, Daily, First dose on Fri12/24/24 at 0900, Common Side Effects: Diarrhea, discomfort, cramps., OP SIG:Take 1 packet (17 g total) by mouth daily. Mix in 8 ounces of water, juice, soda, coffee or tea prior to taking. Given 12/25/2024 8:52 AM EDT 17 g Given 12/24/2024 9:10 AM EDT 17 g pregabalin (LYRICA) capsule 100 mg 100 mg, Oral, 3 Times Daily Scheduled, First dose on Fri12/23/24 at 2100, OP SIG:Take 100 mg by mouth 3 (three) times daily. Given 12/25/2024 2:57 PM EDT 100 mg Given 12/25/2024 8:52 AM EDT 100 mg Given 12/24/2024 9:10 PM EDT 100 mg risperiDONE (RisperDAL) tablet 1 mg 1 mg, Oral, 2 Times Daily Scheduled, First dose on Fri12/23/24 at 2100, OP SIG:Take 1 tablet (1 mg total) by mouth 2 (two) times daily (0800, 1800). Given 12/25/2024 8:51 AM EDT 1 mg Given 12/24/2024 9:10 PM EDT 1 mg Given 12/24/2024 9:11 AM EDT 1 mg skim milk 240 mL 240 mL, Oral, EVERY 15 MIN PRN, If blood glucose 50 - 69 mg/dL (or 70 - 79 mg/dL with symptoms of hypoglycemia), Starting on Fri12/23/24 at 1344, If alert and able to tolerate enteral intake (not NPO or vomiting). Only administer ONE treatment option. Notify covering clinician, repeat blood glucose (BG) IMMEDIATELY to confirm reading, administer treatment, re-check BG every 15 minutes until it is greater than or equal to 70 mg/dL and check BG one hour post post-hypoglycemic event/treatment. For mealtime or correction scale insulin administration, if BG is older than 1 hour, re-check BG for accurate insulin dose. Do NOT administer in patients on a phosphorus-restricted diet. sodium chloride 0.9 % (new bag) bolus 1,000 mL 1,000 mL, Intravenous, Administer over 15 Minutes, ONCE, On Fri12/23/24 at 1115, For 1 dose New Bag 12/23/2024 11:18 AM EDT 1,000 mLs 4000 mL/hr sodium chloride 0.9 % flush 3 mL 3 mL, IV Push, Every 8 Hours Scheduled, First dose on Fri12/23/24 at 1400, For PIV lock flush only. Given 12/23/2024 8:51 PM EDT 3 mLs Given 12/23/2024 2:22 PM EDT 3 mLs sodium chloride 0.9 % flush 3 mL 3 mL, IV Push, PRN for Line Care, other, PIV Line Care: Before and after administration of intravenous fluids, medications and blood products and/or blood specimen collection; As needed to assess catheter patency, Starting on Fri12/23/24 at 1306 sodium chloride 0.9% large volume syringe for autoinjector 40 mL 40 mL, Intravenous, IMG ONCE PRN, other, Imaging, Starting on Fri12/24/24 at 1401, For 1 dose Given 12/24/2024 2:01 PM EDT 40 mLs traZODone (DESYREL) tablet 50 mg 50 mg, Oral, Nightly PRN, insomnia/sleep Second line therapy, Starting on Fri12/23/24 at 1547, Common Side Effects: Sedation, headache, dizziness, nausea., OP SIG:Take 1 tablet (50 mg total) by mouth See Admin Instructions. 50 to 100 as needed nightly for sleep Given 12/24/2024 9:10 PM EDT 50 mg Given 12/23/2024 8:45 PM EDT 50 mg documented in this encounter Active and Recently Administered Medications Times are shown in EDT. Scheduled Medication Order 12/23/2024 12/24/2024 12/25/2024 amLODIPine (NORVASC) tablet 10 mg 10 mg, Oral, Daily, First dose on Fri12/24/24 at 0900, Common Side Effects: Fluid accumulation, fatigue, hypotension., OP SIG:Take 1 tablet (10 mg total) by mouth daily. 0910 (Given - Provider: Ashley Henry, RN) 0852 (Given - Provider: Kassidy Flores, RN) budesonide-formoteroL (SYMBICORT) 160-4.5 mcg/actuation HFA aerosol inhaler 2 puff 2 puff, Inhalation, 2 Times Daily Scheduled, First dose on Mar 12/23/24 at 2100, Seal unused medication in a Ziploc bag and place in the ? out / return bin for pharmacy. Rinse mouth with water and spit after inhalation., OP SIG:Inhale 2 puffs into the lungs 2 (two) times daily. 2048 (Given - Provider: Mer Parker RN) 910 (Given - Provider: Ahsley Henry, RN)2326 (Given - Provider: Adali Toro, REBECCA) 0855 (Given - Provider: Kassidy Flores, REBECCA) carBAMazepine (TEGretol) Immediate Release tablet 200 mg 200 mg, Oral, 2 Times Daily Scheduled, First dose on Mar 12/23/24 at 2100, OP SIG:Take 1 tablet (200 mg total) by mouth 2 (two) times daily. 2044 (Given - Provider: Mer Parker RN) 909 (Given - Provider: Ashley Henry, REBECCA)2326 (Given - Provider: Adali Toro, REBECCA) 0852 (Given - Provider: Kassidy Flores, REBECCA) clopidogreL (PLAVIX) tablet 75 mg 75 mg, Oral, Daily, First dose on Fri12/26/24 at 0900, Common Side Effects: Stomach upset, bleeding, bruising., OP SIG:Take 1 tablet (75 mg total) by mouth daily. enoxaparin (LOVENOX) syringe 40 mg 40 mg, Subcutaneous, Every 24 Hours Scheduled (Daily), First dose on Fri12/24/24 at 0900, Contraindicated with epidural use. Common Side Effects: Bruising, minor and major bleeding. 09 (Given - Provider: Ashley Henry RN) 0852 (Given - Provider: Kassidy Folres, REBECCA) hydrALAZINE (APRESOLINE) tablet 25 mg 25 mg, Oral, 3 Times Daily Scheduled, First dose on Mar 12/23/24 at 2100, Hold for SBP < 90 mm Hg, OP SIG:Take 1 tablet (25 mg total) by mouth 3 (three) times daily. 2044 (Given - Provider: Mer Parker RN) 09 (Given - Provider: Ashley Henry RN)153 (Given - Provider: Ashley Henry RN)211 (Given - Provider: Adali Toro, RN) 0852 (Given - Provider: Kassidy Flores, RN)1457 (Given - Provider: Kassidy Flores RN) insulin glargine (Semglee,Lantus) injection 10 Units (CANCELED) 10 Units, Subcutaneous, Nightly, First dose on Mar 12/23/24 at 2230, Do NOT hold insulin glargine unless instructed by provider. Call covering provider with any concerns. Common Side Effect: Hypoglycemia. Disopose leftover medication in the black RCRA container, On hold since Fri12/24/2024 at 0016 until manually unheld 2311 (Given - Provider: Mer Parker RN) 0016 (Held by provider - Provider: Xiomara Haskins MD - Reason: Other (Specify in Comments))0932 (Unheld by provider - Provider: Sonal Oneill NP) insulin glargine (Semglee,Lantus) injection 10 Units (COMPLETED) 10 Units, Subcutaneous, ONCE, On Fri12/24/24 at 0945, For 1 dose, Do NOT hold insulin glargine unless instructed by provider. Call covering provider with any concerns. Common Side Effect: Hypoglycemia. Disopose leftover medication in the black RCRA container 1023 (Given - Provider: Ashley Henry RN) insulin glargine (Semglee,Lantus) injection 20 Units (CANCELED) 20 Units, Subcutaneous, Nightly, First dose (after last modification) on Fri12/24/24 at 2100, Do NOT hold insulin glargine unless instructed by provider. Call covering provider with any concerns. Common Side Effect: Hypoglycemia. Disopose leftover medication in the black RCRA container 2111 (Given - Provider: Adali Toro, REBECCA) insulin glargine (Semglee,Lantus) injection 25 Units 25 Units, Subcutaneous, Nightly, First dose (after last modification) on Fri12/25/24 at 2100, Do NOT hold insulin glargine unless instructed by provider. Call covering provider with any concerns. Common Side Effect: Hypoglycemia. Disopose leftover medication in the black RCRA container insulin lispro (Admelog, HumaLOG) Correction Scale 1-18 Units (CANCELED) 1-18 Units, Subcutaneous, 3 Times Daily Before Meals, First dose on Mar 12/23/24 at 1345, IF PATIENT EATING: ADD TO PRE-MEAL BOLUS WHEN BG IS HIGH BEFORE MEAL; IN NPO PATIENTS: GIVE ALONE q6H Notify MD/GARRET if blood glucose is > 400 mg/dL Common Side Effects: Hypoglycemia., Select Sliding Scale Intensity: Medium Dose, Blood Glucose: 150-199 mg/dL: 2 units, Blood Glucose: 200-249 mg/dL: 4 units, Blood Glucose: 250-299 mg/dL: 6 units, Blood Glucose: 300-349 mg/dL: 8 units, Blood Glucose: 350-399 mg/dL: 10 units, Blood Glucose: >/= 400 mg/dL: 12 units 1422 (Given - Provider: Ledy Justin RN) insulin lispro (Admelog, HumaLOG) Correction Scale 1-18 Units 1-18 Units, Subcutaneous, 3 Times Daily Before Meals, First dose on Fri12/24/24 at 0945, IF PATIENT EATING: ADD TO PRE-MEAL BOLUS WHEN BG IS HIGH BEFORE MEAL; IN NPO PATIENTS: GIVE ALONE q6H Notify MD/GARRET if blood glucose is > 400 mg/dL Common Side Effects: Hypoglycemia., Select Sliding Scale Intensity: Medium Dose, Blood Glucose: 150-199 mg/dL: 2 units, Blood Glucose: 200-249 mg/dL: 4 units, Blood Glucose: 250-299 mg/dL: 6 units, Blood Glucose: 300-349 mg/dL: 8 units, Blood Glucose: 350-399 mg/dL: 10 units, Blood Glucose: >/= 400 mg/dL: 12 units 1013 (Not Given - Provider: Ashley Henry RN - Reason: Order parameters not met - Comment: [phone] (Given - Provider: Cathryn Weston RN) 0894 (Given - Provider: Kassidy Flores RN)1238 (Given - Provider: Kassidy Flores RN)1734 (Given - Provider: Kassidy Flores RN) insulin lispro (Admelog, HumaLOG) Correction Scale 1-18 Units 1-18 Units, Subcutaneous, Nightly, First dose on 12/25/24 at 2100, Common Side Effects: Hypoglycemia., Select Bedtime Sliding Scale Intensity: Low Dose, Blood Glucose: 250-299 mg/dL: 1 unit, Blood Glucose: 300-349 mg/dL: 2 units, Blood Glucose: 350-399 mg/dL: 3 units, Blood Glucose: >/= 400 mg/dL: 4 units insulin lispro (Admelog, HumaLOG) injection 5 Units 5 Units, Subcutaneous, 3 Times Daily With Meals, First dose on 12/25/24 at 1200, If patient is eating, administer once meal tray is at bedside and within 15 minutes before eating; if meal intake uncertain, may administer within 15 minutes after a meal. Do NOT administer if patient is NOT eating. Call covering clinician with any concerns. Common Side Effects: Hypoglycemia. Dispose leftover medication in the black RCRA container. 1237 (Given - Provider: Kassidy Flores RN)1734 (Given - Provider: Kassidy Flores RN) insulin lispro (Admelog, HumaLOG) injection 5 Units (COMPLETED) 5 Units, Subcutaneous, ONCE, On 12/25/24 at 0845, For 1 dose, If patient is eating, administer once meal tray is at bedside and within 15 minutes before eating; if meal intake uncertain, may administer within 15 minutes after a meal. Do NOT administer if patient is NOT eating. Call covering clinician with any concerns. Common Side Effects: Hypoglycemia. Dispose leftover medication in the black RCRA container. 0852 (Given - Provider: Kassidy Flores RN) insulin lispro (Admelog, HumaLOG) injection 6 Units (COMPLETED) 6 Units, Subcutaneous, ONCE, On Mar 12/23/24 at 2230, For 1 dose, If patient is eating, administer once meal tray is at bedside and within 15 minutes before eating; if meal intake uncertain, may administer within 15 minutes after a meal. Do NOT administer if patient is NOT eating. Call covering clinician with any concerns. Common Side Effects: Hypoglycemia. Dispose leftover medication in the black RCRA container. 2312 (Given - Provider: Mer Parker RN) insulin lispro (Admelog, HumaLOG) injection 8 Units (COMPLETED) 8 Units, Subcutaneous, ONCE, On Fri12/24/24 at 2115, For 1 dose, If patient is eating, administer once meal tray is at bedside and within 15 minutes before eating; if meal intake uncertain, may administer within 15 minutes after a meal. Do NOT administer if patient is NOT eating. Call covering clinician with any concerns. Common Side Effects: Hypoglycemia. Dispose leftover medication in the black RCRA container. 2203 (Given - Provider: Adali Toro, REBECCA) insulin regular human (HumuLIN R, NovoLIN R) 100 unit/mL injection 10 Units (COMPLETED) 10 Units, Subcutaneous, ONCE, On Fri12/23/24 at 1230, For 1 dose, If ordered before meals, administer 30 minutes before the meal. If patient misses a meal or is unable to take anything by mouth, do not administer insulin dose and notify covering provider. IV Push administration indicated for HYPERGLYLCEMIA in critical care and step down units ONLY. Maximum IV Push dose of 20 units. If ordered IV Push, administer undiluted over 1 minute. RECOMMENDED monitoring includes Blood Glucose every hour x 3 and Mental Status. Common Side Effects: Hypoglycemia. Dispose leftover medication in the black RCRA contaniner. 1241 (Given - Provider: Maureen Olivares RN) insulin regular human bolus from bag (COMPLETED)(Linked Group 1) Intravenous, ONCE, 1 dose, On Fri12/24/24 at 0015, Initial Bolus Dose from continuous infusion. Administer over 2 minutes. Follow Insulin Infusion Protocol for Adult Patients (Nurse-Driven) for Initial Bolus Dose. Divide initial blood glucose level by 100, then round to nearest 0.5 units for initial bolus dose. Common Side Effects: Hypoglycemia. 0040 (Bolus from Bag - Provider: Mer Parker, REBECCA) levETIRAcetam (KEPPRA) Immediate Release tablet 1,000 mg 1,000 mg, Oral, 2 Times Daily Scheduled, First dose on Fri12/23/24 at 2100, May be crushed and mixed with applesauce or administered via enteral feeding tube. If administered via enteral feeding tube, disperse crushed tablet(s) in 10 mL of water, shake for 5 minutes to dissolve, and administer immediately via enteral feeding tube., OP SIG:Take 1,000 mg by mouth 2 (two) times daily. 2044 (Given - Provider: Mer Parker RN) 910 (Given - Provider: Ashley Henry, REBECCA)2109 (Given - Provider: Adali Toro, REBECCA) 850 (Given - Provider: Kassidy Flores, RN) magnesium oxide (MAG-OX) tablet 400 mg 400 mg, Oral, Daily, First dose on Fri12/24/24 at 0900, Each magnesium oxide SALT 200 mg increment provides ELEMENTAL magnesium 120 mg; NOTE: Product is dosed in mg of magenesium oxide SALT. Hold for Magnesium level > 2.5 mg/dL, and call MD/LIP if magnesium repletion should be continued., OP SIG:Take 1 tablet (400 mg total) by mouth daily. 910 (Given - Provider: Ashley Henry, REBECCA) 850 (Given - Provider: Kassidy Flores, REBECCA) magnesium sulfate in water 4 gram/100 mL (4 %) sterile water IVPB 4 g (COMPLETED) 4 g, Intravenous, Administer over 2 Hours, ONCE, On Fri12/23/24 at 1800, For 1 dose, Hold for Magnesium level > 2.5 mg/dL, and call MD/LIP if magnesium repletion should be continued. 1815 (New Bag - Provider: Ledy Justin RN) metFORMIN (GLUCOPHAGE) Immediate Release tablet 1,000 mg 1,000 mg, Oral, With Breakfast, First dose (after last modification) on Fri12/24/24 at 0800, If eGFR below 30 mL/min, use of metformin is contraindicated, OP SIG:Take 1 tablet (1,000 mg total) by mouth daily with breakfast. , On hold since Fri12/23/2024 at 1616 until manually unheld 161 (Held by provider - Provider: Edi Kendall MD - Reason: Nothing Enteral or Oral) 0800 (Automatically Held - Provider: Edi Kendall MD) 0800 (Automatically Held - Provider: Edi Kendall MD)2334 (Unheld by provider - Provider: Automatic Discharge Provider) metFORMIN (GLUCOPHAGE) Immediate Release tablet 750 mg 750 mg, Oral, With Dinner, First dose on Fri12/24/24 at 1800, If eGFR below 30 mL/min, use of metformin is contraindicated, On hold since Mar 12/23/2024 at 1616 until manually unheld 1616 (Held by provider - Provider: Edi Kendall MD - Reason: Nothing Enteral or Oral) 1800 (Automatically Held - Provider: Edi Kendall MD) 1800 (Automatically Held - Provider: Edi Kendall MD)2334 (Unheld by provider - Provider: Automatic Discharge Provider) miconazole nitrate (SECURA EXTRA THICK ANTIFUNGAL) 2 % cream Topical (Top), 2 Times Daily Scheduled, First dose on Fri12/25/24 at 1115, Apply to: Groin, Both 1238 (Given - Provider: Kassidy Flores, REBECCA) pantoprazole (PROTONIX) EC tablet 40 mg 40 mg, Oral, Daily, First dose on Fri12/24/24 at 0900, Tablet should be swallowed whole; do no split, crush or chew with the EXCEPTION of patients with a J-tube in which the tablet(s) may be crushed for administration. Common Side Effects: stomach upset, headache, nausea., Reason for Use (RFU): Other, RFU: on PPI at home 909 (Given - Provider: Ashley Henry RN) 0852 (Given - Provider: Kassidy Flores RN) polyethylene glycol (MIRALAX) packet 17 g 17 g, Oral, Daily, First dose on Fri12/24/24 at 0900, Common Side Effects: Diarrhea, discomfort, cramps., OP SIG:Take 1 packet (17 g total) by mouth daily. Mix in 8 ounces of water, juice, soda, coffee or tea prior to taking. 909 (Given - Provider: Ashley Henry RN) 0852 (Given - Provider: Kassidy Flores, REBECCA) pregabalin (LYRICA) capsule 100 mg 100 mg, Oral, 3 Times Daily Scheduled, First dose on Fri12/23/24 at 2100, OP SIG:Take 100 mg by mouth 3 (three) times daily. 2044 (Given - Provider: Mer Parker RN) 09 (Given - Provider: Ashley Henry RN)153 (Given - Provider: Ashley Henry RN)2109 (Given - Provider: Adali Toro RN) 0852 (Given - Provider: Kassidy Flores RN)1457 (Given - Provider: Kassidy Flores RN) risperiDONE (RisperDAL) tablet 1 mg 1 mg, Oral, 2 Times Daily Scheduled, First dose on Mar 12/23/24 at 2100, OP SIG:Take 1 tablet (1 mg total) by mouth 2 (two) times daily (0800, 1800). 2044 (Given - Provider: Mer Parker RN) 09 (Given - Provider: Ashley Henry RN)2109 (Given - Provider: Adali Toro RN) 0851 (Given - Provider: Kassidy Flores RN) rosuvastatin (CRESTOR) tablet 20 mg 20 mg, Oral, Daily, First dose on Fri12/24/24 at 0900, Common side effects are nausea, headache, muscle pain or weakness., On hold since Fri12/23/2024 at 1752 until manually unheld 175 (Held by provider - Provider: Edi Kendall MD - Reason: Lab Value) 0900 (Automatically Held - Provider: Edi Kendall MD) 0900 (Automatically Held - Provider: Edi Kendall MD)2334 (Unheld by provider - Provider: Automatic Discharge Provider) sodium chloride 0.9 % (new bag) bolus 1,000 mL (COMPLETED) 1,000 mL, Intravenous, Administer over 15 Minutes, ONCE, On Mar 12/23/24 at 1115, For 1 dose 1118 (New Bag - Provider: Maureen Olivares, REBECCA)1230 (Stopped - Provider: Maureen Olivares RN) sodium chloride 0.9 % flush 3 mL 3 mL, IV Push, Every 8 Hours Scheduled, First dose on Mar 12/23/24 at 1400, For PIV lock flush only. 142 (Given - Provider: Ledy Justin RN)2050 (Given - Provider: Mer Parker RN) 0539 (Not Given - Provider: Mer Parker RN - Reason: Continuous Infusion)1525 (Canceled Entry - Provider: Ashley Henry RN)211 (Canceled Entry - Provider: Adali Toro RN) 0502 (Canceled Entry - Provider: Adali Toro RN)1327 (Canceled Entry - Provider: Kassidy Flores RN) Continuous Medication Order 12/23/2024 12/24/2024 12/25/2024 insulin regular human 100 units in sodium chloride 0.9 % 100 mL (1 unit/mL) infusion (CANCELED)(Linked Group 1) 100 mL, at 0.5-20 mL/hr, Intravenous, CONTINUOUS, Starting on Fri12/24/24 at 0015, Divide current BG by 100 then round to the nearest 0.5 units for the initial infusion rate. Infusion rates typically range between 2 - 8 units/hour. Doses greater than 10 units/hour are unusual; Notify covering provider for doses > 10 units/hour to explore other potential contributing factors. Transfer to a higher level of care should be considered. Please refer to the corresponding [facility] Insulin Protocols. Please refer to IV Insulin Transition to [place] Insulin Guideline when transitioning off infusion. Prime tubing with first 20 mL of bag. Common side Effects: Hypoglycemia., Specify insulin protocol: Insulin Infusion Protocol for Adult Patients (Nurse-Driven) 0040 (New Bag - Provider: Mer Parker RN)0150 (Stopped - Provider: Mer Parker RN)0223 (Rate Dose Change Dual Sign - Provider: Mer Parker RN)0701 (Rate Dose Change Dual Sign - Provider: Mer Parker RN)0828 (Rate/Dose Change - Provider: Ashley Henry RN - Comment: Verified rate and rate decrease w/ Maryjane FERNANDEZ)1014 (Stopped - Provider: Ashley Henry RN) PRN Medication Order 12/23/2024 12/24/2024 12/25/2024 acetaminophen (TYLENOL) tablet 650 mg 650 mg, Oral, EVERY 8 HOURS PRN, mild Pain (PIS 1-3), for adult patients may also give for higher pain score per patient preference, Starting on Fri12/23/24 at 1306, Maximum dose of acetaminophen is 4000 mg from all sources in 24 hours. 0916 (Given - Provider: Ashley Henry, REBECCA) albuterol sulfate 90 mcg/actuation HFA aerosol inhaler 1 puff 1 puff, Inhalation, EVERY 6 HOURS PRN, shortness of breath, Starting on Mar 12/23/24 at 1547, Common Side Effects: Tachycardia, nervousness. Seal unused medication in a Ziploc bag and place in the out / return bin for pharmacy., OP SIG:Inhale 1 puff into the lungs every 6 (six) hours as needed. dextrose (GLUCOSE) oral liquid 15 g(Linked Group 2) 15 g, Oral, EVERY 15 MIN PRN, If blood glucose 50 - 69 mg/dL (or 70 - 79 mg/dL with symptoms of hypoglycemia), Starting on Mar 12/23/24 at 1344, If alert and able to tolerate enteral intake (not NPO or vomiting). Only administer ONE treatment option. Notify covering clinician, repeat blood glucose (BG) IMMEDIATELY to confirm reading, administer treatment, re-check BG every 15 minutes until it is greater than or equal to 70 mg/dL and check BG one hour post post-hypoglycemic event/treatment. For mealtime or correction scale insulin administration, if BG is older than 1 hour, re-check BG for accurate insulin dose. dextrose (GLUCOSE) oral liquid 30 g(Linked Group 3) 30 g, Oral, EVERY 15 MIN PRN, If blood glucose less than 50 mg/dL, Starting on Mar 12/23/24 at 1344, If alert and able to tolerate enteral intake (not NPO or vomiting). Only administer ONE treatment option. Notify covering clinician, repeat blood glucose (BG) IMMEDIATELY to confirm reading, administer treatment, re-check BG every 15 minutes until it is greater than or equal to 70 mg/dL and check BG one hour post post-hypoglycemic event/treatment. For mealtime or correction scale insulin administration, if BG is older than 1 hour, re-check BG for accurate insulin dose. dextrose 10% injection 125 mL 125 mL (12.5 g), Intravenous, Administer over 15 Minutes, EVERY 15 MIN PRN, blood glucose 50 - 69 mg/dL (or 70 -79 mg/dL with symptoms of hypoglycemia), Starting on Mar 12/23/24 at 1344, Only administer if patient is NOT alert, not cooperative or unable to take enteral (NPO or vomiting). Notify covering clinician, repeat blood glucose (BG) IMMEDIATELY to confirm reading, administer treatment, re-check BG every 15 minutes until it is greater than or equal to 70 mg/dL and check BG one hour post post-hypoglycemic event/treatment. For mealtime or correction scale insulin administration, if BG is older than 1 hour, re-check BG for accurate insulin dose. Bolus from bag. Vesicant agents may cause severe tissue damage, including necrosis, if they extravasate into tissue. dextrose 10% injection 250 mL 250 mL (25 g), Intravenous, Administer over 15 Minutes, EVERY 15 MIN PRN, blood glucose less than 50 mg/dL, Starting on Mar 12/23/24 at 1344, Only administer if patient is NOT alert, not cooperative or unable to take enteral (NPO or vomiting). Notify covering clinician, repeat blood glucose (BG) IMMEDIATELY to confirm reading, administer treatment, re-check BG every 15 minutes until it is greater than or equal to 70 mg/dL and check BG one hour post post-hypoglycemic event/treatment. For mealtime or correction scale insulin administration, if BG is older than 1 hour, re-check BG for accurate insulin dose. Bolus from bag. Vesicant agents may cause severe tissue damage, including necrosis, if they extravasate into tissue. fruit juice 120 mL(Linked Group 2) 120 mL, Oral, EVERY 15 MIN PRN, If blood glucose 50 - 69 mg/dL (or 70 - 79 mg/dL with symptoms of hypoglycemia), Starting on Mar 12/23/24 at 1344, If alert and able to tolerate enteral intake (not NPO or vomiting). Only administer ONE treatment option. Notify covering clinician, repeat blood glucose (BG) IMMEDIATELY to confirm reading, administer treatment, re-check BG every 15 minutes until it is greater than or equal to 70 mg/dL and check BG one hour post post-hypoglycemic event/treatment. For mealtime or correction scale insulin administration, if BG is older than 1 hour, re-check BG for accurate insulin dose. Fruit juice should NOT be sugar-free or low sugar. Do NOT administer orange juice in patients on a potassium-restricted diet. fruit juice 240 mL(Linked Group 3) 240 mL, Oral, EVERY 15 MIN PRN, If blood glucose less than 50 mg/dL, Starting on Mar 12/23/24 at 1344, If alert and able to tolerate enteral intake (not NPO or vomiting). Only administer ONE treatment option. Notify covering clinician, repeat blood glucose (BG) IMMEDIATELY to confirm reading, administer treatment, re-check BG every 15 minutes until it is greater than or equal to 70 mg/dL and check BG one hour post post-hypoglycemic event/treatment. For mealtime or correction scale insulin administration, if BG is older than 1 hour, re-check BG for accurate insulin dose. Fruit juice should NOT be sugar-free or low sugar. Do NOT administer orange juice in patients on a potassium-restricted diet. glucagon 1 mg in water for injection, sterile 1 mL (1 mg/mL) 1 mg, Intramuscular, ONCE PRN, If blood glucose less than 70 mg/dL (or 70 - 79 mg/dL with symptoms of hypoglycemia), Starting on Mar 12/23/24 at 1344, For 1 dose, Only administer if patient has NO IV ACCESS available AND is not alert, not cooperative or unable to take enteral (NPO or vomiting). Notify covering clinician, repeat blood glucose (BG) IMMEDIATELY to confirm reading, administer treatment, re-check BG every 15 minutes until it is greater than or equal to 70 mg/dL and check BG one hour and two hours post post-hypoglycemic event/treatment. For mealtime or correction scale insulin administration, if BG is older than 1 hour, re-check BG for accurate insulin dose. If ordered IV Push: Administer undiluted (maximum rate: 1 mg/min) Reconstitute glucagon injection with 1ml Sterile Water for Injection immediately before use. Do not store for later use. iohexoL (OMNIPAQUE) 350 mg iodine/mL injection 80 mL (COMPLETED) 80 mL, Intravenous, IMG ONCE PRN, other, Starting on Fri12/24/24 at 1401, For 1 dose, Vesicant agents may cause severe tissue damage, including necrosis, if they extravasate into tissue; Common Side Effects: Headache, nausea, allergic reaction. 1401 (Given - Provider: Keri Fowler) melatonin tablet 3 mg 3 mg, Oral, Nightly PRN, insomnia, Starting on Fri12/23/24 at 1306, Recommended to administer at least 60 minutes prior to intended bedtime skim milk 240 mL(Linked Group 2) 240 mL, Oral, EVERY 15 MIN PRN, If blood glucose 50 - 69 mg/dL (or 70 - 79 mg/dL with symptoms of hypoglycemia), Starting on Mar 12/23/24 at 1344, If alert and able to tolerate enteral intake (not NPO or vomiting). Only administer ONE treatment option. Notify covering clinician, repeat blood glucose (BG) IMMEDIATELY to confirm reading, administer treatment, re-check BG every 15 minutes until it is greater than or equal to 70 mg/dL and check BG one hour post post-hypoglycemic event/treatment. For mealtime or correction scale insulin administration, if BG is older than 1 hour, re-check BG for accurate insulin dose. Do NOT administer in patients on a phosphorus-restricted diet. sodium chloride 0.9 % flush 3 mL 3 mL, IV Push, PRN for Line Care, other, PIV Line Care: Before and after administration of intravenous fluids, medications and blood products and/or blood specimen collection; As needed to assess catheter patency, Starting on Fri12/23/24 at 1306 sodium chloride 0.9% large volume syringe for autoinjector 40 mL (COMPLETED) 40 mL, Intravenous, IMG ONCE PRN, other, Imaging, Starting on Fri12/24/24 at 1401, For 1 dose 1401 (Given - Provider: Keri Fowler) traZODone (DESYREL) tablet 50 mg 50 mg, Oral, Nightly PRN, insomnia/sleep Second line therapy, Starting on Fri12/23/24 at 1547, Common Side Effects: Sedation, headache, dizziness, nausea., OP SIG:Take 1 tablet (50 mg total) by mouth See Admin Instructions. 50 to 100 as needed nightly for sleep 2044 (Given - Provider: Mer Parker, RN) 2109 (Given - Provider: Adali Toro, REBECCA) Linked Groups Order Group 1: insulin regular human bolus from bag (COMPLETED)Jump to med Intravenous, ONCE, 1 dose, On Fri12/24/24 at 0015, Initial Bolus Dose from continuous infusion. Administer over 2 minutes. Follow Insulin Infusion Protocol for Adult Patients (Nurse-Driven) for Initial Bolus Dose. Divide initial blood glucose level by 100, then round to nearest 0.5 units for initial bolus dose. Common Side Effects: Hypoglycemia. And insulin regular human 100 units in sodium chloride 0.9 % 100 mL (1 unit/mL) infusion (CANCELED)Jump to med 100 mL, at 0.5-20 mL/hr, Intravenous, CONTINUOUS, Starting on Fri12/24/24 at 0015, Divide current BG by 100 then round to the nearest 0.5 units for the initial infusion rate. Infusion rates typically range between 2 - 8 units/hour. Doses greater than 10 units/hour are unusual; Notify covering provider for doses > 10 units/hour to explore other potential contributing factors. Transfer to a higher level of care should be considered. Please refer to the corresponding [facility] Insulin Protocols. Please refer to IV Insulin Transition to [place] Insulin Guideline when transitioning off infusion. Prime tubing with first 20 mL of bag. Common side Effects: Hypoglycemia., Specify insulin protocol: Insulin Infusion Protocol for Adult Patients (Nurse-Driven) And dextrose 10% injection 250 mL (CANCELED) 250 mL (25 g), Intravenous, Administer over 15 Minutes, EVERY 15 MIN PRN, blood glucose less than 50 mg/dL, Starting on Fri12/24/24 at 0014, HOLD insulin infusion Recheck blood glucose q 15 minutes until blood glucose greater than or equal to 90 mg/dL. Then, recheck blood glucose q 1 hr; when blood glucose greater than or equal to 140 mg/dL, wait 30 min, restart insulin infusion at 50% of most recent rate (rounded down to the nearest 0.5 unit/hr). Bolus from bag. Vesicant agents may cause severe tissue damage, including necrosis, if they extravasate into tissue. And dextrose 10% injection 125 mL (CANCELED) 125 mL (12.5 g), Intravenous, Administer over 15 Minutes, EVERY 15 MIN PRN, blood glucose 50 to 74 mg/dL, Starting on Fri12/24/24 at 0014, HOLD insulin infusion Recheck blood glucose q 15 minutes until blood glucose greater than or equal to 90 mg/dL. Then, recheck blood glucose q 1 hr; when blood glucose greater than or equal to 140 mg/dL, wait 30 min, restart insulin infusion at 50% of most recent rate (rounded down to the nearest 0.5 unit/hr). Bolus from bag. Vesicant agents may cause severe tissue damage, including necrosis, if they extravasate into tissue. Group 2: dextrose (GLUCOSE) oral liquid 15 gJump to med 15 g, Oral, EVERY 15 MIN PRN, If blood glucose 50 - 69 mg/dL (or 70 - 79 mg/dL with symptoms of hypoglycemia), Starting on Mar 12/23/24 at 1344, If alert and able to tolerate enteral intake (not NPO or vomiting). Only administer ONE treatment option. Notify covering clinician, repeat blood glucose (BG) IMMEDIATELY to confirm reading, administer treatment, re-check BG every 15 minutes until it is greater than or equal to 70 mg/dL and check BG one hour post post-hypoglycemic event/treatment. For mealtime or correction scale insulin administration, if BG is older than 1 hour, re-check BG for accurate insulin dose. Or fruit juice 120 mLJump to med 120 mL, Oral, EVERY 15 MIN PRN, If blood glucose 50 - 69 mg/dL (or 70 - 79 mg/dL with symptoms of hypoglycemia), Starting on Mar 12/23/24 at 1344, If alert and able to tolerate enteral intake (not NPO or vomiting). Only administer ONE treatment option. Notify covering clinician, repeat blood glucose (BG) IMMEDIATELY to confirm reading, administer treatment, re-check BG every 15 minutes until it is greater than or equal to 70 mg/dL and check BG one hour post post-hypoglycemic event/treatment. For mealtime or correction scale insulin administration, if BG is older than 1 hour, re-check BG for accurate insulin dose. Fruit juice should NOT be sugar-free or low sugar. Do NOT administer orange juice in patients on a potassium-restricted diet. Or skim milk 240 mLJump to med 240 mL, Oral, EVERY 15 MIN PRN, If blood glucose 50 - 69 mg/dL (or 70 - 79 mg/dL with symptoms of hypoglycemia), Starting on Mar 12/23/24 at 1344, If alert and able to tolerate enteral intake (not NPO or vomiting). Only administer ONE treatment option. Notify covering clinician, repeat blood glucose (BG) IMMEDIATELY to confirm reading, administer treatment, re-check BG every 15 minutes until it is greater than or equal to 70 mg/dL and check BG one hour post post-hypoglycemic event/treatment. For mealtime or correction scale insulin administration, if BG is older than 1 hour, re-check BG for accurate insulin dose. Do NOT administer in patients on a phosphorus-restricted diet. Group 3: dextrose (GLUCOSE) oral liquid 30 gJump to med 30 g, Oral, EVERY 15 MIN PRN, If blood glucose less than 50 mg/dL, Starting on Mar 12/23/24 at 1344, If alert and able to tolerate enteral intake (not NPO or vomiting). Only administer ONE treatment option. Notify covering clinician, repeat blood glucose (BG) IMMEDIATELY to confirm reading, administer treatment, re-check BG every 15 minutes until it is greater than or equal to 70 mg/dL and check BG one hour post post-hypoglycemic event/treatment. For mealtime or correction scale insulin administration, if BG is older than 1 hour, re-check BG for accurate insulin dose. Or fruit juice 240 mLJump to med 240 mL, Oral, EVERY 15 MIN PRN, If blood glucose less than 50 mg/dL, Starting on Mar 12/23/24 at 1344, If alert and able to tolerate enteral intake (not NPO or vomiting). Only administer ONE treatment option. Notify covering clinician, repeat blood glucose (BG) IMMEDIATELY to confirm reading, administer treatment, re-check BG every 15 minutes until it is greater than or equal to 70 mg/dL and check BG one hour post post-hypoglycemic event/treatment. For mealtime or correction scale insulin administration, if BG is older than 1 hour, re-check BG for accurate insulin dose. Fruit juice should NOT be sugar-free or low sugar. Do NOT administer orange juice in patients on a potassium-restricted diet. documented in this encounter Care Teams Automobile Wrecker Relationship Specialty Start Date End Date No, Pcp (Do Not Change Name) PCP - General 12/23/24 documented as of this encounter
--- OUTSIDE RECORDS SUMMARY | 2024-12-28 16:13 | XMS_ITS ---
Author Organization [facility] [address] [place] [address] [address] [place] [address] Care Team Providers Care Vehicle Safety Inspector Name Role Phone No, Pcp (Do Not Change Name) Primary Care Provid er Unavailable Post Discharge Outreach Status:First call unsuccessful (Active) Start date:12/26/2024 Enrollment date:12/28/2024 Enrollment reason:Inpatient observation discharge Overview U 12/28 LEFT AMA Case Team Name Relationship Phone Estefania Alcazar milk house worker Category Manager(Respon sible Staff) [phone] Continued Care and Services Coordination
--- OUTSIDE RECORDS SUMMARY | 2024-12-28 16:13 | XMS_ITS | Clinical Summary ---
Author Organization [address] [facility] Address [address] [place] [address] Phone Care Team Providers Care Wrapper Hand Name Role Phone Cole Tomlinson MD Primary Care Provider Allergies Active Allergy Reactions Criticality Noted Date Comments Aspirin 03/05/2022 Lactose Diarrhea 02/23/2023 Phenytoin Bleeding 02/21/2023 Social History Tobacco Use Types Packs/Day Years Used Date Smoking Tobacco: Never Assessed Comments Unknown Sex and Gender Information Value Date Recorded Sex Assigned at Not on file Legal Sex Female 6:41 PM EST Gender Identity Not on file Sexual Orientation Not on file Plan of Treatment Upcoming Encounters Date Type Department Care Team ([facility] Contact Info) Description 01/04/2025 10:00 AM EDT Office Visit Orthopedic Surgery - [place] [id number] [address] [phone] Jamin Yoder DPM [address] [address] Health Maintenance Due Date Last Done Comments Breast Cancer Screening 1955 Diabetes: Annual Foot Exam 11/14/1963 Diabetes: Annual Retina Eye Exam 11/14/1963 DTaP,Tdap,and Td Vaccines (1 - Tdap) 1972 Zoster Vaccines (1 of 2) 11/14/2003 RSV Immunization Adult Patients (1 - Risk 60-74 years 1-dose series) 2013 Pneumococcal Vaccine: 50+ Years (2 of 2 - PCV) 08/26/2020 08/26/2019, 08/27/2017 Diabetes: Annual GFR (Glomerular Filtration Rate) 02/24/2024 02/23/2023, 02/22/2023 COVID-19 Vaccine (3 - 4-2 5 season) 2024 12/02/2020, 11/09/2020 Cholesterol Screening (Lipid Panel) 07/14/2024 Colorectal Cancer Screening: Colonoscopy 07/14/2024 Depression Screening 07/14/2024 Falls Risk Assessment 07/14/2024 Hepatitis C Screening 07/14/2024 Medicare Annual Wellness Visit 07/14/2024 Osteoporosis Screening (Bone Density Screening) 07/14/2024 Social Influencers of Health Screening 07/14/2024 Diabetes: Annual Urine Albumin-Creatinine Ratio (uACR) 12/16/2024 Diabetes: Blood Sugar Contro l Test (HGBA1C) 12/16/2024 Hypertension/CHF/CAD Annual BMP Blood Test 12/16/2024 02/23/2023, 02/22/2023 Influenza Vaccine (Season Ended) 2025 06/15/2020, 05/19/2019 HIB Vaccines Aged Out No longer eligi [...] to complete this topic RSV Immunization Patients Under 20 months Aged Out No longer eligible b ased on patient's age to complete this topic Varicella Vaccines Aged Out No longer eligible based on patient's age to complete this topic Insurance MEDICARE MEDICAID - [place] Care Teams Wrapper Hand Relationship Specialty Start Date End Date Cole Tomlinson MD [address] [place] [address] Dr Jhonathan [place] PCP - General Family Medicine 07/14/24
--- OUTSIDE RECORDS SUMMARY | 2024-12-28 16:13 | XMS_ITS | Clinical Summary ---
Author Organization [facility] Address [address] [place] [address] Care Team Providers Care Stage Set Designer Name Role Phone Richard Albright MD Primary Care Provider [phone] Allergies Active Allergy Reactions Criticality Noted Date [...] B MEDICAID OUT OF STATE Care Teams Stage Set Designer Relationship Specialty Start Date End Date Richard Albright MD [address] [place] [id number] PCP - General 01/09/19
== END 2024-12-28 16:27 | disposition home or self-care (01) ==
LOC: HO.HMCFM 15:07
PROVIDERS: PCP Family Medicine; Visit Provider Family Medicine
DX: E11.9 Type 2 diabetes mellitus without complications (principal)

== ENCOUNTER → 2024-12-28 15:06 | Outpatient (BNVA) | payer MEDICARE, MEDICAID, SELFPAY | PROVIDERS: PCP Family Medicine; Visit Provider Family Medicine | DX: E11.9 Type 2 diabetes mellitus without complications (principal) | CPT/HCPCS: 99212 ==

== ENCOUNTER 2025-01-11 14:33 | Outpatient (AMB) | payer MEDICARE, MEDICAID, SELFPAY ==
--- NOTE | 2025-01-11 14:40 | MHC.PC.OV ---
Vital Signs 01/11/25 14:46 Height 5 ft 4 in Weight 195 lb 4 oz BMI 33.5 BP 120/80 Blood Pressure Location Rt brachial Position Sitting Respiration 16 Pulse 105 H Pulse Source Pulse Oximeter Temp 98.3 F Temp Source Oral Pulse Oximetry (%) 97 Oxygen Delivery Method Room Air Intake Visit Reasons: f/u HTN, tachycardia Intake Note: patient is scheduled to follow up on htn and tachycardia pt needs med refill for metformin and seizure medication Manager Hiv Required: No Allergies lactose Allergy (Intermediate, Verified 01/11/25 14:41) Diarrhea aspirin [ASA] Allergy (Unknown, Verified 01/11/25 14:41) RASH phenytoin [From DILANTIN] Adverse Reaction (Unknown, Verified 01/11/25 14:41) SWELLING Tobacco use date assessed: 12/10/24 Dental Screening Dental Screen Date: 12/10/24 HPI f/u HTN, tachycardia HPI Details 69 y/o female presents to f/u HTN, tachycardia. Blood pressure today 120/80, 105p. She is on amlodipine 10mg, hydralazine 25mg t.i.d. Recent A1c 10.5%. Had recently started her on Basaglar about two weeks ago. Reports morning blood sugars have improved and states it was 121 this morning. [facility] Medical History (Updated 12/10/24 @ 14:02 by Colt Shelton) Hyponatremia Detrusor overactivity Lower extremity pain Menopause Change in hearing Low magnesium level Neuropathy Chest pain UTI (urinary tract infection) Weakness of both lower extremities Left leg weakness Gynecological complaint Well woman exam Obesity (BMI 30-39.9) Physical deconditioning Breast cancer screening by mammogram Vaginal discharge COVID-19 Abnormal lung sounds Urinary incontinence Nausea and vomiting Gastroenteritis Adult general medical exam Screening for colon cancer Screening for cervical cancer Screening for osteoporosis Dizziness Incomplete bladder emptying Vaginal yeast infection Viral illness Cough Vulvovaginitis Right ankle swelling Diabetes Dash's paralysis (postepileptic) Anxiety disorder, unspecified Chronic obstructive pulmonary disease, unspecified Unspecified asthma, uncomplicated Epilepsy, unspecified, not intractable, without status epilepticus Essential (primary) hypertension Unspecified hearing loss, bilateral Constipation due to slow transit Bilateral primary osteoarthritis of knee Hyperlipidemia, unspecified Gait instability Controlled diabetes mellitus with diabetic neuropathy, without long-term current use of insulin Surgical History H/O pneumonectomy Family History Father Bone cancer Substance abuse in family Mother Breast cancer Brother No problems noted. Brother No problems noted. Brother No problems noted. Sister No problems noted. Sister Uterine cancer Son Substance abuse in family Son No problems noted. Daughter No problems noted. Daughter No problems noted. Other Substance use disorder Social History (Updated 12/10/24 @ 13:39 by Elsa Albright MA) Housing: Apartment Alcohol intake: never Patient Tobacco Use Status: Never used Tobacco e-Cigarette/Vaping Use: Never Used Second Hand Smoke Exposure: No service: No Current occupational status: retired Current occupation: Right Handed Current occupational exposures/hazards: No Cognitive needs: No Hearing needs: No Vision needs: No Female Reproductive History Menstrual Age of Menarche: 11 Questionnaire Thrive Questionnaire Date Thrive assessed: 01/11/25 RALF-7 AMB Questionnaire RALF-7 Date RALF - 7 assessed: 12/10/24 Source: Developed by Drs. Bud Rivers, Susaan He, Rj Goodwin and colleagues, with an educational itz from [employer]. Physical exam (Primary Care) Vital Signs: Last Vital Signs Temp 98.3 F 01/11/25 14:46 Pulse 105 H 01/11/25 14:46 Resp 16 01/11/25 14:46 BP 120/80 01/11/25 14:46 Pulse Ox 97 01/11/25 14:46 Oxygen Delivery Method Room Air 01/11/25 14:46 BMI result Body Mass Index 33.5 Tobacco/Smoking Status: Tobacco use Status Tobacco use date assessed 12/10/24 01/11/25 14:40 Patient Tobacco Use Status Never used Tobacco 01/11/25 14:40 e-Cigarette/Vaping Use Never Used 01/11/25 14:40 Thrive Assessment: Date of Thrive Assessment Date Thrive assessed 01/11/25 01/11/25 14:40 Coding Level of Care Code Est Pt Level 4 (74104) Diagnoses Hypertension I10 Tachycardia R00.0 Diabetes type 2, controlled E11.9 Assessment & Plan Assessment & Plan (1) Hypertension: Code(s): I10 - Essential (primary) hypertension Category: Medical Plan: Blood?pressure?appears?well?controlled.??Goal?is?less?than?140/90 Continue?current?medications (2) Tachycardia: Code(s): R00.0 - Tachycardia, unspecified Category: Medical Plan: Mild?tachycardia Hydrate?well Controlled?blood?sugars Will?continue?to?monitor (3) Diabetes type 2, controlled: Code(s): E11.9 - Type 2 diabetes mellitus without complications Category: Medical Plan: A1c?10.5%.??Goal?is?around?7% Recent?visit?to?the?emergency?department?for?very?high?blood?sugars. I?started?her?on?Basaglar?2?weeks?ago. Morning?blood?sugars?now?around?120. She?has?some?higher?blood?sugars?around?noontime. She?has?been?taking?her?Basaglar?just?after?noon. She?has?been?concerned?about?having?low?blood?sugars?at?night?if?she?takes?Basaglar?in?evening. Will?have?her?take?her?Basaglar?in?the?morning. Will?have?her?increase?Basaglar?from?10?units?daily?to?12?units?daily.??Continue?other?diabetes?medications?as?prescribed Medications: Refilled levetiracetam 1,000 mg PO BID 90 days 180 tabs 3RF metformin 1000 mg (2 tabs) a.m. and 750 mg (1.5 tabs) p.m. orally 2 times a day; 90 days 315 tabs 0RF
[2025-01-11 14:46] VITALS: BP 120/80; PULSE 105; RESP 16; TEMP 36.8; O2SAT 97; BMI 33.5
--- OUTSIDE RECORDS SUMMARY | 2025-01-11 16:22 | XMS_ITS | Clinical Summary ---
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 Role Phone No, Pcp (Do Not [...] Department Care Team Description 12/28/2024 Patient Outreach [facility] Call Center [address] [place] [id number] Estefania Alcazar RN Hospital Discharge Follow Up 12/23/2024 10:46 AM EDT - 12/25/2024 7:34 PM EDT Hospital Encounter [facility] [address] [address] Eliud Chaudhary MD Ravi, Sreedhar, MD Samardzic, Tijana, MD Chaudhary, Luli Duff MD Hyperglycemia (Primary Dx); Dehydration Discharge Disposition: Left Against Medical Advice 12/23/2024 Travel from Last 3 Months Social History Tobacco Use Types Packs/Day Years Used Date Smoking Tobacco: Never Assessed [facility] Utilities Answer Date Recorded In the [...] your living situation today? I have a [facility] place to live 12/23/2024 Housing Stability Not [...] 12/23/2024 1:40 PM EDT Plan of Treatment Health Maintenance [...] (bone density) 2018 Covid-19 vaccine series ( - season) 2024 Hemoglobin A1C 03/25/2025 12/23/2024 Influenza [...] Routine 12/23/2024 10:05 PM EDT URINE MICROSCOPIC ([facility] LMW YH) STAT 12/23/2024 6:21 PM EDT URINALYSIS WITH CULTURE REFLEX (BH LMW YH) STAT 12/23/2024 6:21 PM EDT UA REFLEX CULTURE STAT 12/23/2024 6:2 1 PM EDT URINALYSIS WITH CULTURE REFLEX STAT 12/23/2024 6:21 PM EDT URINE CULTURE STAT 12/23/2024 6:21 PM EDT POCT GLUCOSE Routine 12/23/2024 5:59 PM EDT TYPE AND RH RECHECK ([facility] LMW YH) STAT 12/23/2024 5:40 PM EDT TYPE AND SCREEN ([facility] LMW YH) Urgent 12/23/2024 5:40 PM [...] 11:23 AM EDT TSH W/REFLEX TO FT4 ([facility] GH LMW Q YH) Add-On 12/23/2024 11:23 AM EDT PHOSPHORUS (BH GH L LMW YH) Add-On 12/23/2024 11:23 AM EDT MAGNESIUM Add-On 12/23/2024 11:23 AM EDT LIVER FUNCTION TESTS WITH ALBUMIN (YH) Add-On 12/23/2024 11:23 AM EDT BASIC METABOLIC PANEL STAT 12/23/2024 11:23 AM EDT CBC WITH AUTO DIFFERENTIAL STAT 12/23/2024 11:23 AM EDT BLOOD GAS, VENOUS ([facility]) Urgent 12/23/2024 11:23 AM EDT BETA-HYDROXYBUTYRATE Urgent 12/23/2024 11:23 AM EDT POCT GLUCOSE Routine 12/23/2024 10:52 AM EDT from Last 3 Months Results * (ABNORMAL) POC Glucose (Fingerstick) (12/25/2024 5:30 PM EDT) Only the most recent of22 resultswithin the time period is included. Glucose, Meter 207(H) 70 - 100 mg/dL 12/25/2024 5:30 PM EDT [facility] Blood 12/25/2024 5:30 PM EDT 12/25/2024 5:30 PM EDT Edi Kendall MD POINT OF CARE TEST ORDERABLES F inal Result [facility] [address] [place] [address] * (ABNORMAL) Comprehensive metabolic panel (12/25/2024 7:08 AM EDT) Sodium 133(L) 136 - 144 mmol/L 12/25/2024 8:41 AM EDT [facility] Potassium 3.8 3.3 - 5.3 mmol/L 12/25/2024 8:41 AM EDT [facility] Chloride 99 98 - 107 mmol/L 12/25/2024 8:41 AM EDT [facility] CO2 22 20 - 30 mmol/L 12/25/2024 8:41 AM EDT [facility] Anion Gap 12 7 - 17 12/25/2024 8:41 AM EDT [facility] Glucose 283(H) 70 - 100 mg/dL 12/25/2024 8:41 AM [facility] BUN 17 8 - 23 mg/dL 12/25/2024 8:41 AM [facility] Creatinine 0.90 0.40 - 1.30 mg/dL 12/25/2024 8:41 AM [facility] Calcium 9.2 8.8 - 10.2 mg/dL 12/25/2024 8:41 AM [facility] BUN/Creatinine Ratio 18.9 8.0 - 23.0 12/25/2024 8:41 AM T [facility] Total Protein 6.6 5.9 - 8.3 g/dL 025 8:41 AM [facility] Comment:As of 2023, th e reference interval for Total Protein has been changed from (6.6 to 8.7 g/dL) to (5.9 to 8.3 g/dL). Albumin 3.5(L) 3.6 - 5.1 g/dL 12/25/2024 8:41 AM [facility] Comment:As of 2023, th e reference interval for Albumin has been changed from (3.6 to 4.9 g/dL) to (3.6 to 5.1 g/dL). Total Bilirubin 0.2 <=1.2 mg/dL 12/26/19 25 8:41 AM [facility] Alkaline Phosphatase 79 9 - 122 U/L 12/25/2024 8:41 AM [facility] Alanine Aminotransferase (ALT) 47(H) 10 - 35 U/L 12/25/2024 8:41 AM [facility] Comment:Calcium dobesilate c an cause artificially low ALT results at therapeutic concentrations Aspartate Aminotransferase (AST) 58(H) 10 - 35 U/L 12/25/2024 8:41 AM [facility] Globulin 3.1 2.0 - 3.9 g/dL 12/25/2024 8:41 AM [facility] Comment:As of 2023, th e reference interval for Globulin has been changed from (2.3 to 3.5 g/dL) to (2.0 to 3.9 g/dL). A/G Ratio 1.1 1.0 - 2.2 12/25/2024 8:41 AM EDT [facility] AST/ALT Ratio 1.2 Reference Range Not Established 12/25/2024 8:41 AM EDT [facility] eGFR (Creatinine) >60 >=60 mL/min/1.73m2 12/25/2024 8:41 AM EDT [facility] Comment: [facility] utilizes CKD-EPI Creatinine 2020 to report eGFR. Values < 60 mL/min/1.73 m2 may indicate CKD if present for more than three months AND creatinine is at steady state. The eGFR provides a rough estimate of kidney function. For further guidance, please refer to the CKD: Adult Boiler Shop Supervisor Signature pathway. Creatinine Delta 0.1 See Comment 025 8:41 AM EDT [facility] Comment: Delta creatinine is [...] 12/25/2024 7:53 AM EDT us Sonal Oneill [employer] LAB BLOOD ORDERABLES Final Res ult [facility] [address] [place] [address], [facility] [phone] * (ABNORMAL) CBC without differential (12/25/2024 7:08 AM EDT) WBC 5.7 4.0 - 11.0 x1000/??L 12/25/2024 8:01 AM EDT [facility] RBC 3.89(L) 4.00 - 6.00 M/??L 12/25/2024 8:01 AM EDT [facility] Hemoglobin 12.0 11.7 - 15.5 g/dL 12/25/2024 8:01 AM EDT [facility] Hematocrit 35.50 35.00 - 45.00 % 12/25/2024 8:01 AM EDT [facility] MCV 91.3 80.0 - 100.0 fL 12/25/2024 8:01 AM EDT [facility] MCH 30.8 27.0 - 33.0 pg 12/25/2024 8:01 AM EDT [facility] MCHC 33.8 31.0 - 36.0 g/dL 12/25/2024 8:01 AM EDT [facility] RDW-CV 13.4 11.0 - 15.0 % 12/25/2024 8:01 AM EDT [facility] Platelets 279 150 - 420 x1000/??L 12/25/2024 8:01 AM EDT [facility] MPV 9.7 8.0 - 12.0 fL 12/25/2024 8:01 AM EDT [facility] ANC (Abs Neutrophil Count) 3.37 2.00 - 7.60 x 1000/??L 12/25/2024 8:01 AM EDT [facility] Blood Venipuncture / Unknown 12/25/2024 7:08 AM EDT 12/25/2024 7:53 AM EDT us Sonal Oneill [employer] LAB BLOOD ORDERABLES Final Res ult [facility] [address] [address], [facility] [phone] * CT Abdomen Pelvis w IV Contrast (12/24/2024 2:00 PM EDT) Anatomical Region Laterality Modality Abdomen, Pelvis, Ortho Pelvis, Abdomen and Pelvi s Computed Tomography 12/24/2024 2:07 PM EDT Impressions 12/24/2024 2:24 PM EDT No etiology for clinical symptoms identified. Hepatic steatosis with atherosclerotic calcifications involving the aorta and coronary arteries. [facility] Classification: Routine. Report initiated by: ??Ferny Waterman MD Reported and signed by: Jose Cabrera MD [facility] Narrative 12/24/2024 2:24 [...] atherosclerotic calcifications involving the aortaand coronary arteries. [facility] Classification: Routine. Report initiated by: Ferny Waterman MD Reported and signed by: Jose Cabrera MD [facility] us Sonal Gaviria'Anabella [employer] IMG CT ORDERABLES Final Result * CBC auto differential (12/24/2024 9:53 AM EDT) Only the most recent of2 resultswithin the time period is included. WBC 6.5 4.0 - 11.0 x1000/??L 12/24/2024 10:10 AM EDT [facility] RBC 4.31 4.00 - 6.00 M/??L 12/24/2024 10:10 AM EDT [facility] Hemoglobin 13.3 11.7 - 15.5 g/dL 12/24/2024 10:10 AM EDT [facility] Hematocrit 38.70 35.00 - 45.00 % 12/24/2024 10:10 AM EDT [facility] MCV 89.8 80.0 - 100.0 fL 12/24/2024 10:10 AM EDT [facility] MCH 30.9 27.0 - 33.0 pg 12/24/2024 10:10 AM EDT [facility] MCHC 34.4 31.0 - 36.0 g/dL 12/24/2024 10:10 AM EDT [facility] RDW-CV 13.2 11.0 - 15.0 % 12/24/2024 10:10 AM EDT [facility] Platelets 322 150 - 420 x1000/??L 12/24/2024 10:10 AM EDT [facility] MPV 9.6 8.0 - 12.0 fL 12/24/2024 10:10 AM EDT [facility] Neutrophils 60.8 39.0 - 72.0 % 12/24/2024 10:10 AM EDT [facility] Lymphocytes 29.4 17.0 - 50.0 % 12/24/2024 10:10 AM EDT [facility] Monocytes 5.8 4.0 - 12.0 % 12/24/2024 10:10 AM EDT [facility] Eosinophils 3.2 0.0 - 5.0 % 12/24/2024 10:10 AM EDT [facility] Basophil 0.5 0.0 - 1.4 % 12/24/2024 10:10 AM EDT [facility] Immature Granulocytes 0.3 0.0 - 1.0 % 12/24/2024 10:10 AM EDT [facility] nRBC 0.0 0.0 - 1.0 % 12/24/2024 10:10 AM EDT [facility] Absolute Lymphocyte Count 1.92 0.60 - 3.70 x 1000/??L 12/24/2024 10:10 AM EDT [facility] Monocyte Absolute Count 0.38 0.00 - 1.00 x 1000/??L 12/24/2024 10:10 AM EDT [facility] Eosinophil Absolute Count 0.21 0.00 - 1.00 x 1000/??L 12/24/2024 10:10 AM EDT [facility] Basophil Absolute Count 0.03 0.00 - 1.00 x 1000/??L 12/24/2024 10:10 AM EDT [facility] Absolute Immature Granulocyte Count 0.02 0.00 - 0.30 x 1000/??L 12/24/2024 10:10 AM EDT [facility] Absolute nRBC 0.00 0.00 - 1.00 x 1000/??L 12/24/2024 10:10 AM EDT [facility] ANC (Abs Neutrophil Count) 3.96 2.00 - 7.60 x 1000/??L 12/24/2024 10:10 AM EDT [facility] Blood Venipuncture / Unknown 12/24/2024 9:53 AM EDT 12/24/2024 10:01 AM EDT us Edi Kendall MD LAB BLOOD ORDERABLES Final Resu lt [facility] [address] [place] [address], [facility] [phone] * (ABNORMAL) Basic metabolic panel (12/24/2024 8:47 AM EDT) Only the most recent of2 resultswithin the time period is included. Sodium 131(L) 136 - 144 mmol/L 12/24/2024 9:31 AM EDT [facility] Potassium 4.0 3.3 - 5.3 mmol/L 12/24/2024 9:31 AM EDT [facility] Chloride 99 98 - 107 mmol/L 12/24/2024 9:31 AM EDT [facility] CO2 22 20 - 30 mmol/L 12/24/2024 9:31 AM EDT [facility] Anion Gap 10 7 - 17 12/24/2024 9:31 AM EDT [facility] Glucose 144(H) 70 - 100 mg/dL 12/24/2024 9:31 AM EDT [facility] BUN 17 8 - 23 mg/dL 12/24/2024 9:31 AM EDT [facility] Creatinine 0.80 0.40 - 1.30 mg/dL 12/24/2024 9:31 AM EDT [facility] Calcium 9.5 8.8 - 10.2 mg/dL 12/24/2024 9:31 AM EDT [facility] BUN/Creatinine Ratio 21.3 8.0 - 23.0 12/24/2024 9:31 AM EDT [facility] eGFR (Creatinine) >60 >=60 mL/min/1.73 m2 12/24/2024 9:31 AM EDT [facility] Comment: [facility] utilizes CKD-EPI Creatinine 2020 to report eGFR. Values < 60 mL/min/1.73 m2 may indicate CKD if present for more than three months AND creatinine is at steady state. The eGFR provides a rough estimate of kidney function. For further guidance, please refer to the CKD: Adult [employer]iler Shop Supervisor Signature pathway. Creatinine Delta -0.1 See Comment 9:31 AM EDT [facility] Comment: Delta creatinine is [...] MD LAB BLOOD ORDERABLES Final Resu lt [facility] [address] [place] [address], [facility] [phone] * (ABNORMAL) Liver function tests with albumin (YH) (12/24/2024 8:47 AM EDT) Only the most recent of2 resultswithin the time period is included. Bilirubin, Direct 9:31 AM EDT [facility] Comment:Sample Hemolyzed. Alanine Aminotransferase (ALT) 46(H) 10 - 35 U/L 12/24/2024 9:31 AM EDT [facility] Comment:Calcium dobesilate c an cause artificially low ALT results at therapeutic concentrations Aspartate Aminotransferase (AST) 61(H) 10 - 35 U/L 12/24/2024 9:31 AM EDT [facility] AST/ALT Ratio 1.3 Reference Range Not Established 12/24/2024 9:31 AM EDT [facility] Albumin 3.8 3.6 - 5.1 g/dL 12/24/2024 9:31 AM EDT [facility] Comment:As of 2023, th e reference interval for Albumin has been changed from (3.6 to 4.9 g/dL) to (3.6 to 5.1 g/dL). Alkaline Phosphatase 83 9 - 122 U/L 12/24/2024 9:31 AM EDT [facility] Total Bilirubin 0.2 <=1.2 mg/dL 12/25/19 9:31 AM EDT [facility] Blood Venipuncture / Unknown 12/24/2024 8:47 AM EDT 12/24/2024 8:59 AM EDT us Edi Kendall MD LAB BLOOD ORDERABLES Final Resu lt [facility] [address] [place] [address] * Magnesium (12/24/2024 8:47 AM EDT) Only the most recent of2 resultswithin the time period is included. Magnesium 2.1 1.7 - 2.4 mg/dL 12/24/2024 9:31 AM EDT [facility] Blood Venipuncture / Unknown 12/24/2024 8:47 AM EDT 12/24/2024 8:59 AM EDT us Edi Kendall MD LAB BLOOD ORDERABLES Final Resu lt Performing Organization Address City/[facility]/ZIP Co de Phone Number [facility] [address] [place] [address], [facility] [phone] * Lipase (12/24/2024 8:47 AM EDT) Lipase 17 11 - 55 U/L 12/24/2024 10:44 AM EDT [facility] Blood Venipuncture / Unknown 12/24/2024 8:47 AM EDT 12/24/2024 8:59 AM EDT us Sonal Oneill [employer] LAB BLOOD ORDERABLES Final Res ult Performing Organization Address [facility] Co de Phone Number [facility] [address] [place] [address], [facility] [phone] * (ABNORMAL) Urinalysis with culture reflex ([facility]) (12/23/2024 6:21 PM EDT) [facility] Clarity, UA Clear Clear 12/23/2024 6:36 PM EDT [facility] Color, UA Yellow Yellow, Colorless 12/23/2024 6:36 PM EDT [facility] Specific [place], UA 1.024 1.005 - 1.030 12/23/2024 6:36 PM EDT [facility] pH, UA 5.5 5.5 - 7.5 12/23/2024 6:36 PM EDT [facility] Protein, UA Trace Negative, Trace 12/23/2024 6:36 PM EDT [facility] Glucose, UA 4+(A) Negative 12/23/2024 6:36 PM EDT [facility] Ketones, UA Trace(A) Negative 12/23/2024 6:36 PM EDT [facility] Blood, UA Negative Negative 12/23/2024 6:36 PM EDT [facility] Bilirubin, UA Negative Negative 12/23/2024 6:36 PM EDT [facility] Leukocytes, UA 1+(A) Negative 12/23/2024 6:36 PM EDT [facility] Nitrite, UA Negative Negative 12/23/2024 6:36 PM EDT [facility] Urobilinogen, UA <2.0 <=2.0 mg/dL 12/23/2024 6:36 PM EDT [facility] Mcmanus Top Tube Received ? Yes 12/23/2024 6:36 PM EDT [facility] Urine URINE SPECIMEN OBTAINED BY CLEAN CATCH PROCEDURE / Unknown Collection / Unknown 12/23/2024 6:21 PM EDT 12/23/2024 6:27 PM EDT Eliud Chaudhary MD URINE ORDERABLES Final Result Performing Organization Address City/[facility]/ZIP Co de Phone Number [facility] [address] [place] [address] * UA reflex to culture (12/23/2024 6:21 PM EDT) Reflex Urine Culture See Comment 12/23/2024 10:00 PM EDT [facility] Urine URINE SPECIMEN OBTAINED BY CLEAN CATCH PROCEDURE / Unknown Collection / Unknown 12/23/2024 6:21 PM EDT 12/23/2024 6:27 PM EDT Narrative [facility] MEDICINE - 12/23/2024 10:00 PM EDT Urine culture will be reflexed if indicated by urinalysis results. ??Please check microbiology results for urine culture. us Eliud Chaudhary MD URINE ORDERABLES Final Result [facility] MEDICINE [address] [place] [address], [facility] [phone] [facility] [address] [place] [address] * Urine microscopic ([facility]) (12/23/2024 6:21 PM EDT) RBC/HPF, UA 1 0 - 2 /HPF 12/23/2024 7:16 PM EDT [facility] WBC/HPF, UA 2 0 - 5 /HPF 12/23/2024 7:16 PM EDT [facility] Bacteria, UA Rare None-Rare /HPF 12/23/2024 7:16 PM EDT [facility] Urine Squamous Epithelial Cells, UA 5 0 - 5 /HPF 12/23/2024 7:16 PM EDT [facility] Urine URINE SPECIMEN OBTAINED BY CLEAN CATCH PROCEDURE / Unknown Collection / Unknown 12/23/2024 6:21 PM EDT 12/23/2024 6:27 PM EDT us Eliud Chaudhary MD URINE ORDERABLES Final Result Performing Organization Address [facility] Co de Phone Number [facility] [address] [place] [address] * Urine culture (12/23/2024 6:21 PM EDT) Urine Culture, Routine Mixed Urine Culture 12/24/2024 8:08 PM EDT [facility]IC[facility] Urine URINE SPECIMEN OBTAINED BY CLEAN CATCH PROCEDURE / Unknown Collection / Unknown 12/23/2024 6:21 PM EDT 12/23/2024 6:27 PM EDT Narrative [facility] OF [facility]ORATORY MEDICINE - 12/24/2024 8:08 PM EDT Mixed organisms present are consistent with contamination by urogenital edison and/or improper collection and storage. If repeat testing is clinically indicated, the recommendation is for recollection with prompt refrigeration and/or transport to the laboratory. Organism enumeration is not reliable and further workup of this culture is not indicated. us Eliud Chaudhary MD MICROBIOLOGY - GENERAL ORDERABLE S Final Result Performing Organization Address City/[facility]/ZIP Co de Phone Number [facility]MENT OF [facility]ORATORY MEDICINE [address] [place] [address] * Type and Rh recheck ([facility] LMW YH) (12/23/2024 5:40 PM EDT) [facility]OR[facility] Recheck Interpretation O POS 12/23/2024 6:47 PM EDT [facility] Blood Venipuncture / Unknown 12/23/2024 5:40 PM EDT 12/23/2024 5:50 PM EDT Edi Kendall MD BLOOD BANK TEST ORDERABLES Stephania l Result Performing Organization Address City/[facility] Co de Phone Number [facility] [address] [place] [address], [facility] [phone] * Hemoglobin and hematocrit, blood (12/23/2024 5:40 PM EDT) Hemoglobin 12.7 11.7 - 15.5 g/dL 12/23/2024 6:15 PM EDT [facility] Hematocrit 37.20 35.00 - 45.00 % 12/23/2024 6:15 PM EDT [facility] Blood Venipuncture / Unknown 12/23/2024 5:40 PM EDT 12/23/2024 5:50 PM EDT Edi Kendall MD LAB BLOOD ORDERABLES Final Resu lt Performing Organization Address City/[facility]/ZIP Co de Phone Number [facility] [address] [place] [address] * Type and screen (12/23/2024 5:40 PM EDT) ABO Grouping O 12/23/2024 6:47 PM EDT [facility] Rh Type POS 12/23/2024 6:47 PM EDT [facility] Antibody Screen NEG 6:47 PM EDT [facility] Specimen Expiration Date And Time 12/26/2024 23:59 12/23/2024 6:47 PM EDT [facility] Blood Venipuncture / Unknown 12/23/2024 5:40 PM EDT 12/23/2024 5:50 PM EDT Result [facility] Edi Kendall MD BLOOD BANK TEST ORDERABLES Stephania l Result Performing Organization Address City/[facility] Co de Phone Number [facility] [address] [place] [address] * EKG (12/23/2024 2:01 PM EDT) Heart Rate 92 bpm [facility] EKG QRS Interval 78 ms [facility] EKG QT Interval 355 ms [facility] EKG QTC Interval 440 ms [facility] EKG P [place] 40 deg [facility] EKG QRS [place] 1 deg [facility] EKG T Wave [place] 10 deg [facility] EKG P-R Interval 147 msec [facility] EKG SEVERITY Borderline ECG severity [facility] EKG Comment::Sinus rhythm:Low vo ltage, precordial leads:Electronically Signed On 12-23-2024 22:18:08 EDT by Derek Robertson MD 12/23/2024 2:01 PM EDT Result [facility] Edi Kendall MD ECG ORDERABLES Final Result Performing Organization Address [facility] de Phone Number [facility] EKG * (ABNORMAL) Hemoglobin A1c (12/23/2024 12:47 PM EDT) Hemoglobin A1c 11.3(H) 4.0 - 5.6 % 12/24/2024 9:23 AM EDT [facility] OF LABORATORY MEDICINE Comment: Hemoglobin A1c [...] mg/dL 278 mg/dL 12/24/2024 9:23 AM EDT [facility] OF LABORATORY MEDICINE Comment: Estimated average glucose (eAG) is a calculated value designed to estimate ??the expected average blood glucose level throughout the day from a single ??measurement of ??glycated hemoglobin A1C (HbA1c) and follows the calculation proposed by the [employer] [employer] (Diabetes Care 31: 1-6, 2008). It may have less accuracy in children, women and patients with certain erythrocyte disorders. Blood Venipuncture / Unknown 12/23/2024 12:47 PM EDT 12/23/2024 12:50 PM EDT us Eliud Chaudhary MD LAB BLOOD ORDERABLES Final Resul t Performing Organization Address [facility] Co de Phone Number [facility] DEPARTMENT OF LABORATORY MEDICINE [address] [place] [address] * TSH w/reflex to FT4 (12/23/2024 11:23 AM EDT) Thyroid Stimulating Hormone 0.892 See Comment ??IU/mL 12/23/2024 2:07 PM EDT [facility] Comment: Male & Non- Females: 0.270-4.200 ??IU/mL 1st Trimester: 0.110-3.480 ??IU/mL 2nd Trimester: 0.320-3.850 ??IU/mL Blood Venipuncture / Unknown 12/23/2024 11:23 AM EDT 12/23/2024 11:25 AM EDT us Edi Kendall MD LAB BLOOD ORDERABLES Final Resu lt Performing Organization Address City/[facility]/ZIP Co de Phone Number [facility] [address] [place] [address], [facility] [phone] * (ABNORMAL) Beta-hydroxybutyrate (12/23/2024 11:23 AM EDT) Beta-Hydroxybu tyrate 1.60(H) <=0.27 mmol/L 12/23/2024 11:52 AM EDT [facility] Blood Venipuncture / Unknown 12/23/2024 11:23 AM EDT 12/23/2024 11:25 AM EDT Eliud Chaudhary MD LAB BLOOD ORDERABLES Final Resul t Performing Organization Address City/[facility]/ZIP Co de Phone Number [facility] [address] [place] [address], [facility] [phone] * Phosphorus (BH GH L LMW YH) (12/23/2024 11:23 AM EDT) Pathologist [facility] Phosphorus 2.9 2.2 - 4.5 mg/dL 12/23/2024 2:07 PM EDT [facility] Blood Venipuncture / Unknown 12/23/2024 11:23 AM EDT 12/23/2024 11:25 AM EDT Edi Kendall MD LAB BLOOD ORDERABLES Final Resu lt Performing Organization Address City/[facility] Co de Phone Number [facility] [address] [place] [address], [facility] [phone] * (ABNORMAL) Blood gas, venous (12/23/2024 11:23 AM EDT) pH, Venous 7.46(H) 7.32 - 7.43 units 12/23/2024 11:29 AM EDT [facility] pCO2, Venous 30(L) 38 - 54 mmHg 12/23/2024 11:29 AM EDT [facility] PO2, Venous 67(H) 40 - 50 mmHg 12/23/2024 11:29 AM EDT [facility] O2 Sat, Venous 94 Not Established % 12/23/2024 11:29 AM EDT [facility] Calculated HCO3, Venous 20.9 Not Established mmol/L 12/23/2024 11:29 AM EDT [facility] Base Excess, Venous -2 Not Established mmol/L 12/23/2024 11:29 AM EDT [facility] Blood Venipuncture / Unknown 12/23/2024 11:23 AM EDT 12/23/2024 11:25 AM EDT us Eliud Chaudhary MD LAB BLOOD ORDERABLES Final Resul t [facility] [address] [place] [address], [facility] [phone] from Last 3 Months Insurance MEDICARE Member Subscriber Plan / Payer (Ef fective 1994-Present) Name:Yasemin Hand Member ID:[id number] Relation to Subscriber:Self Name:Yasemin Hand Subscriber ID:[id number] Payer ID:[id number] Group ID:Not on file Type:Not on file Address: [address] MEDICARE Member Subscriber Plan / Payer (Ef fective 1994-Present) Name:Yasemin Hand Member ID:[id number] Relation to Subscriber:Self Name:Yasemin Hand Subscriber ID:[id number] Payer ID:[id number] Group ID:Not on file Type:Not on file Address: [address] MEDICARE Advance Directives * Full Code (Latest Code Status on File) Date Activated Date Inactivated Comments 12/23/2024 1:06 PM 12/25/2024 11:39 PM 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
== END 2025-01-11 15:27 | disposition home or self-care (01) ==
LOC: HO.HMCFM 14:34
PROVIDERS: PCP Family Medicine; Visit Provider Family Medicine
DX: I10 Essential (primary) hypertension (principal); R00.0 Tachycardia, unspecified; E11.9 Type 2 diabetes mellitus without complications

== ENCOUNTER → 2025-01-11 14:33 | Outpatient (BNVA) | payer MEDICARE, MEDICAID, SELFPAY | PROVIDERS: PCP Family Medicine; Visit Provider Family Medicine | DX: I10 Essential (primary) hypertension (principal); R00.0 Tachycardia, unspecified; E11.9 Type 2 diabetes mellitus without complications | CPT/HCPCS: 99212 ==

== ENCOUNTER 2025-05-09 15:02 | Outpatient (AMB) | payer MEDICARE, MEDICAID, SELFPAY ==
--- NOTE | 2025-05-09 15:03 | MHC.PC.OV ---
Vital Signs 05/09/25 15:05 Height 5 ft 4 in Weight 200 lb 8 oz BMI 34.4 BP 144/96 H Blood Pressure Location Rt brachial Position Sitting Pulse 100 Pulse Source Pulse Oximeter Pulse Oximetry (%) 97 Oxygen Delivery Method Room Air Intake Visit Reasons: f/u htn, diabetes Allergies lactose Allergy (Intermediate, Verified 05/09/25 15:08) Diarrhea aspirin (ASA) Allergy (Unknown, Verified 05/09/25 15:08) RASH phenytoin (From DILANTIN) Adverse Reaction (Unknown, Verified 05/09/25 15:08) SWELLING Medication List - Last Reconciled 05/09/25 by Cole Tomlinson MD albuterol sulfate mg inhalation Q6H PRN albuterol sulfate 90 mcg/actuation 1 puff PO Q4H PRN amlodipine 10 mg PO DAILY atorvastatin 40 mg PO DAILY benztropine 1 mg PO BID bisacodyl (Dulcolax (bisacodyl)) 20 mg (4 x 5 mg) PO ONCE 1 day blood sugar diagnostic (FreeStyle Lite Strips) As directed twice a day blood sugar checks 90 day supply blood-glucose meter (FreeStyle Lite Meter kit) DX: E11.9, test blood sugar 2 times a day, duration 999 days budesonide-formoterol 160-4.5 mcg/actuation 2 puffs inhalation BID carbamazepine 200 mg PO BID 3 months citalopram 20 mg (1/2 x 40 mg) PO DAILY 90 days clopidogrel 75 mg PO DAILY 90 days diaper,brief,adult,disposable (Briefs, Adult-Extra Large) change every 2-3 hours prn for incontinence diclofenac sodium 1% 1 - 2 grams topical QID diphenhydramine HCl (Banophen) 25 mg PO BEDTIME PRN flash glucose scanning reader (Caravan [employer]лек[place]р [place]) As directed flash glucose sensor (Quick Heal TechnologiesStyle Александр 2 Sensor kit) As directed glipizide ER 10 mg PO BID hydralazine 25 mg PO TID ibuprofen 600 mg PO TID PRN incontinence pad, liner, disp every 2-3 hours PRN insulin glargine (Basaglar KwikPen U-100 Insulin) 10 units (0.1 mL) subcut QPM 30 days lancets (FreeStyle Lancets) 28 gauge topical BID levetiracetam 1,000 mg PO BID 90 days magnesium oxide 400 mg PO DAILY 30 days mecobalamin (vitamin B12) 1,000 mcg PO DAILY 90 days metformin orally; Take 2 tablets by mouth every morning and 1-1/2 tabs in the evening daily. multivitamin (One Daily Multivitamin tablet) 1 tab PO DAILY omeprazole 40 mg PO DAILY pen needle, diabetic To Treat high blood sugar, Daily As directed, 90 days polyethylene glycol 3350 (Miralax) 17 grams PO DAILY 4 days pregabalin 100 mg PO TID 30 days risperidone 1 mg PO BID semaglutide (Ozempic) 1 mg (0.75 mL) subcut QWEEK 28 days trazodone 50 - 100 mg PO BEDTIME PRN vibegron (Gemtesa) 75 mg PO DAILY Tobacco use date assessed: 05/09/25 Fall risk assessment: No Falls in past year Last assessed Fall Risk: 05/09/25 Dental Screening Dental Screen Date: 05/09/25 Did you have a dental visit in the last 12 months?: No Did you have a dental problem in the last 6 months where you did not have access to dental care?: No Was dental information given to patient?: Patient has dentist HPI f/u htn, diabetes HPI Details 69 y/o female presents to f/u diabetes, HTN, tachycardia. Last A1c 10.5%. Had her increase Basaglar from 10 units daily to 12 units. A1c today 05/09/25 is 7.0%. Blood pressure today 144/96, 100p. She is on amlodipine 10mg, hydralazine 25mg t.i.d. She notes she is due for an eye exam. HPI Comments History of Present Illness Details Documentation assistance for Cole Tomlinson MD, was provided by Colt Shelton,? Product Technology Scientist on 05/09/2025 at 3:22 PM EST. I, Dr. Tomlinson, have read, observed, and verified documentation. ?? [facility] Medical History Hyponatremia Detrusor overactivity Lower extremity pain Menopause Change in hearing Low magnesium level Neuropathy Chest pain UTI (urinary tract infection) Weakness of both lower extremities Left leg weakness Gynecological complaint Well woman exam Obesity (BMI 30-39.9) Physical deconditioning Breast cancer screening by mammogram Vaginal discharge COVID-19 Abnormal lung sounds Urinary incontinence Nausea and vomiting Gastroenteritis Adult general medical exam Screening for colon cancer Screening for cervical cancer Screening for osteoporosis Dizziness Incomplete bladder emptying Vaginal yeast infection Viral illness Cough Vulvovaginitis Right ankle swelling Diabetes Dash's paralysis (postepileptic) Anxiety disorder, unspecified Chronic obstructive pulmonary disease, unspecified Unspecified asthma, uncomplicated Epilepsy, unspecified, not intractable, without status epilepticus Essential (primary) hypertension Unspecified hearing loss, bilateral Constipation due to slow transit Bilateral primary osteoarthritis of knee Hyperlipidemia, unspecified Gait instability Controlled diabetes mellitus with diabetic neuropathy, without long-term current use of insulin Surgical History H/O pneumonectomy Family History Father Bone cancer Substance abuse in family Mother Breast cancer Brother No problems noted. Brother No problems noted. Brother No problems noted. Sister No problems noted. Sister Uterine cancer Son Substance abuse in family Son No problems noted. Daughter No problems noted. Daughter No problems noted. Other Substance use disorder Social History Housing: Apartment Alcohol intake: never Patient Tobacco Use Status: Never used Tobacco e-Cigarette/Vaping Use: Never Used Second Hand Smoke Exposure: No service: No Current occupational status: retired Current occupation: Right Handed Current occupational exposures/hazards: No Cognitive needs: No Hearing needs: No Vision needs: No Female Reproductive History Menstrual Age of Menarche: 11 Questionnaire PHQ-9 Over the last 2 weeks, how often have you been bothered by any of the following problems? 1. Little interest or pleasure in doing things: not at all 2. Feeling down, depressed, or hopeless: not at all 3. Trouble falling or staying asleep, or sleeping too much: not at all 4. Feeling tired or having little energy: nearly every day 5. Poor appetite or overeating: not at all 6. Feeling bad about yourself - or that you are a failure or have let yourself or your family down: not at all 7. Trouble concentrating on things, such as reading the newspaper or watching television: not at all 8. Moving or speaking so slowly that other people could have noticed. Or the opposite - being so fidgety or restless that you have been moving around a lot more than usual: not at all 9. Thoughts that you would be better off or of hurting yourself in some way: not at all Total score: 3 Source: Developed by Drs. Bud Rivers, Susana He, Rj Goodwin and colleagues, with an educational itz from [employer]. Thrive Questionnaire Date Thrive assessed: 01/11/25 I am a: Patient What is your living situation today?: I have a steady place to live Within the past 12 months, did the food you bought not last and you didn't have the money to get more?: Never true Within the past 12 months, did you worry whether your food would run out before you got money to buy more?: Never true Do you have trouble paying for medicines?: No Do you have trouble getting transportation to medical appointments?: No Do you have trouble paying your heating and electricity bill?: No Do you have trouble taking care of your child, family member or friend?: No Do you have trouble with day-to-day activities such as bathing, preparing meals, shopping, managing finances, etc.?: No Are you currently unemployed and looking for a job?: I choose not to answer this question Are you interested in more education?: No Please select the resources that you would like help with: None Currently or been in a relationship where the following occur: I choose not to answer THRIVE Score: 0 AUDIT C Alcohol Use Questionnaire (AUDIT-C) 1. How often do you have a drink containing alcohol?: Never 3. How often do you have six or more drinks on one occasion?: Never Total Score: 0 RALF-7 AMB Questionnaire RALF-7 Date RALF - 7 assessed: 12/10/24 Feeling nervous, anxious, or on edge: 0 = Not at all Not being able to stop or control worryin = Not at all Worrying too much about different things: 0 = Not at all Trouble relaxin = Not at all Being so restless that it is hard to sit still: 0 = Not at all Becoming easily annoyed or irritable: 0 = Not at all Feeling afraid as if something awful might happen: 0 = Not at all Total RALF-7 score (0-4 normal; 5-9 mild; 10-14 moderate; 15-21 severe): 0 Source: Developed by Drs. Bud Rivers, Susana He, Rj Goodwin and colleagues, with an educational itz from [employer]. Review of Systems Const Denies chills, Denies fatigue, Denies fever(s), Denies headache(s) and Denies weakness ENT Denies dizziness and Denies headache(s) Card Denies dyspnea Resp Denies cough, Denies dyspnea, Denies wheezing and Denies other (shortness of breath) Musc Denies numbness and Denies tingling Neuro Denies dizziness, Denies headache(s), Denies numbness, Denies tingling and Denies weakness Psych Denies anxiety and Denies depression Endo Denies fatigue Aller/Immun Denies wheezing Physical exam (Primary Care) Vital Signs: Last Vital Signs Pulse 100 05/09/25 15:05 BP 144/96 H 05/09/25 15:05 Pulse Ox 97 05/09/25 15:05 Oxygen Delivery Method Room Air 05/09/25 15:05 BMI result Body Mass Index 34.4 Tobacco/Smoking Status: Tobacco use Status Tobacco use date assessed 05/09/25 05/09/25 15:10 Patient Tobacco Use Status Never used Tobacco 05/09/25 15:05 e-Cigarette/Vaping Use Never Used 05/09/25 15:05 PHQ-9: PHQ-9 Score PHQ-9: Total score 3 05/09/25 15:18 Thrive Assessment: Date of Thrive Assessment Date Thrive assessed 01/11/25 05/09/25 15:05 Currently or been in a relationship where the following occur: I choose not to answer Const General: well developed; No acute distress Nutritional Appearance: well nourished Orientation/consciousness: patient oriented x3 [facility] Head: Yes normocephalic and Yes atraumatic Eyes General: appearance normal, both eyes and all related structures Pupils: Equal, round and reactive pupils present EOM: EOMs intact bilaterally Resp Effort & Inspection: normal respiratory effort Neuro General: patient oriented x3 and gait normal Cranial nerves: Yes Equal, round and reactive pupils present Psych Affect: normal affect Results AMB Hemoglobin A1c AMB Hemoglobin A1c 7.0 % Last Edit by Viridiana Strauss CMA on 05/09/25 15:18 Results Reviewed Results Reviewed: Laboratory Last Values Hgb A1c (Clinic) 7.0 % (4.0-6.0) H 05/09/25 15:12 Coding Level of Care Code Est Pt Level 4 (49498) Diagnoses Essential (primary) hypertension I10 Controlled diabetes mellitus with diabetic neuropathy, without long-term current use of insulin E11.40 Assessment & Plan Assessment & Plan (1) Essential (primary) hypertension: Code(s): I10 - Essential (primary) hypertension Category: Medical Plan: Blood pressure is a little high today though at her last couple of visits in was controlled. She has gained a little bit of weight and I encouraged her to work on this as well as increase salt in sodium in her diet Continue current medication (2) Controlled diabetes mellitus with diabetic neuropathy, without long-term current use of insulin: Code(s): E11.40 - Type 2 diabetes mellitus with diabetic neuropathy, unspecified Category: Medical Plan: A1c improved from over 10% to 7.0% today. Controlled. Goal is 7% Continue current medication regimen and work on a diet low in sugars and starches Patient says she has not had an eye exam this year. Referred to ophthalmology Orders: Orders Microalbumin, Random (w Creat) Today I10 - Essential (primary) hypertension AMB Hemoglobin A1c Today Z13.9 - Encounter for screening, unspecified Comprehensive [place]. Panel Fast Today E11.40 - Type 2 diabetes mellitus with diabetic neuropathy, unspecified, Z00.00 - Encounter for general adult medical examination without abnormal findings Referrals Ophthalmology Referral E11.40 - Type 2 diabetes mellitus with diabetic neuropathy, unspecified Medications: Refilled pregabalin 100 mg PO TID 90 caps 2RF 30 days E11.40 - Type 2 diabetes mellitus with diabetic neuropathy, unspecified insulin glargine (Basaglar KwikPen U-100 Insulin) 10 units (0.1 mL) subcut QPM 3 mL 3RF 30 days E11.40 - Type 2 diabetes mellitus with diabetic neuropathy, unspecified
[2025-05-09 15:05] VITALS: BP 144/96; PULSE 100; O2SAT 97; BMI 34.4
--- OUTSIDE RECORDS SUMMARY | 2025-05-09 17:08 | XMS_ITS | Clinical Summary ---
Author Organization [facility] Address [address] [place] [id number] Phone Care Team Providers Care Refractory Grinder Operator Name Role Phone Cole Tomlinson MD Primary Care Provider Allergies Active Allergy Reactions Criticality Noted Date Comments Aspirin 03/05/2022 Lactose Diarrhea 02/23/2023 Phenytoin Sodium Extended 02/21/2023 Medications albuterol 90 mcg/actuation inhaler Inhale 2 puffs into the lungs every 6 (six) hours as needed for wheezing. Active amLODIPine (NORVASC) 10 MG tablet Take 10 mg by mouth daily. Active atorvastatin (LIPITOR) 40 MG tablet Take 40 mg by mouth daily. Active benztropine (COGENTIN) 0.5 MG tablet Take 1 mg by mouth 2 (two) times a day. Active carBAMazepine (TEGRETOL) 200 mg tablet Take 200 mg by mouth 2 (two) times a day. Active clopidogrel (PLAVIX) 75 mg tablet Take 75 mg by mouth daily. Active dulaglutide (TRULICITY) 1.5 mg/0.5 mL subcutaneous injection Inject 1.5 mg under the skin every 7 days. Active glipiZIDE (GLUCOTROL) 10 MG tablet Take 10 mg by mouth 2 (two) times a day before meals. Active hydrALAZINE (APRESOLINE) 25 MG tablet Take 25 mg by mouth 3 (three) times a day. Active levETIRAcetam (KEPPRA) 1000 MG tablet Take 1,000 mg by mouth 2 (two) times a day. Active metFORMIN (GLUCOPHAGE) 1000 MG tablet Take 1,000 mg by mouth 2 (two) times a day with meals. Active mirabegron (MYRBETRIQ) 25 mg Tb24 Take 25 mg by mouth daily. Active omeprazole (PRILOSEC) 40 MG capsule Take 40 mg by mouth daily. Active oxyBUTYnin (DITROPAN-XL) 10 MG 24 hr tablet Take 10 mg by mouth daily. Active pregabalin (LYRICA) 100 MG capsule Take 100 mg by mouth 3 (three) times a day. Active risperiDONE (RISPERDAL) 1 MG tablet Take 1 mg by mouth 2 (two) times a day. Active sertraline (ZOLOFT) 50 MG tablet Take 2 tablets (100 mg total) by mouth daily. 60 tablet 1 3 Active Active Problems Problem Noted Date Diagnosed Date Hyponatremia 02/22/2023 Assessment & Plan (02/22/2023 4:42 AM EDT): Patient presented with 2 to 3-day history of nonspecific dizziness/lightheadedness and was found to have moderate hyponatremia of 126 at [facility] yesterday. Suspect multifactorial etiology of her acute on chronic hyponatremia as repeated sodium was 128. Likely her hypotonic hyponatremia is due to drug-induced SIADH (hydrochlorothiazide, carbamazepine, SSRI) but cannot rule out dehydration/poor oral intake. -Patient will be observed on MedSurg -We will provide gentle IV fluid at 100 cc/h for 500 mL -Obtaining urine studies (urine osmolality, serum osmolality, urine sodium, uric acid level). -May consider obtaining prior records from [facility]. As we have no significant prior records in our system. -Holding hydrochlorothiazide and SSRIs -Repeating BMP in the morning -Nephrology consultation CLARISSA (obstructive sleep apnea) Assessment & Plan (02/22/2023 4:25 AM EDT): Respiratory consult for CPAP Hypomagnesemia Assessment & Plan (02/22/2023 4:25 AM EDT): Suspect poor oral intake. No evidence of GI loss. -Continue replace as needed -Monitor on telemetry Seizure Assessment & Plan (02/22/2023 4:30 AM EDT): Clinically stable. Continue carbamazepine and Keppra. Seizure precautions. Diabetes mellitus Assessment & Plan (02/22/2023 4:26 AM EDT): Holding oral antiglycemic and start basal bolus insulin Schizophrenia Assessment & Plan (02/22/2023 4:26 AM EDT): Stable. Continue Resporal 1 mg twice daily Hypertensive disorder Assessment & Plan (02/22/2023 4:28 AM EDT): Elevated BP likely due to missed medications this evening. -Start hydralazine 25 mg 3 times daily, including 1 dose now -Continue amlodipine 10 mg daily -Holding hydrochlorothiazide due to hyponatremia -May need additional antihypertensive support. Consider ANDREAS or ARB if no contraindication. Depressive disorder Assessment & Plan (02/22/2023 4:28 AM EDT): Patient is currently on 2 SSRIs. We will need to confirm Celexa and Zoloft prior to restarting. Family History Medical History Relation Comments Seizures Daughter Hyperlipidemia Maternal Grandmother Diabetes Mother Hyperlipidemia Mother Seizures Son Relation Status Comments Daughter Maternal Grandmother Mother Son Social History Tobacco Use Types Packs/Day Years Used Date Smoking Tobacco: Never Tobacco Cessation:Counseling Given: Not Answered Alcohol Use Standard Drinks/Week Comments Not Currently 0 (1 standard drink = 0.6 oz pur e alcohol) Education Answer Date Recorded Are you interested in more education? Not on jodee e 12/07/2022 Are you concerned about learning? Not on file 12/07/2022 No 12/07/2022 No 12/07/2022 Digital Access Answer Date Recorded No 01/07/2023 No 01/07/2023 Reliable internet access at home? Not on file 01/07/2023 Device with a working camera? Not on file Intimate Partner Violence Answer Date R ecorded Are you denied basic needs s uch as food, clothing, or medical care? No 04/07/2023 In the past 12 months have y ou been in a relationship with a person who hurts, threatens, or tries to control you? No 04/07/2023 Are you denied basic needs s uch as food, clothing, or medical care? No 04/07/2023 In the past 12 months have y ou been in a relationship with a person who hurts, threatens, or tries to control you? No 04/07/2023 Comments Unknown Sex and Gender Information Value Date Recorded Sex Assigned at Not on file Legal Sex Female 9:49 PM EDT Gender Identity Not on file Sexual Orientation Not on file Last Filed Vital Signs Vital Sign Reading Time Taken Comments Blood Pressure 172/87 04/07/2023 10:00 PM EDT Pulse 71 04/07/2023 10:23 PM EDT Temperature 36.8 C (98.2 F) 04/07/2023 10:23 PM EDT Respiratory Rate 23 04/07/2023 10:23 PM EDT Oxygen Saturation 100% 04/07/2023 10:23 PM EDT Inhaled Oxygen Concentration - - Weight 96.6 kg (213 lb) 04/07/2023 5:53 PM EDT Height 163.8 cm (5' 4.5 ) 04/07/2023 5:53 PM EDT Body Mass Index 36 04/07/2023 5:53 PM EDT Plan of Treatment Health Maintenance Due Date Last Done Comments Adult Td,Tdap Booster 1953 BLOOD PRESSURE 1953 HEMOGLOBIN A1C 1953 DEPRESSION SCREENING 1965 HEPATITIS C SCREENING 11/14/1971 PNEUMOCOCCAL VACCINES (50+ years) (1 of 2 - PCV) 1972 MAMMOGRAM 1993 COLOGUARD 1998 COLONOSCOPY 1998 COLORECTAL CANCER SCREENING 1998 FIT TEST 1998 FOBT 1998 SIGMOIDOSCOPY 1998 VIRTUAL COLONOSCOPY 1998 ZOSTER VACCINES (1 of 2) 11/14/2003 OSTEOPOROSIS SCREENING INITIAL (ONE-TIME) 2018 DIABETIC EYE EXAM 02/22/2023 URINE MICROALBUMIN/CREATININE RATIO 02/22/2023 CARBAMAZEPINE (TEGRETOL) LEVEL 04/07/2024 04/07/2023 CREATININE LEVEL 04/07/2024 04/07/2023, , 02/22/2023, Additional history exists INFLUENZA VACCINE (#1) 2025 COVID-19 VACCINE (2023- season) 2025 RSV VACCINE (1 - 1-dose 75+ series) 2028 SMOKING STATUS SCREENING (Once After 26 Yrs) Completed 02/22/2023 HEPATITIS A VACCINES Aged Out No long er eligible based on patient's age to complete this topic HIB VACCINES Aged Out No longer eligi ble based on patient's age to complete this topic MENINGOCOCCAL VACCINES (ACWY) Aged Out No longer eligible based on patient's age to complete this topic MENINGOCOCCAL VACCINES (B) Aged Out N o longer eligible based on patient's age to complete this topic Medical Devices Not on file Procedures Procedure Name Priority Date/Time Associated Diagnosis Comments CARBAMAZEPINE (TEGRETOL) LEVEL STAT 04/07/2023 7:34 PM EDT BASIC METABOLIC PANEL STAT 04/07/2023 6:22 PM EDT from Last 3 Months or Most Recently Relevant to Health Maintenance Results * Carbamazepine (Tegretol) level (04/07/2023 7:34 PM EDT) CARBAMAZEPINE 8.6 8.0 - 12.0 ug/mL [facility] Blood 04/07/2023 7:34 PM EDT 04/07/2023 7:39 PM EDT Mark Zuluaga MD LAB BLOOD ORDERABLES Final Re sult [address] [address] * (ABNORMAL) Basic metabolic panel (04/07/2023 6:22 PM EDT) SODIUM 131(L) 133 - 146 mmol/L [facility] CHLORIDE 92(L) 96 - 108 mmol/L [facility] POTASSIUM 3.5 3.3 - 5.1 mmol/L [facility] CO2 25 21 - 35 mmol/L [facility] BUN 15 6 - 19 mg/dL [facility] CREATININE 0.90 0.5 - 1.5 mg/dL [facility] GLUCOSE 96 70 - 99 mg/dL [facility] CALCIUM 9.1 8.4 - 10.3 mg/dL [facility] EGFR 69 >59 mL/min/1.7 3m2 [facility] Comment:Estimated glomerular filtration rate calculated using the CKD-EPI refit equation. ANION GAP 18 10 - 20 mmol/L [facility] Blood 04/07/2023 6:22 PM EDT 04/07/2023 6:38 PM EDT Mark Zuluaga MD LAB BLOOD ORDERABLES Final Re sult [facility] [address], [place] [id number] from Last 3 Months or Most Recently Relevant to Health Maintenance Insurance MEDICARE PART A & B [facility] MEDICARE PART A & B [place] & [place] HEALTH MEDICARE PART [place] & [place] & B Member Subscriber Plan / Payer (Ef fective 1994-) Name:Yasemin Hand Member ID:[id number] Relation to Subscriber:Self Name:Yasemin Hand Subscriber ID:[id number] Payer ID:[id number] Group ID:Not on file Type:Medicare Address: [facility] [address] [place] [address] [place], [place] [address]HEALTH MEDICARE PART A & [place] Advance Directives For more information, please contact: [phone] (9AM - 5PM [place], Friday-Friday) * Full Code (Latest Code Status on File) Date Activated Date Inactivated Comments 02/22/2023 3:35 AM Question Answer Comments Code Status Confirmed With: Patient Code Status Communicated To: Inpatient Attending Care Teams Refractory Grinder Operator Relationship Specialty Start Date End Date Cole Tomlinson MD [address] [place] [address] PCP - General Family Medicine 03/05/22 Additional Source Comments The information contained in this document represents components of the legal health record. It is not the complete legal health record.[facility]
--- OUTSIDE RECORDS SUMMARY | 2025-05-09 17:08 | XMS_ITS | Clinical Summary ---
Author Organization [facility] Address [address] [place] [address] Care Team Providers Care Candy Feeder Name Role Phone Richard Albright MD Primary Care Provider [phone] Allergies Active Allergy Reactions Criticality Noted Date [...] 74 01/09/2019 3:29 PM EDT Temperature 36.7 C (98 F) 01/09/2019 5:27 PM EDT Respiratory Rate 18 [...] Vaccines (1 of 2) 11/14/2003 COVID-19 Vaccine (1 - 2023-2 5 season) 2025 Influenza Vaccine (#1) 2025 HPV Vaccines Aged Out No longer eligi ble based on patient's age to complete this topic Hepatitis A Vaccines Aged Out No long er eligible based on patient's age to complete this topic Meningococcal Vaccine Aged Out No july mayra eligible based on patient's age to complete this topic Insurance MEDICARE PART A & B MEDICAID OUT OF STATE Care Teams Candy Feeder Relationship Specialty Start Date End Date Richard Albright MD [address] [place] [id number] PCP - General 01/09/19
--- OUTSIDE RECORDS SUMMARY | 2025-05-09 17:08 | XMS_ITS | Clinical Summary ---
Author Organization [facility] [address] [place] [address] Address [address] [place] [address] Care Team Providers Care Manager Film Name Role Phone No, Pcp (Do Not [...] (20 mg total) by mouth daily. Active Active Problems Problem Noted Date Diagnosed Date Hyperglycemia 12/23/2024 Social History Tobacco Use Types Packs/Day Years Used Date Smoking Tobacco: Never Assessed [facility] Utilities Answer Date Recorded In the past 12 months has [employer], [employer], [employer], or water [employer] threatened to shut off services in your [...] your living situation today? I have a [facility] place to live 12/23/2024 Housing Stability [...] 79 12/25/2024 2:58 PM EDT Temperature 36.3 C (97.3 F) 12/25/2024 2:58 PM EDT Respiratory Rate 19 12/25/2024 2:58 PM EDT [...] Shingrix (RZV) 2 Dose Standard Series) 11/14/2003 Osteoporosis screening (bone density) 2018 Influenza vaccine 03/11/2025 Hemoglobin A1C 03/25/2025 12/23/2024 Covid-19 vaccine series ( season) 2025 Diabetes screening 12/26/2027 12/25/2024, 0 12/24/2024, 12/23/2024, Additional history exists RSV Immunization (1 - 1-dose 75+ series) 2028 Cervical cancer screening Discontinued Meningococcal B Vaccine Aged Out No l onger eligible based on patient's age to complete this topic Meningococcal Vaccine Aged Out No july mayra eligible based on patient's age to complete this topic Procedures Procedure Name Priority Date/Time Associated Diagnosis Comments COMPREHENSIVE METABOLIC PANEL Early AM 12/25/2024 7:08 AM EDT HEMOGLOBIN A1C STAT 12/23/2024 12:47 PM EDT from Last 3 Months or Most Recently Relevant to Health Maintenance Results * (ABNORMAL) Comprehensive metabolic panel (12/25/2024 7:08 AM EDT) Sodium 133(L) 136 - 144 mmol/L 12/25/2024 8:41 AM EDT [facility] Potassium 3.8 3.3 - 5.3 mmol/L 12/25/2024 8:41 AM EDT [facility] Chloride 99 98 - 107 mmol/L 12/25/2024 8:41 AM EDT [facility] CO2 22 20 - 30 mmol/L 12/25/2024 8:41 AM EDT [facility] Anion Gap 12 7 - 17 12/25/2024 8:41 AM EDT [facility] Glucose 283(H) 70 - 100 mg/dL 12/25/2024 8:41 AM EDT [facility] BUN 17 8 - 23 mg/dL 12/25/2024 8:41 AM [facility] Creatinine 0.90 0.40 - 1.30 mg/dL 12/25/2024 8:41 AM EDT [facility] Calcium 9.2 8.8 - 10.2 mg/dL 12/25/2024 8:41 AM EDT [facility] BUN/Creatinine Ratio 18.9 8.0 - 23.0 12/25/2024 8:41 AM [facility] Total Protein 6.6 5.9 - 8.3 g/dL 025 8:41 AM [facility] Comment:As of 2023, th e reference interval for Total Protein has been changed from (6.6 to 8.7 g/dL) to (5.9 to 8.3 g/dL). Albumin 3.5(L) 3.6 - 5.1 g/dL 12/25/2024 8:41 AM T [facility] Comment:As of 2023, th e reference interval for Albumin has been changed from (3.6 to 4.9 g/dL) to (3.6 to 5.1 g/dL). Total Bilirubin 0.2 <=1.2 mg/dL 12/26/19 25 8:41 AM EDT [facility] Alkaline Phosphatase 79 9 - 122 U/L 12/25/2024 8:41 AM EDT [facility] Alanine Aminotransferase (ALT) 47(H) 10 - 35 U/L 12/25/2024 8:41 AM [facility] Comment:Calcium dobesilate c an cause artificially low ALT results at therapeutic concentrations Aspartate Aminotransferase (AST) 58(H) 10 - 35 U/L 12/25/2024 8:41 AM T [facility] Globulin 3.1 2.0 - 3.9 g/dL 12/25/2024 8:41 AM T [facility] Comment:As of 2023, e reference interval for Globulin has been changed from (2.3 to 3.5 g/dL) to (2.0 to 3.9 g/dL). A/G Ratio 1.1 1.0 - 2.2 12/25/2024 8:41 AM [facility] AST/ALT Ratio 1.2 Reference Range Not Established 12/25/2024 8:41 AM [facility] eGFR (Creatinine) >60 >=60 mL/min/1.73m2 12/25/2024 8:41 AM [facility] Comment: [facility] utilizes CKD-EPI Creatinine 2020 to report eGFR. Values < 60 mL/min/1.73 m2 may indicate CKD if present for more than three months AND creatinine is at steady state. The eGFR provides a rough estimate of kidney function. For further guidance, please refer to the CKD: Adult Bonding Equipment Operator Signature pathway. Creatinine Delta 0.1 See Comment 025 8:41 AM [facility] Comment: Delta creatinine is the [...] 12/25/2024 7:53 AM EDT us Sonal Oneill RADIO TELEVISION TECHNICAL DIRECTOR LAB BLOOD ORDERABLES Final Res ult [facility] [address] [place] [address] * (ABNORMAL) Hemoglobin A1c (12/23/2024 12:47 PM EDT) Hemoglobin A1c 11.3(H) 4.0 - 5.6 % 12/24/2024 9:23 AM EDT [facility] Comment: Hemoglobin A1c values of 5.7-6.4 % identify individuals with an increased risk for future diabetes and to whom the term pre-diabetes may be applied. Hemoglobin A1c values greater than 6.4% on more [...] mg/dL 278 mg/dL 12/24/2024 9:23 AM EDT [facility]IC[facility] Comment: Estimated average glucose (eAG) is a calculated value designed to estimate the expected average blood glucose level throughout the day from a single measurement of glycated hemoglobin A1C (HbA1c) and follows the calculation proposed by the [place] [employer] (Diabetes Care 31: 1-6, 2008). It may have less accuracy in children, women and patients with certain erythrocyte disorders. Blood Venipuncture / Unknown 12/23/2024 12:47 PM EDT 12/23/2024 12:50 PM EDT Eliud Chaudhary MD LAB BLOOD ORDERABLES Final Resul t Performing Organization Address City/State/[facility] Co de Phone Number [facility] DEPARTMENT OF LABORATORY MEDICINE [address] [place] [address], [facility] [phone] from Last 3 Months or Most Recently Relevant to Health Maintenance Insurance MEDICARE [id number] MEDICAID MEDICARE [id number] MEDICAID MEDICARE [id number] MEDICAID Advance Directives * Full Code (Latest Code Status on File) Date Activated Date Inactivated Comments 12/23/2024 1:06 PM 12/25/2024 11:39 PM Care Teams Manager Film Relationship Specialty Start Date End Date No, Pcp (Do Not Change Name) PCP - General 12/23/24
== END 2025-05-09 15:35 | disposition home or self-care (01) ==
LOC: HO.HMCFM 15:03
PROVIDERS: PCP Family Medicine; Visit Provider Family Medicine
DX: I10 Essential (primary) hypertension (principal); E11.40 Type 2 diabetes mellitus with diabetic neuropathy, unspecified; Z13.9 Encounter for screening, unspecified

== ENCOUNTER → 2025-05-09 15:02 | Outpatient (BNVA) | payer MEDICARE, MEDICAID, SELFPAY | PROVIDERS: PCP Family Medicine; Visit Provider Family Medicine | DX: E11.40 Type 2 diabetes mellitus with diabetic neuropathy, unspecified (principal); I10 Essential (primary) hypertension; Z79.4 Long term (current) use of insulin | CPT/HCPCS: 83036; 99212 ==